=== PATIENT | female | born 1950 | race Caucasian/White ===

== ENCOUNTER → 2016-07-29 | Outpatient (CLI) | payer MEDICARE, OTHER ==
[~2016-07-29] MED LIST: ALBU2.5V4 NEB; AMLO5TAB2 PO; ASPI-999 PO; ATEN100T PO; CLOP75TA28 PO; DULO60CA6 PO; INSN1U SQ; INSU100V31 SC; LOSA100T28 PO; METF500T4 PO; NITR0.4T SL; PRAV40TA2 PO; RT-ALBUINH IH
== END ==
LOC: RAD 11:57
PROVIDERS: ATTEND Internal Medicine Cardiovascular Disease
DX: I25.10 Atherosclerotic heart disease of native coronary artery without angina pectoris (principal); I10 Essential (primary) hypertension; E78.4 Other hyperlipidemia; R26.89 Other abnormalities of gait and mobility; R00.2 Palpitations; R06.02 Shortness of breath; I35.0 Nonrheumatic aortic (valve) stenosis; I65.23 Occlusion and stenosis of bilateral carotid arteries; Z72.0 Tobacco use
CPT/HCPCS: 93923

== ENCOUNTER → 2016-07-31 | Outpatient (CLI) | payer MEDICARE, OTHER ==
--- NOTE | 2016-08-01 06:38 | ECHOCARDIOGRAPHY REPORT ---
DATE OF SERVICE: 07/31/2016 DATE OF SERVICE: 07/31/2016. ORDERING PHYSICIAN: Dr. Naranjo. PRIMARY PHYSICIAN: Dr. Melo. CLINICAL DIAGNOSIS: Shortness of breath, aortic stenosis, coronary artery disease. MEASUREMENTS: Left atrium: 4.4. Aortic root: 2.8. LV diameter diastolic: 4.8 IVS thickness, diastolic: 1.3. LVPW thickness, diastolic: 1.3. DESCRIPTION: Two-dimensional echocardiography shows mild concentric left ventricle hypertrophy. Global left ventricular systolic function is normal. No distinct regional wall motion abnormalities seen. Left ventricular ejection fraction is approximately 60%. There is moderate mitral annular calcification and moderate aortic valve sclerosis. Mitral and tricuspid valve leaflets show good leaflet excursion. Aortic valve leaflets exhibit fair leaflet excursion. Doppler imaging shows mild aortic, mitral and tricuspid regurgitation. Inferior vena cava is mildly dilated. There does not appear to be significant pressure gradient across the aortic valve. Pulmonary artery systolic pressure is estimated to be within normal limits. CONCLUSIONS: 1. Normal global left ventricular systolic function with an ejection fraction of approximately 60%. 2. Mild concentric left ventricular hypertrophy. 3. Aortic valve sclerosis without significant aortic stenosis. 4. Mitral annular calcification without significant mitral stenosis. 5. Mild aortic, mitral and tricuspid valvular regurgitation. 6. Pulmonary artery systolic pressure is estimated to be within normal limits. Job ID: [id number] DocumentID: [id number] Dictated Date: 07/31/2016 11:12:12 Assessment Consultant Date: 07/31/2016 16:00:40 Dictated By: ROMARIO NARANJO MD, MA, FACP, FACC,
== END ==
LOC: CARD 08:43
PROVIDERS: ATTEND Internal Medicine Cardiovascular Disease
DX: I25.10 Atherosclerotic heart disease of native coronary artery without angina pectoris (principal); I10 Essential (primary) hypertension; E78.4 Other hyperlipidemia; R26.89 Other abnormalities of gait and mobility; R00.2 Palpitations; R06.02 Shortness of breath; I35.0 Nonrheumatic aortic (valve) stenosis; I65.23 Occlusion and stenosis of bilateral carotid arteries; Z72.0 Tobacco use
CPT/HCPCS: 93225; 93226; 93306

== ENCOUNTER → 2016-08-05 | Outpatient (CLI) | payer MEDICARE, OTHER ==
[~2016-08-05] MED LIST changes: +CATHETER FLUSH 10 ML SYR IV PRN; +REGADENOSON 0.4 MG/5 ML SYR (LEXISCAN) IV ONE
[2016-08-05 09:04] VITALS: BP 160/79
--- NOTE | 2016-08-06 12:45 | STRESS TEST ---
DATE OF SERVICE: 08/05/2016 RESTING AND POST REGADENOSON TECHNETIUM-99M TETROFOSMIN SPECT CT IMAGING ORDERING PHYSICIAN: Dr. Naranjo. PRIMARY PHYSICIAN: Dr. Melo. CLINICAL DIAGNOSES: Coronary artery disease, hypertension, hyperlipidemia. Baseline images were carried out after injection of 10.56 mCi of technetium-99m tetrofosmin. This was followed by 0.4 mg regadenoson and 28.8 mCi of technetium-99m tetrofosmin. The electrocardiogram showed sinus rhythm with frequent isolated premature ventricular contractions throughout the study. There is nonspecific ST abnormality and involving the inferolateral leads that persisted throughout the study. Review of images at rest and following stress indicates the basal inferior infarction with a small amount of layla-infarct ischemia. Gated images show well-preserved global left ventricular systolic function. There appears to be some degree of basal inferior hypokinesis. Left ventricular ejection fraction is calculated to be 61%. Left ventricular end-diastolic volume is 69 mL. TID is absent (1.08). CONCLUSIONS: 1. The study is indicative of a basal inferior infarction with a small amount of layla-infarct ischemia. 2. Localized basal inferior hypokinesis. 3. Well-preserved global left ventricular systolic function with a calculated ejection fraction of 61%. 4. Frequent isolated premature ventricular contractions throughout the study. Job ID: [id number] DocumentID: [id number] Dictated Date: 08/06/2016 09:13:58 Environmental Engineering Aide Date: 08/06/2016 11:55:20 Dictated By: ROMARIO NARANJO MD, MA, FACP, FACC,
== END ==
LOC: CARD 07:12
PROVIDERS: ATTEND Internal Medicine Cardiovascular Disease
DX: I25.10 Atherosclerotic heart disease of native coronary artery without angina pectoris (principal); I10 Essential (primary) hypertension; E78.4 Other hyperlipidemia; R26.89 Other abnormalities of gait and mobility; R00.2 Palpitations; R06.02 Shortness of breath; I35.0 Nonrheumatic aortic (valve) stenosis; I65.23 Occlusion and stenosis of bilateral carotid arteries; Z72.0 Tobacco use
CPT/HCPCS: 78452; 93017

== ENCOUNTER 2016-08-12 07:09 | Day surgery (SDC) | payer MEDICARE ==
[~2016-08-12] VITALS: Ht 167.6 cm; Wt 94.3 kg
[2016-08-12] VITALS (10 sets, daily range): BP systolic 122–158; BP diastolic 65–104
[2016-08-12] MEDS ORDERED: NS IV 1000 ML 1,000 ML ONE (07:12)
[2016-08-12] MEDS ORDERED: LIDOCAINE 1% INJ 20 ML (XYLOCAINE) VIAL ONE (07:12)
[2016-08-12] MEDS ORDERED: HEParin (CATH LAB) 2,000 ML IV ONE (07:13)
[2016-08-12] MEDS ORDERED: NS IV 1000 ML 1,000 ML IV SCH (07:30)
[2016-08-12 07:52] LABS: MEAN PLATELET VOLUME 9.6 FL (7.4-10.4); RED BLOOD COUNT 4.4 10^6/uL (4.35-5.85); RED CELL DISTRIBUTION WIDTH 15.1 % (10.0-14.5)
[2016-08-12 08:02] LABS: INR 1.1 (0.8-1.4); PROTHROMBIN TIME PATIENT 13.6 SEC (12.2-14.7)
[2016-08-12 08:14] LABS: ALANINE AMINOTRANSFERASE 16 U/L (0-55); ALBUMIN 4.1 G/DL (3.2-4.5); ANION GAP 11 MMOL/L (5-14); ASPARTATE AMINO TRANSFERASE 14 U/L (5-34); BILIRUBIN,TOTAL 0.5 MG/DL (0.1-1.0); BLOOD UREA NITROGEN 10 MG/DL (7-18); BUN/CREATININE RATIO 13; CARBON DIOXIDE 23 MMOL/L (21-32); CHLORIDE 104 MMOL/L (98-107); CHOLESTEROL 142 MG/DL (< 200); CREATININE SERUM 0.78 MG/DL (0.60-1.30); DIRECT LDL 80 MG/DL (1-129); GFR ESTIMATED > 60; GLUCOSE 171 MG/DL (70-105); POTASSIUM 4.1 MMOL/L (3.6-5.0); SODIUM 138 MMOL/L (135-145); TRIGLYCERIDES 191 MG/DL (<150); VLDL CHOLESTEROL 38 MG/DL (5-40)
[2016-08-12] MEDS ORDERED: MIDAZOLAM 5 MG/5 ML (VERSED) VIAL ONE (08:30)
[2016-08-12] MEDS ORDERED: diphenhydrAMINE 50 MG/ML INJ (BENADRYL) ONE (08:31)
[2016-08-12] MEDS ORDERED: fentaNYL INJECTION 100 MCG/2 ML AMP ONE ×2 (08:31→11:18)
[2016-08-12] MEDS ORDERED: LOSA100T28 PO (08:33)
[2016-08-12] MEDS ORDERED: INSU100V31 SC (08:33)
[2016-08-12] MEDS ORDERED: NITR0.4T SL (08:33)
[2016-08-12] MEDS ORDERED: ALBU2.5V4 NEB (08:33)
[2016-08-12] MEDS ORDERED: AMLO5TAB2 PO (08:33)
[2016-08-12] MEDS ORDERED: INSN1U SQ (08:33)
[2016-08-12] MEDS ORDERED: PRAV40TA2 PO (08:33)
[2016-08-12] MEDS ORDERED: RT-ALBUINH IH (08:33)
[2016-08-12] MEDS ORDERED: METF500T4 PO (08:33)
[2016-08-12] MEDS ORDERED: ATEN100T PO (08:33)
[2016-08-12] MEDS ORDERED: DULO60CA6 PO (08:33)
[2016-08-12] MEDS ORDERED: ASPI-999 PO (08:33)
[2016-08-12] MEDS ORDERED: ADENOSINE 3 MG/1 ML (ADENOSCAN) 30ML VIAL IV ONE (09:16)
[2016-08-12] MEDS ORDERED: HEParin 1000 UNIT/ML (10ML VIAL) FOR BOLUS ONE (09:16)
[2016-08-12] MEDS ORDERED: NITROGLYCERIN DRIP 25 MG/D5W 250 ML IV ONE (09:28)
[2016-08-12] MEDS ORDERED: EPTIFIBATIDE BOLUS 20 ML IV ONE (09:29)
[2016-08-12] MEDS ORDERED: ASPIRIN 81 MG CHEW (CHILDREN'S ASA) ONE (10:09)
[2016-08-12] MEDS ORDERED: CLOPIDOGREL 300 MG (PLAVIX) TABLET PO ONE (10:09)
--- NOTE | 2016-08-12 11:02 | Cardiac Procedure Note-CS/ASA ---
Pre-Procedure Note Pre-Op Procedure Note H&P Reviewed The H&P was reviewed, patient examined and no changes noted. Date H&P Reviewed: August 12, 2016 Time H&P Reviewed: 09:00 Conscious Sedation Pre-Proced Time Reviewed: 09:00 Airway Mallampati Classification: ([place] appropriate class) I. II. III, IV Lungs Heart ASA score ASA 1: a normal healthy patient ASA 2: a patient with a mild systemic disease (mid diabetes, controlled hypertension, obesity ASA 3: a patient with a severe systemic disease that limits activity (angina , COPD, prior Myocardial infarction) ASA 4: a patient with an incapacitating disease that is a constant threat to life (CHF, renal failure) ASA 5: a moribund patient not expected to survive 24 hrs. (ruptured aneurysm) ASA 6: a declared brain patient whose organs are being harvested. For emergent operations, add the letter E after the classification Grade 2 Sedation Plan: Analgesia, Amnesia, Plan communicated to team members, Discussed options with patient/fam, Discussed risks with patient/fam Note The patient is an appropriate candidate to undergo the planned procedure, sedation, and anesthesia. The patient immediately re-assessed prior to indication. ROMARIO LINDSEY MD FACP FAC CCDS August 12, 2016 11:02
[2016-08-12] MEDS ORDERED: ACETAMINOPHEN 325 MG TABLET/CAPLET (TYLENOL) PO PRN (11:15)
[2016-08-12] MEDS ORDERED: PATIENT MAY USE OWN MEDS, ALL PO SCH (11:15)
[2016-08-12] MEDS ORDERED: NITROGLYCERIN SUBLINGUAL 0.4 MG TAB (NITROSTAT) SL PRN (11:15)
[2016-08-12] MEDS ORDERED: RT-ALBUTEROL SULF 2.5 MG/3 ML PRE-MIX VIAL IH PRN (11:15)
[2016-08-12] MEDS ORDERED: RT-ALBUTEROL HFA (VENTOLIN) PER PUFF IH PRN (11:15)
[2016-08-12] MEDS ORDERED: ATROPINE INJECTION 1 MG/10 ML SYR (ABBOTT) ONE (11:18)
[2016-08-12] MEDS ORDERED: fentaNYL INJECTION 100 MCG/2 ML AMP IVP ONE (11:30)
[2016-08-12] MEDS: NS IV 1000 ML 1,000 ML IV SCH ×2 (12:40→22:05)
--- NOTE | 2016-08-12 14:37 | CARDIAC CATHETERIZATION ---
DATE OF SERVICE: 08/12/2016 CARDIAC CATHETERIZATION, CORONARY INTERVENTION, AND ABDOMINAL AORTIC AND PERIPHERAL ANGIOGRAPHY HISTORY OF PRESENT ILLNESS: The patient is a 65-year-old lady who is known to have coronary artery disease and who has been exhibiting frequent premature ventricular contractions and a 4-beat run of wide complex tachycardia on a recent Holter study. Myocardial perfusion imaging study has indicated basal inferior infarction with a small amount of periinfarct ischemia. She has bilateral leg discomfort and segmental pressures 07/2016 have indicated moderate peripheral arterial disease. Cardiac catheterization and peripheral angiography was recommended, along with AD HOC intervention, if needed. Informed consent was obtained. DESCRIPTION OF PROCEDURE: She was brought to the cardiac catheterization laboratory in a fasting state. Right groin was prepared and draped in the usual sterile fashion, 1% lidocaine local anesthesia. Modified Seldinger technique was used to advance a 5-Marshallese sheath into the right femoral artery. A 5-Marshallese JL4 catheter was used for left coronary angiography. A 5-Marshallese JR4 catheter was used for right coronary angiography. A 5-Marshallese pigtail catheter was used for left heart catheterization and left ventricular angiography. FRACTIONAL FLOW RESERVE MEASUREMENT IN THE RIGHT CORONARY ARTERY: Following completion of the diagnostic procedure, we carried out fractional flow reserve measurement across multiple lesions in the right coronary artery. The patient had 50% stenosis in a previously stented area of the mid right coronary artery and 50%-60% stenosis in the distal right coronary artery, prior to the origin of the posterior descending branch. We exchanged the sheath over a wire for 6-Marshallese sheath. We gave 5000 units of intravenous heparin. We used the 6-Marshallese JR4 guide catheter. We advanced a pressure wire across the lesions in the right coronary artery and placed the tip in the distal vessel. We gave adenosine 140 mcg per kilogram per minute for 2.5 minutes. Fractional flow reserve (combined across all lesions) was approximately 0.91 indicating hemodynamic insignificance of all of the lesions in the right coronary artery. PERCUTANEOUS INTERVENTION TO THE LEFT CIRCUMFLEX ARTERY: Following completion of the fractional flow reserve measurement in the right coronary artery, we removed the right coronary artery guide catheter and then proceeded with percutaneous intervention to the AV groove L circumflex coronary artery, which was exhibiting 99% stenosis following the origin of the large obtuse marginal branch. The AV groove artery, however, is quite small. We advanced a 6-Marshallese JL4 guide catheter to engage the left coronary artery. We advanced a Choice floppy wire across the lesion in the AV groove, left circumflex artery and the tip was placed in the distal vessel. We carried out multiple balloon inflations with an Emerge 1.5 x 20 mm balloon. The vessel is of too small caliber for stenting. Following balloon angioplasty, the stenosis had been reduced from 90% to approximately 30% and flow throughout the vessel was normal. Angioplasty equipment was removed. We did give an additional 1000 units of intravenous heparin during this procedure. We also gave a double bolus of Integrilin during this procedure. ABDOMINAL AORTIC ANGIOGRAPHY: We then proceeded with abdominal aortic angiography with the pigtail catheter placed at the level of L1 and also at the level of the T12. BILATERAL LEG ARTERY ANGIOGRAPHY: We carried out bilateral leg artery angiography with the catheter placed at the level just cephalic to the aortoiliac bifurcation and a runoff was performed down to the level of the ankles on both sides. The patient tolerated the procedure well. The pigtail catheter was removed and angiography of the right femoral artery was carried out through the sheath, but the site of sheath deployment was not suitable for device closure. The sheath was sutured in place to be removed on the floor at a later time. HEMODYNAMICS: Left ventricular end-diastolic pressure following coronary angiography was 28 mmHg. There was approximately 12 mm pressure gradient on pullback across the aortic valve. Ascending aortic pressure at 155/75 with a mean of 105 mmHg. LEFT VENTRICULAR ANGIOGRAPHY: Left ventricular angiography was carried out in the right anterior oblique projection. Global left ventricular systolic function was normal. No distinctive regional wall motion abnormality was seen. There does not appear to be significant mitral regurgitation. Left ventricular ejection fraction was approximately 55%. CORONARY ANGIOGRAPHY: There is diffuse coronary calcification. Left main coronary artery does not exhibit significant obstructive disease. Left anterior descending artery has approximately 50% stenosis in its proximal to mid portion, where the first diagonal branch comes off the left anterior descending artery. The ostial portion of the left anterior descending artery also has approximately 50% stenosis. The rest of the left anterior descending artery has diffuse moderate disease. The left circumflex artery has diffuse mild to moderate disease. Following the origin of the large obtuse marginal branch, the AV groove left circumflex artery had 99% stenosis, to which a successful balloon angioplasty was carried out with a reduction of stenosis to 30%. This vessel is of a small caliber and not suitable for stenting. The right coronary artery is large and dominant. There is a patent stent in its mid portion, which was exhibiting approximately 50% in-stent restenosis. Just distal to the distal edge of the stent, there was another 50% stenosis. The distal right coronary artery, prior to the origin of the posterior descending branch, had 50%-60% stenosis. Fractional flow reserve plus the combination of all of these lesions is 0.91, indicating hemodynamic not significant. The posterior descending branch of the right coronary artery has 90% stenosis at its very distal portion where the vessels are too small of caliber for intervention. ABDOMINAL AORTIC ANGIOGRAPHY: Abdominal aortic angiography indicates abdominal aortic atherosclerosis and calcification. There is no significant abdominal aortic aneurysm. The mesenteric vessels are identified and do not exhibit significant disease. The celiac artery does not exhibit significant disease. The left renal artery is identified and does not exhibit significant disease. The right renal artery is not visualized. There does appear to be an accessory right renal artery, but the right renal artery itself is not visualized in its usual position. 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 BILATERAL LEG ARTERY ANGIOGRAPHY: Bilateral leg artery angiography indicates approximately 50% stenosis at the right common iliac. Both internal iliacs have severe proximal disease. The external iliacs, the common femoral arteries, the superficial femoral arteries, the deep femoral arteries, and the popliteal arteries on both sides do not exhibit significant disease. On both sides, there is a 3-vessel runoff in the leg. CONCLUSIONS: 1. Coronary artery disease as detailed above. In the right coronary artery, there is a patent stent in the mid portion and there is a diffuse moderate disease involving the mid and distal right coronary artery and fractional flow reserve across the combination of all of those lesions is 0.91, indicating hemodynamic non-significance. The posterior descending branch of the right coronary artery does have 90% stenosis at its very distal portion, where it is of a small caliber and not amenable to intervention. The left anterior descending artery has 50% stenosis at its mid portion, which also involves the first diagonal branch. The left circumflex artery had 99% stenosis in its mid portion following the origin of a large obtuse marginal branch. To this AV groove left circumflex artery, balloon angioplasty was carried out today with reduction of stenosis from 99% to approximately 30%. Here, the vessel is of too small caliber for stenting. 2. Elevated left ventricular end-diastolic pressure. 3. Well-preserved global left ventricular systolic function with ejection fraction of 55%. 4. No significant mitral regurgitation is visualized on the study. 5. Abdominal aortic atherosclerosis without abdominal aortic aneurysm. 6. Intact left renal artery without stenosis. The right renal artery is not visualized in its usual location on this study. 7. 50% stenosis of the right common iliac artery. DISCUSSION AND RECOMMENDATIONS: She is being hospitalized for observation after today's procedure. The risk factor modification has been reviewed. Plavix has been added to the regimen. Further decision will be based on her hospital course. Job ID: [id number] DocumentID: [id number] Dictated Date: 08/12/2016 10:33:39 Rip Machine Operator Date: 08/12/2016 11:33:43 Dictated By: ROMARIO LINDSEY MD, MA, FACP, FACC, MTDD
[2016-08-12] MEDS: inSUlin (REGULAR) HUMAN 1 UNIT/0.01 ML (CHARGE PER UNIT) SC SCH ×2 (16:12→21:04)
[2016-08-12] MEDS ORDERED: Pravastatin Sodium 40 MG PO SCH (21:00)
[2016-08-12] MEDS ORDERED: LOSARTAN 100MG TABLETS PO SCH (21:00)
[2016-08-12] MEDS ORDERED: ATENOLOL 100 MG PO SCH (21:00)
[2016-08-12] MEDS ORDERED: amLODIPine 5 MG (NORVASC) TAB PO SCH (21:00)
[2016-08-12] MEDS: inSUlin NPH (NovoLIN N) 1 UNIT/0.01 ML (CHARGE PER UNIT) SQ SCH (21:05)
[2016-08-13] VITALS: BP 129/59
[2016-08-13 04:00] VITALS: BP 124/95
[2016-08-13 04:22] LABS: MEAN PLATELET VOLUME 9.8 FL (7.4-10.4); RED BLOOD COUNT 3.88 10^6/uL (4.35-5.85); WHITE BLOOD COUNT 9.8 10^3/uL (4.3-11.0)
[2016-08-13 04:41] LABS: ANION GAP 8 MMOL/L (5-14); BLOOD UREA NITROGEN 12 MG/DL (7-18); BUN/CREATININE RATIO 16; CALCIUM 8.5 MG/DL (8.5-10.1); CARBON DIOXIDE 21 MMOL/L (21-32); CHLORIDE 108 MMOL/L (98-107); CREATININE SERUM 0.74 MG/DL (0.60-1.30); GFR ESTIMATED > 60; GLUCOSE 176 MG/DL (70-105); POTASSIUM 4.6 MMOL/L (3.6-5.0); SODIUM 137 MMOL/L (135-145)
[2016-08-13 08:00] VITALS: BP 132/85
--- NOTE | 2016-08-13 08:30 | Progress Note-Cardiology ---
Cardiology SOAP Progress Note Subjective: Sitting up in a recliner this morning. States she felt SOB last night and had to sleep in the recliner d/t not being able to lie flat. She states she felt she was having a lot of PVC's last night. She states she feels better this morning and wants to go home. No c/o CP, palpitations, syncope or near syncope. No c/o right groin pain. Objective: I&O/Vital Signs Vital Sign - Last 12Hours 08/13/16 08/13/16 08/13/16 08/13/16 04:00 07:00 08:00 08:00 Temp 97.2 97.7 Pulse 75 76 79 Resp 16 B/P (MAP) 124/95 132/85 Pulse Ox 95 95 95 O2 Delivery Room Air Intake and Output 08/13/16 00:00 Intake Total 1520 ml Output Total 400 ml Balance 1120 ml Weight (Pounds): 208 Weight (Ounces): 0.0 Weight (Calculated Kilograms): 94.685668 Side: right Groin site without hematoma: Yes Condition: DP/PT pulses palpable, extremity w/d/p Drainage: No Bruising: mild bruising Constitutional: AAO x 3 Respiratory: lungs clear to auscultation (diminished breath sounds with prolonged expiratory phase) Cardiovascular: regular rate-rhythm (Frequent PVC's), No JVD, S1 and S2 Gastrointestional: No tender, soft, round, audible bowel sounds Extremities: No significant edema Neurologic/Psychiatric: grossly intact Results/Procedures: Labs Laboratory Tests 08/12/16 20:47: Glucometer 85 08/12/16 22:56: Glucometer 161H 08/13/16 04:00: White Blood Count 9.8, Red Blood Count 3.88L, Hemoglobin 11.8, Hematocrit 37, Mean Corpuscular Volume 96, Mean Corpuscular Hemoglobin 30, Mean Corpuscular Hemoglobin Concent 32, Red Cell Distribution Width 15.0H, Platelet Count 239, Mean Platelet Volume 9.8, Sodium Level 137, Potassium Level 4.6, Chloride Level 108H, Carbon Dioxide Level 21, Anion Gap 8, Blood Urea Nitrogen 12, Creatinine 0.74, Estimat Glomerular Filtration Rate > 60, BUN/Creatinine Ratio 16, Glucose Level 176H, Calcium Level 8.5 Procedures S/P cardiac cath with successful intervention on 08-12-16. Please refer to Dr. Naranjo's cardiac cath report for details. A/P: Assessment: Coronary artery disease. With a h/o PCI. H/o cor stenting at [facility] in [place], [place] in early 2012: mid-RCA stent (Promus [id number], placed in May 2012 ) Cardiac cath of August 12 showed patent stent in the mid RCA and diffuse moderate disease involving the mid and distal right coronary artery with fractional flow reserve across the combination of all of those lesions of 0.91, indicating hemodynamic non-significance. The posterior descending branch of the right coronary artery does have 90% stenosis at its very distal portion where it is of a small caliber and not amenable to intervention. The left anterior descending artery has 50% stenosis in its mid portion, which also involves the first diagonal branch. The left circumflex artery had 99% stenosis in its mid portion following the origin of a large obtuse marginal branch. To this AV groove left circumflex artery, balloon angioplasty was carried out today with reduction of stenosis from 99% to approximately 30%. Here, the vessel is of too small a caliber for stenting. Elevated left ventricular end-diastolic pressure. Well-preserved global left ventricular systolic function with ejection fraction of 55%. No significant mitral regurgitation is visualized on the study. Abdominal aortic atherosclerosis without abdominal aortic aneurysm. Intact left renal artery without stenosis. The right renal artery is not visualized in its usual location on this study. Per angiogram of 08-12-16 MPI of August 05, 2016 is indicative of a basal inferior infarction with a small amount of layla-infarct ischemia. Localized basal inferior hypokinesis. LVEF 61 %. Frequent isolated PVC's throughout the study 24 hour Holter study of August 2016 showed NSR with average rate of 94 bpm. Frequent PVC's. Up to 4 beat run of WCT at up to [address] abnormality throughout the study H/o carotid arterial disease Echo of July 31, 2016 showed LVEF of 60%. Mild concentric LVH. Aortic valve sclerosis witout significant aortic stenosis. Mitral annular calcification without significnat mitral stenosis. Mild aortic, mitral and tricuspid valvular regurg. PASP WNL H/o R subclavian stenosis by carotid doppler, per records from [facility] ( details unknown) Chronic PAC and PVCs, symptomatic, treated with beta-blockers Hypertension DM II Hyperlipidemia, treated with pravastatin Elevated BMI of approx 33.6 H/o OA and fibromyalgia Abnormal ECG on 07/23/16: Sinus rhythm with vent bigeminy, nonspecific ST abn Chronic bilateral leg discomfort - Segmental pressure of July 2016 is indicative of mild peripheral arterial disease of the left leg and mod PAD of the right leg - 50% stenosis of the right common iliac artery and severe ostial/ prox stenoses of bilat internal iliac arteries per peripheral angiogram at time of cardiac cath on 08-12-16 Physician Assessment Physician Assessment Lungs: good bilat air entry Cor: reg Groin: no hematoma, mod bruising A&R * As documented in our note above, which I updated at the time of this writing * I had a detailed discussion with her and her regarding our cath findings and interventions undertaken. We discussed her CV issues at length. We also discussed the extreme importance of risk factor modification, saad quitting smoking. We have advised close outpatient f/u for now * She understands all of the above and states compliance * For frequent PVCs, we offered EP referral, but she has not agreed PURA JAMESON August 13, 2016 08:30 ROMARIO NARANJO MD FACP FAC CCDS August 13, 2016 13:17
[2016-08-13] MEDS: inSUlin (REGULAR) HUMAN 1 UNIT/0.01 ML (CHARGE PER UNIT) SC SCH (08:34)
[2016-08-13] MEDS ORDERED: CLOP75TA28 PO (08:39)
--- NOTE | 2016-08-13 08:41 | Discharge Inst-Cardiology ---
Discharge Inst-Cardiac Discharge Medications New Medications: Clopidogrel Bisulfate (Clopidogrel) 75 Mg Tablet 75 MG PO DAILY, #90 TAB 3 Refills Continued Medications: Albuterol Sulfate (Ventolin Hfa) 1 Puff Puff 2 PUFF IH Q4H PRN for SHORTNESS OF BREATH, PUFF 1 PUFF = 90 MCG Albuterol Sulfate (Albuterol Sulfate) 2.5 Mg/3 Ml Vial.neb 2.5 MG NEB Q6H PRN for SHORTNESS OF BREATH, EA Amlodipine Besylate (Amlodipine Besylate) 5 Mg Tablet 5 MG PO HS, TAB Aspirin (Aspirin) 81 Mg Tab.chew 81 MG PO HS, TAB Atenolol (Atenolol) 100 Mg Tablet 100 MG PO HS, TAB Duloxetine HCl (Cymbalta) 60 Mg Capsule.dr 60 MG PO Q48H, CAP Insulin NPH Human Isophane (Novolin N) 100 Unit/1 Ml Vial 52 UNIT SQ BID, VIAL Insulin Regular, Human (Novolin R) 100 Unit/1 Ml Vial 52 UNIT SC TID, VIAL Losartan Potassium (Losartan Potassium) 100 Mg Tablet 100 MG PO HS, TAB Metformin HCl (Metformin HCl) 500 Mg Tablet 1000 MG PO BID, TAB TAKES 2 (500MG) TABLETS Nitroglycerin (Nitrostat) 0.4 Mg Tab.subl 0.4 MG SL UD PRN for CHEST PAIN, TAB Pravastatin Sodium (Pravastatin Sodium) 40 Mg Tablet 40 MG PO HS, TAB New, Converted or Re-Newed RX: Transmitted to Pharmacy Patient Instructions Patient Instructions: Hold Metformin today and tomorrow; restart on Monday, August 15, 2016 Follow up appt to see Dr. Naranjo in a week Orders-Post D/C & Referrals Pneu Vac Indicated: Yes PURA JAMESON August 13, 2016 08:41
[2016-08-13] MEDS: inSUlin NPH (NovoLIN N) 1 UNIT/0.01 ML (CHARGE PER UNIT) SQ SCH (09:00)
[2016-08-13] MEDS ORDERED: ASPIRIN E.C. 81 MG (ECOTRIN) TAB PO SCH (09:00)
[2016-08-13] MEDS ORDERED: CLOPIDOGREL 75 MG (PLAVIX) TABLET PO SCH (09:00)
[2016-08-13 12:20] VITALS: BP 132/85
[2016-08-13] MEDS ORDERED: RT-ALBUTEROL HFA (VENTOLIN) PER PUFF IH SCH (12:45)
== END 2016-08-13 12:30 | disposition home or self-care (01) ==
LOC: CATH 07:09 → ICU 10:22 → CATH 08-13 12:30
PROVIDERS: ATTEND Internal Medicine Cardiovascular Disease
DX: R94.39 Abnormal result of other cardiovascular function study (principal); I25.10 Atherosclerotic heart disease of native coronary artery without angina pectoris; R00.0 Tachycardia, unspecified; I25.84 Coronary atherosclerosis due to calcified coronary lesion; I70.0 Atherosclerosis of aorta; I70.203 Unspecified atherosclerosis of native arteries of extremities, bilateral legs; I49.1 Atrial premature depolarization; I49.3 Ventricular premature depolarization; I10 Essential (primary) hypertension; Z79.4 Long term (current) use of insulin; E78.5 Hyperlipidemia, unspecified; Z95.5 Presence of coronary angioplasty implant and graft; Z79.899 Other long term (current) drug therapy; Z72.0 Tobacco use; E11.9 Type 2 diabetes mellitus without complications
CPT/HCPCS: 36415; 75625; 75716; 80048; 80053; 80061; 82962; 85027; 85347; 85610; 85730; 87081; 92920; 93005; 93458; 93571; 94640

== ENCOUNTER → 2017-06-15 | Outpatient (CLI) | payer MEDICARE ==
[~2017-06-15] MED LIST changes: -CATHETER FLUSH 10 ML SYR IV PRN; -REGADENOSON 0.4 MG/5 ML SYR (LEXISCAN) IV ONE
--- NOTE | 2017-06-16 14:20 | Diagnostic Imaging Report ---
EXAMINATION: Digital mammogram bilateral screening with CAD. INDICATION: Screening. COMPARISON: 03/21/2002. PERSONAL HISTORY: At this time, there are no current complaints. FINDINGS: There are scattered fibroglandular densities in both breasts which could obscure a lesion. In the interval since the prior exam, a number of microcalcifications have developed throughout both breasts. These calcifications have a generally benign appearance. There also appear to be several fat necrosis type calcifications in the right breast. These, too, are most likely benign. There is no primary or secondary sign of malignancy noted. IMPRESSION: 1. There is no evidence for malignancy. 2. The patient should have her annual bilateral screening mammogram on schedule in June 2018. ACR BI-RADS Category 1: Negative. Result letter will be mailed to the patient. Note: At least 10% of breast cancer is not imaged by mammography. Dictated by: Dictated on workstation # [id number]
== END ==
LOC: RAD 10:37
PROVIDERS: ATTEND Internal Medicine
DX: Z12.31 Encounter for screening mammogram for malignant neoplasm of breast (principal)
CPT/HCPCS: 77067

== ENCOUNTER → 2017-08-18 | Outpatient (CLI) | payer MEDICARE ==
[~2017-08-18] MED LIST changes: -METF500T4 PO; +METF500T5 PO
--- NOTE | 2017-08-18 15:45 | Diagnostic Imaging Report ---
INDICATION: Fall. Decreased range of motion. COMPARISON: None. FINDINGS: Three views of the right elbow show no fractures, dislocations, or other acute bony abnormalities identified. Joint spaces are well maintained throughout. The soft tissues appear unremarkable. No radiopaque foreign bodies are identified. IMPRESSION: No acute fractures or dislocations of the right elbow. Dictated by: Dictated on workstation # [id number]
--- NOTE | 2017-08-18 15:47 | Diagnostic Imaging Report ---
INDICATION: Fall. Arm pain. Decreased range of motion. COMPARISON: None. FINDINGS: Two views of the right humerus show no fractures, dislocations, or other acute bony abnormalities identified. Joint spaces are well maintained throughout. The soft tissues appear unremarkable. No radiopaque foreign bodies are identified. IMPRESSION: No acute fractures or dislocations of the right humerus. Dictated by: Dictated on workstation # [id number]
== END ==
LOC: RAD 15:00
PROVIDERS: ATTEND Nurse Practitioner
DX: M79.601 Pain in right arm (principal); W19.XXXA Unspecified fall, initial encounter; Y93.9 Activity, unspecified; Y92.009 Unspecified place in unspecified non-institutional (private) residence as the place of occurrence of the external cause
CPT/HCPCS: 73060; 73080

== ENCOUNTER → 2018-06-25 | Outpatient (CLI) | payer MEDICARE ==
[~2018-06-25] MED LIST changes: -AMLO5TAB2 PO; +AMLO5TAB9 PO; -LOSA100T28 PO; +LOSA100T57 PO; +METF-397 PO; -METF500T5 PO
--- NOTE | 2018-06-25 10:56 | Diagnostic Imaging Report ---
INDICATION: Cough and congestion. TIME OF EXAM 10:35 AM COMPARISON: No prior studies available for comparison. FINDINGS: The heart size is normal. The pulmonary vascularity is unremarkable. The lungs are clear. No infiltrate, effusion or pneumothorax is detected. IMPRESSION: No acute cardiopulmonary process is detected. Dictated by: Dictated on workstation # [id number]
--- NOTE | 2018-06-25 19:29 | Diagnostic Imaging Report ---
INDICATION: Routine screening. Comparison is made with prior mammogram from 06/15/2017. 2-D and 3-D bilateral screening mammography was performed with Computer-Aided Detection (CAD) system. FINDINGS: Scattered fibroglandular densities are identified bilaterally. Numerous benign-appearing calcifications are noted throughout both breasts. No dominant mass or malignant-appearing microcalcifications are seen. Axillae are unremarkable. IMPRESSION: No mammographic features suspicious for malignancy are identified. ACR BI-RADS Category 2: Benign findings. Result letter will be mailed to the patient. Note: At least 10% of breast cancer is not imaged by mammography. Dictated by: Dictated on workstation # [id number]
== END ==
LOC: RAD 10:19
PROVIDERS: ATTEND Internal Medicine
DX: Z12.31 Encounter for screening mammogram for malignant neoplasm of breast (principal); R05 Cough; R09.89 Other specified symptoms and signs involving the circulatory and respiratory systems
CPT/HCPCS: 71046; 77067

== ENCOUNTER 2019-03-15 05:35 | Outpatient (CLI) | payer MEDICARE ==
[~2019-03-15] VITALS: Ht 167.7 cm; Wt 78.2 kg
[2019-03-15] MEDS ORDERED: CLOP75TA28 PO (14:32)
[2019-03-15] MEDS ORDERED: SITA100T12 PO (14:35)
[2019-03-15] MEDS ORDERED: EMPA10TA PO (14:35)
== END 2019-03-15 14:37 | disposition home or self-care (01) ==
LOC: PREOP 05:35
PROVIDERS: ATTEND Surgery
DX: Z01.818 Encounter for other preprocedural examination (principal)

== ENCOUNTER → 2019-09-28 | Outpatient (CLI) | payer MEDICARE ==
[~2019-09-28] MED LIST changes: +EMPA10TA PO; +SITA100T12 PO
--- NOTE | 2019-09-28 13:06 | Diagnostic Imaging Report ---
INDICATION: Routine screening. Comparison is made with prior mammogram from 06/25/2018 and 06/15/2017. 2-D and 3-D bilateral screening mammography was performed with CAD. Scattered fibroglandular densities are identified bilaterally. Benign calcifications are scattered throughout both breasts. Benign nodules are stable. No spiculated mass or malignant appearing microcalcifications are seen. Axillae are unremarkable. IMPRESSION: BI-RADS Category 2 No mammographic features suspicious for malignancy are identified. ACR BI-RADS Category 2: Benign findings. Result letter will be mailed to the patient. Note: At least 10% of breast cancer is not imaged by mammography. Dictated by: Dictated on workstation # [id number]
== END ==
LOC: RAD 09:44
PROVIDERS: ATTEND Obstetrics & Gynecology
DX: Z12.31 Encounter for screening mammogram for malignant neoplasm of breast (principal)
CPT/HCPCS: 77063; 77067

== ENCOUNTER → 2019-10-26 | Outpatient (CLI) | payer MEDICARE | LOC: LAB 08:45 | PROVIDERS: ATTEND Physician Assistant | DX: R05 Cough (principal); J34.89 Other specified disorders of nose and nasal sinuses; Z20.828 Contact with and (suspected) exposure to other viral communicable diseases | CPT/HCPCS: 86769; U0002; 36415; 87635 ==

== ENCOUNTER → 2019-12-30 | Outpatient (CLI) | payer MEDICARE ==
[~2019-12-30] MED LIST changes: +OMEG1CAP58 PO
== END ==
LOC: CARD 10:00
PROVIDERS: ATTEND Internal Medicine Cardiovascular Disease
DX: I25.10 Atherosclerotic heart disease of native coronary artery without angina pectoris (principal); E78.5 Hyperlipidemia, unspecified; I77.89 Other specified disorders of arteries and arterioles; I10 Essential (primary) hypertension; Z72.0 Tobacco use; I35.0 Nonrheumatic aortic (valve) stenosis
CPT/HCPCS: 93306

== ENCOUNTER 2020-01-03 08:00 | Observation (INO) | payer MEDICARE ==
[~2020-01-03] VITALS: Ht 167 cm; Wt 80.3 kg
[2020-01-03] VITALS (14 sets, daily range): BP systolic 113–155; BP diastolic 56–76
[2020-01-03] MEDS: NS IV 1000 ML 1,000 ML IV SCH ×4 (07:12→15:58)
[2020-01-03 07:18] LABS: HEMOGLOBIN 15.8 g/dL (11.5-16.0); MEAN PLATELET VOLUME 8.9 fL (9.0-12.2); WHITE BLOOD COUNT 9.6 10^3/uL (4.3-11.0)
[2020-01-03 07:29] LABS: INR 0.9 (0.8-1.4); PROTHROMBIN TIME PATIENT 12.7 SEC (12.2-14.7)
[2020-01-03 07:38] LABS: ALANINE AMINOTRANSFERASE 10 U/L (0-55); ALBUMIN 4.4 GM/DL (3.2-4.5); ALKALINE PHOSPHATASE 67 U/L (40-136); BILIRUBIN,TOTAL 0.2 MG/DL (0.1-1.0); BUN/CREATININE RATIO 17; CALCIUM 10.2 MG/DL (8.5-10.1); CARBON DIOXIDE 20 MMOL/L (21-32); CHLORIDE 101 MMOL/L (98-107); CHOLESTEROL 175 MG/DL (< 200); CREATININE SERUM 0.92 MG/DL (0.60-1.30); GFR ESTIMATED > 60; GLUCOSE 174 MG/DL (70-105); HDL CHOLESTEROL 35 MG/DL (40-60); POTASSIUM 4.2 MMOL/L (3.6-5.0); SODIUM 136 MMOL/L (135-145); TRIGLYCERIDES 378 MG/DL (<150); VLDL CHOLESTEROL 76 MG/DL (5-40)
[~2020-01-03 08:00] MED LIST changes: +HEParin (CATH LAB) 2,000 ML IV ONE; +LIDOCAINE 1% INJ 20 ML 20 ML VIAL ONE; +NS IV 1000 ML 1,000 ML ONE
[2020-01-03] MEDS ORDERED: MIDAZOLAM 5 MG/5 ML (VERSED) VIAL ONE (08:19)
[2020-01-03] MEDS ORDERED: fentaNYL INJECTION 100 MCG/2 ML AMP ONE (08:19)
[2020-01-03] MEDS ORDERED: HEParin 1000 UNIT/ML (10ML VIAL) FOR BOLUS ONE (09:02)
[2020-01-03] MEDS ORDERED: ADENOSINE 3 MG/1 ML (ADENOSCAN) 30ML VIAL IV ONE (09:02)
[2020-01-03] MEDS ORDERED: PATIENT MAY USE OWN MEDS, ALL PO SCH (09:30)
--- NOTE | 2020-01-03 09:30 | Cardiac Procedure Note-CS/ASA ---
Pre-Procedure Note Pre-Op Procedure Note H&P Reviewed The H&P was reviewed, patient examined and no changes noted. Date H&P Reviewed: Jan 03, 2020 Time H&P Reviewed: 08:45 Conscious Sedation Pre-Proced Time 08:45 ASA Score 3 For ASA 3 and 4: Consider anesthesia and medical clearance. Also, for patients with a history of failed moderate sedation consider anesthesia. Airway Lungs Heart ASA score ASA 1: a normal healthy patient ASA 2: a patient with a mild systemic disease (mid diabetes, controlled hypertension, obesity ASA 3: a patient with a severe systemic disease that limits activity (angina, COPD, prior Myocardial infarction) ASA 4: a patient with an incapacitating disease that is a constant threat to life (CHF, renal failure) ASA 5: a moribund patient not expected to survive 24 hrs. (ruptured aneurysm) ASA 6: a declared brain- patient whose organs are being harvested. For emergent operations, add the letter E after the classification Mallampati Classification Grade 2 Sedation Plan Analgesia, Amnesia, Plan communicated to team members, Discussed options with patient/fam, Discussed risks with patient/fam The patient is an appropriate candidate to undergo the planned procedure, sedation, and anesthesia. The patient immediately re-assessed prior to indication. ROMARIO LINDSEY MD FACP FAC CCDS Jan 03, 2020 09:29
--- NOTE | 2020-01-03 09:33 | Discharge Inst-Cardiology ---
Discharge Inst-Cardiac Discharge Medications Continued Medications: Albuterol Sulfate (Ventolin Hfa) 1 Puff Puff 2 PUFF IH Q4H PRN for SHORTNESS OF BREATH, PUFF 1 PUFF = 90 MCG Albuterol Sulfate (Albuterol Sulfate) 2.5 Mg/3 Ml Vial.neb 2.5 MG NEB Q6H PRN for SHORTNESS OF BREATH, EA Amlodipine Besylate (Amlodipine Besylate) 5 Mg Tablet 5 MG PO HS, TAB Aspirin (Aspirin) 81 Mg Tab.chew 81 MG PO HS, TAB Atenolol (Atenolol) 100 Mg Tablet 100 MG PO HS, TAB Clopidogrel Bisulfate (Clopidogrel) 75 Mg Tablet 75 MG PO DAILY, TAB Duloxetine HCl (Cymbalta) 60 Mg Capsule.dr 60 MG PO DAILY, CAP Empagliflozin (Jardiance) 10 Mg Tablet 10 MG PO DAILY, TAB Losartan Potassium (Losartan Potassium) 100 Mg Tablet 100 MG PO HS, TAB Nitroglycerin (Nitrostat) 0.4 Mg Tab.subl 0.4 MG SL UD PRN for CHEST PAIN, TAB [place]-3 Fatty Acids/Fish Oil ([place] 3 1,000 mg Softgel) 1 Each Capsule 1 EACH PO DAILY, CAP Pravastatin Sodium (Pravastatin Sodium) 40 Mg Tablet 40 MG PO HS, TAB Sitagliptin Phosphate (Januvia) 100 Mg Tablet 100 MG PO DAILY, TAB Discontinued Medications: Metformin HCl (Metformin HCl) 500 Mg Tablet 1000 MG PO BID, TAB TAKES 2 (500MG) TABLETS Patient Instructions Patient Instructions: Hold METFORMIN until the morning of 01/06/20, then resume previous home dose ROMARIO LINDSEY MD [facility] CCDS Jan 03, 2020 09:33
--- NOTE | 2020-01-03 09:34 | Discharge Inst-Post CATH ---
Discharge Inst-CATH/EP Post Cardiac Cath/EP D/C Inst Follow Up/Plan F/u with Dr Naranjo in 2 weeks ACTIVITY * Go Home directly and rest. * Limit activity of the leg (or wrist if it was used) for 7 days including aerobics, swimming, jogging, bicycling, etc. * Restrict stair-climbing for 7 days if possible, if not, climb up with your n on-cath leg, then bring together on the same step. * Avoid lifting, pushing, pulling or excessive movement of the affected ex tremity for 7 days. * Customary sexual activity may be resumed after 2 days-use caution not to use a position that strains or causes pain to the affected extremity. * No driving for 24 hours. * NO SMOKING. * Avoid straining for bowel movements for 7 days. * Gentle walking on level ground is allowed. * Returning to work will depend on the type of procedure and the results. Your doctor will discuss this with you. CALL YOUR DOCTOR FOR ANY OF THE FOLLOWING: *If bleeding from the puncture site occurs- Apply gentle pressure to site with clean cloth and call your doctor or EMS. * If a knot or lump forms under the skin, increases in size, or causes pain. * If bruising appears to be worsening or moving further down your leg instead of disappearing. * Temperature above 101 F. CARE OF YOUR GROIN INCISION; * Bruising or purple discoloration of the skin near the puncture site is common. * You may shower only, no bathtub bathing for 5 days. Be careful to avoid slipping as your leg may feel stiff. * If a closure device was used on your femoral artery, please see the attached guide regarding care of the device and your leg. * Leave dressing on FOR 24 hours. CARE OF YOUR WRIST INCISION; * Bruising or purple discoloration of the skin near the puncture site is common. * You may shower. * DO NOT submerge wrist. * Leave dressing on FOR 24 hours. ROMARIO NARANJO MD FACP FAC CCDS Jan 03, 2020 09:34
--- NOTE | 2020-01-03 10:02 | CARDIAC CATHETERIZATION ---
DATE OF SERVICE: 01/03/2020 CARDIAC CATHETERIZATION REPORT The patient is a 69-year-old lady who has known coronary artery disease and who has been experiencing increasing shortness of breath, poor stamina, and generalized malaise. Cardiac catheterization was carried out today after having obtained an informed consent. DESCRIPTION OF PROCEDURE: She was brought to the cardiac catheterization laboratory in a fasting state. Right groin was prepared and draped in the usual sterile fashion. Lidocaine 1% was used for local anesthesia. Modified Seldinger technique was used to advance a 5-Moldovan sheath in right femoral artery, 5-Moldovan JL4 catheter was used for left coronary angiography, 5-Moldovan JR4 catheter for right coronary angiography, 5-Moldovan pigtail catheter was used for left heart catheterization and left ventricular angiography. Subsequently, fractional flow reserve measurement was carried out in the right coronary that is described below. FRACTIONAL FLOW RESERVE MEASUREMENT IN THE RIGHT CORONARY ARTERY: The right coronary artery was exhibiting approximately 50% in-stent restenosis in the proximal portion of mid right coronary artery stent. We carried out fractional flow reserve measurement. We exchanged the sheath over a wire for a 6-Moldovan sheath. We used JR4 guide, 6F. We advanced a pressure wire across the right coronary artery lesion and the tip was placed in the posterior descending branch of the right coronary artery. The pressure wire was cross the mid vessel lesion and a distal 40% lesion prior to the bifurcation of the right coronary artery in the posterolateral and posterior descending branches. We gave adenosine 140 mcg per kilogram per minute for 2-1/2 minutes. Fractional flow reserve was 0.96, indicating that the lesions in the right coronary artery were not hemodynamically significant. HEMODYNAMICS: Left ventricular systolic pressure was 163 and the left ventricular end-diastolic pressure was 19 mmHg. At pullback, left ventricular systolic pressure was 153 and the aortic systolic pressure was 117 indicating a nzod-kk-dirk gradient of 36 mmHg. CORONARY ANGIOGRAPHY: Heavy coronary calcification is present in all coronary vessels. Left main coronary artery does not exhibit significant obstructive disease. Left anterior descending artery has approximately 40% mid vessel stenosis at the origin of the first diagonal branch. The left circumflex artery is severely diseased following the origin of a large obtuse marginal branch. The distal left circumflex artery is of very small caliber and is not amenable to intervention. The right coronary artery is large and dominant. It has a patent stent in its mid portion that is known to be Promus 3.5 x 24 that was placed in 05/2012. This stent is patent. There is approximately 50% in-stent restenosis. There is also 40% distal restenosis. Fractional flow reserve across the combination of these lesions is 0.96, indicating that they are not hemodynamically significant. LEFT VENTRICULAR ANGIOGRAPHY: Left ventricular angiography was carried out in the right anterior oblique projection. Global left ventricular systolic function is normal. Left ventricular ejection fraction is approximately 65%. CONCLUSIONS: 1. Coronary artery disease, moderate, including 40% mid vessel stenosis of the left anterior descending, severe distal disease in the left circumflex where the vessel is not of an adequate caliber for intervention, 50% in-stent restenosis in the right coronary and 40% distal stenosis in the right coronary. A mid right coronary artery stent, known to be Promus 3.5 x 24, placed in 2012, is patent with a 50% in-stent restenosis in its proximal portion in the right coronary. Fractional flow reserve across the lesions in the right coronary is 0.96, indicating hemodynamic insignificance. 2. Moderate aortic stenosis with a zbpb-xf-qksg gradient of 36 mmHg. 3. Normal global left ventricular systolic function with ejection fraction approximately 65%. DISCUSSION AND RECOMMENDATIONS: Based on results of the study, it appears appropriate to continue a conservative approach and close outpatient followup. Risk factor modification has been reviewed. Outpatient followup is advised. Job ID: [id number] DocumentID: [id number] Dictated Date: 01/03/2020 09:42:47 Lead Sustainability Specialist Date: 01/03/2020 10:01:28 Dictated By: ROMARIO LINDSEY MD, MA, FACP, FACC, MTDD
--- NOTE | 2020-01-03 12:43 | NUR ---
PATIENT'S BEDREST IS UP AND MARGIE ERNST GETTING PATIENT UP AND REPORTS THAT PATIENT'S RIGHT LEG IS BUCKLING UNDER HER. THIS RN TO ROOM TO ASSESS VSS, PATIENT'S STATES SHE CAN'T MOVE LEG WITHOUT BUCKLING. THIS RN HAD PATIENT SIT ON EDGE OF BED TO DANGLE LEGS AND AFTER 5 MINUTES THIS RN AND MARGIE ERNST STOOD PATIENT UP AND SHE TRIED TO WALK AND LEG OUT FROM HER AND THIS RN AND MARGIE ERNST CAUGHT PATIENT PRIOR TO FALLING ON FLOOR. THIS RN PAGED DR. LINDSEY AT THIS TIME AND PHONED WELDER/INSTALLER TO INFORM TO PHONE THIS RN. NURIA ANSWERED PHONED AND STATED HE DIDN'T SHE PAGER BUT WOULD INFORM HIM TO PHONE THIS RN FOR FURTHER ORDERS.
--- NOTE | 2020-01-03 12:50 | NUR ---
NICOLE BILLINGS TO FLOOR TO ASSESS PATIENT. THIS RN INFORMED THAT PATIENT'S VSS, RANGE OF MOTION, PROCEDURE SITE AND PULSE ARE ALL WNL. PATIENT HAS WEAKNESS TO RIGHT LEG. PURA ASSESSED PATIENT AND PHONED DR. LINDSEY. NEW ORDERS TO WAIT 45 MINUTES ([id number]) AND THEN IF PATIENT IS STILL HAVING WEAKNESS AND BUCKLING TO PAGE DR. LINDSEY FOR OBSERVATION STAY, IF PATIENT WALKS THEN DISCHARGE AND PHONE OFFICE FOR APPOINTMENT TOMORROW AT OFFICE. THIS RN TO INFORM PATIENT AND MONITOR FOR ANY CHANGES.
--- NOTE | 2020-01-03 14:30 | NUR ---
THIS RN PAGED DR. LINDSEY AT [phone], [phone] AND [phone] AND SEVERAL ATTEMPTS TO OFFICE. THIS RN ASKED FOR NICOLE BILLINGS AND INFORMED OF TRYING TO PAGE AND NICOLE BILLINGS GAVE TELEPHONE ORDERS TO ADMIT PATIENT CSD 508 RIGHT LEG WEAKNESS, POST CATH, 60 CHO ADA DIET, NO ACCUCHECKS AND TO CONTINUE ALL HOME MEDICATIONS AND MAY USE HOME MEDICATIONS AND THAT NICOLE NEVES WOULD PUT IN ANY ADDITIONAL ORDERS.
[2020-01-03] MEDS ORDERED: NITROGLYCERIN 0.4 MG SL TABS BTL 25'S SL PRN (14:45)
[2020-01-03] MEDS ORDERED: RT-ALBUTEROL SULF 2.5 MG/3 ML PRE-MIX VIAL IH PRN (14:45)
[2020-01-03] MEDS ORDERED: ACETAMINOPHEN 500 MG TAB (TYLENOL) PO PRN (14:45)
[2020-01-03] MEDS ORDERED: RT-ALBUTEROL SULF 2.5 MG/3 ML PRE-MIX VIAL INH PRN (14:45)
[2020-01-03] MEDS ORDERED: PATIENT MAY USE OWN MEDS, ALL MC SCH (14:45)
--- NOTE | 2020-01-03 14:58 | Cardiology History & Physical ---
HPI-Cardiology Cardiology H&P Date of Admission 01-03-2020 Primary Care Physician Liang Melo MD Attending Physician Shanon Naranjo MD [facility] Consulting Physician COMFORT Ms. Paniagua is a 69 yr old female who presented today for elective cardiac cath d/t increasing fatigue and SOB. She has undergone cardiac cath procedure. She was assisted up by nursing staff to ambulate after she had completed bedrest and is reporting weakness of her right leg when bearing weight. She is able to move the extremity without any difficultly. No c/o pain. Extremity is warm, dry and pink. She reports when trying to bear weight on the leg she feels as though her knee is going to buckle. She is not reporting any c/o CP. She has chronic mild to mod dyspnea which is unchanged. No c/o n/v/d. No c/o fever or chills. Review of Systems-Cardiology Review of Systems Constitutional: No chills, No fever, No malaise Ears/Nose/Throat: No epistaxis, No recent hearing loss Respiratory: As described under HPI Cardiovascular: As described under HPI Gastrointestinal: No nausea, No vomiting Skin: As described under HPI Psychiatric/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: No seizure, No focal weakness, No syncope TII-Eoozqg-Xewyrh Hx Patient Social History Alcohol Use: Denies Use Recreational Drug Use: No Smoking Status: Current Everyday Smoker Type Used: Cigarettes Recent Foreign Travel: No Immunizations Up To Date Tetanus Booster (TDap): Unknown Date of Pneumonia Vaccine: Jan 03, 2019 Date of Influenza Vaccine: Jan 04, 2019 Past Medical History PMH As described under Assessment. Family Medical History Family Medical History: Mother, father and brother with HTN and CAD. Allergies and Home Medications Allergies Coded Allergies: ciprofloxacin (Verified Allergy, Severe, TENDONITIS, 08/12/16) TENDONITIS morphine (Verified Allergy, Severe, RASH/ BURNING SENSATION, 08/12/16) Home Medications Albuterol Sulfate 1 Puff Puff, 2 PUFF IH Q4H PRN for SHORTNESS OF BREATH, (Reported) 1 PUFF = 90 MCG Albuterol Sulfate 2.5 Mg/3 Ml Vial.neb, 2.5 MG NEB Q6H PRN for SHORTNESS OF BREATH, (Reported) Amlodipine Besylate 5 Mg Tablet, 5 MG PO HS, (Reported) Aspirin 81 Mg Tab.chew, 81 MG PO HS, (Reported) Atenolol 100 Mg Tablet, 100 MG PO HS, (Reported) Clopidogrel Bisulfate 75 Mg Tablet, 75 MG PO DAILY, (Reported) Duloxetine HCl 60 Mg Capsule.dr, 60 MG PO DAILY, (Reported) Empagliflozin 10 Mg Tablet, 10 MG PO DAILY, (Reported) Losartan Potassium 100 Mg Tablet, 100 MG PO HS, (Reported) Nitroglycerin 0.4 Mg Tab.subl, 0.4 MG SL UD PRN for CHEST PAIN, (Reported) [place]-3 Fatty Acids/Fish Oil 1 Each Capsule, 1 EACH PO DAILY, (Reported) Pravastatin Sodium 40 Mg Tablet, 40 MG PO HS, (Reported) Sitagliptin Phosphate 100 Mg Tablet, 100 MG PO DAILY, (Reported) Patient Home Medication List Home Medication List Reviewed: Yes Physical Exam-Cardiology Physical Exam Vital Signs/I&O Capillary Refill : Less Than 3 Seconds Constitutional: AAO x 3, well-developed, well-nourished HEENT: PERRL, oral hygience is good Neck: No carotid bruit; carotid pulses are 2 + bilaterally Respiratory: No accessory muscle use, No respiratory distress; chest expansion is symmetric, chest is bilaterally symmetric, lungs clear to auscultation Cardiovascular: regular rate-rhythm; No JVD; S1 and S2 Gastrointestinal: No tender; soft, round, audible bowel sounds Extremities: other (RLE DP/PT pulses palpable. Extremity w/d/p. R groin site with no brusing, site soft, drsg D/I), no lower extremity edema bilateral Neurologic/Psychiatric: grossly intact (Able to move all extremities) Skin: No rash on exposed areas, No ulcerations on exposed areas Data Review Labs Microbiology 01/03/20 MRSA Screen - Final, Complete MRSA not isolated A/P-Cardiology Assessment/Admission Diagnosis Leg numbness of unclear etiology Coronary artery disease. With a h/o PCI. H/o cor stenting at [facility] in [place], [place] in early 2012: mid-RCA stent (Promus 3.5x24, placed in May 2012) . Most recent cardiac cath of Jan 03, 2020: Coronary artery disease, moderate, including 40% mid vessel stenosis of the left anterior descending, severe distal disease in the left circumflex where the vessel is not of an adequate caliber for intervention, 50% in-stent restenosis in the right coronary and 40% distal stenosis in the right coronary. A mid right coronary artery stent, known to be Promus 3.5 x 24, placed in 2012, is patent with a 50% in- stent restenosis in its proximal portion in the right coronary. Fractional flow reserve across the lesions in the right coronary is 0.96, indicating hemodynamic insignificance. Moderate aortic stenosis with a laks-ui-btbh gradient of 36 mmHg. Normal global left ventricular systolic function with ejection fraction approximately 65%. MPI of August 05, 2016 is indicative of a basal inferior infarction with a small amount of layla-infarct ischemia. Localized basal inferior hypokinesis. LVEF 61%. Frequent isolated PVC's throughout the study 24 hour Holter study of August 2016 showed NSR with average rate of 94 bpm. Frequent PVC's. Up to 4 beat run of WCT at up to [address] abnormality throughout the study Echo of August 2018 showed LVEF of 60-65%. There is concentric hypertrophy. No regional wall motion abnormalities. Mod Ao stenosis with mild to mod regurg. RVSP 25 mmHg H/o R subclavian stenosis by carotid doppler, per records from [facility] (details unknown) Chronic PAC and PVCs, symptomatic, treated with beta-blockers Hypertension DM II Hyperlipidemia, treated with pravastatin and followed by her PCP Elevated BMI of approx 29 H/o OA and fibromyalgia Abnormal ECG on 07/23/16: Sinus rhythm with vent bigeminy, nonspecific ST abn. Abn ECG on 12/26/19: NSR, ST and T abn essentially unchanged PAD - Peripheral angio of 08/12/16: 50% stenosis of the right common iliac artery and severe ostial/prox stenoses of bilat internal iliac arteries, R renal not seen, normal L renal, distal leg circulation without any significant disease Carotid u/s of 08/19/16 showed mild carotid art disease No evidence of AAA on abd ao screening scan of 08/19/16 Admission Status: Observation Discussion and Recomendations Leg numbness of unclear etiology Admit for observation Increase ambulation with assistance Continue home medications Further recs will be based on her hospital course PURA JAMESON Jan 03, 2020 14:58
--- NOTE | 2020-01-03 15:00 | NUR ---
PATIENT ADMITTED TO OBSERVATION AND TAKEN TO [facility] AND BEDSIDE REPORT GIVEN TO ZEUS JONES.
[2020-01-03] MEDS ORDERED: ENOXAPARIN 40 MG/0.4 ML (LOVENOX) SYR SC SCH (16:30)
[2020-01-03] MEDS ORDERED: amLODIPine 5 MG (NORVASC) TAB PO SCH ×2 (21:00)
[2020-01-03] MEDS ORDERED: NON-FORMULARY MEDICATION 1 EA EA (Atenolol 100 MG) PO SCH (21:00)
[2020-01-03] MEDS ORDERED: PRAVASTATIN 40 MG TABLET PO SCH (21:00)
[2020-01-03] MEDS ORDERED: LOSARTAN 100 MG (COZAAR) TABLET PO SCH (21:00)
[2020-01-03] MEDS ORDERED: ATENOLOL 50 MG (TENORMIN) TAB PO SCH (21:00)
[2020-01-03] MEDS ORDERED: ATENOLOL 100 MG TABLET PO SCH (21:00)
[2020-01-03] MEDS ORDERED: ASPIRIN 81 MG CHEW (CHILDREN'S ASA) PO SCH (21:00)
[2020-01-04] VITALS: BP 159/78
[2020-01-04] MEDS: NS IV 1000 ML 1,000 ML IV SCH ×2 (03:24→05:36)
[2020-01-04 04:00] VITALS: BP 143/75
[2020-01-04 04:22] LABS: BASOPHILS # (AUTO) 0.1 10^3/uL (0.0-0.1); BASOPHILS % (AUTO) 1 % (0-10); EOSINOPHILS # (AUTO) 0.7 10^3/uL (0.0-0.3); EOSINOPHILS % (AUTO) 7 % (0-10); HEMATOCRIT 43 % (35-52); HEMOGLOBIN 13.7 g/dL (11.5-16.0); LYMPHOCYTES # (AUTO) 2.9 10^3/uL (1.0-4.0); LYMPHOCYTES % (AUTO) 33 % (12-44); MEAN CORPUSCULAR HEMOGLOBIN 30 pg (25-34); MEAN CORPUSCULAR HGB CONC 32 g/dL (32-36); MEAN CORPUSCULAR VOLUME 92 fL (80-99); MONOCYTES # (AUTO) 0.6 10^3/uL (0.0-1.0); MONOCYTES % (AUTO) 7 % (0-12); NEUTROPHILS # (AUTO) 4.5 10^3/uL (1.8-7.8); NEUTROPHILS % (AUTO) 51 % (42-75); PLATELET COUNT 260 10^3/uL (130-400); WHITE BLOOD COUNT 8.8 10^3/uL (4.3-11.0)
[2020-01-04 04:39] LABS: ALBUMIN 3.5 GM/DL (3.2-4.5); CHLORIDE 104 MMOL/L (98-107); POTASSIUM 4.3 MMOL/L (3.6-5.0); SODIUM 135 MMOL/L (135-145)
[2020-01-04 04:40] LABS: CALCIUM 8.7 MG/DL (8.5-10.1)
[2020-01-04 04:41] LABS: GLUCOSE 187 MG/DL (70-105); TOTAL PROTEIN 6.5 GM/DL (6.4-8.2)
[2020-01-04 04:42] LABS: CARBON DIOXIDE 21 MMOL/L (21-32)
[2020-01-04 04:43] LABS: BILIRUBIN,TOTAL 0.2 MG/DL (0.1-1.0)
[2020-01-04 04:44] LABS: ALKALINE PHOSPHATASE 56 U/L (40-136)
[2020-01-04 04:45] LABS: CREATININE SERUM 0.72 MG/DL (0.60-1.30); GFR ESTIMATED > 60
[2020-01-04 04:46] LABS: BUN/CREATININE RATIO 21
[2020-01-04 04:48] LABS: ALANINE AMINOTRANSFERASE 9 U/L (0-55)
[2020-01-04] MEDS ORDERED: JANUVIA 100 MG TABLET PO SCH (07:00)
[2020-01-04 07:38] VITALS: BP 144/65
--- NOTE | 2020-01-04 08:58 | Progress Note - Cardiology ---
Cardiology SOAP Progress Note Subjective: Has been up ambulating in the halls without difficulty. No further c/o leg numbness or discomfort. No c/o CP or palpitations. Wants to go home. Chronic mild exertional dyspnea which is unchanged. Objective: I&O/Vital Signs Weight (Pounds): 208 Weight (Ounces): 0.0 Weight (Calculated Kilograms): [phone] Side: right Groin site without hematoma: Yes Condition: DP/PT pulses palpable, extremity w/d/p Bruising: mild bruising Constitutional: AAO x 3, well-developed, well-nourished Respiratory: No accessory muscle use, No respiratory distress; chest expansion is symmetric, chest is bilaterally symmetric, lungs clear to auscultation, other (prolonged expiratory phase) Cardiovascular: regular rate-rhythm; No JVD; S1 and S2, systolic murmur Gastrointestional: No tender; soft, round, audible bowel sounds Extremities: other (RLE DP/PT pulses palpable. Extremity w/d/p. R groin site with no brusing, site soft, drsg D/I), no lower extremity edema bilateral Neurologic/Psychiatric: grossly intact (Able to move all extremities; sensation bilat ext equal; proprioception appropriate RLE; moves all muscle groups appropriately) Skin: No rash on exposed areas, No ulcerations on exposed areas Results/Procedures: Labs Microbiology 01/03/20 MRSA Screen - Final, Complete MRSA not isolated A/P: Assessment: Transient leg numbness of unclear etiology post cardiac cath - resolved Coronary artery disease. With a h/o PCI. H/o cor stenting at [facility] in [place], [place] in early 2012: mid-RCA stent (Promus 3.5x24, placed in May 2012) . Most recent cardiac cath of Jan 03, 2020: Coronary artery disease, moderate, including 40% mid vessel stenosis of the left anterior descending, severe distal disease in the left circumflex where the vessel is not of an ad equate caliber for intervention, 50% in-stent restenosis in the right coronary and 40% distal stenosis in the right coronary. A mid right coronary artery stent, known to be Promus 3.5 x 24, placed in 2012, is patent with a 50% in- stent restenosis in its proximal portion in the right coronary. Fractional flow reserve across the lesions in the right coronary is 0.96, indicating hemodynamic insignificance. Moderate aortic stenosis with a bquq-zz-gehf gradient of 36 mmHg. Normal global left ventricular systolic function with ejection fraction approximately 65%. MPI of August 05, 2016 is indicative of a basal inferior infarction with a small amount of layla-infarct ischemia. Localized basal inferior hypokinesis. LVEF 61%. Frequent isolated PVC's throughout the study 24 hour Holter study of August 2016 showed NSR with average rate of 94 bpm. Frequent PVC's. Up to 4 beat run of WCT at up to [address] abnormality throughout the study Echo of August 2018 showed LVEF of 60-65%. There is concentric hypertrophy. No r egional wall motion abnormalities. Mod Ao stenosis with mild to mod regurg. RVSP 25 mmHg H/o R subclavian stenosis by carotid doppler, per records from [facility] (details unknown) Chronic PAC and PVCs, symptomatic, treated with beta-blockers Hypertension DM II Hyperlipidemia, treated with pravastatin and followed by her PCP Elevated BMI of approx 29 H/o OA and fibromyalgia Abnormal ECG on 07/23/16: Sinus rhythm with vent bigeminy, nonspecific ST abn. Abn ECG on 12/26/19: NSR, ST and T abn essentially unchanged PAD - Peripheral angio of 08/12/16: 50% stenosis of the right common iliac artery and severe ostial/prox stenoses of bilat internal iliac arteries, R renal not seen, normal L renal, distal leg circulation without any significant disease Carotid u/s of 08/19/16 showed mild carotid art disease No evidence of AAA on abd ao screening scan of 08/19/16 Plan: Transient right leg numbness of unclear etiology after cardiac cath which has now resolved OK to discharge home today Continue home medications Follow up as out pt in 2 weeks or sooner if needed PURA JAMESON Jan 04, 2020 08:58
[2020-01-04] MEDS ORDERED: JARDIANCE 10 MG PO SCH (09:00)
[2020-01-04] MEDS ORDERED: DULoxetine 30 MG (CYMBALTA) CAP PO SCH (09:00)
[2020-01-04] MEDS ORDERED: DULOXETINE 60 MG CAPSULE PO SCH (09:00)
[2020-01-04] MEDS ORDERED: FISH OIL 500 MG PO SCH (09:00)
[2020-01-04] MEDS ORDERED: NON-FORMULARY MEDICATION 1 EA EA (Duloxetine HCl (Cymbalta) 60 MG) PO SCH (09:00)
[2020-01-04] MEDS ORDERED: CLOPIDOGREL 75 MG (PLAVIX) TABLET PO SCH ×2 (09:00)
== END 2020-01-04 08:52 | disposition home or self-care (01) ==
LOC: CATH 08:00 → SDC 09:51 → CATH 14:39 → CSD 14:39
PROVIDERS: ADMIT Internal Medicine Cardiovascular Disease; ATTEND Internal Medicine Cardiovascular Disease
DX: I25.10 Atherosclerotic heart disease of native coronary artery without angina pectoris (principal); I35.0 Nonrheumatic aortic (valve) stenosis; R53.83 Other fatigue; I10 Essential (primary) hypertension; E78.5 Hyperlipidemia, unspecified; E11.51 Type 2 diabetes mellitus with diabetic peripheral angiopathy without gangrene; I65.29 Occlusion and stenosis of unspecified carotid artery; M19.90 Unspecified osteoarthritis, unspecified site; I49.1 Atrial premature depolarization; F17.210 Nicotine dependence, cigarettes, uncomplicated; Z79.82 Long term (current) use of aspirin; Z79.51 Long term (current) use of inhaled steroids; Z79.899 Other long term (current) drug therapy; Z88.5 Allergy status to narcotic agent; Z88.1 Allergy status to other antibiotic agents; Z90.710 Acquired absence of both cervix and uterus
CPT/HCPCS: 80053 ×2; 80061; 85025; 85027; 85610; 85730; 87081; 93458; 93571; C1760; C1769; C1887; C1894 ×2; 36415

== ENCOUNTER → 2020-04-27 | Outpatient (CLI) | payer MEDICARE ==
[~2020-04-27] MED LIST changes: +ACET-2267 PO; +AMLO-250 PO; -AMLO5TAB9 PO; +CALC10009 PO; +DOXY100T2 PO; -HEParin (CATH LAB) 2,000 ML IV ONE; -LIDOCAINE 1% INJ 20 ML 20 ML VIAL ONE; -NS IV 1000 ML 1,000 ML ONE; +OMG1KC PO; +RT-ALBUINH INH
[2020-04-27 06:51] LABS: BASOPHILS % (AUTO) 0 % (0-10); EOSINOPHILS % (AUTO) 0 % (0-10); HEMATOCRIT 35 % (35-52); HEMOGLOBIN 10.8 g/dL (11.5-16.0); LYMPHOCYTES % (AUTO) 27 % (12-44); MEAN CORPUSCULAR HEMOGLOBIN 26 pg (25-34); MEAN CORPUSCULAR HGB CONC 31 g/dL (32-36); MEAN CORPUSCULAR VOLUME 85 fL (80-99); MEAN PLATELET VOLUME 8.8 fL (9.0-12.2); MONOCYTES # (AUTO) 0.9 10^3/uL (0.0-1.0); MONOCYTES % (AUTO) 6 % (0-12); NEUTROPHILS # (AUTO) 9.9 10^3/uL (1.8-7.8); NEUTROPHILS % (AUTO) 66 % (42-75); PLATELET COUNT 630 10^3/uL (130-400)
[2020-04-27 07:37] LABS: BAND NEUTROPHILS 0 %; BASOPHILS % (MANUAL) 0 %; EOSINOPHILS % (MANUAL) 0 %; LYMPHOCYTES % (MANUAL) 34 %; MONOCYTES % (MANUAL) 5 %; NEUTROPHILS % (MANUAL) 61 %
[2020-04-27 07:38] LABS: ANISOCYTOSIS SLIGHT
== END ==
LOC: LAB 06:35
PROVIDERS: ATTEND Family Medicine
DX: E11.65 Type 2 diabetes mellitus with hyperglycemia (principal); I10 Essential (primary) hypertension
CPT/HCPCS: 36415; 83036; 85007; 85027

== ENCOUNTER 2020-05-07 14:05 | Outpatient (RCR) | payer MEDICARE | END 2020-05-08 11:30 | disposition home or self-care (01) | LOC: PREOP 14:05 | PROVIDERS: ATTEND Internal Medicine Critical Care Medicine | DX: Z01.812 Encounter for preprocedural laboratory examination (principal); Z20.822 Contact with and (suspected) exposure to COVID-19 ==

== ENCOUNTER → 2020-05-07 | Outpatient (CLI) | payer MEDICARE ==
[~2020-05-07] MED LIST changes: +ATEN50TA PO; +FLUC100T6 PO; +INSU100I29 SQ; +Lorazepam PO
== END ==
LOC: LABNPT 09:00
PROVIDERS: ATTEND Internal Medicine Critical Care Medicine
DX: Z20.822 Contact with and (suspected) exposure to COVID-19 (principal)
CPT/HCPCS: 87635

== ENCOUNTER → 2020-05-08 | Outpatient (CLI) | payer MEDICARE ==
[~2020-05-08] MED LIST changes: +CATHETER FLUSH 10 ML SYR IV PRN; +HOLD METFORMIN - RECEIVED CONTRAST 20 ML VIAL IV SCH; +IOHEXOL 350 MG/ML 100 ML (OMNIPAQUE 350) VIAL IV ONE; +NS 100 ML (IVPB) BAG IV ONE
--- NOTE | 2020-05-08 15:33 | Diagnostic Imaging Report ---
PROCEDURE: CT chest with contrast only. TECHNIQUE: Multiple contiguous axial images were obtained through the chest after administration of intravenous contrast. Auto Exposure Controls were utilized during the CT exam to meet ALARA standards for radiation dose reduction. INDICATION: Right upper lobe lung mass COMPARISON: No relevant comparison. Irregular partly spiculated lobulated solid mass in the parenchyma of the right upper lobe measures 4.7 x 4.7 cm and is worrisome for a primary lung cancer. This mass would be amenable to percutaneous CT-guided biopsy. Inferomedial to the primary mass is a 2nd smaller parenchymal nodule likely satellite pulmonary metastasis with a diameter of 11 mm. There is presumptively metastatic right upper and lower paratracheal mediastinal lymphadenopathy, the largest paratracheal node 3.9 x 3.3 cm. Ipsilateral right hilar metastatic ellen mass measures 4.9 x 3.0 cm. Subcarinal mass 3.8 x 3.0 cm. No effusion or pneumothorax. No suspicious chest wall lesion. Upper abdomen shows nodular thickening of the left adrenal gland, indeterminate. IMPRESSION: 1. Findings most suggestive of primary carcinoma right upper lobe lung with adjacent satellite parenchymal metastasis and right hilar and mediastinal ellen metastatic disease. 2. Indeterminate left adrenal nodularity. Dictated by: Dictated on workstation # [id number]
== END ==
LOC: RAD 14:27
PROVIDERS: ATTEND Nurse Practitioner Family
DX: E27.8 Other specified disorders of adrenal gland (principal); R91.8 Other nonspecific abnormal finding of lung field
CPT/HCPCS: 71260

== ENCOUNTER 2020-05-09 07:21 | Day surgery (SDC) | payer MEDICARE ==
[2020-05-09] VITALS (10 sets, daily range): BP systolic 88–127; BP diastolic 50–62
[~2020-05-09] VITALS: Ht 165.1 cm; Wt 75.0 kg
[~2020-05-09 07:21] MED LIST changes: -CATHETER FLUSH 10 ML SYR IV PRN; -HOLD METFORMIN - RECEIVED CONTRAST 20 ML VIAL IV SCH; -IOHEXOL 350 MG/ML 100 ML (OMNIPAQUE 350) VIAL IV ONE; -NS 100 ML (IVPB) BAG IV ONE
[2020-05-09] MEDS ORDERED: LACTATED RINGERS 1,000 ML IV PRN (07:45)
[2020-05-09] MEDS ORDERED: LACTATED RINGERS 1,000 ML IV ONE (07:48)
[2020-05-09] MEDS ORDERED: proPOfol 200 MG/20 ML (DIPRIVAN) VIAL IV ONE (08:28)
[2020-05-09] MEDS ORDERED: fentaNYL INJECTION 100 MCG/2 ML AMP ONE (08:28)
[2020-05-09] MEDS ORDERED: GLYCOPYRROLATE 0.2 MG/ML (ROBINUL) 2 ML VIAL ONE (08:29)
[2020-05-09] MEDS ORDERED: NEOSTIGMINE 3 MG/3 ML VIAL ONE (08:29)
[2020-05-09] MEDS ORDERED: MIDAZOLAM 2 MG/2 ML (VERSED) VIAL ONE (08:29)
[2020-05-09] MEDS ORDERED: ROCURONIUM 10 MG/ML 5 ML SYRINGE IV ONE (08:29)
[2020-05-09] MEDS ORDERED: ONDANSETRON 4 MG/2 ML (SDV) Z0FRAN ONE (08:29)
[2020-05-09] MEDS ORDERED: LIDOCAINE PF 2% 5 ML (XYLOCAINE) VIAL ONE (08:29)
--- NOTE | 2020-05-09 08:30 | Progress Note-Pre Operative ---
Pre-Operative Progress Note H&P Reviewed The H&P was reviewed, patient examined and no changes noted. Time Seen by Provider: 08:29 Date H&P Reviewed: May 09, 2020 Time H&P Reviewed: 08:29 Pre-Operative Diagnosis: lung mass MARLI HACKETT DO May 09, 2020 08:29
[2020-05-09] MEDS ORDERED: PHENYLEPHRINE 100 MCG/ML 10 ML (ANESTHESIA) SYR ONE (09:00)
[2020-05-09] MEDS ORDERED: SEVOFLURANE (ULTANE) 15 ML INHAL SOLN ONE (10:05)
[2020-05-09] MEDS ORDERED: RT-ALBUTEROL SULF 2.5 MG/3 ML PRE-MIX VIAL ONE (10:23)
[2020-05-09] MEDS ORDERED: MEPERIDINE (DEMEROL) INJ 50 MG/ML IVP ONE (10:30)
[2020-05-09] MEDS ORDERED: PROMETHAZINE INJ 25 MG/ML (PHENERGAN) AMP IVP ONE (10:30)
[2020-05-09] MEDS ORDERED: ONDANSETRON 4 MG/2 ML (SDV) Z0FRAN IVP PRN (10:30)
[2020-05-09] MEDS ORDERED: RT-ALBUTEROL SULF 2.5 MG/3 ML PRE-MIX VIAL INH ONE (10:30)
[2020-05-09] MEDS ORDERED: fentaNYL INJECTION 100 MCG/2 ML AMP IVP ONE (10:30)
--- NOTE | 2020-05-09 10:36 | Diagnostic Imaging Report ---
INDICATION: Post bronchoscopy. COMPARISON: 04/30/2020. FINDINGS: The mass lesion in the right upper lung is again noted. Fullness of the right pulmonary hilum is present. There is a small amount of right-sided interfissural pleural fluid as well as some atelectasis or nonspecific infiltrate in the right mid lung laterally. The left lung is clear. IMPRESSION: Right upper lobe mass. Right perihilar fullness. Lateral to the right hilum is some new pleural-parenchymal opacity with no pneumothorax. Dictated by: Dictated on workstation # [id number]
--- NOTE | 2020-05-09 10:37 | Pulmonary Procedures ---
Pulmonary Procedures Date of Procedure Date of Service: May 09, 2020 Bronch Bronchoscopy with brush of galen, bilateral wash, RUL BAL, trasbronchial brushes with fleuroscopy were obtained followed by EBUS with bx of station 7 and 10R lymph nodes under US guidance. Preop DX: RUL lung mass with mediastinal lymphadenopathy PostOP DX: same- No endobronchial mass noted. Complications: None Pt was sedated per anesthesia. Bronchoscopy was advanced through the ED tube and an anatomical undertaken down to the segmental bronchi bilaterally. No endobronchial lesions noted. Bronchoscopy with brush of galen, bilateral wash, RUL BAL, trasbronchial brushes with fleuroscopy were obtained followed by EBUS with bx of station 7 and 10R lymph nodes under US guidance. . Pt tolerated procedure well. No complications noted. MARLI HACKETT DO May 09, 2020 10:37
--- NOTE | 2020-05-09 10:50 | Diagnostic Imaging Report ---
INDICATION: Fluoroscopy during bronchoscopy. Fluoroscopy was provided for Dr. Noriega during bronchoscopy. 27 seconds of fluoroscopic time was utilized. 2 images were obtained. IMPRESSION: Thoracic pain during bronchoscopy. Dictated by: Dictated on workstation # [id number]
--- NOTE | 2020-05-09 11:13 | Anesthesia-General Post-Op ---
General Patient Condition Mental Status/LOC: Same as Preop Cardiovascular: Satisfactory Nausea/Vomiting: Absent Respiratory: Satisfactory Pain: Controlled Complications: Absent Post Op Complications Complications None Follow Up Care/Instructions Patient Instructions None needed. Anesthesia/Patient Condition Patient Condition Patient is doing well, no complaints, stable vital signs, no apparent adverse anesthesia problems. No complications reported per nursing. TITA MARTINEZ CRNA May 09, 2020 11:13
[2020-05-09] MEDS ORDERED: LIDOCAINE JELLY 2% 6 ML SYRINGE MM ONE (14:24)
[2020-05-09] MEDS ORDERED: LIDOCAINE PF 1% 2 ML AMP IJ ONE (14:26)
[2020-05-09] MEDS ORDERED: LIDOCAINE PF 2% 5 ML (XYLOCAINE) VIAL INJ ONE (14:26)
== END 2020-05-09 11:55 | disposition home or self-care (01) ==
LOC: ENDO 07:21
PROVIDERS: ATTEND Internal Medicine Critical Care Medicine
DX: C77.9 Secondary and unspecified malignant neoplasm of lymph node, unspecified (principal); I10 Essential (primary) hypertension; I25.10 Atherosclerotic heart disease of native coronary artery without angina pectoris; J44.9 Chronic obstructive pulmonary disease, unspecified; E78.5 Hyperlipidemia, unspecified; E11.9 Type 2 diabetes mellitus without complications; E66.9 Obesity, unspecified; Z68.27 Body mass index [BMI] 27.0-27.9, adult; Z79.899 Other long term (current) drug therapy; Z79.84 Long term (current) use of oral hypoglycemic drugs; Z79.51 Long term (current) use of inhaled steroids; Z79.82 Long term (current) use of aspirin; Z88.1 Allergy status to other antibiotic agents; Z88.5 Allergy status to narcotic agent; Z87.891 Personal history of nicotine dependence; Z95.5 Presence of coronary angioplasty implant and graft
CPT/HCPCS: 71045; 76000; 82962; 87015; 87070; 87101; 87116; 87205; 87206; 88112; 88173; 88305; 88312; 88344; 94640

== ENCOUNTER → 2020-05-15 | Outpatient (CLI) | payer MEDICARE ==
--- NOTE | 2020-05-17 13:13 | Diagnostic Imaging Report ---
PET/CT 05/15/2020 EXAMINATION: After intravenous administration of 14.84 mCi of F18-FDG into the right antecubital fossa, a series of overlapping emission and transmission PET images was obtained. In the coronal, transaxial and sagittal planes, the area imaged extended from the skull base through the upper thighs. Height: 5' 6" Weight: 168 Blood glucose 198. COMPARISON: There are no prior PET/CT examinations available for comparison. The recent CT chest exam performed on 05/08/2020 suggested a 4.7 x 4.7 cm mass in the right upper lung as well as an 11 mm satellite nodule along the medial aspect of the right upper lobe. There also appear to be mediastinal adenopathy and a right hilar mass measuring 4.9 x 3.0 cm. A 3.8 x 3.0 cm subcarinal mass was also identified. These findings were felt to be most likely due to neoplastic disease. On this exam, the mass in the right upper lobe is hypermetabolic with a maximum SUV of 6.2. The satellite nodule along the medial aspect of the right upper lobe has a maximum SUV of 4.0. The pretracheal node on the right is also hypermetabolic with a maximum SUV of 7.7. The right hilar mass has a maximum SUV of 7.0 while the subcarinal mass max SUV is 6.3. Consequently, all these findings should be considered neoplastic until proven otherwise. The CT exam also noted an indeterminate left adrenal nodule. That nodule is not hypermetabolic. There is no other hypermetabolic activity seen to suggest the presence of malignancy. There is physiologic activity in the brain, the heart, the kidneys, the bowel and the bladder. The CT images failed to show any sign of an acute abnormality. The atelectasis/infiltrate associated with the right upper lobe mass seen previously is again evident and no different. IMPRESSION: 1. The mass in the right upper lobe, the satellite nodule in the right upper lobe and the mediastinal and right hilar adenopathy seen on the recent CT chest exam are hypermetabolic and should be considered neoplastic until proven otherwise. 2. There is no other hypermetabolic activity to suggest malignancy. 3. There is no sign of an acute abnormality. . Dictated on workstation # [id number]
== END ==
LOC: RAD 08:15
PROVIDERS: ATTEND Nurse Practitioner Family
DX: R91.8 Other nonspecific abnormal finding of lung field (principal)
CPT/HCPCS: 78815; A9552

== ENCOUNTER 2020-05-18 05:31 | Outpatient (RCR) | payer MEDICARE ==
[~2020-05-18] VITALS: Ht 167.8 cm; Wt 74.5 kg
[2020-05-21] MEDS ORDERED: ACHD5005 PO (09:02)
== END 2020-05-18 12:33 | disposition home or self-care (01) ==
LOC: PREOP 05:31
PROVIDERS: ATTEND Surgery
DX: Z01.812 Encounter for preprocedural laboratory examination (principal); C34.91 Malignant neoplasm of unspecified part of right bronchus or lung; Z20.822 Contact with and (suspected) exposure to COVID-19
CPT/HCPCS: 87635

== ENCOUNTER 2020-05-21 06:04 | Day surgery (SDC) | payer MEDICARE ==
[~2020-05-21] VITALS: Ht 167 cm; Wt 74.5 kg
[2020-05-21] MEDS ORDERED: LACTATED RINGERS 1,000 ML IV PRN (06:45)
[2020-05-21] MEDS ORDERED: ceFAZolin INJECTION 1,000 MG in WATER (STERILE) FOR INJECTION 10 ML IV ONE (06:45)
[2020-05-21 06:50] VITALS: BP 112/60
[2020-05-21] MEDS ORDERED: LIDOCAINE/EPI 1%-1:100,000 (XYLOCAINE) 50 ML ONE (06:50)
[2020-05-21] MEDS ORDERED: HEParin (CENTRAL IV FLUSH) 500 UNIT/5 ML SYR ONE (06:50)
[2020-05-21] MEDS ORDERED: NS (IVPB) 50 ML ONE (06:50)
[2020-05-21] MEDS ORDERED: ONDANSETRON 4 MG/2 ML (SDV) Z0FRAN ONE (06:53)
[2020-05-21] MEDS ORDERED: proPOfol 200 MG/20 ML (DIPRIVAN) VIAL IV ONE (06:53)
[2020-05-21] MEDS ORDERED: inSUlin ASPART (NovoLOG) 1 UNIT/0.01 ML (CHARGE PER UNIT) ONE (06:53)
[2020-05-21] MEDS ORDERED: MIDAZOLAM 2 MG/2 ML (VERSED) VIAL ONE (06:54)
[2020-05-21] MEDS ORDERED: inSUlin ASPART (NovoLOG) 1 UNIT/0.01 ML (CHARGE PER UNIT) IV ONE (07:00)
--- NOTE | 2020-05-21 07:56 | Progress Note-Pre Operative ---
Pre-Operative Progress Note H&P Reviewed The H&P was reviewed, patient examined and no changes noted. Date Seen by Provider: May 21, 2020 Time Seen by Provider: 07:56 Date H&P Reviewed: May 21, 2020 Time H&P Reviewed: 07:56 Pre-Operative Diagnosis: squamous cell lung ca NEO CENTENO DO May 21, 2020 07:56
[2020-05-21] MEDS ORDERED: 0.9% SODIUM CHLORIDE PF INJ 20 ML VIAL ONE (08:42)
[2020-05-21] MEDS ORDERED: PROPOFOL INJECTION 50 ML IV ONE (08:51)
--- NOTE | 2020-05-21 09:00 | Progress Note-Post Operative ---
Post-Operative Progess Note Surgeon (s)/Cavalry Officer (s) Surgeon NEO CENTENO DO Cavalry Officer: na Pre-Operative Diagnosis squamous cell lung ca Post-Operative Diagnosis same Procedure & Operative Findings Date of Procedure 05/21/20 Procedure Performed/Findings PROCEDURE: Left internal jugular port placement using ultrasound guidance. COMPLICATIONS: None. INDICATIONS: The patient is a 69 year old female with lung cancer. Patient understands the risks and benefits of port placement and wished to proceed with the procedure. Consent was signed on the chart. PROCEDURE: The patient was taken to the operating suite, was prepped and draped in the sterile fashion. A surgical pause was performed. Ultrasound was used to locate the internal jugular vein. Once located anesthetic was infiltrated above it. Using micro-access kit, the right internal vein was accessed. Dark nonpulsatile blood was withdrawn. The wire was inserted. Fluoroscopy assured proper placement. The needle was removed. The micro-access dilator was advanced over the wire and the wire was removed. The regular wire was inserted and fluoroscopy assured proper placement. The wire was then secured. Local anesthetic was used to anesthetize from the neck for tunneling down to the right chest and for pocket creation. A 15 blade scalpel was used to make an incision over the left chest. Cautery was used to dissect down to the pectoral fascia. A pocket was created with blunt dissection. The dilator sheath was then advanced over the wire under fluoroscopy and the dilator and wire were removed. The Groshong catheter was inserted through the sheath and the sheath was then removed. The Groshong wire was removed. The catheter was then tunneled to the right chest pocket. Fluoroscopy was used to cut to length and this was then attached to the port which was then placed within the pocket. The port was then accessed without difficulty. It was then flushed with saline and then heparin. The subcutaneous tissues were then reapproximated using 3-0 Vicryl. The areas were then washed and dried. Skin Affix was placed over incision. The insertion point of the neck Skin Affix was placed over the incision. The patient tolerated the procedure well without complication and was taken to recovery room in stable condition. Chest x-ray is pending. Port was left accessed for treatment later today. Anesthesia Type mac c local Estimated Blood Loss Estimated blood loss (mL): minimal Specimens/Packing Specimens Removed NEO Tanner DO May 21, 2020 09:00
[2020-05-21 09:02] VITALS: BP 97/55
[2020-05-21] MEDS ORDERED: ACHD5005 PO (09:02)
--- NOTE | 2020-05-21 09:03 | Discharge Inst-Simple/Standard ---
Discharge Inst-Standard Discharge Medications New, Converted or Re-Newed RX: RX on Chart Patient Instructions/Follow Up Plan of Care/Instructions/FU: 2 weeks Raquel Activity as Tolerated: No Discharge Diet: Regular Diet Other Inst to Patient Follow up Appt: Make appointment for 2 week. Instructions: No lifting greater than 10 pounds. No strenuous activity. May shower in 24 hours, no tub bath or soaking. Use incentive spirometer at home as directed. No Smoking Skin/Wound Care: You have special glue over your incision that will fall off on it's own. Place ice pack over incision for 15 min and then off 30 min. Repeat for first 48 hours. Symptoms to Report: Appetite Changes, Extremity Discoloration, Numbness/Tingling, Swelling Increased, Bleeding Excessive, Eyesight Changes, Pain Increased, Urine Color Change, Constipation(Persistent), Fever over 101 degree F, Pain/Pressure in chest, Urinating Difficulty, Cough Up/Vomit Blood, Heart Beat Irreg/Pounding, Pain/Pressure in jaw, Vaginal Bleeding Increase, Cramps in feet or legs, Lightheadedness, Pain/Pressure in shoulder, Diarrhea(Persistent), Memory Changes Suddenly, Questions/Concerns, Weight gain consecutive days, Dizziness/Fainting, Nausea/Vomiting, Shortness of Breath, Weight gain over 2 pounds If questions or concerns contact your physician Or seek help at emergency department. NEO CENTENO DO May 21, 2020 09:03
[2020-05-21 09:10] VITALS: BP 103/50
--- NOTE | 2020-05-21 09:10 | Anesthesia-General Post-Op ---
MAC Patient Condition Mental Status/LOC: Same as Preop Cardiovascular: Satisfactory Nausea/Vomiting: Absent Respiratory: Satisfactory Pain: Controlled Complications: Absent Post Op Complications Complications None Follow Up Care/Instructions Patient Instructions None needed. Anesthesiology Discharge Order Discharge Order Patient is doing well, no complaints, stable vital signs, no apparent adverse anesthesia problems. No complications reported per nursing. TITA MARTINEZ CRNA May 21, 2020 09:10
[2020-05-21] MEDS ORDERED: MEPERIDINE (DEMEROL) INJ 50 MG/ML IVP ONE (09:15)
[2020-05-21] MEDS ORDERED: fentaNYL INJECTION 100 MCG/2 ML AMP IVP ONE (09:15)
[2020-05-21] MEDS ORDERED: ONDANSETRON 4 MG/2 ML (SDV) Z0FRAN IVP PRN (09:15)
[2020-05-21 09:20] VITALS: BP_SYST 108; BP_SYST 109; BP_DIAS 56; BP_DIAS 59
--- NOTE | 2020-05-21 09:27 | Diagnostic Imaging Report ---
INDICATION: Port-A-Cath placement. Portable chest obtained 9:18 a.m. and compared to 05/09/2020 There is a new Port-A-Cath in place over the left chest with catheter entering at the left internal jugular vein and catheter tip overlying the upper SVC. Heart is mildly enlarged. Right upper lobe lung mass is unchanged. There is fullness of the right hilum suspicious for adenopathy, with some right perihilar atelectasis partially improved compared to the prior study. There is no significant sized pleural effusion. There is no pneumothorax following device placement IMPRESSION: New Port-A-Cath in place as above. No pneumothorax or pleural fluid following device placement. No change in right upper lobe mass or right hilar adenopathy. There is partial improvement in right perihilar atelectasis compared to the prior study. Dictated by: Dictated on workstation # [id number]
[2020-05-21 09:45] VITALS: BP 123/62
--- NOTE | 2020-05-21 13:21 | Diagnostic Imaging Report ---
INDICATION: Port placement. FINDINGS: 52 seconds of fluoroscopy time were utilized during catheter placement. We note on the images submitted an abnormal density in the patient's right upper lobe corresponding with the mass better seen on earlier performed chest CTs. IMPRESSION: Fluoroscopy during Central line placement. Known right upper lobe mass. Dictated by: Dictated on workstation # [id number]
== END 2020-05-21 09:50 | disposition home or self-care (01) ==
LOC: SDC 06:04
PROVIDERS: ATTEND Surgery
DX: C34.90 Malignant neoplasm of unspecified part of unspecified bronchus or lung (principal); I25.10 Atherosclerotic heart disease of native coronary artery without angina pectoris; J44.9 Chronic obstructive pulmonary disease, unspecified; F32.9 Major depressive disorder, single episode, unspecified; E11.40 Type 2 diabetes mellitus with diabetic neuropathy, unspecified; D47.3 Essential (hemorrhagic) thrombocythemia; I10 Essential (primary) hypertension; I35.0 Nonrheumatic aortic (valve) stenosis; Z79.899 Other long term (current) drug therapy; Z88.1 Allergy status to other antibiotic agents; Z88.5 Allergy status to narcotic agent; Z95.5 Presence of coronary angioplasty implant and graft
CPT/HCPCS: 36561; 71045; 76000; 82962; 87081; C1788

== ENCOUNTER 2020-05-30 08:41 | Emergency (ER) | payer MEDICARE ==
[~2020-05-30] VITALS: Ht 167 cm; Wt 73.9 kg
[~2020-05-30 08:41] MED LIST changes: +ACHD5005 PO
[2020-05-30 09:26] LABS: BASOPHILS % (AUTO) 0 % (0-10); EOSINOPHILS # (AUTO) 0.1 10^3/uL (0.0-0.3); EOSINOPHILS % (AUTO) 1 % (0-10); HEMATOCRIT 28 % (35-52); HEMOGLOBIN 8.6 g/dL (11.5-16.0); LYMPHOCYTES # (AUTO) 0.8 10^3/uL (1.0-4.0); LYMPHOCYTES % (AUTO) 9 % (12-44); MEAN CORPUSCULAR HEMOGLOBIN 26 pg (25-34); MEAN CORPUSCULAR HGB CONC 31 g/dL (32-36); MEAN CORPUSCULAR VOLUME 82 fL (80-99); MEAN PLATELET VOLUME 8.9 fL (9.0-12.2); MONOCYTES # (AUTO) 0.4 10^3/uL (0.0-1.0); MONOCYTES % (AUTO) 4 % (0-12); NEUTROPHILS # (AUTO) 7.4 10^3/uL (1.8-7.8); NEUTROPHILS % (AUTO) 85 % (42-75); PLATELET COUNT 450 10^3/uL (130-400); WHITE BLOOD COUNT 8.8 10^3/uL (4.3-11.0)
[2020-05-30 09:38] LABS: ALBUMIN 3.4 GM/DL (3.2-4.5); CHLORIDE 96 MMOL/L (98-107); POTASSIUM 4.1 MMOL/L (3.6-5.0); SODIUM 130 MMOL/L (135-145)
[2020-05-30 09:39] LABS: CALCIUM 8.9 MG/DL (8.5-10.1)
[2020-05-30 09:40] LABS: GLUCOSE 223 MG/DL (70-105)
[2020-05-30 09:42] LABS: BILIRUBIN,TOTAL 0.4 MG/DL (0.1-1.0); CARBON DIOXIDE 24 MMOL/L (21-32)
[2020-05-30 09:44] LABS: ALKALINE PHOSPHATASE 58 U/L (40-136); CREATININE SERUM 0.65 MG/DL (0.60-1.30); GFR ESTIMATED > 60
[2020-05-30 09:45] LABS: BUN/CREATININE RATIO 17
[2020-05-30 09:47] LABS: BILIRUBIN,URINE NEGATIVE (NEGATIVE); CLARITY,URINE CLEAR; COLOR,URINE YELLOW; GLUCOSE, URINE (UA) NEGATIVE (NEGATIVE); KETONES,URINE NEGATIVE (NEGATIVE); LEUKOCYTE ESTERASE ,URINE NEGATIVE (NEGATIVE); NITRITE,URINE NEGATIVE (NEGATIVE); PROTEIN,URINE TRACE (NEGATIVE)
[2020-05-30 09:47] LABS: ALANINE AMINOTRANSFERASE 10 U/L (0-55)
[2020-05-30 09:53] LABS: BACTERIA,URINE TRACE /HPF; RBC,URINE RARE /HPF; WBC,URINE RARE /HPF
[2020-05-30] MEDS ORDERED: NS IV 1000 ML 1,000 ML IV SCH (10:00)
--- NOTE | 2020-05-30 10:02 | Diagnostic Imaging Report ---
Indication: Cough and fever Portable chest 9:43 AM Left IJ Port-A-Cath tip projects over the SVC. There is a 5.5 cm mass in the right apex. There is an area of consolidation which may be atelectasis along the minor fissure in the right midlung. There is questionable nodular opacity measuring 2 cm in diameter in the right lower lung. IMPRESSION: Right upper lobe mass. Right perihilar atelectasis. Questionable infiltrate right lung base. The right basilar opacity is new since 05/21/2020. Dictated by: Dictated on workstation # [id number]
--- NOTE | 2020-05-30 10:59 | ED General ---
General Chief Complaint: Respiratory Problems Stated Complaint: FEVER, INFECTION Nursing Triage Note: pt presents to ed via wc from cancer center for soa, cough, and fever. Nursing Sepsis Screen: Possible Sepsis Risk Source of Information: Patient, Old Records Exam Limitations: No Limitations History of Present Illness Date Seen by Provider: May 30, 2020 Time Seen by Provider: 09:05 Initial Comments 69-year-old female presents to the emergency department today with a chief complaint of feeling generally weak, a little short of breath, having a productive cough and fever reported by the cancer center. Patient states onset of symptoms gradually over the last several weeks as the patient has been recently diagnosed with lung cancer and started chemotherapy and radiation. Patient states that her cough is productive of clear/white sputum. She denies any chest pain. She states she is mildly short of breath. She denies any abdominal pain, nausea, vomiting, diarrhea. She denies any genitourinary complaints. No diarrhea. No rashes or swelling in her legs. Patient states that she has received her Covid vaccination. No sick contacts at home. She recently underwent left Mqdbjh-z-Kmuw placement by Dr. Centeno. This has been healing nicely. She states it is a little tender. All other review of systems reviewed and negative except as stated above. Timing/Duration: 24 Hours Severity: Mild Associated Systoms: Cough, Shortness of Air Allergies and Home Medications Allergies Coded Allergies: ciprofloxacin (Verified Allergy, Severe, TENDONITIS, 08/12/16) TENDONITIS morphine (Verified Allergy, Severe, RASH/ BURNING SENSATION, 08/12/16) Home Medications Acetaminophen 500 Mg Tablet, 1,000 MG PO Q8H PRN for PAIN-MILD (1-4), (Reported) Albuterol Sulfate 2.5 Mg/3 Ml Vial.neb, 2.5 MG NEB BID PRN for SHORTNESS OF BREATH, (Reported) Albuterol Sulfate 6.7 Gm Hfa.aer.ad, 2 PUFF INH Q4H PRN for SHORTNESS OF BREATH, (Reported) Amlodipine Besylate 5 Mg Tablet, 5 MG PO DAILY TAKE IN THE MORNING Prescribed by: JUNE SHAHID on 05/02/20851 Aspirin 81 Mg Tab.chew, 81 MG PO HS HOLD UNTIL AFTER LUNG BIOPSY, THEN RESTART DAILY Prescribed by: JUNE SHAHID on 05/02/20851 Atenolol 50 Mg Tablet, 50 MG PO HS Prescribed by: JUNE SHAHID on 05/02/20851 Calcium Carbonate 400 Mg Tab.chew, 400-800 MG PO PRN PRN for HEARTBURN, (Rep orted) Clopidogrel Bisulfate 75 Mg Tablet, 75 MG PO DAILY HOLD UNTIL AFTER BIOPSY OF LUNG, THEN RESTART THE NEXT DAY TAKING ONE PILL DAILY Prescribed by: JUNE SHAHID on 05/02/20851 Duloxetine HCl 60 Mg Capsule.dr, 60 MG PO HS, (Reported) Hydrocodone/Acetaminophen 1 Each Tablet, 1 EACH PO Q4H PRN for PAIN-MODERATE (5- 7) Prescribed by: NEO CENTENO on 05/21/20 09 Insulin Detemir 100 Unit/1 Ml Insuln.pen, 10 UNIT SQ HS INCREASE BY 3 UNITS EVERY 3 DAYS UNTIL THE AVERAGE BLOOD GLUCOSE IS 150. Prescribed by: JUNE SHAHID on 05/02/20851 Metformin HCl 500 Mg Tablet, 1,000 MG PO BID, (Reported) Nitroglycerin 0.4 Mg Tab.subl, 0.4 MG SL UD PRN for CHEST PAIN, (Reported) [place] 3 Polyunsat Fatty Acids 1,000 Mg Cap, 2,000 MG PO DAILY, (Reported) Pravastatin Sodium 40 Mg Tablet, 40 MG PO HS, (Reported) [Lorazepam] 0.5 MG TABLET, 0.5 MG PO TID PRN for ANXIETY Prescribed by: JUNE SHAHID on 05/02/20851 Patient Home Medication List Home Medication List Reviewed: Yes Review of Systems Review of Systems Constitutional: see HPI EENTM: no symptoms reported Respiratory: cough, short of breath Cardiovascular: no symptoms reported Gastrointestinal: no symptoms reported Genitourinary: no symptoms reported : No Musculoskeletal: no symptoms reported Skin: no symptoms reported All Other Systems Reviewed Negative Unless Noted: Yes Past Ovjlwsb-Ojixja-Kpkuba Hx Patient Social History Alcohol Use: Denies Use Type Used: Cigarettes 2nd Hand Smoke Exposure: Yes Recent Infectious Disease Expo: No Recent Hopitalizations: Yes (3 WEEKS AGO FOR DIZZINESS - FOUND MASS IN RIGHT LUNG) Immunizations Up To Date Tetanus Booster (TDap): Unknown PED Vaccines UTD: No Date of Pneumonia Vaccine: Jan 03, 2019 Date of Influenza Vaccine: Jan 24, 2020 Seasonal Allergies Seasonal Allergies: No Past Medical History Surgeries: Yes (shoulder, back sx, knee sc, bilat CTR, breast bx, achilles sx, port) Appendectomy, Coronary Stent, Gallbladder, Hysterectomy, Tonsillectomy, Tubal Ligation Respiratory: Yes (lung ca) COPD Currently Using CPAP: No Currently Using BIPAP: No Cardiac: Yes Coronary Artery Disease, Heart Attack, Heart Murmur, Hypotension 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: Yes 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 0.0oz. [id number]; 26.00 BMI Method: General Appearance: No Apparent Distress, WD/WN Eyes: Bilateral Eye Normal Inspection HEENT: Normal ENT Inspection, Pharynx Normal Neck: Full Range of Motion, Non Tender, Supple Respiratory: Lungs Clear, Normal Breath Sounds, No Accessory Muscle Use, No Respiratory Distress Cardiovascular: Regular Rate, Rhythm Gastrointestinal: Non Tender, Soft Extremity: Normal Capillary Refill, Normal Range of Motion, Non Tender, No Calf Tenderness Neurologic/Psychiatric: Alert, Oriented x3, 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 Skin: Normal Color, Warm/Dry Focused Exam Lactate Level 05/30/20 09:16: Lactic Acid Level 2.10*H Lactic Acid Level Laboratory Tests Test 05/30/20 09:16 Lactic Acid Level 2.10 MMOL/L (0.50-2.00) *H Progress/Results/Core Measures Suspected Sepsis Recent Fever Within 48 Hours: Yes Infection Criteria Present: Suspected New Infection New/Unexplained Altered Menta: No Sepsis Screen: Possible Sepsis Risk SIRS Temperature: Pulse: 106 Respiratory Rate: 20 Laboratory Tests 05/30/20 09:16: White Blood Count 8.8 Blood Pressure 124 /70 Mean: 88 05/30/20 09:16: Lactic Acid Level 2.10*H Laboratory Tests 05/30/20 09:16: Creatinine 0.65, Platelet Count 450H, Total Bilirubin 0.4 Results/Orders Lab Results Laboratory Tests Test 05/30/20 09:09 05/30/20 09:16 05/30/20 09:41 Range/Units Coronavirus 2019 (WHIT) Negative Negative White Blood Count 8.8 4.3-11.0 10^3/uL Red Blood Count 3.35 L 3.80-5.11 10^6/uL Hemoglobin 8.6 #L 11.5-16.0 g/dL Hematocrit 28 L 35-52 % Mean Corpuscular Volume 82 80-99 fL Mean Corpuscular Hemoglobin 26 25-34 pg Mean Corpuscular Hemoglobin Concent 31 L 32-36 g/dL Red Cell Distribution Width 16.6 H 10.0-14.5 % Platelet Count 450 H 130-400 10^3/uL Mean Platelet Volume 8.9 L 9.0-12.2 fL Immature Granulocyte % (Auto) 1 % Neutrophils (%) (Auto) 85 H 42-75 % Lymphocytes (%) (Auto) 9 L 12-44 % Monocytes (%) (Auto) 4 0-12 % Eosinophils (%) (Auto) 1 0-10 % Basophils (%) (Auto) 0 0-10 % Neutrophils # (Auto) 7.4 1.8-7.8 10^3/uL Lymphocytes # (Auto) 0.8 L 1.0-4.0 10^3/uL Monocytes # (Auto) 0.4 0.0-1.0 10^3/uL Eosinophils # (Auto) 0.1 0.0-0.3 10^3/uL Basophils # (Auto) 0.0 0.0-0.1 10^3/uL Immature Granulocyte # (Auto) 0.1 0.0-0.1 10^3/uL Sodium Level 130 L 135-145 MMOL/L Potassium Level 4.1 3.6-5.0 MMOL/L Chloride Level 96 L 98-107 MMOL/L Carbon Dioxide Level 24 21-32 MMOL/L Anion Gap 10 5-14 MMOL/L Blood Urea Nitrogen 11 7-18 MG/DL Creatinine 0.65 0.60-1.30 MG/DL Estimat Glomerular Filtration Rate > 60 BUN/Creatinine Ratio 17 Glucose Level 223 H 70-105 MG/DL Lactic Acid Level 2.10 *H 0.50-2.00 MMOL/L Calcium Level 8.9 8.5-10.1 MG/DL Corrected Calcium 9.4 8.5-10.1 MG/DL Total Bilirubin 0.4 0.1-1.0 MG/DL Aspartate Amino Transf (AST/SGOT) 11 5-34 U/L Alanine Aminotransferase (ALT/SGPT) 10 0-55 U/L Alkaline Phosphatase 58 40-136 U/L Total Protein 7.0 6.4-8.2 GM/DL Albumin 3.4 3.2-4.5 GM/DL Urine Color YELLOW Urine Clarity CLEAR Urine pH 7.0 5-9 Urine Specific [place] 1.015 L 1.016-1.022 Urine Protein TRACE H NEGATIVE Urine Glucose (UA) NEGATIVE NEGATIVE Urine Ketones NEGATIVE NEGATIVE Urine Nitrite NEGATIVE NEGATIVE Urine Bilirubin NEGATIVE NEGATIVE Urine Urobilinogen 0.2 < = 1.0 MG/DL Urine Leukocyte Esterase NEGATIVE NEGATIVE Urine RBC (Auto) NEGATIVE NEGATIVE Urine RBC RARE /HPF Urine WBC RARE /HPF Urine Squamous Epithelial Cells 5-10 /HPF Urine Crystals NONE /LPF Urine Bacteria TRACE /HPF Urine Casts NONE /LPF Urine Mucus NEGATIVE /LPF Urine Culture Indicated NO Micro Results Microbiology 05/30/20 Influenza Types A,B Antigen (ALMA) - Final, Complete My Orders Orders - RORY DAVID MD Cbc With Automated Diff (05/30/20 09:08) Comprehensive Metabolic Panel (05/30/20 09:08) Blood Culture (05/30/20 09:08) Urinalysis (05/30/20 09:08) Urine Culture (05/30/20 09:08) Chest 1 View, Ap/Pa Only (05/30/20 09:08) Ed Iv/Invasive Line Start (05/30/20 09:08) Vital Signs Adult Sepsis Patie Q15M (05/30/20 09:08) O2 (05/30/20 09:08) Remove Rings In Anticipation O (05/30/20 09:08) Lactic Acid Analyzer (05/30/20 09:08) Covid 19 Inhouse Test (05/30/20 09:08) Influenza A And B Antigens (05/30/20 09:08) Ns Iv 1000 Ml (Sodium Chloride 0.9%) (05/30/20 10:00) Vital Signs/I&O 05/30/20 08:52 Temp 36.5 Pulse 106 Resp 20 B/P (MAP) 124/70 (88) Pulse Ox 99 Capillary Refill : Less Than 3 Seconds Blood Pressure Mean: 88 Progress Note : Time: 10:59 Progress Note Case discussed with Dr. Sanots at the cancer center. He recommends oral antibiotics with broad-spectrum coverage to cover community-acquired pneumonia. We will treat the patient with cefdinir for 10 days. Patient will follow up at the cancer center as previously scheduled. Her vital signs are normal at this time. She is afebrile. She does not have a white count but does have a mild left shift of neutrophils. She is not hypoxic. There is a questionable new right basilar infiltrate. Patient is comfortable with discharge she desires discharge. All questions are sought and answered. Patient will be sent home on the cefdinir. Rapid Covid and influenza tests are negative. Diagnostic Imaging Diagonstic Imaging: Xray Plain Films/CT/US/NM/MRI: chest Comments [facility], [place] NAME: HEATHER PATHAK Carroll [facility] REC#: [id number] PT STATUS: REG ER : 1950 PHYSICIAN: RORY DAVID MD ADMIT DATE: 05/30/20/ER Draft Date of Exam:05/30/20 CHEST 1 VIEW, AP/PA ONLY Indication: Cough and fever Portable chest 9:43 AM Left IJ Port-A-Cath tip projects over the SVC. There is a 5.5 cm mass in the right apex. There is an area of consolidation which may be atelectasis along the minor fissure in the right midlung. There is questionable nodular opacity measuring 2 cm in diameter in the right lower lung. IMPRESSION: Right upper lobe mass. Right perihilar atelectasis. Questionable infiltrate right lung base. The right basilar opacity is new since 05/21/2020. Dictated on workstation # [id number] Dict: 05/30/20 0959 Trans: 05/30/20 1001 [place]SCAR [id number] Interpreted by: PIOTR BARRIOS MD Electronically signed by: Departure Communication (Admissions) Time/Spoke to Consulting Phy: 10:[address] Santos Impression Primary Impression: Pneumonia Qualified Codes: J18.9 - Pneumonia, unspecified organism Additional Impression: Lung cancer Qualified Codes: C34.11 - Malignant neoplasm of upper lobe, right bronchus or lung Disposition: HOME, SELF-CARE Condition: Stable Departure-Patient Inst. Decision time for Depature: 11:01 Referrals: JUNE SHAHID MD (PCP/Family) Primary Care Physician Patient Instructions: Pneumonia, Adult (DC) Add. Discharge Instructions: Drink plenty of fluids to stay well-hydrated. I have talked to Dr. Go about treatment. We are starting you on an oral antibiotic, cefdinir. Please take this medication until it is finished. Return to the emergency room for any worsening symptoms, high fever, shortness of breath or other emergent concerns. Please follow-up with the cancer center as scheduled. Scripts Cefdinir (Cefdinir) 300 Mg Capsule 300 MG PO BID for 10 Days, #20 CAP Prov: RORY DAVID MD 05/30/20 RORY DAVID MD May 30, 2020 10:59
[2020-05-30] MEDS ORDERED: CEFD300C3 PO (11:02)
[2020-05-30 11:10] VITALS: BP 133/83
== END 2020-05-30 11:10 | disposition home or self-care (01) ==
LOC: EDUNIT# 08:41 → ER 08:43
DX: C34.11 Malignant neoplasm of upper lobe, right bronchus or lung (principal); J18.9 Pneumonia, unspecified organism; I25.10 Atherosclerotic heart disease of native coronary artery without angina pectoris; F32.9 Major depressive disorder, single episode, unspecified; I25.2 Old myocardial infarction; E11.9 Type 2 diabetes mellitus without complications; G89.29 Other chronic pain; M54.9 Dorsalgia, unspecified; J44.9 Chronic obstructive pulmonary disease, unspecified; Z95.5 Presence of coronary angioplasty implant and graft; Z82.49 Family history of ischemic heart disease and other diseases of the circulatory system; Z88.1 Allergy status to other antibiotic agents; Z88.5 Allergy status to narcotic agent; Z20.822 Contact with and (suspected) exposure to COVID-19; Z77.22 Contact with and (suspected) exposure to environmental tobacco smoke (acute) (chronic); Z79.82 Long term (current) use of aspirin; Z79.4 Long term (current) use of insulin; Z79.891 Long term (current) use of opiate analgesic
CPT/HCPCS: 71045; 80053; 81000; 83605; 85025; 87040; 87088; 87804; U0002; 36415; 87635

== ENCOUNTER 2020-06-05 21:24 | Inpatient (IN) | payer MEDICARE ==
[~2020-06-05] VITALS: Ht 167.7 cm; Wt 77.2 kg
[~2020-06-05 21:24] MED LIST changes: +CEFD300C3 PO
[2020-06-05] MEDS ORDERED: RT-ALBUTEROL/IPRATROPIUM 3 ML (DUONEB) VIAL INH ONE (21:45)
--- NOTE | 2020-06-05 21:49 | ED General ---
General Stated Complaint: SOA Source of Information: Patient, EMS Exam Limitations: No Limitations History of Present Illness Date Seen by Provider: Jun 05, 2020 Time Seen by Provider: 21:29 Initial Comments Here with report of shortness of air. Patient does have stage III lung cancer to the right lung and was recently treated for pneumonia. Tonight she noted that she had increasing shortness of air and was hypoxic with any activity. She is not normally on oxygen. Did do her breathing treatment at home which helped only a little bit. Currently is on steroids. She is a weekly chemotherapy treatment and daily radiation therapy currently for the squamous cell carcinoma of the right lung. She follows with Dr. Aleman and Dr. Santos. Denies fever, nausea, vomiting or diarrhea. She has had both Covid vaccines. Timing/Duration: 12-24 Hours, Getting Worse Severity: Moderate Associated Systoms: No Chest Pain; Cough; No Fever/Chills, No Nausea/Vomiting; Shortness of Air, Weakness Allergies and Home Medications Allergies Coded Allergies: ciprofloxacin (Verified Allergy, Severe, TENDONITIS, 08/12/16) TENDONITIS morphine (Verified Allergy, Severe, RASH/ BURNING SENSATION, 08/12/16) Home Medications Acetaminophen 500 Mg Tablet, 1,000 MG PO Q8H PRN for PAIN-MILD (1-4), (Reported) Albuterol Sulfate 2.5 Mg/3 Ml Vial.neb, 2.5 MG NEB BID PRN for SHORTNESS OF BREATH, (Reported) Albuterol Sulfate 6.7 Gm Hfa.aer.ad, 2 PUFF INH Q4H PRN for SHORTNESS OF BREATH, (Reported) Amlodipine Besylate 5 Mg Tablet, 5 MG PO DAILY TAKE IN THE MORNING Prescribed by: JUNE ALEMAN on 05/02/20851 Aspirin 81 Mg Tab.chew, 81 MG PO HS HOLD UNTIL AFTER LUNG BIOPSY, THEN RESTART DAILY Prescribed by: JUNE ALEMAN on 05/02/20851 Atenolol 50 Mg Tablet, 50 MG PO HS Prescribed by: JUNE ALEMAN on 05/02/20851 Calcium Carbonate 400 Mg Tab.chew, 400-800 MG PO PRN PRN for HEARTBURN, (Reported) Cefdinir 300 Mg Capsule, 300 MG PO BID Prescribed by: RORY DAVID on 05/30/20 1102 Clopidogrel Bisulfate 75 Mg Tablet, 75 MG PO DAILY HOLD UNTIL AFTER BIOPSY OF LUNG, THEN RESTART THE NEXT DAY TAKING ONE PILL DAILY Prescribed by: JUNE ALEMAN on 05/02/20851 Duloxetine HCl 60 Mg Capsule.dr, 60 MG PO HS, (Reported) Hydrocodone/Acetaminophen 1 Each Tablet, 1 EACH PO Q4H PRN for PAIN-MODERATE (5- 7) Prescribed by: NEO CENTENO on 05/21/20901 Insulin Detemir 100 Unit/1 Ml Insuln.pen, 10 UNIT SQ HS INCREASE BY 3 UNITS EVERY 3 DAYS UNTIL THE AVERAGE BLOOD GLUCOSE IS 150. Prescribed by: JUNE ALEMAN on 05/02/20851 Metformin HCl 500 Mg Tablet, 1,000 MG PO BID, (Reported) Nitroglycerin 0.4 Mg Tab.subl, 0.4 MG SL UD PRN for CHEST PAIN, (Reported) [place] 3 Polyunsat Fatty Acids 1,000 Mg Cap, 2,000 MG PO DAILY, (Reported) Pravastatin Sodium 40 Mg Tablet, 40 MG PO HS, (Reported) [Lorazepam] 0.5 MG TABLET, 0.5 MG PO TID PRN for ANXIETY Prescribed by: JUNE ALEMAN on 05/02/20851 Patient Home Medication List Home Medication List Reviewed: Yes Review of Systems Review of Systems Constitutional: see HPI; No chills, No fever EENTM: no symptoms reported Respiratory: cough, dyspnea on exertion, short of breath, wheezing Cardiovascular: No chest pain, No edema Gastrointestinal: No abdominal pain, No nausea, No vomiting Genitourinary: no symptoms reported All Other Systems Reviewed Negative Unless Noted: Yes Past Vjcsycf-Opbwkn-Iwiczt Hx Past Med/Social Hx: Reviewed Nursing Past Med/Soc Hx Patient Social History Alcohol Use: Denies Use Smoking Status: Current Everyday Smoker Type Used: Cigarettes 2nd Hand Smoke Exposure: Yes Recent Hopitalizations: Yes (3 WEEKS AGO FOR DIZZINESS - FOUND MASS IN RIGHT LUNG) Immunizations Up To Date Tetanus Booster (TDap): Unknown PED Vaccines UTD: No Date of Pneumonia Vaccine: Jan 03, 2019 Date of Influenza Vaccine: Jan 24, 2020 Seasonal Allergies Seasonal Allergies: No Past Medical History Surgeries: Yes (shoulder, back sx, knee sc, bilat CTR, breast bx, achilles sx, port) Appendectomy, Coronary Stent, Gallbladder, Hysterectomy, Tonsillectomy, Tubal Ligation Respiratory: Yes (lung ca) COPD Currently Using CPAP: No Currently Using BIPAP: No Cardiac: Yes Coronary Artery Disease, Heart Attack, Heart Murmur, Hypotension 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 0.0oz. 94.208905ga; 26.00 BMI Method: General Appearance: No Apparent Distress, WD/WN HEENT: PERRL/EOMI, Pharynx Normal Neck: Non Tender, Supple Respiratory: Crackles (Right upper lobe), Expiration, Inspiration, Wheezing (Few trace scattered throughout) Cardiovascular: No Murmur, Tachycardia Gastrointestinal: Non Tender, Soft Back: Normal Inspection, No CVA Tenderness, No Vertebral Tenderness Extremity: Normal Range of Motion, Non Tender Neurologic/Psychiatric: Alert, Oriented x3 Skin: normal color, warm/dry Focused Exam Lactate Level 06/05/20 21:44: Lactic Acid Level Laboratory Tests Test 06/05/20 21:44 Progress/Results/Core Measures Suspected Sepsis SIRS Temperature: Pulse: Respiratory Rate: Laboratory Tests 06/05/20 21:44: White Blood Count 8.2 Blood Pressure / Mean: 06/05/20 21:44: Laboratory Tests 06/05/20 21:44: INR Comment 1.1, Platelet Count 432H Results/Orders Lab Results Laboratory Tests Test 06/05/20 21:44 Range/Units White Blood Count 8.2 4.3-11.0 10^3/uL Red Blood Count 3.29 L 3.80-5.11 10^6/uL Hemoglobin 8.8 L 11.5-16.0 g/dL Hematocrit 29 L 35-52 % Mean Corpuscular Volume 87 80-99 fL Mean Corpuscular Hemoglobin 27 25-34 pg Mean Corpuscular Hemoglobin Concent 31 L 32-36 g/dL Red Cell Distribution Width 17.7 H 10.0-14.5 % Platelet Count 432 H 130-400 10^3/uL Mean Platelet Volume 10.0 9.0-12.2 fL Immature Granulocyte % (Auto) 1 % Neutrophils (%) (Auto) 85 H 42-75 % Lymphocytes (%) (Auto) 9 L 12-44 % Monocytes (%) (Auto) 5 0-12 % Eosinophils (%) (Auto) 0 0-10 % Basophils (%) (Auto) 0 0-10 % Neutrophils # (Auto) 7.0 1.8-7.8 10^3/uL Lymphocytes # (Auto) 0.7 L 1.0-4.0 10^3/uL Monocytes # (Auto) 0.4 0.0-1.0 10^3/uL Eosinophils # (Auto) 0.0 0.0-0.3 10^3/uL Basophils # (Auto) 0.0 0.0-0.1 10^3/uL Immature Granulocyte # (Auto) 0.0 0.0-0.1 10^3/uL Prothrombin Time 14.4 12.2-14.7 SEC INR Comment 1.1 0.8-1.4 Activated Partial Thromboplast Time 23 L 24-35 SEC My Orders Orders - PIOTR PHILLIPS MD Cbc With Automated Diff (06/05/20 21:37) Comprehensive Metabolic Panel (06/05/20 21:37) Blood Culture (06/05/20 21:37) Sputum Culture (06/05/20 21:37) Urinalysis (06/05/20 21:37) Urine Culture (06/05/20 21:37) Protime With Inr (06/05/20 21:37) Partial Thromboplastin Time (06/05/20 21:37) Chest 1 View, Ap/Pa Only (06/05/20 21:37) Ed Iv/Invasive Line Start (06/05/20 21:37) Vital Signs Adult Sepsis Patie Q15M (06/05/20 21:37) O2 (06/05/20 21:37) Remove Rings In Anticipation O (06/05/20 21:37) Lactic Acid Analyzer (06/05/20 21:37) Albuterol/Ipra Inhalation Soln (Duoneb I (06/05/20 21:45) Svn Small Volume Nebulizer (06/05/20 21:37) Ns Iv 500 Ml (Sodium Chloride 0.9%) (06/05/20 22:00) Piperacillin Sodium/Tazobactam (Zosyn Vi (06/05/20 22:30) Vancomycin Injection (Vancomycin Injecti (06/05/20 22:30) Medications Given in ED Current Medications Medications Dose Ordered Sig/Adele Route Start Time Stop Time Status Last Admin Dose Admin Albuterol/ Ipratropium 3 ml ONCE ONCE INH 06/05/20 21:45 06/05/20 21:46 DC 06/05/20 21:58 3 ML Sodium Chloride 500 ml @ 0 mls/hr Q0M ONCE IV 06/05/20 22:00 06/05/20 22:01 DC 06/05/20 21:59 0 MLS/HR Vital Signs/I&O 06/05/20 06/05/20 21:25 21:25 Temp 36.3 Pulse 105 Resp 26 B/P (MAP) 146/89 (108) Pulse Ox 98 98 O2 Delivery Nasal Cannula Nasal Cannula O2 Flow Rate 2.00 2.00 Capillary Refill : Progress Note : Progress Note Seen and evaluated. IV, labs, chest x-ray, UA, blood cultures and lactic acid for sepsis order set initiated. Port accessed. DuoNeb ordered. Normal saline 500 mL bolus ordered. Monitor patient. 2227: Chest x-ray shows increasing infiltrate of the right lung which is concerning for outpatient failure as she is currently on Omnicef. She is also requiring oxygen which is new and has not had oxygen prescribed at home. She is doing well on 2 L but has desaturations off oxygen to mid 80s. She will require admission. I did discuss the case with Dr. Aleman. She accepts patient for admission, inpatient status. We will initiate Zosyn and vancomycin therapy given her failed outpatient therapy. Patient is due to have radiation oncology tomorrow and we will have nursing notify cancer center in the morning of admission for determination of therapy. Consult Dr. Go in the morning. All findings and concerns discussed with the patient who agrees with plan. Solu-Medrol 125 mg IV ordered now and we will continue 60 mg IV every 6 hours due to concerns of postobstructive pneumonia. 0055: Patient was upgraded to the ICU due to worsening shortness of air. Did have trial on Vapotherm and we have increased her to BiPAP. I have updated [facility] in report and they will continue to follow and manage. Diagnostic Imaging Diagonstic Imaging: Xray Plain Films/CT/US/NM/MRI: chest Comments [facility] [place], [place] NAME: HEATHER PATHAK [facility] REC#: [id number] PT STATUS: REG ER : 1950 PHYSICIAN: PIOTR PHILLIPS MD ADMIT DATE: 06/05/20/ER Draft Date of Exam:06/05/20 CHEST 1 VIEW, AP/PA ONLY HISTORY: Shortness of air, lung cancer, sepsis. COMPARISON: 05/30/2020 TECHNIQUE: Frontal view of the chest. FINDINGS: The right upper lobe mass is unchanged. There are mildly increased right basilar airspace opacities. Interstitial opacities appear mildly increased throughout. The cardiac silhouette is mildly prominent but stable in size. There is aortic atherosclerosis. The left Port-A-Cath tip is unchanged, projecting over the SVC. IMPRESSION: 1. Increased right basilar opacities, may be due to developing infiltrate. 2. Increased interstitial opacities may represent a mild interstitial edema. 3. Unchanged right upper lobe mass. Dictated on workstation # [id number] Dict: 06/05/202200 Trans: 06/05/202204 [facility] [id number] Interpreted by: BRENDA MCKEON MD Electronically signed by: Departure Communication (Admissions) Time/Spoke to Admitting Phy: 22:27 Impression Primary Impression: Pneumonia Qualified Codes: J18.9 - Pneumonia, unspecified organism Additional Impression: Squamous cell carcinoma of right lung Disposition: ADMITTED INPATIENT Condition: Stable Admissions Decision to Admit Reason: Admit from ER (General) Decision to Admit/Date: Jun 05, 2020 Time/Decision to Admit Time: 22:27 Departure-Patient Inst. Referrals: JUNE ALEMAN MD (PCP/Family) Primary Care Physician PIOTR PHILLIPS MD Jun 05, 2020 21:49
[2020-06-05 21:56] LABS: BASOPHILS % (AUTO) 0 % (0-10); HEMOGLOBIN 8.8 g/dL (11.5-16.0)
[2020-06-05 21:58] LABS: EOSINOPHILS % (AUTO) 0 % (0-10); HEMATOCRIT 29 % (35-52); LYMPHOCYTES # (AUTO) 0.7 10^3/uL (1.0-4.0); LYMPHOCYTES % (AUTO) 9 % (12-44); MEAN CORPUSCULAR HEMOGLOBIN 27 pg (25-34); MEAN CORPUSCULAR HGB CONC 31 g/dL (32-36); MEAN CORPUSCULAR VOLUME 87 fL (80-99); MONOCYTES # (AUTO) 0.4 10^3/uL (0.0-1.0); MONOCYTES % (AUTO) 5 % (0-12); NEUTROPHILS % (AUTO) 85 % (42-75); PLATELET COUNT 432 10^3/uL (130-400); WHITE BLOOD COUNT 8.2 10^3/uL (4.3-11.0)
[2020-06-05] MEDS ORDERED: NS IV 500 ML 500 ML IV ONE (22:00)
--- NOTE | 2020-06-05 22:05 | Diagnostic Imaging Report ---
HISTORY: Shortness of air, lung cancer, sepsis. COMPARISON: 05/30/2020 TECHNIQUE: Frontal view of the chest. FINDINGS: The right upper lobe mass is unchanged. There are mildly increased right basilar airspace opacities. Interstitial opacities appear mildly increased throughout. The cardiac silhouette is mildly prominent but stable in size. There is aortic atherosclerosis. The left Port-A-Cath tip is unchanged, projecting over the SVC. IMPRESSION: 1. Increased right basilar opacities, may be due to developing infiltrate. 2. Increased interstitial opacities may represent a mild interstitial edema. 3. Unchanged right upper lobe mass. Dictated by: Dictated on workstation # [id number]
[2020-06-05 22:06] LABS: INR 1.1 (0.8-1.4); PROTHROMBIN TIME PATIENT 14.4 SEC (12.2-14.7)
[2020-06-05] MEDS ORDERED: PIPERACILLIN SODIUM/TAZOBACTAM 4.5 GM in NS (IVPB) 100 ML IV ONE (22:30)
[2020-06-05] MEDS ORDERED: methylPREDNISolone 125 MG (Solu-MEDROL) VIAL IV STA (22:41)
[2020-06-05 22:46] LABS: BILIRUBIN,URINE NEGATIVE (NEGATIVE); CLARITY,URINE CLEAR; COLOR,URINE YELLOW; GLUCOSE, URINE (UA) 1+ (NEGATIVE); KETONES,URINE NEGATIVE (NEGATIVE); LEUKOCYTE ESTERASE ,URINE NEGATIVE (NEGATIVE); NITRITE,URINE NEGATIVE (NEGATIVE); PROTEIN,URINE TRACE (NEGATIVE)
[2020-06-05 22:53] LABS: BACTERIA,URINE NEGATIVE /HPF; WBC,URINE 0-2 /HPF
[2020-06-05] MEDS: VANCOMYCIN INJECTION 750 MG in NS (IVPB) 250 ML IV SCH (23:06)
[2020-06-05] MEDS ORDERED: LORazepam INJ 2 MG/ML (ATIVAN) VIAL IVP ONE (23:30)
[2020-06-05 23:44] LABS: ALANINE AMINOTRANSFERASE 14 U/L (0-55); ALBUMIN 3.4 GM/DL (3.2-4.5); ALKALINE PHOSPHATASE 61 U/L (40-136); BILIRUBIN,TOTAL 0.2 MG/DL (0.1-1.0); BUN/CREATININE RATIO 15; CARBON DIOXIDE 19 MMOL/L (21-32); CHLORIDE 101 MMOL/L (98-107); CREATININE SERUM 0.72 MG/DL (0.60-1.30); GFR ESTIMATED > 60; GLUCOSE 189 MG/DL (70-105); POTASSIUM 4.1 MMOL/L (3.6-5.0); SODIUM 134 MMOL/L (135-145); TOTAL PROTEIN 7.2 GM/DL (6.4-8.2)
[2020-06-05] MEDS ORDERED: RT-ALBUTEROL SULF 2.5 MG/3 ML PRE-MIX VIAL ONE (23:58)
[2020-06-06] VITALS (30 sets, daily range): BP systolic 111–185; BP diastolic 58–123
[2020-06-06] MEDS ORDERED: RT-ALBUTEROL SULF 2.5 MG/3 ML PRE-MIX VIAL INH STA (00:02)
[2020-06-06] MEDS ORDERED: NS (IVPB) 250 ML ONE (01:17)
[2020-06-06] MEDS ORDERED: VANCOMYCIN 750 MG/VIAL IV ONE (01:18)
[2020-06-06] MEDS ORDERED: LORazepam INJ 2 MG/ML (ATIVAN) VIAL IVP PRN (01:30)
[2020-06-06] MEDS: VANCOMYCIN INJECTION 750 MG in NS (IVPB) 250 ML IV SCH (01:32)
[2020-06-06] MEDS ORDERED: RT-ALBUTEROL/IPRATROPIUM 3 ML (DUONEB) VIAL ONE (01:39)
[2020-06-06] MEDS ORDERED: RT-ALBUTEROL/IPRATROPIUM 3 ML (DUONEB) VIAL INH PRN (01:45)
[2020-06-06] MEDS: RT-ALBUTEROL/IPRATROPIUM 3 ML (DUONEB) VIAL INH SCH ×6 (01:47→22:01)
[2020-06-06] MEDS ORDERED: ONDANSETRON 4 MG/2 ML (SDV) Z0FRAN IVP PRN (02:00)
[2020-06-06 03:33] LABS: BASOPHILS % (AUTO) 0 % (0-10); EOSINOPHILS % (AUTO) 0 % (0-10); HEMATOCRIT 27 % (35-52); HEMOGLOBIN 8.5 g/dL (11.5-16.0); LYMPHOCYTES # (AUTO) 0.2 10^3/uL (1.0-4.0); LYMPHOCYTES % (AUTO) 3 % (12-44); MEAN CORPUSCULAR HEMOGLOBIN 27 pg (25-34); MEAN CORPUSCULAR HGB CONC 31 g/dL (32-36); MEAN CORPUSCULAR VOLUME 86 fL (80-99); MEAN PLATELET VOLUME 9.3 fL (9.0-12.2); MONOCYTES # (AUTO) 0.2 10^3/uL (0.0-1.0); MONOCYTES % (AUTO) 3 % (0-12); NEUTROPHILS # (AUTO) 6.6 10^3/uL (1.8-7.8); NEUTROPHILS % (AUTO) 93 % (42-75); PLATELET COUNT 368 10^3/uL (130-400); WHITE BLOOD COUNT 7.1 10^3/uL (4.3-11.0)
[2020-06-06 03:48] LABS: ALBUMIN 3.1 GM/DL (3.2-4.5); CHLORIDE 102 MMOL/L (98-107); POTASSIUM 4.4 MMOL/L (3.6-5.0); SODIUM 132 MMOL/L (135-145)
[2020-06-06 03:49] LABS: CALCIUM 8.2 MG/DL (8.5-10.1)
[2020-06-06 03:50] LABS: GLUCOSE 218 MG/DL (70-105)
[2020-06-06 03:51] LABS: TOTAL PROTEIN 6.2 GM/DL (6.4-8.2)
[2020-06-06 03:52] LABS: BILIRUBIN,TOTAL 0.2 MG/DL (0.1-1.0); CARBON DIOXIDE 20 MMOL/L (21-32)
[2020-06-06 03:54] LABS: ALKALINE PHOSPHATASE 53 U/L (40-136); CREATININE SERUM 0.62 MG/DL (0.60-1.30); GFR ESTIMATED > 60; PHOSPHORUS 3.2 MG/DL (2.3-4.7)
[2020-06-06 03:55] LABS: BUN/CREATININE RATIO 19
[2020-06-06 03:57] LABS: ALANINE AMINOTRANSFERASE 13 U/L (0-55); MAGNESIUM 1.7 MG/DL (1.6-2.4)
[2020-06-06 04:02] LABS: BAND NEUTROPHILS 0 %; LYMPHOCYTES % (MANUAL) 5 %; NEUTROPHILS % (MANUAL) 91 %
[2020-06-06 04:03] LABS: BASOPHILS % (MANUAL) 0 %; EOSINOPHILS % (MANUAL) 0 %; MICROCYTOSIS MODERATE; MONOCYTES % (MANUAL) 4 %
[2020-06-06 04:22] LABS: ABG BASE EXCESS -0.8 MMOL/L (-2.5-2.5); ABG OXYGEN SATURATION 100 % (94-100); ABG PCO2 38 MMHG (35-45); ABG PO2 150 MMHG (79-93)
[2020-06-06 04:25] LABS: ALLENS TEST YES-POS; INSPIRED O2 50%; PATIENT TEMP 35.2; VENTILATOR NO
[2020-06-06] MEDS ORDERED: PIPERACILLIN/TAZO 4.5 GM VIAL (ZOSYN) IV ONE (04:34)
[2020-06-06] MEDS ORDERED: NS (IVPB) 100 ML ONE (04:34)
--- NOTE | 2020-06-06 05:09 | Pulmonary Consultation ---
History of Present Illness History of Present Illness Date Seen by Provider: Jun 06, 2020 Time Seen by Provider: 05:03 Date of Admission Allergies and Home Medications Allergies Coded Allergies: ciprofloxacin (Verified Allergy, Severe, TENDONITIS, 08/12/16) TENDONITIS morphine (Verified Allergy, Severe, RASH/ BURNING SENSATION, 08/12/16) Home Medications Acetaminophen 500 Mg Tablet, 1,000 MG PO Q8H PRN for PAIN-MILD (1-4), (Reported) Albuterol Sulfate 2.5 Mg/3 Ml Vial.neb, 2.5 MG NEB BID PRN for SHORTNESS OF BREATH, (Reported) Albuterol Sulfate 6.7 Gm Hfa.aer.ad, 2 PUFF INH Q4H PRN for SHORTNESS OF BREATH, (Reported) Amlodipine Besylate 5 Mg Tablet, 5 MG PO DAILY TAKE IN THE MORNING Prescribed by: JUNE SHAHID on 05/02/20851 Aspirin 81 Mg Tab.chew, 81 MG PO HS HOLD UNTIL AFTER LUNG BIOPSY, THEN RESTART DAILY Prescribed by: JUNE SHAHID on 05/02/20851 Atenolol 50 Mg Tablet, 50 MG PO HS Prescribed by: JUNE SHAHID on 05/02/20 08 Calcium Carbonate 400 Mg Tab.chew, 400-800 MG PO PRN PRN for HEARTBURN, (Reported) Cefdinir 300 Mg Capsule, 300 MG PO BID Prescribed by: RORY DAVID on 05/30/20 110 Clopidogrel Bisulfate 75 Mg Tablet, 75 MG PO DAILY HOLD UNTIL AFTER BIOPSY OF LUNG, THEN RESTART THE NEXT DAY TAKING ONE PILL DAILY Prescribed by: JUNE SHAHID on 05/02/20 08 Duloxetine HCl 60 Mg Capsule.dr, 60 MG PO HS, (Reported) Hydrocodone/Acetaminophen 1 Each Tablet, 1 EACH PO Q4H PRN for PAIN-MODERATE (5- 7) Prescribed by: NEO CENTENO on 05/21/20 09 Insulin Detemir 100 Unit/1 Ml Insuln.pen, 10 UNIT SQ HS INCREASE BY 3 UNITS EVERY 3 DAYS UNTIL THE AVERAGE BLOOD GLUCOSE IS 150. Prescribed by: JUNE SHAHID on 05/02/20 08 Metformin HCl 500 Mg Tablet, 1,000 MG PO BID, (Reported) Nitroglycerin 0.4 Mg Tab.subl, 0.4 MG SL UD PRN for CHEST PAIN, (Reported) [place] 3 Polyunsat Fatty Acids 1,000 Mg Cap, 2,000 MG PO DAILY, (Reported) Pravastatin Sodium 40 Mg Tablet, 40 MG PO HS, (Reported) [Lorazepam] 0.5 MG TABLET, 0.5 MG PO TID PRN for ANXIETY Prescribed by: JUNE SHAHID on 05/02/20 0852 Past Yicgwmc-Kscwqp-Wdaayh Hx Past Med/Social Hx: Reviewed Nursing Past Med/Soc Hx Patient Social History Alcohol Use: Denies Use Smoking Status: Current Everyday Smoker Type Used: Cigarettes 2nd Hand Smoke Exposure: Yes Recent Infectious Disease Expo: No Recent Hopitalizations: Yes (3 WEEKS AGO FOR DIZZINESS - FOUND MASS IN RIGHT LUNG) Immunizations Up To Date Tetanus Booster (TDap): Unknown PED Vaccines UTD: No Date of Pneumonia Vaccine: Jan 03, 2019 Date of Influenza Vaccine: Jan 24, 2020 Seasonal Allergies Seasonal Allergies: No Past Medical History Surgeries: Yes (shoulder, back sx, knee sc, bilat CTR, breast bx, achilles sx, port) Appendectomy, Coronary Stent, Gallbladder, Hysterectomy, Tonsillectomy, Tubal Ligation Respiratory: Yes (lung ca) COPD Currently Using CPAP: No Currently Using BIPAP: No Cardiac: Yes Coronary Artery Disease, Heart Attack, Heart Murmur, Hypotension 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 0.0oz. [id number]; 27.87 BMI Method: Exam Exam Vital Signs Date Time Temp Pulse Resp B/P (MAP) Pulse Ox O2 Delivery O2 Flow Rate FiO2 06/06/20 04:42 35.2 06/06/20 03:00 94 111/63 (79) 100 NIV Bilevel 50.00 06/06/20 02:00 NIV Bilevel 50.00 06/06/20 02:00 103 135/64 (87) 100 NIV Bilevel 50.00 06/06/20 01:48 104 18 100 50.00 06/06/20 01:45 105 133/76 (95) 100 NIV Bilevel 60.00 06/06/20 01:30 110 149/82 (104) 100 NIV Bilevel 60.00 06/06/20 01:25 36.3 123 100 60 06/06/20 01:15 112 17 152/67 (95) 100 NIV Bilevel 60.00 06/06/20 01:07 123 26 100 60.00 06/06/20 01:05 NIV Bilevel 60.00 06/06/20 01:00 117 21 185/94 (124) 100 NIV Bilevel 100.00 06/06/20 01:00 117 06/06/20 00:55 NIV Bilevel 100.00 06/06/20 00:52 124 35 182/98 (126) 93 Vapotherm 40.00 50.00 06/06/20 00:50 Vapotherm 40.00 50.00 06/06/20 00:50 96 5.00 06/06/20 00:46 96 Simple Mask 5.00 06/06/20 00:40 Vapotherm 30.00 50.00 06/06/20 00:39 121 146/123 (131) 94 Vapotherm 25.00 50.00 06/06/20 00:35 Vapotherm 25.00 50.00 06/06/20 00:30 36.9 115 24 184/93 97 Vapotherm 20.00 06/06/20 00:30 36.8 Vapotherm 20.00 50.00 06/06/20 00:20 94 Vapotherm 20.00 50 06/06/20 00:15 95 Vapotherm 20.00 50 06/05/20 23:45 93 OxyMask 10.00 06/05/20 22:00 94 Nasal Cannula 4.00 06/05/20 21:25 98 Nasal Cannula 2.00 06/05/20 21:25 36.3 105 26 146/89 (108) 98 Nasal Cannula 2.00 I & O 06/06/20 07:00 Intake Total 1150 ml Output Total 375 ml Balance 775 ml Height & Weight Height: 5'6.00" Weight: 208lbs. 0.0oz. [id number]; 27.87 BMI Method: General Appearance: No Apparent Distress, WD/WN HEENT: PERRL/EOMI, Pharynx Normal Neck: Non Tender, Supple Respiratory: Crackles (Right upper lobe), Expiration, Inspiration, Wheezing (Few trace scattered throughout) Cardiovascular: No Murmur, Tachycardia Capillary Refill: Less Than 3 Seconds Extremity: Normal Range of Motion, Non Tender Neurologic/Psychiatric: Alert, Oriented x3 Results Lab Laboratory Tests 06/05/20 21:44 06/06/20 03:20 Assessment/Plan Assessment/Plan Acute respiratory failure r/o PNA -continue abx -Check BNP, PCT, and DDimer -BiPAP currently 50% Squamous cell lung cancer -currently undergoing chemoradiation -Last treatment was 06/05 Hypnonatremia -Monitor DM -Restart Levemir -SSI GI/DVT -Lovenox -Protonix MARLI HACKETT DO Jun 06, 2020 05:09
[2020-06-06] MEDS ORDERED: FUROSEMIDE 40 MG/4 ML INJ (LASIX) IVP ONE (05:15)
[2020-06-06] MEDS ORDERED: ASPIRIN 325 MG (5 GR) TABLET PO SCH (05:15)
[2020-06-06] MEDS ORDERED: ENOXAPARIN 40 MG/0.4 ML (LOVENOX) SYR SC SCH (05:15)
[2020-06-06] MEDS ORDERED: DexMEDEtomidine 250 ML DRIP 250 ML IV SCH (05:30)
[2020-06-06] MEDS: PIPERACILLIN/TAZO 4.5 GM/NS 100 ML IV SCH ×6 (05:37→20:23)
[2020-06-06] MEDS: methylPREDNISolone 125 MG (Solu-MEDROL) VIAL IVP SCH ×4 (05:38→23:47)
[2020-06-06] MEDS: MAGNESIUM 1 GM/100 ML IVPB 100 ML IV SCH ×2 (05:43→06:48)
[2020-06-06] MEDS: inSUlin ASPART (NovoLOG) 1 UNIT/0.01 ML (CHARGE PER UNIT) SC SCH ×4 (05:50→20:23)
--- NOTE | 2020-06-06 07:55 | History & Physical ---
ELENALEROY MED STUDENT 06/06/20 0754: History of Present Illness History of Present Illness Reason for visit/HPI CC: Shortness of breath HPI: Noa is a 69 yo female who presented initially to the ED last night for SOB. She was diagnosed with RUL SCC 3 weeks ago and is receiving daily radiation therapy. Recent episode of pneumonia on 05/30, where she was being treated with Omnicef as outpatient. Last night she had increasing difficulty breathing and th us presented to the ED. She was started on Zosyn, Vancomycin, and Solumedrol. She was initially admitted to step-down but upgraded to ICU due to increasing O2 requirement. She presents with no complaints of pain, continues to have SOB, denies N/V. Date of Admission Jun 05, 2020 at 22:33 Date Seen by a Provider: Jun 06, 2020 Time Seen by a Provider: 07:30 I consulted on this patient on 06/06/20 07:49 Attending Physician June Aleman MD Admitting Physician June Aleman MD Consult Allergies and Home Medications Allergies Coded Allergies: ciprofloxacin (Verified Allergy, Severe, TENDONITIS, 08/12/16) TENDONITIS morphine (Verified Allergy, Severe, RASH/ BURNING SENSATION, 08/12/16) Home Medications Acetaminophen 500 Mg Tablet, 1,000 MG PO Q8H PRN for PAIN-MILD (1-4), (Reported) Albuterol Sulfate 2.5 Mg/3 Ml Vial.neb, 2.5 MG NEB BID PRN for SHORTNESS OF BREATH, (Reported) Albuterol Sulfate 6.7 Gm Hfa.aer.ad, 2 PUFF INH Q4H PRN for SHORTNESS OF BREATH, (Reported) Amlodipine Besylate 5 Mg Tablet, 5 MG PO DAILY, (Reported) Aspirin 81 Mg Tab.chew, 81 MG PO HS, (Reported) Atenolol 50 Mg Tablet, 50 MG PO HS, (Reported) Cefdinir 300 Mg Capsule, 300 MG PO BID, (Reported) FILLED 05-30-2020 #20/10 DAY SUPPLY Clopidogrel Bisulfate 75 Mg Tablet, 75 MG PO DAILY, (Reported) Duloxetine HCl 60 Mg Capsule.dr, 60 MG PO HS, (Reported) LAST FILLED 02-03-2020 #90 Hydrocodone/Acetaminophen 1 Each Tablet, 1 TAB PO Q4H PRN for PAIN-MODERATE (5- 7), (Reported) Insulin Detemir 100 Unit/1 Ml Insuln.pen, UNIT SQ HS, (Reported) USES PER SLIDING SCALE Insulin Regular, Human 100 Unit/1 Ml Insuln.pen, 5-7 UNITS SC AC, (Reported) Lorazepam 0.5 Mg Tablet, 0.5 MG PO TID PRN for ANXIETY, (Reported) Metformin HCl 500 Mg Tablet, 1,000 MG PO BID, (Reported) TAKES 2 (500MG) TABS Montelukast Sodium 10 Mg Tablet, 10 MG PO DAILY, (Reported) Nitroglycerin 0.4 Mg Tab.subl, 0.4 MG SL UD PRN for CHEST PAIN, (Reported) [place]-3 Fatty Acids/Fish Oil 1 Each Capsule, 2 EACH PO DAILY, (Reported) Ondansetron HCl 8 Mg Tablet, 8 MG PO Q8H PRN for NAUSEA/VOMITING-1ST LINE, (Reported) Pantoprazole Sodium 40 Mg Tablet.dr, 40 MG PO DAILY, (Reported) Pravastatin Sodium 40 Mg Tablet, 40 MG PO HS, (Reported) Patient Home Medication List Home Medication List Reviewed: Yes Past Slrvwdv-Nbmovz-Ejbots Hx Patient Social History Smoking Status: Current Everyday Smoker 2nd Hand Smoke Exposure: Yes Recent Hopitalizations: Yes (3 WEEKS AGO FOR DIZZINESS - FOUND MASS IN RIGHT LUNG) Immunizations Up To Date Tetanus Booster (TDap): Unknown Pediatric: No Date of Pneumonia Vaccine: Jan 03, 2019 Date of Influenza Vaccine: Jan 24, 2020 Seasonal Allergies Seasonal Allergies: No Surgeries Yes (shoulder, back sx, knee sc, bilat CTR, breast bx, achilles sx, port) Appendectomy, Coronary Stent, Gallbladder, Hysterectomy, Tonsillectomy, Tubal Ligation Respiratory Yes (lung ca) Currently Using CPAP: No Currently Using BIPAP: No Cardiovascular Yes Coronary Artery Disease, Heart Attack, Heart Murmur, Hypotension 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 Yes Neuropathy 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 Genitourinary No Gastrointestinal No Gastroesophageal Reflux Musculoskeletal Yes Chronic Back Pain Endocrine History of Endocrine Disorders: Yes Endocrine Disorders: Diabetes, Insulin dep HEENT History of HEENT Disorders: Yes (partial denture) Cancer No Lung Type of Treatment: Chemotherapy, Radiation Psychosocial History of Psychiatric Problem: No Behavioral Health Disorders: Depression Integumentary History of Skin or Integumenta: No Blood Transfusions History of Blood Disorders: No Family Medical History Significant Family History: Heart Disease, Hypertension Review of Systems Constitutional: No chills, No fever; malaise, weakness EENTM: No hearing loss, No ear pain, No vision loss Respiratory: short of breath, wheezing Cardiovascular: No chest pain, No edema Gastrointestinal: No abdominal pain, No constipation, No diarrhea, No nausea, No vomiting Genitourinary: No dysuria, No frequency, No hematuria Musculoskeletal: No back pain, No joint pain, No muscle pain Skin: No change in color, No lesions, No rash Psychiatric/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: Denies Headache, Denies Numbness, Denies Tingling Physical Exam Vital Signs Vital Signs - First Documented 06/06/20 00:15 FiO2 50 Capillary Refill : Less Than 3 Seconds Height, Weight, BMI Height: 5'6.00" Weight: 208lbs. 0.0oz. 94.144145nf; 27.87 BMI Method: General Appearance: No Apparent Distress, Chronically ill HEENT: PERRL/EOMI Neck: Full Range of Motion, Normal Inspection, Non Tender, Supple Respiratory: Chest Non Tender, No Accessory Muscle Use, Crackles (RUL), Wheezing (inspiratory and expiratory wheezing scattered bilaterally) Cardiovascular: Regular Rate, Rhythm, No Edema, Normal Peripheral Pulses, Diastolic Murmur Gastrointestinal: Normal Bowel Sounds, Non Tender, Soft Rectal: Deferred Back: Normal Inspection, No CVA Tenderness, No Vertebral Tenderness Extremity: Normal Capillary Refill, Normal Inspection, Normal Range of Motion, Non Tender, No Calf Tenderness, No Pedal Edema Neurologic/Psychiatric: Alert, Oriented x3, No Motor/Sensory Deficits Skin: Normal Color, Warm/Dry Assessment/Plan Assessment and Plan Post-obstructive pneumonia Anemia - Hgb 8.5 Hyponatremia - Na 132 RUL SCC CAD COPD T1DM Pt is doing well on 40% BiPAP, wean to Vapotherm as tolerated Zosyn/Vancomycin, Solumedrol for pneumonia CXR shows bilateral pulmonary infiltrates Consult Cardiology CT Angio - D-dimer 0.93 DVT prophylaxis with Lovenox Contact Cancer center for radiation therapy Monitor VS, labs Admission Diagnosis Admission Status: Inpatient Order (span 2 midnights) JUNE ALEMAN MD 06/07/20 7647: History of Present Illness History of Present Illness Reason for visit/HPI PT IS A 69 Y/O FEMALE WHO IS KNOWN TO ME FROM CLINIC A NEW PT IN 04/2020 WITH HOSPITALIZATION IN 04/2020 AND SUBSEQUENT DX OF LUNG CANCER. SHE HAS BEEN RECEIVING CHEMOTHERAPY AND RADIATION THERAPY FOR SMALL CELL LUNG CANCER. SHE WAS SEEN AND TREATED ON 05/30 FOR PNEUMONIA - PT WAS ON OMNICEF, BUT DID NOT REALLY SHOW IMPROVEMENT ON THE TREATMENT. SHE CALLED A FRIEND ON THE NIGHT OF ADMISSION DUE TO FEELING VERY SHORT OF BREATH. NOA WAS FOUND TO HAVE AN OXYGEN SATURATION IN THE 80'S AND SHE WAS TRANSPORTED TO THE ER WHERE SHE WAS FOUND TO HAVE PNEUMONIA - POST-OBSTRUCTIVE. SHE WAS INITIATED ON ZOSYN, ,VANC AND SOLUMEDROL. NOA DECOMPENSATED IN THE ER AND WAS CHANGED FROM VAPOTHERM TO BIPAP. THIS MORNING NOA REPORTS THAT SHE IS FEELING A LITTLE BIT BETTER, AND IS BREATHING BETTER WITH HOPE TO CHANGE BACK FROM BIPAP TO VAPOTHERM. Date of Admission 06/05/2020 Time Seen by a Provider: 08:30 Attending Physician JUNE ALEMAN MD Admitting Physician JUNE ALEMAN MD Consult DR. RXOANN LINDSEY ([employer] CLINICAL ANALYST) Allergies and Home Medications Allergies Coded Allergies: ciprofloxacin (Verified Allergy, Severe, TENDONITIS, 08/12/16) TENDONITIS morphine (Verified Allergy, Severe, RASH/ BURNING SENSATION, 08/12/16) Home Medications Acetaminophen 500 Mg Tablet, 1,000 MG PO Q8H PRN for PAIN-MILD (1-4), (Reported) Albuterol Sulfate 2.5 Mg/3 Ml Vial.neb, 2.5 MG NEB BID PRN for SHORTNESS OF BREATH, (Reported) Albuterol Sulfate 6.7 Gm Hfa.aer.ad, 2 PUFF INH Q4H PRN for SHORTNESS OF BREATH, (Reported) Amlodipine Besylate 5 Mg Tablet, 5 MG PO DAILY, (Reported) Aspirin 81 Mg Tab.chew, 81 MG PO HS, (Reported) Atenolol 50 Mg Tablet, 50 MG PO HS, (Reported) Cefdinir 300 Mg Capsule, 300 MG PO BID, (Reported) FILLED 05-30-2020 #20/10 DAY SUPPLY Clopidogrel Bisulfate 75 Mg Tablet, 75 MG PO DAILY, (Reported) Duloxetine HCl 60 Mg Capsule.dr, 60 MG PO HS, (Reported) LAST FILLED 02-03-2020 #90 Hydrocodone/Acetaminophen 1 Each Tablet, 1 TAB PO Q4H PRN for PAIN-MODERATE (5- 7), (Reported) Insulin Detemir 100 Unit/1 Ml Insuln.pen, UNIT SQ HS, (Reported) USES PER SLIDING SCALE Insulin Regular, Human 100 Unit/1 Ml Insuln.pen, 5-7 UNITS SC AC, (Reported) Lorazepam 0.5 Mg Tablet, 0.5 MG PO TID PRN for ANXIETY, (Reported) Metformin HCl 500 Mg Tablet, 1,000 MG PO BID, (Reported) TAKES 2 (500MG) TABS Montelukast Sodium 10 Mg Tablet, 10 MG PO DAILY, (Reported) Nitroglycerin 0.4 Mg Tab.subl, 0.4 MG SL UD PRN for CHEST PAIN, (Reported) [place]-3 Fatty Acids/Fish Oil 1 Each Capsule, 2 EACH PO DAILY, (Reported) Ondansetron HCl 8 Mg Tablet, 8 MG PO Q8H PRN for NAUSEA/VOMITING-1ST LINE, (Reported) Pantoprazole Sodium 40 Mg Tablet.dr, 40 MG PO DAILY, (Reported) Pravastatin Sodium 40 Mg Tablet, 40 MG PO HS, (Reported) Patient Home Medication List Home Medication List Reviewed: Yes Past Fjuqyke-Gyixpd-Dyokps Hx Patient Social History Marrital Status: Living Status: LIVES ALONE IN [place] WITH ANIMALS IN THE HOME Employed/Student: retired Smoking Status: Current Someday Smoker (PT STATES THAT SHE STOPPED SMOKING ON 06/04/2020) 2nd Hand Smoke Exposure: No Recent Hopitalizations: No Have you traveled recently?: No Alcohol Use?: No Pt feels they are or have been: No Tobacco type used: Cigarettes Surgeries Yes ((shoulder, back sx, knee sc, bilat CTR, breast bx, achilles sx, port)) Orthopedic Respiratory Yes COPD Currently Using CPAP: No Currently Using BIPAP: No Cardiovascular Yes Coronary Artery Disease, High Cholesterol, Hypertension 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 No Genitourinary No Gastrointestinal No Musculoskeletal Yes Arthritis Endocrine History of Endocrine Disorders: Yes Endocrine Disorders: Diabetes, Insulin dep HEENT History of HEENT Disorders: No Loss of Vision: Denies Hearing Impairment: Denies Cancer Lung (CURRENTLY UNDER THERAPY FOR LUNG CANCER - SMALL CELL) Did You Recieve Any Treatments: Yes Type of Treatment: Chemotherapy, Radiation Psychosocial History of Psychiatric Problem: Yes Behavioral Health Disorders: Anxiety, Depression Integumentary History of Skin or Integumenta: No Blood Transfusions History of Blood Disorders: No Reviewed Nursing Assessment Reviewed/Agree w Nursing PMH: Yes Family Medical History Significant Family History: Heart Disease, Hypertension Review of Systems Constitutional: No chills, No fever; malaise, weakness EENTM: No hoarseness, No throat pain Respiratory: cough, dyspnea on exertion, short of breath, wheezing Cardiovascular: No chest pain, No edema, No palpitations Gastrointestinal: No abdominal pain, No constipation, No diarrhea, No nausea, No vomiting Genitourinary: No dysuria, No frequency, No hematuria Musculoskeletal: No back pain, No joint pain, No muscle pain; muscle weakness Skin: No change in color, No lesions, No rash Psychiatric/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: Anxiety, Depressed; Denies Headache, Denies Numbness All Other Systems Reviewed Negative Unless Noted: Yes Physical Exam General Appearance: No Apparent Distress, WD/WN, Chronically ill Eyes: Bilateral Eye Normal Inspection, Bilateral Eye PERRL, Bilateral Eye EOMI HEENT: PERRL/EOMI, TMs Normal, Normal ENT Inspection, Pharynx Normal Neck: Full Range of Motion, Normal Inspection, Non Tender, Supple Respiratory: Chest Non Tender, Accessory Muscle Use, Crackles (RUL, ), Decreased Breath Sounds (RUL), Wheezing (inspiratory and expiratory wheezing scattered bilaterally) Cardiovascular: Regular Rate, Rhythm, No Edema, Normal Peripheral Pulses, Diast olic Murmur Gastrointestinal: Normal Bowel Sounds, No Organomegaly, No Pulsatile Mass, Non Tender, Soft Rectal: Deferred Back: Normal Inspection, No CVA Tenderness, No Vertebral Tenderness Extremity: Normal Capillary Refill, Normal Inspection, Normal Range of Motion, Non Tender, No Calf Tenderness, No Pedal Edema Neurologic/Psychiatric: Alert, Oriented x3, No Motor/Sensory Deficits, 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 Skin: Normal Color, Warm/Dry Lymphatic: No Adenopathy Assessment/Plan Assessment and Plan RESPIRATORY FAILURE POST-OBSTRUCTIVE PNEUMONIA SMALL CELL LUNG CANCER RIGHT UPPER LOBE COPD DIABETES MELLITUS HYPERTENSION CORONARY ARTERY DISEASE SUSPECT PULMONARY EMBOLUS ANEMIA HYPONATREMIA RESPIRATORY FAILURE DUE TO POST-OBSTRUCTIVE PNEUMONIA DUE TO SMALL CELL LUNG CANCER RIGHT UPPER LOBE AND COPD EXACERBATION - IV ZOSYN, IV VANCOMYCIN, IV SOLUMEDROL, MONITOR SERIAL CXR'S - CALL PLACED [facility] TO ALERT THEM OF PATIENT BEING IN HOSPITAL SO THEY CAN RESUME HER TREATMENTS WHILE HOSPITALIZED. - BREATHING TREATMENTS PRN - CONSULT TO DR. HACKETT - CRITICAL CARE DIRECTOR LOAN DIABETES MELLITUS - RESUME HOME REGIMEN WITH ICU INSULIN PROTOCOL, WILL ANTICIPATE DISRUPTION OF NORMAL CONTROL DUE TO HER IV STEROIDS. HYPERTENSION - RESUME HOME REGIMEN CORONARY ARTERY DISEASE - CALL PLACED TO DR. LINDSEY - DR. ULLOA TO SEE PT IN HOSPITAL, SHE HAS HX OF CAD WITH STENTS - ELEVATED TROPONIN - LIKELY DUE TO HER SEVERE HYPOXIC EPISODE PRIOR TO ADM ISSION SUSPECT PULMONARY EMBOLUS - CT ANGIO TODAY, IF POSITIVE WILL START LOVENOX - DDIMER WAS ELEVATED ANEMIA - PLAVIX WAS ON HOLD, WILL NEED TO CONSIDER RESUMPTION IF THE OCCULT STOOL IS NEGATIVE - MONITOR H AND H HYPONATREMIA - SHOULD IMPROVE WITH HYDRATION - MONITOR LABS DVT PROPHYLAXIS WITH SCD'S AND LOVENOX GI PROPHYLAXIS WITH PPI Admission Diagnosis RESPIRATORY FAILURE POST-OBSTRUCTIVE PNEUMONIA SMALL CELL LUNG CANCER RIGHT UPPER LOBE COPD DIABETES MELLITUS HYPERTENSION CORONARY ARTERY DISEASE SUSPECT PULMONARY EMBOLUS ANEMIA HYPONATREMIA Admission Status: Inpatient Order (span 2 midnights) Reason for Inpatient Admission: INPT ADMISSION FOR POST OBSTRUCTIVE PNEUMONIA AND SCC, ANTICIPATE AT LEAST 72 HOURS IN HOSPITAL Supervisory-Addendum Brief Verification & Attestation Participated in pt care: history, MDM, physical Personally performed: exam, history, MDM, supervision of care Care discussed with: Medical Student Procedures: n/a Results interpretation: Verified all documentation SEE MY DOCUMENTATION - AGREE WITH MEDICAL STUDENT H AND P DOCUMENTED. I HAVE PERSONALLY EVALUATED, INTERVIEWED AND EXAMINED PATIENT. LEROY PARKER MED STUDENT Jun 06, 2020 07:54 JUNE ALEMAN MD Jun 07, 2020 08:42
[2020-06-06] MEDS: ASPIRIN 81 MG CHEW (CHILDREN'S ASA) PO SCH (08:47)
[2020-06-06] MEDS: CLOPIDOGREL 75 MG (PLAVIX) TABLET PO SCH ×2 (08:47→09:15)
[2020-06-06] MEDS ORDERED: PANTOPRAZOLE 40 MG (PROTONIX) VIAL IV SCH (09:00)
[2020-06-06] MEDS ORDERED: HOLD METFORMIN - RECEIVED CONTRAST 20 ML VIAL IV SCH (09:30)
[2020-06-06] MEDS ORDERED: IOHEXOL 350 MG/ML 100 ML (OMNIPAQUE 350) VIAL IV ONE (09:30)
[2020-06-06] MEDS ORDERED: NS 100 ML (IVPB) BAG IV ONE (09:30)
--- NOTE | 2020-06-06 10:52 | Diagnostic Imaging Report ---
PROCEDURE: CT angiography Chest TECHNIQUE: After intravenous administration of contrast, thin section axial CT angiography of the chest was performed. 3D MIP reconstructions were made. All CT scans use one or more of the following dose optimizing techniques: automated exposure control, MA and/or KvP adjustment based on a patient size and exam type, or iterative reconstruction. INDICATION: Acute hypoxia. Lung cancer. COMPARISON: CT chest of 05/08/2020 FINDINGS: Vasculature: There is a filling defect within the right lower lobe segmental pulmonary artery.. Thoracic aorta is normal in caliber. No aortic dissection or pseudoaneurysm. Heart and mediastinum: Visualized thyroid is normal. No supraclavicular or axillary lymphadenopathy has developed. Left IJ Port-A-Cath has tip terminating in the lower SVC. Confluent conglomeration of right lower paratracheal lymphadenopathy measuring 3.6 x 2.5 cm. Right hilar metastatic lymphadenopathy measures 4.9 x 3.2 cm. Pleura: Moderate right and small left pleural effusions. No pneumothorax. Lungs and airway: The right upper lobe spiculated mass has not substantially changed measuring 4.5 x 4.7 cm. Satellite nodule more inferior and medial is stable at 1.3 cm. Relaxation atelectasis in the bilateral lower lobes is present due to the pleural effusions. The right middle lobe has near completely collapsed with complete obstruction of the middle and lateral bronchi. Upper abdomen: Stable left adrenal nodule. Musculoskeletal: No lytic or blastic skeletal lesions have developed. IMPRESSION: 1. Filling defect within the right lower lobe segmental pulmonary artery is likely due to a pulmonary embolus. No additional pulmonary emboli are appreciated. 2. There is now near total atelectasis of the right middle lobe as the bronchi are near completely obstructed centrally by the hilar lymphadenopathy 3. No change in the large right upper lobe primary lung cancer with satellite metastasis in the right upper lobe as well as metastasis to the right hilum and mediastinum. 4. New moderate right and small left pleural effusions. Dictated by: Dictated on workstation # [id number]
[2020-06-06] MEDS ORDERED: ACETAMINOPHEN 325 MG TABLET PO PRN (11:00)
[2020-06-06] MEDS ORDERED: ACETAMINOPHEN 325 MG TABLET ONE (11:05)
[2020-06-06] MEDS: VANCOMYCIN 1250 MG/NS 250 ML IVPB IV SCH ×4 (11:13→23:47)
--- NOTE | 2020-06-06 12:41 | Consultation-Cardiology ---
HPI-Cardiology Cardiology Consultation Date of Consultation 06/06/20 Date of Admission Time Seen by Provider: 07:30 Indication: Dyspnea, elevated BNP, elevated troponin HPI Patient is a 69 y/o female with hx of CAD, HTN, HLP. Recently dx with RUL SCC. Started on chemo and radiation 3 weeks ago. Presented to the ER with complaints of increased dyspnea for the past 1-2 weeks. Denies any chest pain, dizziness or lightheadedness. 69-year-old lady with history of coronary artery disease, hypertension hyperlipidemia, diagnosed with right upper lobe small cell lung cancer, received chemoradiation therapy, admitted with increasing shortness of breath for the past one to 2 weeks, she denied any chest pain, noted to have elevation troponin level. On my evaluation she was laying down comfortably, reporting some improvement in her dyspnea. Home Medications & Allergies Allergies: Coded Allergies: ciprofloxacin (Verified Allergy, Severe, TENDONITIS, 08/12/16) TENDONITIS morphine (Verified Allergy, Severe, RASH/ BURNING SENSATION, 08/12/16) Home Medication List Reviewed: Yes [id number] Hx Patient Social History Marital Status: Recreational Drug Use: No Smoking Status: Current Everyday Smoker Type Used: Cigarettes 2nd Hand Smoke Exposure: Yes Recent Hopitalizations: Yes (3 WEEKS AGO FOR DIZZINESS - FOUND MASS IN RIGHT LUNG) Immunizations Up To Date Tetanus Booster (TDap): Unknown Date of Pneumonia Vaccine: Jan 03, 2019 Date of Influenza Vaccine: Jan 24, 2020 Past Medical History CAD, HTN, HLP, Lung CA Family Medical History Significant Family History: Heart Disease, Hypertension Family Medical Hx Noncontributory Review of Systems-General Review of Systems Constitutional: see HPI; No chills, No fever; malaise, weakness EENTM: see HPI; No hearing loss, No ear pain, No vision loss Respiratory: see HPI; No cough; dyspnea on exertion, short of breath, wheezing Cardiovascular: see HPI; No chest pain, No edema; Hx of Intervention; No syncope; vascular heart diseas Gastrointestinal: No abdominal pain, No constipation, No diarrhea, No nausea, No vomiting Genitourinary: No dysuria, No frequency, No hematuria Musculoskeletal: No back pain, No joint pain, No muscle pain Skin: No change in color, No lesions, No rash Psychiatric/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: Denies Headache, Denies Numbness, Denies Tingling All Other Systems Reviewed Negative Unless Noted: Yes Reviewed Test Results Reviewed Test Results Lab Laboratory Tests 06/05/20 21:44: White Blood Count 8.2, Red Blood Count 3.29L, Hemoglobin 8.8L, Hematocrit 29L, Mean Corpuscular Volume 87, Mean Corpuscular Hemoglobin 27, Mean Corpuscular Hemoglobin Concent 31L, Red Cell Distribution Width 17.7H, Platelet Count 432H, Mean Platelet Volume 10.0, Immature Granulocyte % (Auto) 1, Neutrophils (%) (Auto) 85H, Lymphocytes (%) (Auto) 9L, Monocytes (%) (Auto) 5, Eosinophils (%) (Auto) 0, Basophils (%) (Auto) 0, Neutrophils # (Auto) 7.0, Lymphocytes # (Auto) 0.7L, Monocytes # (Auto) 0.4, Eosinophils # (Auto) 0.0, Basophils # (Auto) 0.0, Immature Granulocyte # (Auto) 0.0, Prothrombin Time 14.4, INR Comment 1.1, Activated Partial Thromboplast Time 23L, Sodium Level 134L, Potassium Level 4.1, Chloride Level 101, Carbon Dioxide Level 19L, Anion Gap 14, Blood Urea Nitrogen 11, Creatinine 0.72, Estimat Glomerular Filtration Rate > 60, BUN/Creatinine Ratio 15, Glucose Level 189H, Lactic Acid Level 1.94, Calcium Level 9.0, Corrected Calcium 9.5, Total Bilirubin 0.2, Aspartate Amino Transf (AST/SGOT) 18, Alanine Aminotransferase (ALT/SGPT) 14, Alkaline Phosphatase 61, Total Protein 7.2, Albumin 3.4 06/05/20 22:40: Urine Color YELLOW, Urine Clarity CLEAR, Urine pH 6.0, Urine Specific [place] 1.015L, Urine Protein TRACEH, Urine Glucose (UA) 1+H, Urine Ketones NEGATIVE, Urine Nitrite NEGATIVE, Urine Bilirubin NEGATIVE, Urine Urobilinogen 0.2, Urine Leukocyte Esterase NEGATIVE, Urine RBC (Auto) NEGATIVE, Urine RBC NONE, Urine WBC 0-2, Urine Squamous Epithelial Cells 10-25H, Urine Crystals NONE, Urine Bacteria NEGATIVE, Urine Casts NONE, Urine Mucus SMALLH, Urine Culture Indicated NO 06/06/20 03:20: White Blood Count 7.1, Red Blood Count 3.17L, Hemoglobin 8.5L, Hematocrit 27L, Mean Corpuscular Volume 86, Mean Corpuscular Hemoglobin 27, Mean Corpuscular Hemoglobin Concent 31L, Red Cell Distribution Width 17.6H, Platelet Count 368, Mean Platelet Volume 9.3, Immature Granulocyte % (Auto) 0, Neutrophils (%) (Auto) 93H, Lymphocytes (%) (Auto) 3L, Monocytes (%) (Auto) 3, Eosinophils (%) (Auto) 0, Basophils (%) (Auto) 0, Neutrophils # (Auto) 6.6, Lymphocytes # (Auto) 0.2L, Monocytes # (Auto) 0.2, Eosinophils # (Auto) 0.0, Basophils # (Auto) 0.0, Immature Granulocyte # (Auto) 0.0, Sodium Level 132L, Potassium Level 4.4, Chloride Level 102, Carbon Dioxide Level 20L, Anion Gap 10, Blood Urea Nitrogen 12, Creatinine 0.62, Estimat Glomerular Filtration Rate > 60, BUN/Creatinine Ratio 19, Glucose Level 218H, Calcium Level 8.2L, Corrected Calcium 8.9, Total Bilirubin 0.2, Aspartate Amino Transf (AST/SGOT) 13, Alanine Aminotransferase (ALT/SGPT) 13, Alkaline Phosphatase 53, Total Protein 6.2L, Albumin 3.1L, Neutrophils % (Manual) 91, Lymphocytes % (Manual) 5, Monocytes % (Manual) 4, Eosinophils % (Manual) 0, Basophils % (Manual) 0, Band Neutrophils 0, Microcytosis MODERATE, Blood Morphology Comment , Phosphorus Level 3.2, Magnesium Level 1.7, Troponin I 0.162H, B-Type Natriuretic Peptide 1636.7H, Procalcitonin 0.06 06/06/20 04:10: Blood Gas Puncture Site RR, Blood Gas Patient Temperature 35.2, Arterial Blood pH 7.40, Arterial Blood Partial Pressure CO2 38, Arterial Blood Partial Pressure O2 150H, Arterial Blood HCO3 24, Arterial Blood Total CO2 25.0, Arterial Blood Oxygen Saturation 100, Arterial Blood Base Excess -0.8, Khang Test YES-POS, Blood Gas Ventilator Setting NO, Blood Gas Inspired Oxygen 50% 06/06/20 05:35: D-Dimer 0.93H 06/06/20 11:38: Glucometer 331H ECG Impression ECG Initial ECG Rhythm: Normal Sinus Comment ST depression V4-6 Physical Exam Physical Exam Vital Signs Vital Signs - First Documented 06/06/20 00:15 FiO2 50 Capillary Refill : Less Than 3 Seconds Height, Weight, BMI Height: 5'6.00" Weight: 208lbs. 0.0oz. [id number]; 27.87 BMI Method: General Appearance: No Apparent Distress, Chronically ill HEENT: PERRL/EOMI Neck: Full Range of Motion, Normal Inspection, Non Tender, Supple Respiratory: Chest Non Tender, No Accessory Muscle Use, Crackles (RUL), Wheezing (inspiratory and expiratory wheezing scattered bilaterally) Cardiovascular: Regular Rate, Rhythm, No Edema, Normal Peripheral Pulses, Diastolic Murmur Gastrointestinal: Normal Bowel Sounds, Non Tender, Soft Rectal: Deferred Back: Normal Inspection, No CVA Tenderness, No Vertebral Tenderness Extremity: Normal Capillary Refill, Normal Inspection, Normal Range of Motion, Non Tender, No Calf Tenderness, No Pedal Edema Neurologic/Psychiatric: Alert, Oriented x3, No Motor/Sensory Deficits Skin: Normal Color, Warm/Dry A/P-Cardiology Admission Diagnosis Acute respiratory failure CAD Lung CA HTN Assessment/Plan Acute respiratory failure with hypoxemia, questionable pneumonia, BNP elevated. 2D Echo done Apr 2020 showing EF 65-70%, grade 1 diastolic dysfunction, moderate , PA 40-45mmHg. Continue on IV antibiotic and steroids Mildly elevated troponin, EKG showing ST depression in V4-6. Patient has known severe disease in distal circumflex artery, artery too small for intervention. Will continue with medical management. Coronary artery disease, history of coronary stent done in 2012 in [place] using Promus 3.5 x 24 mm to the midright coronary artery, most recent cardiac catheterization was done by Dr. Naranjo Dec 2019 showing multiple moderate lesions in the mid LAD, distal circumflex artery has severe disease but the artery is small for intervention. 50 percent in-stent restenosis in the midright coronary artery, FFR 0.96. Continue to monitor Lung CA, recently diagnoses RUL SCC, receiving chemo and radiation, follows with Dr. Santos. Hypertension, restart home blood pressure medications and continue to monitor. Moderate carotid stenosis is noted by carotid ultrasound, there is history of right subclavian stenosis, CT scan did not reveal it Moderate aortic valve stenosis, echo done in December 2019 reported to have moderate aortic valve stenosis with peak gradient across the aortic valve of 60 mmHg mean gradient 35 mmHg normal left ventricular size and function. +occult blood as outpatient, reports Plavix was held. History of frequent PVCs, 4 beats of wide complex tachycardia seen on a Holter monitor in 2017, followed by Dr. Naranjo Hyperlipidemia, followed and managed by primary care physician. Continue to monitor Diabetes mellitus, followed and managed by primary care physician History of peripheral arterial disease, 50 percent stenosis in the right common iliac artery, severe ostial/proximal stent within the iliac arteries, followed and managed by Dr. Naranjo No evidence of AAA on abd ao screening scan of 08/19/16 Thank you for allowing us to participate in the management of Tova P[place]. This is Aleida Montero PA-C, as a scribe for Dr. Cabrera. Patient was seen and evaluated with Aleida, examination performed, management plan was discussed, agree with the current scribed note, I made few changes to the note using Italic font Patient was seen at bedside, feeling slightly better, still having some shortness of breath, echocardiogram from April 2020 showing normal LV systolic function, grade 1 diastolic dysfunction, moderate aortic stenosis. Patient has extensive coronary artery disease, had ST depression in V4 through V6 and known to have severe distal circumflex artery that was not amendable to intervention, moderate disease otherwise, last cardiac catheterization was done in December 2019, conservative management was recommended. Blood pressure is elevated, home medication were restarted. Monitor blood pressure and lipids, Adding isosorbide and monitor blood pressure ALEIDA BULL Jun 06, 2020 12:41 CHRYSTAL CABRERA MD Jun 06, 2020 13:24
[2020-06-06] MEDS ORDERED: PANT40TA52 PO (14:36)
[2020-06-06] MEDS ORDERED: LORA-404 PO (14:36)
[2020-06-06] MEDS ORDERED: ASPI-999 PO (14:36)
[2020-06-06] MEDS ORDERED: ONDA8TAB15 PO (14:36)
[2020-06-06] MEDS ORDERED: INSU100I29 SQ (14:36)
[2020-06-06] MEDS ORDERED: ACHD5005 PO (14:36)
[2020-06-06] MEDS ORDERED: CLOP75TA69 PO (14:36)
[2020-06-06] MEDS ORDERED: ATEN50TA PO (14:36)
[2020-06-06] MEDS ORDERED: INSU100I51 SC (14:36)
[2020-06-06] MEDS ORDERED: MONT10TA32 PO (14:36)
[2020-06-06] MEDS ORDERED: CEFD300C3 PO (14:36)
[2020-06-06] MEDS ORDERED: OMEG1CAP13 PO (14:39)
[2020-06-06] MEDS ORDERED: AMLO-250 PO (14:44)
[2020-06-06] MEDS ORDERED: ENOXAPARIN 100 MG/1 ML (LOVENOX) SYR SC SCH (16:15)
--- NOTE | 2020-06-06 16:37 | CONSULTATION REPORT ---
DATE OF SERVICE: 06/06/2020 REFERRING PHYSICIAN: Jennifer Aleman MD The patient is admitted to ICU bed 7. IMPRESSION: 1. 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 2. The patient admitted to the hospital with increasing shortness of breath of one week duration and hypoxia. 3. Admission labs showing slightly elevated troponin with slight depression of ST segments indicating probable myocardial infraction versus ischemia. 4. CT angiogram of the chest showing a right lower lobe pulmonary embolus and collapse of right middle lobe due to hilar lymphadenopathy. 5. Worsening anemia due to GI bleed from unknown source, but with positive occult blood, status post 1 unit of packed red blood cell transfusion on 06/04/2020. The patient was instructed to hold Plavix on the same day. RECOMMENDATIONS: 1. Start the patient on anticoagulation because of PE cautiously. Monitor for worsening GI bleeding and may consider surgical consult for EGD/colonoscopy. 2. Because of her history of coronary artery disease and abnormal troponin, continue cardiac evaluation and management. 3. Continue daily radiation therapy if the patient is stable. She is due for her fourth week of chemotherapy next Thursday and will decide about this later. If she continues to have multiple medical issues, we may withhold chemotherapy and continue with radiation alone. 4. We will follow the patient with you. BRIEF HISTORY: The patient is a 69-year-old female with recent diagnosis of stage IIIA squamous cell carcinoma of the right upper lobe with right hilar and mediastinal lymphadenopathy. She was started on definitive chemoradiation 3 weeks ago with weekly carboplatin and paclitaxel regimen along with daily radiation therapy. She had worsening anemia over the last month with a positive occult blood and required one unit of packed red blood cell transfusion earlier this week. She presented to the emergency room yesterday with increasing shortness of breath and was found to be hypoxic. She was admitted to the hospital for further evaluation and management. Oncology consultation was requested for concurrent care. PAST MEDICAL HISTORY: Significant for stage IIIA squamous cell carcinoma of the right upper lobe with a right hilar and mediastinal lymphadenopathy as mentioned in the history of present illness. She has a history of diabetes mellitus diagnosed more than 25 years ago, initially on oral agents, but more recently was on Levemir. Blood sugars have not been under good control because of the chemotherapy and steroid use intermittently. Hypertension diagnosed more than 20 years ago and under good control. Coronary artery disease with NM in 2004 and 2012, requiring stent placements. Hypercholesterolemia, diagnosed in 2004 and on treatment. Peripheral arterial disease with carotid artery disease. PAST SURGICAL HISTORY: Other surgeries include appendectomy in 1968, cholecystectomy 1976, tubal ligation in 1977, hysterectomy in 1986, acromioclavicular separation in 1987 requiring surgical correction with screws, low back surgery in 1989 because of osteoarthritis, Achilles tendon tear requiring surgical correction in 1991, arthroscopic knee surgery in 1995, breast biopsy in 1995, which was benign, cardiac catheterization with stent placements in 2004 and 2012. Bilateral carpal tunnel release in 2014. Cardiac catheterization in 2016 and 2019 with a small vessel disease and on medical management. SOCIAL HISTORY: The patient is and lives in [place], [place]. She has three children, two sons and a daughter. One son lives in [place], [place]. The other son and daughter lives in [place], [place]. 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 Prior to that, she worked at [employer] for 15 years and at [employer] in [place] for 15 years. [id number] history of tobacco use and has been cutting down since the last month. No alcohol or recreational drug use. FAMILY HISTORY: Significant for her father who was diagnosed with non-Hodgkin's lymphoma in his late 60s. He also had hypertension and coronary artery disease. Paternal grandfather had lung cancer at an elderly age. Maternal grandfather had kidney cancer at an elderly age. Paternal grandmother had hypertension, coronary artery disease and diabetes mellitus. Rest of the family history is unremarkable. PHYSICAL EXAMINATION: GENERAL: Showed an elderly female, weak appearing, awake and oriented, in no acute distress. VITAL SIGNS: Afebrile, pulse rate of 102, respirations 12, blood pressure 147/73 with oxygen saturation of 99% on 2 liters of oxygen by nasal cannula. HEENT: Normocephalic, extraocular muscles intact, conjunctivae slightly pale, oral mucosa moist. NECK: Supple, with no JVD. No cervical, supraclavicular or axillary lymphadenopathy palpable. CHEST: With radiation markings. LUNGS: With slightly diminished breath sounds bilaterally without wheezes or rales. CARDIOVASCULAR: Borderline tachycardic, regular with no murmurs or gallops heard. ABDOMEN: Soft, nontender with no hepatosplenomegaly or other masses palpable. EXTREMITIES: Showed no edema. NEUROLOGIC: Grossly intact without focal motor deficits. LABORATORY DATA: CBC done today showed WBC 7.1, hemoglobin 8.5, MCV 86, platelet count 368,000 with neutrophil count 6.6 and lymphocyte count 0.2, peripheral smear review showed a moderate microcytosis. Chemistry panel today showed sodium level of 132. Rest of the electrolytes within normal limits. BUN was 12 and creatinine 0.62 with GFR more than 60 mL per minute. Blood glucose was elevated at 218. Liver function studies were normal except albumin level of 3.1. Troponin was elevated at 0.162. BNP was elevated at 1636.7. D-dimer was mildly elevated at 0.93. CT angiogram of the chest showed filling defect within the right lower lobe segmental pulmonary artery, likely due to pulmonary embolus. No additional pulmonary emboli are appreciated. Near total atelectasis of the right middle lobe due to right hilar lymphadenopathy and extrinsic compression. Large right upper lobe pulmonary nodule measuring 4.5 x 4.7 cm, which is stable. Moderate right and small left pleural effusion. Thank you for allowing me to participate in this patient's care. I will follow the patient with you and make appropriate recommendations. Job ID: [id number] DocumentID: [id number] Dictated Date: 06/06/2020 15:55:31 [employer] Direction Specialist Date: 06/06/2020 16:37:18 Dictated By: ELIJAH SCHROEDER MD
[2020-06-06] MEDS: ENOXAPARIN 80 MG/0.8 ML (LOVENOX) SYR SC SCH (18:43)
[2020-06-06] MEDS: LORazepam 0.5 MG (ATIVAN) TABLET PO PRN (20:23)
[2020-06-07] VITALS (15 sets, daily range): BP systolic 123–160; BP diastolic 60–86
[2020-06-07] MEDS: RT-ALBUTEROL/IPRATROPIUM 3 ML (DUONEB) VIAL INH SCH ×6 (02:08→21:53)
[2020-06-07] MEDS: PIPERACILLIN/TAZO 4.5 GM/NS 100 ML IV SCH ×6 (04:10→20:50)
[2020-06-07 04:18] LABS: BASOPHILS % (AUTO) 0 % (0-10); EOSINOPHILS % (AUTO) 0 % (0-10); HEMATOCRIT 26 % (35-52); HEMOGLOBIN 7.9 g/dL (11.5-16.0); LYMPHOCYTES # (AUTO) 0.1 10^3/uL (1.0-4.0); LYMPHOCYTES % (AUTO) 3 % (12-44); MEAN CORPUSCULAR HEMOGLOBIN 27 pg (25-34); MEAN CORPUSCULAR HGB CONC 31 g/dL (32-36); MEAN CORPUSCULAR VOLUME 87 fL (80-99); MEAN PLATELET VOLUME 9.4 fL (9.0-12.2); MONOCYTES # (AUTO) 0.1 10^3/uL (0.0-1.0); MONOCYTES % (AUTO) 2 % (0-12); NEUTROPHILS # (AUTO) 3.5 10^3/uL (1.8-7.8); NEUTROPHILS % (AUTO) 94 % (42-75); PLATELET COUNT 339 10^3/uL (130-400); WHITE BLOOD COUNT 3.8 10^3/uL (4.3-11.0)
[2020-06-07 04:26] LABS: CHLORIDE 102 MMOL/L (98-107); POTASSIUM 3.7 MMOL/L (3.6-5.0); SODIUM 137 MMOL/L (135-145)
[2020-06-07 04:27] LABS: CALCIUM 8.5 MG/DL (8.5-10.1)
[2020-06-07 04:28] LABS: GLUCOSE 354 MG/DL (70-105)
[2020-06-07 04:29] LABS: CARBON DIOXIDE 26 MMOL/L (21-32)
[2020-06-07 04:32] LABS: CREATININE SERUM 0.66 MG/DL (0.60-1.30); GFR ESTIMATED > 60; PHOSPHORUS 3.3 MG/DL (2.3-4.7)
[2020-06-07 04:33] LABS: BUN/CREATININE RATIO 18
[2020-06-07 04:34] LABS: MAGNESIUM 2.1 MG/DL (1.6-2.4)
--- NOTE | 2020-06-07 04:38 | Pulmonary Progress Note ---
Subjective Time Seen by a Provider: 04:32 Subjective/Events-last exam Pt is doing better today and requiring less oxygen. Sepsis Event Evaluation Height, Weight, BMI Height: 5'6.00" Weight: 208lbs. 0.0oz. [id number]; 27.87 BMI Method: Focused Exam Lactate Level 06/05/20 21:44: Lactic Acid Level 1.94 Exam Exam Vital Signs Date Time Temp Pulse Resp B/P (MAP) Pulse Ox O2 Delivery O2 Flow Rate FiO2 06/07/20 04:08 36.4 Nasal Cannula 1.00 06/07/20 03:00 114 16 153/79 (103) 99 Nasal Cannula 1.00 06/07/20 02:08 97 High Flow N/C 2.00 06/07/20 02:00 110 12 147/78 (101) 98 Nasal Cannula 1.00 06/07/20 01:00 107 06/07/20 01:00 107 10 123/63 (83) 97 Nasal Cannula 1.00 06/07/20 00:00 110 12 142/72 (95) 98 Nasal Cannula 1.00 06/07/20 00:00 Nasal Cannula 1.00 06/06/20 23:49 36.7 Nasal Cannula 1.00 06/06/20 23:00 107 12 120/61 (80) 99 Nasal Cannula 2.00 06/06/20 22:02 99 High Flow N/C 2.00 06/06/20 22:00 116 18 139/67 (91) 98 Nasal Cannula 2.00 06/06/20 21:00 118 15 132/73 (92) 98 Nasal Cannula 2.00 06/06/20 20:22 36.7 Nasal Cannula 2.00 06/06/20 20:00 116 14 114/58 (76) 96 Nasal Cannula 2.00 06/06/20 20:00 Nasal Cannula 2.00 06/06/20 19:00 117 24 142/64 (90) 98 Nasal Cannula 2.00 06/06/20 19:00 120 06/06/20 18:16 98 High Flow N/C 2.00 06/06/20 18:00 103 24 159/81 (107) 100 Nasal Cannula 2.00 06/06/20 17:00 101 12 132/65 (87) 98 Nasal Cannula 2.00 06/06/20 16:05 97 Nasal Cannula 2.00 06/06/20 16:00 104 11 141/74 (96) 99 Nasal Cannula 2.00 06/06/20 15:00 102 12 147/73 (97) 99 Nasal Cannula 2.00 06/06/20 14:53 98 High Flow N/C 2.00 06/06/20 14:45 36.8 06/06/20 14:00 101 12 137/68 (91) 98 Nasal Cannula 2.00 06/06/20 13:00 104 12 148/73 (98) 98 Nasal Cannula 2.00 06/06/20 12:39 109 06/06/20 12:36 Nasal Cannula 2.00 06/06/20 12:00 101 13 134/64 (87) 90 Room Air 06/06/20 12:00 94 Room Air 06/06/20 11:44 36.5 Room Air 06/06/20 11:32 Room Air 06/06/20 11:00 101 13 123/94 (104) 100 High Flow N/C 5.00 06/06/20 10:43 High Flow N/C 5.00 06/06/20 10:35 100 High Flow N/C 7.00 06/06/20 09:00 97 135/72 (93) 100 High Flow N/C 10.00 06/06/20 08:50 High Flow N/C 10.00 06/06/20 08:48 Vapotherm 30.00 50.00 06/06/20 08:00 91 117/62 (80) 99 NIV Bilevel 40.00 06/06/20 08:00 Vapotherm 30.00 50 06/06/20 07:00 95 132/72 (92) 99 NIV Bilevel 40.00 06/06/20 06:39 101 06/06/20 06:00 94 127/71 (89) 96 NIV Bilevel 40.00 06/06/20 05:44 NIV Bilevel 40.00 06/06/20 05:00 90 124/66 (85) 100 NIV Bilevel 50.00 06/06/20 04:42 35.2 I & O 06/07/20 07:00 Intake Total 1495.0 ml Output Total 3400 ml Balance -1905.0 ml Height & Weight Height: 5'6.00" Weight: 208lbs. 0.0oz. [id number]; 27.87 BMI Method: General Appearance: No Apparent Distress, Chronically ill HEENT: PERRL/EOMI Neck: Full Range of Motion, Normal Inspection, Non Tender, Supple Respiratory: Chest Non Tender, No Accessory Muscle Use, Crackles (RUL), Wheezing (inspiratory and expiratory wheezing scattered bilaterally) Cardiovascular: Regular Rate, Rhythm, No Edema, Normal Peripheral Pulses, Diastolic Murmur Capillary Refill: Less Than 3 Seconds Extremity: Normal Capillary Refill, Normal Inspection, Normal Range of Motion, Non Tender, No Calf Tenderness, No Pedal Edema Neurologic/Psychiatric: Alert, Oriented x3, No Motor/Sensory Deficits Skin: Normal Color, Warm/Dry Results Lab Laboratory Tests 06/05/20 21:44 06/06/20 03:20 06/07/20 04:00 Assessment/Plan Assessment/Plan Acute respiratory failure r/o PNA -Zosyn and Vanco -NC 1 liters/min Pulmonary edema -Echo pending -Start Lasix 40mg daily RLL PE -Lovenox theraputic dosing Anemia r/o GIB -Pt had recent positive occult stool -increase Protonix to BID -Occult stool pending Squamous cell lung cancer -currently undergoing chemoradiation -scheduled for radiation today and chemo on Thursday Hypnonatremia -Monitor DM -Levemir -SSI GI/DVT -Lovenox theraputic dosing -Protonix MARLI HACKETT DO Jun 07, 2020 04:38
[2020-06-07] MEDS ORDERED: KCL 20 MEQ TAB (K-DUR) PO SCH (06:00)
[2020-06-07] MEDS ORDERED: MAGNESIUM 1 GM/100 ML IVPB 100 ML IV SCH (06:00)
[2020-06-07] MEDS ORDERED: POTASSIUM CL 10MEQ/50ML IVPB 50 ML IV SCH (06:00)
[2020-06-07] MEDS: ENOXAPARIN 80 MG/0.8 ML (LOVENOX) SYR SC SCH (06:00)
[2020-06-07] MEDS: inSUlin ASPART (NovoLOG) 1 UNIT/0.01 ML (CHARGE PER UNIT) SC SCH ×4 (06:01→20:50)
--- NOTE | 2020-06-07 07:10 | Diagnostic Imaging Report ---
INDICATION: Pneumonia and lung cancer. Comparison made with prior examination 06/05/2020 FINDINGS: There is cardiomegaly. There is some venous congestion. There is right base infiltrate and right pleural fusion. There is an unchanged mass in the right lung apex measuring approximately 4.5 cm. Mediastinum is unremarkable. Port-A-Cath overlies left hemithorax. IMPRESSION: Persistent right apical lung mass. Right base infiltrate and right pleural effusion. Cardiomegaly and mild central pulmonary venous congestion. Dictated by: Dictated on workstation # [id number]
[2020-06-07] MEDS: ASPIRIN 81 MG CHEW (CHILDREN'S ASA) PO SCH (08:14)
[2020-06-07] MEDS: ATENOLOL 50 MG (TENORMIN) TAB PO SCH (08:14)
[2020-06-07] MEDS: ISOSORBIDE MONONITRATE 30 MG (IMDUR) TAB PO SCH (08:14)
[2020-06-07] MEDS: FUROSEMIDE 40 MG/4 ML INJ (LASIX) IVP SCH (08:16)
[2020-06-07] MEDS: methylPREDNISolone 125 MG (Solu-MEDROL) VIAL IVP SCH ×2 (08:17→20:49)
[2020-06-07] MEDS: CLOPIDOGREL 75 MG (PLAVIX) TABLET PO SCH (08:28)
--- NOTE | 2020-06-07 08:49 | Cardiology Progress Note ---
Subjective Date Seen by Provider: Jun 07, 2020 Time Seen by Provider: 08:48 Subjective/Events-last exam patient is laying down in bed, feeling better, still having some shortness of breath. Review of Systems General: No Chills, No Night Sweats; Fatigue, Malaise; No Appetite, No Other HEENT: No Head Aches, No Visual Changes, No Eye Pain, No Ear Pain, No Dysphasia, No Sinus Congestion, No Post Nasal Drip, No Sore Throat, No Other Pulmonary: Dyspnea; No Cough, No Pleuritic Chest Pain, No Other Cardiovascular: No: Chest Pain, Palpitations, Orthopnea, Paroxysmal Noc. Dyspnea, Edema, Lt Headedness, Other Focused Exam Lactate Level 06/05/20 21:44: Lactic Acid Level 1.94 Objective-Cardiology Exam Last Set of Vital Signs Vital Signs 06/06/20 06/07/20 06/07/20 06/07/20 08:00 07:00 08:00 08:10 Temp 36.6 Pulse 128 Resp 18 B/P (MAP) 143/79 (100) Pulse Ox 95 O2 Delivery Room Air O2 Flow Rate 0.00 FiO2 50 Capillary Refill : Less Than 3 Seconds I&O Intake and Output 06/07/20 00:00 Intake Total 1862.5 ml Output Total 4100 ml Balance -2237.5 ml Intake Oral 680 ml IV Total 1182.5 ml Output Urine Total 4100 ml General: Alert, Oriented X3, Cooperative HEENT: Atraumatic, PERRLA Neck: Supple, No JVD, No Thyromegaly Lungs: Normal Air Movement, Other (bilateral rhonchi) Heart: Normal S1, Normal S2, No Murmurs, Other (sinus tachycardia) Abdomen: Normal Bowel Sounds, Soft, No Tenderness, No Hepatosplenomegaly, No Masses Extremities: No Clubbing, No Cyanosis, No Edema, Normal Pulses, No Tenderness/Swelling Skin: No Rashes, No Breakdown, No Significant Lesion Neuro: Normal Gait, Normal Speech, Strength at 5/5 X4 Ext, Normal Tone, Sensation Intact Psych/Mental Status: Mental Status NL, Mood NL Results Lab Laboratory Tests 06/07/20 04:00 A/P-Cardiology Admission Diagnosis Acute respiratory failure CAD Lung CA HTN Assessment/Plan Acute respiratory failure with hypoxemia, pulmonary embolism, managed by primary care team Questionable pneumonia, receiving antibiotic and managed by primary care team. BNP elevated. 2D Echo done Apr 2020 showing EF 65-70%, grade 1 diastolic dysfunction, moderate , PA 40-45mmHg. Continue on IV antibiotic and steroids Mildly elevated troponin, EKG showing ST depression in V4-6. Patient has known severe disease in distal circumflex artery, artery too small for intervention. probably type II myocardial infarction due to hypoxemia, tachycardia and pulmonary embolism Coronary artery disease, history of coronary stent done in 2012 in [place] using Promus 3.5 x 24 mm to the midright coronary artery, most recent cardiac catheterization was done by Dr. Naranjo Dec 2019 showing multiple moderate lesions in the mid LAD, distal circumflex artery has severe disease but the artery is small for intervention. 50 percent in-stent restenosis in the midrigh t coronary artery, FFR 0.96. Continue to monitor Lung CA, recently diagnoses RUL SCC, receiving chemo and radiation, follows with Dr. Santos. Hypertension, restart home blood pressure medications and continue to monitor. Moderate carotid stenosis is noted by carotid ultrasound, there is history of right subclavian stenosis, CT scan did not reveal it Moderate aortic valve stenosis, echo done in December 2019 reported to have moderate aortic valve stenosis with peak gradient across the aortic valve of 60 mmHg mean gradient 35 mmHg normal left ventricular size and function. +occult blood as outpatient, reports Plavix was held. History of frequent PVCs, 4 beats of wide complex tachycardia seen on a Holter monitor in 2016, followed by Dr. Naranjo Hyperlipidemia, followed and managed by primary care physician. Continue to monitor Diabetes mellitus, followed and managed by primary care physician History of peripheral arterial disease, 50 percent stenosis in the right common iliac artery, severe ostial/proximal stent within the iliac arteries, followed and managed by Dr. Naranjo No evidence of AAA on abd ao screening scan of 08/19/16 CHRYSTAL ULLOA MD Jun 07, 2020 08:49
[2020-06-07] MEDS ORDERED: PANTOPRAZOLE 40 MG (PROTONIX) VIAL IV SCH (09:00)
[2020-06-07] MEDS ORDERED: KCL 20 MEQ TAB (K-DUR) PO ONE ×3 (09:00→11:00)
[2020-06-07] MEDS ORDERED: amLODIPine 5 MG (NORVASC) TAB PO SCH (09:00)
[2020-06-07] MEDS: MONTELUKAST 10 MG (SINGULAIR) TAB PO SCH (09:05)
--- NOTE | 2020-06-07 09:21 | Progress Note ---
Subjective Subjective Date Seen by Provider: Jun 07, 2020 Time Seen by Provider: 08:40 PT REPORTS THAT SHE IS FEELING MUCH BETTER TODAY - STILL SHORT OF BREATH, BUT SIGNIFICANTLY BETTER THAN ON ADMISSION. SHE IS WORRIED ABOUT WHEN SHE WILL BE DISCHARGED. SHE REPORTS THAT SHE DOES NOT REMEMBER MUCH ABOUT HER ADMISSION OR FROM THE MORNING YESTERDAY. SHE DENIES CHEST PAIN, ABDOMINAL PAIN, NAUSEA, CONSTIPATION, Review of Systems General: No Chills, No Night Sweats; Fatigue, Malaise; No Appetite, No Other HEENT: No Head Aches, No Visual Changes, No Eye Pain, No Ear Pain, No Dysphasia, No Sinus Congestion, No Post Nasal Drip, No Sore Throat; Other Pulmonary: Dyspnea, Cough; No Pleuritic Chest Pain Cardiovascular: No: Chest Pain, Palpitations, Orthopnea, Paroxysmal Noc. Dyspnea, Edema Gastrointestinal: No: Nausea, Vomiting Genitourinary: No Dysuria Musculoskeletal: No: back pain 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: Weakness, Confusion All Other Systems Reviewed All Other Systems Reviewed: Yes Objective Exam Vital Signs Vital Signs - First Documented 06/06/20 00:15 FiO2 50 Capillary Refill : Less Than 3 Seconds General Appearance: No Apparent Distress, WD/WN, Chronically ill Eyes: Bilateral Eye Normal Inspection, Bilateral Eye PERRL, Bilateral Eye EOMI HEENT: PERRL/EOMI, TMs Normal, Normal ENT Inspection, Pharynx Normal Neck: Full Range of Motion, Normal Inspection, Non Tender, Supple Respiratory: Chest Non Tender, Accessory Muscle Use, Crackles (RUL, ), Decreased Breath Sounds (RUL), Wheezing (inspiratory and expiratory wheezing scattered bilaterally) Cardiovascular: Regular Rate, Rhythm, No Edema, Normal Peripheral Pulses, Diastolic Murmur Gastrointestinal: Normal Bowel Sounds, No Organomegaly, No Pulsatile Mass, Non Tender, Soft Rectal: Deferred Extremity: Normal Capillary Refill, Non Tender, No Calf Tenderness, No Pedal Edema Neurologic/Psychiatric: Alert, Oriented x3, No Motor/Sensory Deficits, 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 Skin: Normal Color, Warm/Dry Lymphatic: No Adenopathy Results Lab Laboratory Tests 06/06/20 11:38: Glucometer 331H 06/06/20 17:22: Glucometer 172H 06/06/20 20:15: Glucometer 350H 06/07/20 04:00: White Blood Count 3.8L, Red Blood Count 2.96L, Hemoglobin 7.9L, Hematocrit 26L, Mean Corpuscular Volume 87, Mean Corpuscular Hemoglobin 27, Mean Corpuscular Hemoglobin Concent 31L, Red Cell Distribution Width 17.8H, Platelet Count 339, Mean Platelet Volume 9.4, Immature Granulocyte % (Auto) 1, Neutrophils (%) (Auto) 94H, Lymphocytes (%) (Auto) 3L, Monocytes (%) (Auto) 2, Eosinophils (%) (Auto) 0, Basophils (%) (Auto) 0, Neutrophils # (Auto) 3.5, Lymphocytes # (Auto) 0.1L, Monocytes # (Auto) 0.1, Eosinophils # (Auto) 0.0, Basophils # (Auto) 0.0, Immature Granulocyte # (Auto) 0.0, Sodium Level 137, Potassium Level 3.7, Chloride Level 102, Carbon Dioxide Level 26, Anion Gap 9, Blood Urea Nitrogen 12, Creatinine 0.66, Estimat Glomerular Filtration Rate > 60, BUN/Creatinine Ratio 18, Glucose Level 354H, Calcium Level 8.5, Phosphorus Level 3.3, Magnesium Level 2.1 Microbiology 06/06/20 MRSA Screen - Final, Complete MRSA not isolated 06/05/20 Blood Culture - Preliminary, Resulted No growth Assessment/Plan Assessment/Plan Admission Dx RESPIRATORY FAILURE POST-OBSTRUCTIVE PNEUMONIA SMALL CELL LUNG CANCER RIGHT UPPER LOBE COPD DIABETES MELLITUS HYPERTENSION CORONARY ARTERY DISEASE SUSPECT PULMONARY EMBOLUS ANEMIA HYPONATREMIA Assessment and Plan RESPIRATORY FAILURE POST-OBSTRUCTIVE PNEUMONIA SMALL CELL LUNG CANCER RIGHT UPPER LOBE COPD DIABETES MELLITUS HYPERTENSION CORONARY ARTERY DISEASE SUSPECT PULMONARY EMBOLUS ANEMIA HYPONATREMIA RESPIRATORY FAILURE DUE TO POST-OBSTRUCTIVE PNEUMONIA DUE TO SMALL CELL LUNG CANCER RIGHT UPPER LOBE AND COPD EXACERBATION - IV ZOSYN, IV VANCOMYCIN, IV SOLUMEDROL, MONITOR SERIAL CXR'S - DR. SCHROEDER AND RADIATION THERAPY TEAM AWARE OF PATIENT'S ADMISSION AND THEY HAVE RESUMED TREATMENTS FOR PATIENT. - BREATHING TREATMENTS PRN - CONSULT TO DR. 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 HYPERTENSION - RESUMED HOME REGIMEN CORONARY ARTERY DISEASE - CALL PLACED TO DR. LINDSEY - DR. ULLOA TO SEE PT IN HOSPITAL, SHE HAS HX OF CAD WITH STENTS - ELEVATED TROPONIN - LIKELY DUE TO HER SEVERE HYPOXIC EPISODE PRIOR TO ADMISSION - NO TREATMENT TO BE RENDERED AT THIS TIME UNLESS ACUTE CHANGES OCCUR DURING HOSPITALIZATION. ACUTE PULMONARY EMBOLUS IN RIGHT LOWER LOBE - LOVENOX AT TREATMENT DOSES INITIATED, WILL NEED TO BE TRANSITIONED TO [facility] PRIOR TO DISCHARGE. - CT ANGIO REPORT FOLLOWS: IMPRESSION: 1. Filling defect within the right lower lobe segmental pulmonary artery is likely due to a pulmonary embolus. No additional pulmonary emboli are appreciated. 2. There is now near total atelectasis of the right middle lobe as the bronchi are near completely obstructed centrally by the hilar lymphadenopathy 3. No change in the large right upper lobe primary lung cancer with satellite metastasis in the right upper lobe as well as metastasis to the right hilum and mediastinum. 4. New moderate right and small left pleural effusions. ANEMIA - PLAVIX WAS ON HOLD, WILL NEED TO CONSIDER RESUMPTION IF THE OCCULT STOOL IS NEGATIVE (STILL WAITING ON STOOL) - MONITOR H AND H - SLIGHTLY LOWER - WILL CHECK IRON PANEL HYPONATREMIA - RESOLVED WITH HYDRATION DVT PROPHYLAXIS WITH SCD'S AND LOVENOX GI PROPHYLAXIS WITH PPI Admission Dx RESPIRATORY FAILURE POST-OBSTRUCTIVE PNEUMONIA SMALL CELL LUNG CANCER RIGHT UPPER LOBE COPD DIABETES MELLITUS HYPERTENSION CORONARY ARTERY DISEASE SUSPECT PULMONARY EMBOLUS ANEMIA HYPONATREMIA Clinical Quality Measures Admission Status Admission Dx RESPIRATORY FAILURE POST-OBSTRUCTIVE PNEUMONIA SMALL CELL LUNG CANCER RIGHT UPPER LOBE COPD DIABETES MELLITUS HYPERTENSION CORONARY ARTERY DISEASE SUSPECT PULMONARY EMBOLUS ANEMIA HYPONATREMIA JUNE SHAHID MD Jun 07, 2020 09:21
[2020-06-07] MEDS ORDERED: TROUGH ORDER-PHARMACY XX NR (10:00)
--- NOTE | 2020-06-07 11:18 | Physical Therapy Evaluation ---
PT Evaluation-General Medical Diagnosis Admission Date Jun 05, 2020 at 22:33 Medical Diagnosis: lung cancer/pneumonia Onset Date: Jun 05, 2020 Therapy Diagnosis Therapy Diagnosis: debility/weakness Height/Weight Height (Feet): 5 Height (Inches): 6.00 Weight (Pounds): 208 Weight (Ounces): 0.0 Precautions Precautions/Isolations: Chemo Precautions, Standard Precautions Referral Physician: Love Reason for Referral: Evaluation/Treatment Medical History Pertinent Medical History: CAD, COPD, DM, [place], Neuropathy, Smoking Additional Medical History lung cancer Current History ER secondary to SOA Reviewed History: Yes Social History Home: Single Level Current Living Status: Alone Prior Prior Level of Function SCALE: Activities may be completed with or without assistive devices. 6-Hzgifzphfp-nqokbva completes the activity by him/herself with no assistance from a helper. 5-Set-up or Clean-up Assistance-helper sets up or cleans up; patient completes activity. [place] assists only prior to or following the activity. 4-Supervision or Touching Assistance-helper provides verbal cues and/or touching/steadying and/or contact guard assistance as patient completes activity. Assistance may be provided throughout the activity or intermittently. 3-Partial/Moderate Assistance-helper does LESS THAN HALF the effort. [place] lifts, holds or supports trunk or limbs, but provides less than half the effort. 2-Substantial/Maximal Assistance-helper does MORE THAN HALF the effort. [place] lifts or holds trunk or limbs and provides more than half the effort. 2-Zekfypfrz-gbzebr does ALL the effort. Patient does none of the effort to complete the activity. Or, the assistance of 2 or more helpers is required for the patient to complete the activity. If activity was not attempted, code reason: 7-Patient Refused. 9-Not Applicable-not attempted and the patient did not perform the activity before the current illness, exacerbation or injury. 10-Not Attempted due to Environmental Limitations-(lack of equipment, weather restraints, etc.). 88-Not Attempted due to Medical Conditions or Safety Concerns. Bed Mobility: 6 Transfers (B,C,W/C): 6 Gait: 6 Stairs: 6 Indoor Mobility (Ambulation): Independent Stairs: Independent Prior Devices Use: Walker (PRN) PT Evaluation-Current Subjective Patient agrees to PT. She reports fatigue and decreased endurance. Objective Patient Orientation: Normal For Age Attachments: Marroquin Catheter ROM/Strength ROM Lower Extremities bilateral LE WFL Strength Lower Extremities 4/5 grossly bilateral LE all planes Integumentary/Posture Integumentary refer to nursing notes Bowel Incontinence: No Bladder Incontinence: Marroquin Cath Posture WFL Neuromuscular (Tone, Coordination, Reflexes) grossly intact Sensory Vision: Wears Glasses Hearing: Functional Transfers Roll Left to Right (QC): 6 Sit to Lying (QC): 6 Lying to Sitting/Side of Bed(Q: 6 Sit to Stand (QC): 4 SBA for safety Gait Does the Patient Walk?: Yes Mode of Locomotion: Walk Anticipated Mode of Locomotion: Walk Walk 10 feet (QC): 4 (SBA) Walk 50 ft with 2 Turns(QC): 4 (SBA) Walk 150 ft (QC): 4 (SBA) Distance: 275' Gait Assistive Device: FWW Comments/Gait Description slow, steady, functional gait sequence with FWW. Balance Sitting Static: Normal Sitting Dynamic: Normal Standing Static: Normal Standing Dynamic: Normal Picking up an Object (QC): 6 Assessment/Needs 69 y.o. female, will be seen short term by skilled PT to address functional strength and mobility to ensure safe return to home at maximum LOF. Rehab Potential: Fair PT Usp Goals Usp Goals PT Counter Intelligence Goals Time Frame: Jun 16, 2020 Roll Left & Right (QC): 6 Sit to Lying (QC): 6 Lying-Sitting on Side/Bed(QC): 6 Sit to Stand (QC): 6 Chair/Qno-jl-Opzwo Xfer(QC): 6 Toilet Transfer (QC): 6 Does the Patient Walk: Yes Walk 10 feet (QC): 6 Walk 50ft with 2 Turns (QC): 6 Walk 150 ft (QC): 6 PT Plan Problem List Problem List: Activity Tolerance Treatment/Plan Treatment Plan: Continue Plan of Care Treatment Plan: Education, Functional Activity [place], Functional Strength, Gait, Safety, Therapeutic Exercise, Transfers Treatment Duration: Jun 16, 2020 Frequency: 6 times per week Estimated Hrs Per Day: .25 hour per day Patient and/or Family Agrees t: Yes Time/GCodes Time In: 1030 Time Out: 1042 Total Billed Treatment Time: 12 [facility] Jun 07, 2020 11:18
[2020-06-07] MEDS: RIVAROXABAN 15 MG TABLET (XARELTO) PO SCH (18:31)
[2020-06-07] MEDS: PANTOPRAZOLE 40 MG (PROTONIX) TAB PO SCH (20:49)
[2020-06-07] MEDS: LORazepam 0.5 MG (ATIVAN) TABLET PO PRN (20:49)
[2020-06-07] MEDS ORDERED: DULoxetine 30 MG (CYMBALTA) CAP PO SCH (21:00)
[2020-06-08 00:04] VITALS: BP 162/75
[2020-06-08] MEDS: RT-ALBUTEROL/IPRATROPIUM 3 ML (DUONEB) VIAL INH SCH ×3 (02:34→10:19)
[2020-06-08 04:00] VITALS: BP 156/77
[2020-06-08] MEDS: PIPERACILLIN/TAZO 4.5 GM/NS 100 ML IV SCH ×2 (05:39)
[2020-06-08 05:56] LABS: BASOPHILS % (AUTO) 0 % (0-10); EOSINOPHILS % (AUTO) 0 % (0-10); HEMATOCRIT 27 % (35-52); HEMOGLOBIN 8.2 g/dL (11.5-16.0); LYMPHOCYTES # (AUTO) 0.4 10^3/uL (1.0-4.0); LYMPHOCYTES % (AUTO) 6 % (12-44); MEAN CORPUSCULAR HEMOGLOBIN 27 pg (25-34); MEAN CORPUSCULAR HGB CONC 31 g/dL (32-36); MEAN CORPUSCULAR VOLUME 87 fL (80-99); MEAN PLATELET VOLUME 9.2 fL (9.0-12.2); MONOCYTES # (AUTO) 0.2 10^3/uL (0.0-1.0); MONOCYTES % (AUTO) 3 % (0-12); NEUTROPHILS # (AUTO) 5.8 10^3/uL (1.8-7.8); NEUTROPHILS % (AUTO) 90 % (42-75); PLATELET COUNT 365 10^3/uL (130-400); WHITE BLOOD COUNT 6.5 10^3/uL (4.3-11.0)
[2020-06-08 06:01] LABS: CHLORIDE 99 MMOL/L (98-107); POTASSIUM 4.5 MMOL/L (3.6-5.0); SODIUM 136 MMOL/L (135-145)
[2020-06-08 06:02] LABS: CALCIUM 8.7 MG/DL (8.5-10.1); GLUCOSE 263 MG/DL (70-105)
[2020-06-08 06:04] LABS: CARBON DIOXIDE 29 MMOL/L (21-32)
[2020-06-08 06:06] LABS: CREATININE SERUM 0.59 MG/DL (0.60-1.30); GFR ESTIMATED > 60; PHOSPHORUS 3.3 MG/DL (2.3-4.7)
[2020-06-08 06:07] LABS: BUN/CREATININE RATIO 20
[2020-06-08 06:09] LABS: MAGNESIUM 1.9 MG/DL (1.6-2.4)
[2020-06-08] MEDS: RIVAROXABAN 15 MG TABLET (XARELTO) PO SCH (06:28)
[2020-06-08] MEDS: inSUlin ASPART (NovoLOG) 1 UNIT/0.01 ML (CHARGE PER UNIT) SC SCH ×2 (06:28→11:34)
--- NOTE | 2020-06-08 07:16 | Diagnostic Imaging Report ---
INDICATION: Pneumonia COMPARISON: 06/07/2020 FINDINGS: Frontal and lateral views of the chest demonstrate stable bilateral pulmonary infiltrates and effusions. Heart remains enlarged. There is dependent atelectasis. There is a known mass in the right upper lobe. Port-A-Cath is in good position. There is no pneumothorax. IMPRESSION: 1. Unchanged bilateral pulmonary infiltrates and effusions which may represent a component of pneumonia or CHF. 2. Stable mass right upper lobe 3. No pneumothorax Dictated by: Dictated on workstation # [id number]
[2020-06-08 08:00] VITALS: BP 170/77
[2020-06-08] MEDS ORDERED: amLODIPine 10 MG (NORVASC) TAB PO SCH (09:00)
[2020-06-08] MEDS ORDERED: methylPREDNISolone 40 MG/ML (Solu-MEDROL) VIAL IVP SCH (09:00)
[2020-06-08] MEDS ORDERED: RIVA20TA PO (09:02)
[2020-06-08] MEDS ORDERED: [UNRECOGNIZED DRUG - CODE] PO (09:02)
[2020-06-08] MEDS ORDERED: ISOS30TA82 PO (09:02)
[2020-06-08] MEDS ORDERED: AMOX-358 PO (09:02)
[2020-06-08] MEDS ORDERED: RIVA15TA2 PO (09:02)
[2020-06-08] MEDS ORDERED: AMLO-251 PO (09:02)
--- NOTE | 2020-06-08 09:04 | Discharge Inst-Simple/Standard ---
Discharge Inst-Standard Patient Instructions/Follow Up Plan of Care/Instructions/FU: stop smoking completely keep appts with oncology appt [facility] next week Activity as Tolerated: Yes Discharge Diet: ADA Diet Return to The Hospital For: any concern for worsening shortness of breath, weakness, cough that is uncontrolled, or other lifethreatening illness or injury Medication List: Active Scripts Active Xarelto (Rivaroxaban) 20 Mg Tablet 20 Mg PO DAILY rx to start after the xarelto 15mg bid is completed Augmentin 875-125 Tablet (Amoxicillin/Potassium Clav) 1 Each Tablet 1 Each PO BID Dexamethasone 1.5 Mg Tab.ds.pk 1.5 Mg PO UD Amlodipine Besylate 10 Mg Tablet 10 Mg PO DAILY Isosorbide Mononitrate ER (Isosorbide Mononitrate) 30 Mg Tab.er.24h 30 Mg PO DAILY Xarelto Tablet (Rivaroxaban) 15 Mg Tablet 15 Mg PO BID@0700,1900 Reported Amlodipine Besylate 5 Mg Tablet 5 Mg PO DAILY Fish Oil 1,000 mg Softgel ([place]-3 Fatty Acids/Fish Oil) 1 Each Capsule 2 Each PO DAILY Plavix (Clopidogrel Bisulfate) 75 Mg Tablet 75 Mg PO DAILY Ativan (Lorazepam) 0.5 Mg Tablet 0.5 Mg PO TID PRN Levemir Flextouch (Insulin Detemir) 100 Unit/1 Ml Insuln.pen Unit SQ HS USES PER SLIDING SCALE Aspirin 81 Mg Tab.chew 81 Mg PO HS Atenolol 50 Mg Tablet 50 Mg PO HS Montelukast Sodium 10 Mg Tablet 10 Mg PO DAILY NovoLIN R Flexpen (Insulin Regular, Human) 100 Unit/1 Ml Insuln.pen 5-7 Units SC AC Pantoprazole Sodium 40 Mg Tablet.dr 40 Mg PO DAILY Ondansetron HCl 8 Mg Tablet 8 Mg PO Q8H PRN Hydrocodone-Acetamin 5-325 mg (Hydrocodone/Acetaminophen) 1 Each Tablet 1 Tab PO Q4H PRN Cefdinir 300 Mg Capsule 300 Mg PO BID FILLED 05-30-2020 #20/10 DAY SUPPLY Tylenol Extra Strength (Acetaminophen) 500 Mg Tablet 1,000 Mg PO Q8H PRN Metformin HCl 500 Mg Tablet 1,000 Mg PO BID TAKES 2 (500MG) TABS Proventil Hfa (Albuterol Sulfate) 6.7 Gm Hfa.aer.ad 2 Puff INH Q4H PRN Albuterol Sulfate 2.5 Mg/3 Ml Vial.neb 2.5 Mg NEB BID PRN Nitrostat (Nitroglycerin) 0.4 Mg Tab.subl 0.4 Mg SL UD PRN Pravastatin Sodium 40 Mg Tablet 40 Mg PO HS Cymbalta (Duloxetine HCl) 60 Mg Capsule.dr 60 Mg PO HS LAST FILLED 02-03-2020 #90 Lab results: Laboratory Tests Test 06/07/20 09:35 06/07/20 11:23 06/07/20 15:57 06/07/20 15:59 Range/Units Vancomycin Level Trough 13.9 10.0-20.0 UG/ML Glucometer 190 H 474 *H 467 *H 70-110 MG/DL Test 06/07/20 19:36 06/08/20 05:35 Range/Units Glucometer 213 H 70-110 MG/DL White Blood Count 6.5 4.3-11.0 10^3/uL Red Blood Count 3.08 L 3.80-5.11 10^6/uL Hemoglobin 8.2 L 11.5-16.0 g/dL Hematocrit 27 L 35-52 % Mean Corpuscular Volume 87 80-99 fL Mean Corpuscular Hemoglobin 27 25-34 pg Mean Corpuscular Hemoglobin Concent 31 L 32-36 g/dL Red Cell Distribution Width 18.0 H 10.0-14.5 % Platelet Count 365 130-400 10^3/uL Mean Platelet Volume 9.2 9.0-12.2 fL Immature Granulocyte % (Auto) 1 % Neutrophils (%) (Auto) 90 H 42-75 % Lymphocytes (%) (Auto) 6 L 12-44 % Monocytes (%) (Auto) 3 0-12 % Eosinophils (%) (Auto) 0 0-10 % Basophils (%) (Auto) 0 0-10 % Neutrophils # (Auto) 5.8 1.8-7.8 10^3/uL Lymphocytes # (Auto) 0.4 L 1.0-4.0 10^3/uL Monocytes # (Auto) 0.2 0.0-1.0 10^3/uL Eosinophils # (Auto) 0.0 0.0-0.3 10^3/uL Basophils # (Auto) 0.0 0.0-0.1 10^3/uL Immature Granulocyte # (Auto) 0.1 0.0-0.1 10^3/uL Sodium Level 136 135-145 MMOL/L Potassium Level 4.5 3.6-5.0 MMOL/L Chloride Level 99 98-107 MMOL/L Carbon Dioxide Level 29 21-32 MMOL/L Anion Gap 8 5-14 MMOL/L Blood Urea Nitrogen 12 7-18 MG/DL Creatinine 0.59 L 0.60-1.30 MG/DL Estimat Glomerular Filtration Rate > 60 BUN/Creatinine Ratio 20 Glucose Level 263 H 70-105 MG/DL Calcium Level 8.7 8.5-10.1 MG/DL Phosphorus Level 3.3 2.3-4.7 MG/DL Magnesium Level 1.9 1.6-2.4 MG/DL My orders: Orders - JUNE SHAHID MD Chest Pa/Lat (2 View) (06/08/20 06:00) Catheter(Urinary) Discontinue (06/07/20 09:23) Iron Tibc %Sat & Ferritin (06/07/20 09:23) Physical Therapy Order (06/07/20 09:23) Cpoe Transfer Order Process (06/07/20 09:23) Transfer - Bed/Room/Location (06/07/20 10:37) Transfer - Bed/Room/Location (06/07/20 10:41) Rivaroxaban Tablet (Xarelto Tablet) (06/07/20 19:00) Patient Visit (06/07/20 ) Pt Eval Moderate Complexity (06/07/20 ) Telemetry (06/07/20 12:50) Telemetry Nursing Assessment ( (06/07/20 12:50) Mat Initiate Protocol (06/07/20 16:06) Cbc With Automated Diff (06/08/20 03:00) Basic Metabolic Panel (06/08/20 03:00) Magnesium (06/08/20 03:00) Phosphorus (06/08/20 03:00) Ambulate W/O 02-Home O2 Qual (06/08/20 08:49) Attending Discharge Inpt/Inobs (06/08/20 08:50) JUNE SHAHID MD Jun 08, 2020 09:04
--- NOTE | 2020-06-08 09:05 | Discharge Summary ---
Diagnosis/Chief Complaint Date of Admission Jun 05, 2020 at 22:33 Date of Discharge Discharge Date: Jun 08, 2020 Discharge Time: 1000 Reason Hospital Visit PT IS A 69 Y/O FEMALE WHO IS KNOWN TO ME FROM CLINIC A NEW PT IN 04/2020 WITH HOSPITALIZATION IN 04/2020 AND SUBSEQUENT DX OF LUNG CANCER. SHE HAS BEEN RECEIVING CHEMOTHERAPY AND RADIATION THERAPY FOR SMALL CELL LUNG CANCER. SHE WAS SEEN AND TREATED ON 05/30 FOR PNEUMONIA - PT WAS ON OMNICEF, BUT DID NOT REALLY SHOW IMPROVEMENT ON THE TREATMENT. SHE CALLED A FRIEND ON THE NIGHT OF ADMISSION DUE TO FEELING VERY SHORT OF BREATH. HEATHER WAS FOUND TO HAVE AN OXYGEN SATURATION IN THE 80'S AND SHE WAS TRANSPORTED TO THE ER WHERE SHE WAS FOUND TO HAVE PNEUMONIA - POST-OBSTRUCTIVE. SHE WAS INITIATED ON ZOSYN, ,VANC AND SOLUMEDROL. HEATHER DECOMPENSATED IN THE ER AND WAS CHANGED FROM VAPOTHERM TO BIPAP. THIS MORNING HEATHER REPORTS THAT SHE IS FEELING A LITTLE BIT BETTER, AND IS BREATHING BETTER WITH HOPE TO CHANGE BACK FROM BIPAP TO VAPOTHERM. Discharge Summary Discharge Physical Examination Allergies: Coded Allergies: ciprofloxacin (Verified Allergy, Severe, TENDONITIS, 08/12/16) TENDONITIS morphine (Verified Allergy, Severe, RASH/ BURNING SENSATION, 08/12/16) Vitals & I&Os Vital Signs Date Time Temp Pulse Resp B/P (MAP) Pulse Ox O2 Delivery O2 Flow Rate FiO2 06/08/20 09:00 81 95 06/08/20 08:00 36.0 20 170/77 (108) Room Air 06/07/20 20:00 1.00 06/07/20 16:06 21 Hospital Course Pending Labs Laboratory Tests 06/08/20 05:35: White Blood Count 6.5, Red Blood Count 3.08, Hemoglobin 8.2, Hematocrit 27, Mean Corpuscular Volume 87, Mean Corpuscular Hemoglobin 27, Mean Corpuscular Hemoglobin Concent 31, Red Cell Distribution Width 18.0, Platelet Count 365, Mean Platelet Volume 9.2, Immature Granulocyte % (Auto) 1, Neutrophils (%) (Auto) 90, Lymphocytes (%) (Auto) 6, Monocytes (%) (Auto) 3, Eosinophils (%) (Auto) 0, Basophils (%) (Auto) 0, Neutrophils # (Auto) 5.8, Lymphocytes # (Auto) 0.4, Monocytes # (Auto) 0.2, Eosinophils # (Auto) 0.0, Basophils # (Auto) 0.0, Immature Granulocyte # (Auto) 0.1, Sodium Level 136, Potassium Level 4.5, Chloride Level 99, Carbon Dioxide Level 29, Anion Gap 8, Blood Urea Nitrogen 12, Creatinine 0.59, Estimat Glomerular Filtration Rate > 60, BUN/Creatinine Ratio 20, Glucose Level 263, Calcium Level 8.7, Phosphorus Level 3.3, Magnesium Level 1.9, Iron Level [Pending], Total Iron Binding Capacity [Pending], Unsaturated Iron Binding Capacity [Pending], Transferrin % Saturation [Pending], Ferritin [Pending] Discharge Instructions to patient/family Please see electronic discharge instructions given to patient. Discharge Medications Reviewed and agree with Discharge Medication list on patient's Discharge Instruction sheet JUNE SHAHID MD Jun 08, 2020 09:05
[2020-06-08] MEDS: FUROSEMIDE 40 MG/4 ML INJ (LASIX) IVP SCH (09:17)
[2020-06-08] MEDS: MONTELUKAST 10 MG (SINGULAIR) TAB PO SCH (09:17)
[2020-06-08] MEDS: ISOSORBIDE MONONITRATE 30 MG (IMDUR) TAB PO SCH (09:17)
[2020-06-08] MEDS: PANTOPRAZOLE 40 MG (PROTONIX) TAB PO SCH (09:17)
[2020-06-08] MEDS: ASPIRIN 81 MG CHEW (CHILDREN'S ASA) PO SCH (09:17)
[2020-06-08] MEDS: ATENOLOL 50 MG (TENORMIN) TAB PO SCH (09:17)
[2020-06-08] MEDS: CLOPIDOGREL 75 MG (PLAVIX) TABLET PO SCH (09:18)
--- NOTE | 2020-06-08 10:23 | Physical Therapy Daily Note ---
PT Daily Note-Current Subjective Patient reports she is going home today. Agrees to PT. Mental Status Patient Orientation: Normal For Age Transfers SCALE: Activities may be completed with or without assistive devices. 3-Vvnhpxazed-qphvahm completes the activity by him/herself with no assistance from a helper. 5-Set-up or Clean-up Assistance-helper sets up or cleans up; patient completes activity. Olema assists only prior to or following the activity. 4-Supervision or Touching Assistance-helper provides verbal cues and/or touc stu/steadying and/or contact guard assistance as patient completes activity. Assistance may be provided throughout the activity or intermittently. 3-Partial/Moderate Assistance-helper does LESS THAN HALF the effort. Olema lifts, holds or supports trunk or limbs, but provides less than half the effort. 2-Substantial/Maximal Assistance-helper does MORE THAN HALF the effort. Olema lifts or holds trunk or limbs and provides more than half the effort. 1-Xwsqecvca-bgegzq does ALL the effort. Patient does none of the effort to complete the activity. Or, the assistance of 2 or more helpers is required for the patient to complete the activity. If activity was not attempted, code reason: 7-Patient Refused. 9-Not Applicable-not attempted and the patient did not perform the activity before the current illness, exacerbation or injury. 10-Not Attempted due to Environmental Limitations-(lack of equipment, weather restraints, etc.). 88-Not Attempted due to Medical Conditions or Safety Concerns. Sit to Lying (QC): 6 Lying to Sitting/Side of Bed(Q: 6 Sit to Stand (QC): 6 Gait Training Does the Patient Walk?: Yes Distance: 500' Walk 10 feet (QC): 6 Walk 50 ft with 2 Turns(QC): 6 Walk 150 ft (QC): 6 Gait Assistive Device: FWW safe and functional with SAO2 remaining 97% RA Assessment Current Status: Excellent Progress Issues written HEP with education. patient demonstrates well. PT Rail Washer Goals Rail Washer Goals PT Skilled Nursing Goals Time Frame: Jun 16, 2020 Roll Left & Right (QC): 6 Sit to Lying (QC): 6 Lying-Sitting on Side/Bed(QC): 6 Sit to Stand (QC): 6 Chair/Udh-si-Xlrbv Xfer(QC): 6 Toilet Transfer (QC): 6 Does the Patient Walk: Yes Walk 10 feet (QC): 6 Walk 50ft with 2 Turns (QC): 6 Walk 150 ft (QC): 6 PT Plan Treatment/Plan Treatment Plan: Discontinue PT, goals met Treatment Plan: Education, Functional Activity Xiomara, Functional Strength, Gait, Safety, Therapeutic Exercise, Transfers Treatment Duration: Jun 16, 2020 Frequency: 6 times per week Estimated Hrs Per Day: .25 hour per day Patient and/or Family Agrees t: Yes Time/GCodes Time In: 845 Time Out: 858 Total Billed Treatment Time: 13 Total Billed Treatment 1 visit FA 13 min DESIRE MALCOLM PT Jun 08, 2020 10:23
== END 2020-06-08 12:10 | disposition home or self-care (01) | DRG 193 ==
LOC: EDUNIT# 21:24 → ER 21:25 → ICU 22:33 → ER 06-06 00:30 → 4TH 06-07 10:41
PROVIDERS: ADMIT Family Medicine; ATTEND Family Medicine
PROC: 5A09357 Assistance with Respiratory Ventilation, Less than 24 Consecutive Hours, Continuous Positive Airway Pressure (ICD-10-PCS; principal; 2020-06-06)
DX: J18.9 Pneumonia, unspecified organism (principal); I26.99 Other pulmonary embolism without acute cor pulmonale; J96.01 Acute respiratory failure with hypoxia; I21.A1 Myocardial infarction type 2; C34.91 Malignant neoplasm of unspecified part of right bronchus or lung; J44.0 Chronic obstructive pulmonary disease with (acute) lower respiratory infection; E87.1 Hypo-osmolality and hyponatremia; J44.1 Chronic obstructive pulmonary disease with (acute) exacerbation; J81.1 Chronic pulmonary edema; I25.10 Atherosclerotic heart disease of native coronary artery without angina pectoris; E11.40 Type 2 diabetes mellitus with diabetic neuropathy, unspecified; K21.9 Gastro-esophageal reflux disease without esophagitis; G89.29 Other chronic pain; D64.9 Anemia, unspecified; E78.00 Pure hypercholesterolemia, unspecified; M54.9 Dorsalgia, unspecified; F32.9 Major depressive disorder, single episode, unspecified; F17.210 Nicotine dependence, cigarettes, uncomplicated; R59.1 Generalized enlarged lymph nodes; I10 Essential (primary) hypertension; R77.8 Other specified abnormalities of plasma proteins; E78.5 Hyperlipidemia, unspecified; Z79.82 Long term (current) use of aspirin; Z88.1 Allergy status to other antibiotic agents; Z90.49 Acquired absence of other specified parts of digestive tract; Z95.5 Presence of coronary angioplasty implant and graft; I25.2 Old myocardial infarction; Z79.4 Long term (current) use of insulin; Z92.21 Personal history of antineoplastic chemotherapy; Z92.3 Personal history of irradiation
CPT/HCPCS: 36415; 71045; 71046; 71275; 77417; 80048; 80053; 80202; 81000; 82728; 82805; 82962; 83540; 83605; 83735; 83880; 84100; 84145; 84484; 85007; 85025; 85027; 85379; 85610; 85730; 87040; 87081; 87088; 93005; 93306; 94640; 94660; 94760; 94761

== ENCOUNTER 2020-07-17 14:31 | Outpatient (RCR) | payer MEDICARE ==
[2020-05-21 13:23] LABS: BASOPHILS % (AUTO) 0 % (0-10); EOSINOPHILS % (AUTO) 0 % (0-10); HEMATOCRIT 29 % (35-52); HEMOGLOBIN 8.6 g/dL (11.5-16.0); LYMPHOCYTES # (AUTO) 1.4 10^3/uL (1.0-4.0); LYMPHOCYTES % (AUTO) 11 % (12-44); MEAN CORPUSCULAR HEMOGLOBIN 25 pg (25-34); MEAN CORPUSCULAR HGB CONC 30 g/dL (32-36); MEAN CORPUSCULAR VOLUME 83 fL (80-99); MEAN PLATELET VOLUME 8.6 fL (9.0-12.2); MONOCYTES # (AUTO) 0.2 10^3/uL (0.0-1.0); MONOCYTES % (AUTO) 2 % (0-12); NEUTROPHILS # (AUTO) 10.5 10^3/uL (1.8-7.8); NEUTROPHILS % (AUTO) 86 % (42-75); PLATELET COUNT 532 10^3/uL (130-400); WHITE BLOOD COUNT 12.2 10^3/uL (4.3-11.0)
[2020-05-21 13:49] LABS: ALANINE AMINOTRANSFERASE 7 U/L (0-55); ALBUMIN 3.3 GM/DL (3.2-4.5); ALKALINE PHOSPHATASE 67 U/L (40-136); BILIRUBIN,TOTAL 0.1 MG/DL (0.1-1.0); BUN/CREATININE RATIO 16; CALCIUM 9.7 MG/DL (8.5-10.1); CARBON DIOXIDE 18 MMOL/L (21-32); CHLORIDE 98 MMOL/L (98-107); CREATININE SERUM 0.86 MG/DL (0.60-1.30); GFR ESTIMATED > 60; MAGNESIUM 1.7 MG/DL (1.6-2.4); POTASSIUM 4.9 MMOL/L (3.6-5.0); SODIUM 131 MMOL/L (135-145); TOTAL PROTEIN 7.3 GM/DL (6.4-8.2)
[2020-05-21 13:56] LABS: GLUCOSE 426 MG/DL (70-105)
[2020-05-28 09:22] LABS: BASOPHILS % (AUTO) 0 % (0-10); EOSINOPHILS % (AUTO) 0 % (0-10); HEMATOCRIT 24 % (35-52); HEMOGLOBIN 7.1 g/dL (11.5-16.0); LYMPHOCYTES # (AUTO) 0.7 10^3/uL (1.0-4.0); LYMPHOCYTES % (AUTO) 9 % (12-44); MEAN CORPUSCULAR HEMOGLOBIN 25 pg (25-34); MEAN CORPUSCULAR HGB CONC 30 g/dL (32-36); MEAN CORPUSCULAR VOLUME 84 fL (80-99); MEAN PLATELET VOLUME 9.1 fL (9.0-12.2); MONOCYTES # (AUTO) 0.2 10^3/uL (0.0-1.0); MONOCYTES % (AUTO) 2 % (0-12); NEUTROPHILS # (AUTO) 6.2 10^3/uL (1.8-7.8); NEUTROPHILS % (AUTO) 87 % (42-75); PLATELET COUNT 526 10^3/uL (130-400); WHITE BLOOD COUNT 7.2 10^3/uL (4.3-11.0)
[2020-05-28 09:39] LABS: BUN/CREATININE RATIO 19; CALCIUM 9.3 MG/DL (8.5-10.1); CARBON DIOXIDE 16 MMOL/L (21-32); CHLORIDE 99 MMOL/L (98-107); CREATININE SERUM 0.85 MG/DL (0.60-1.30); GFR ESTIMATED > 60; POTASSIUM 5.1 MMOL/L (3.6-5.0); SODIUM 132 MMOL/L (135-145)
[2020-05-28 09:41] LABS: GLUCOSE 469 MG/DL (70-105)
[2020-05-31 08:49] LABS: BASOPHILS % (AUTO) 0 % (0-10); EOSINOPHILS # (AUTO) 0.3 10^3/uL (0.0-0.3); EOSINOPHILS % (AUTO) 3 % (0-10); HEMATOCRIT 26 % (35-52); HEMOGLOBIN 7.8 g/dL (11.5-16.0); LYMPHOCYTES # (AUTO) 1.3 10^3/uL (1.0-4.0); LYMPHOCYTES % (AUTO) 13 % (12-44); MEAN CORPUSCULAR HEMOGLOBIN 26 pg (25-34); MEAN CORPUSCULAR HGB CONC 31 g/dL (32-36); MEAN CORPUSCULAR VOLUME 84 fL (80-99); MONOCYTES # (AUTO) 0.4 10^3/uL (0.0-1.0); MONOCYTES % (AUTO) 4 % (0-12); NEUTROPHILS # (AUTO) 7.7 10^3/uL (1.8-7.8); NEUTROPHILS % (AUTO) 79 % (42-75); PLATELET COUNT 381 10^3/uL (130-400); WHITE BLOOD COUNT 9.8 10^3/uL (4.3-11.0)
[2020-06-04 09:04] LABS: BASOPHILS % (AUTO) 0 % (0-10); EOSINOPHILS % (AUTO) 0 % (0-10); HEMATOCRIT 26 % (35-52); HEMOGLOBIN 7.8 g/dL (11.5-16.0); LYMPHOCYTES # (AUTO) 0.4 10^3/uL (1.0-4.0); LYMPHOCYTES % (AUTO) 13 % (12-44); MEAN CORPUSCULAR HEMOGLOBIN 25 pg (25-34); MEAN CORPUSCULAR HGB CONC 30 g/dL (32-36); MEAN CORPUSCULAR VOLUME 84 fL (80-99); MEAN PLATELET VOLUME 9.3 fL (9.0-12.2); MONOCYTES # (AUTO) 0.1 10^3/uL (0.0-1.0); MONOCYTES % (AUTO) 3 % (0-12); NEUTROPHILS # (AUTO) 2.8 10^3/uL (1.8-7.8); NEUTROPHILS % (AUTO) 82 % (42-75); PLATELET COUNT 430 10^3/uL (130-400); WHITE BLOOD COUNT 3.4 10^3/uL (4.3-11.0)
[2020-06-04 09:23] LABS: ALANINE AMINOTRANSFERASE 10 U/L (0-55); ALBUMIN 3.2 GM/DL (3.2-4.5); ALKALINE PHOSPHATASE 65 U/L (40-136); BILIRUBIN,TOTAL 0.2 MG/DL (0.1-1.0); BUN/CREATININE RATIO 14; CALCIUM 9.1 MG/DL (8.5-10.1); CARBON DIOXIDE 17 MMOL/L (21-32); CHLORIDE 100 MMOL/L (98-107); CREATININE SERUM 0.84 MG/DL (0.60-1.30); GFR ESTIMATED > 60; MAGNESIUM 1.8 MG/DL (1.6-2.4); POTASSIUM 4.3 MMOL/L (3.6-5.0); SODIUM 132 MMOL/L (135-145); TOTAL PROTEIN 6.7 GM/DL (6.4-8.2)
[2020-06-04 09:31] LABS: GLUCOSE 413 MG/DL (70-105)
[2020-06-11 08:53] LABS: BASOPHILS % (AUTO) 0 % (0-10); EOSINOPHILS # (AUTO) 0.1 10^3/uL (0.0-0.3); EOSINOPHILS % (AUTO) 1 % (0-10); HEMATOCRIT 27 % (35-52); HEMOGLOBIN 8.2 g/dL (11.5-16.0); LYMPHOCYTES # (AUTO) 0.8 10^3/uL (1.0-4.0); LYMPHOCYTES % (AUTO) 9 % (12-44); MEAN CORPUSCULAR HEMOGLOBIN 27 pg (25-34); MEAN CORPUSCULAR HGB CONC 31 g/dL (32-36); MEAN CORPUSCULAR VOLUME 88 fL (80-99); MEAN PLATELET VOLUME 9.1 fL (9.0-12.2); MONOCYTES # (AUTO) 0.8 10^3/uL (0.0-1.0); MONOCYTES % (AUTO) 10 % (0-12); NEUTROPHILS % (AUTO) 80 % (42-75); PLATELET COUNT 350 10^3/uL (130-400); WHITE BLOOD COUNT 8.8 10^3/uL (4.3-11.0)
[2020-06-11 09:09] LABS: BUN/CREATININE RATIO 17; CALCIUM 8.5 MG/DL (8.5-10.1); CARBON DIOXIDE 21 MMOL/L (21-32); CHLORIDE 99 MMOL/L (98-107); CREATININE SERUM 0.69 MG/DL (0.60-1.30); GFR ESTIMATED > 60; GLUCOSE 246 MG/DL (70-105); POTASSIUM 3.6 MMOL/L (3.6-5.0); SODIUM 133 MMOL/L (135-145)
[2020-06-18 09:04] LABS: BASOPHILS % (AUTO) 0 % (0-10); EOSINOPHILS % (AUTO) 1 % (0-10); HEMATOCRIT 24 % (35-52); HEMOGLOBIN 7.5 g/dL (11.5-16.0); LYMPHOCYTES # (AUTO) 0.5 10^3/uL (1.0-4.0); LYMPHOCYTES % (AUTO) 9 % (12-44); MEAN CORPUSCULAR HEMOGLOBIN 28 pg (25-34); MEAN CORPUSCULAR HGB CONC 31 g/dL (32-36); MEAN CORPUSCULAR VOLUME 88 fL (80-99); MEAN PLATELET VOLUME 9.3 fL (9.0-12.2); MONOCYTES # (AUTO) 0.4 10^3/uL (0.0-1.0); MONOCYTES % (AUTO) 7 % (0-12); NEUTROPHILS # (AUTO) 4.8 10^3/uL (1.8-7.8); NEUTROPHILS % (AUTO) 83 % (42-75); PLATELET COUNT 259 10^3/uL (130-400); WHITE BLOOD COUNT 5.8 10^3/uL (4.3-11.0)
[2020-06-18 09:23] LABS: ALANINE AMINOTRANSFERASE 14 U/L (0-55); ALBUMIN 2.9 GM/DL (3.2-4.5); ALKALINE PHOSPHATASE 54 U/L (40-136); BILIRUBIN,TOTAL 0.2 MG/DL (0.1-1.0); BUN/CREATININE RATIO 16; CALCIUM 8.5 MG/DL (8.5-10.1); CARBON DIOXIDE 22 MMOL/L (21-32); CHLORIDE 100 MMOL/L (98-107); CREATININE SERUM 0.61 MG/DL (0.60-1.30); GFR ESTIMATED > 60; GLUCOSE 99 MG/DL (70-105); POTASSIUM 4.4 MMOL/L (3.6-5.0); SODIUM 132 MMOL/L (135-145); TOTAL PROTEIN 5.8 GM/DL (6.4-8.2)
[2020-06-21 08:36] LABS: BASOPHILS % (AUTO) 0 % (0-10); EOSINOPHILS % (AUTO) 1 % (0-10); HEMATOCRIT 23 % (35-52); HEMOGLOBIN 7.2 g/dL (11.5-16.0); LYMPHOCYTES # (AUTO) 0.6 10^3/uL (1.0-4.0); LYMPHOCYTES % (AUTO) 11 % (12-44); MEAN CORPUSCULAR HEMOGLOBIN 27 pg (25-34); MEAN CORPUSCULAR HGB CONC 31 g/dL (32-36); MEAN CORPUSCULAR VOLUME 88 fL (80-99); MEAN PLATELET VOLUME 8.9 fL (9.0-12.2); MONOCYTES # (AUTO) 0.2 10^3/uL (0.0-1.0); MONOCYTES % (AUTO) 3 % (0-12); NEUTROPHILS # (AUTO) 4.2 10^3/uL (1.8-7.8); NEUTROPHILS % (AUTO) 84 % (42-75); PLATELET COUNT 262 10^3/uL (130-400)
[2020-06-25 09:05] LABS: BASOPHILS % (AUTO) 0 % (0-10); EOSINOPHILS # (AUTO) 0.1 10^3/uL (0.0-0.3); EOSINOPHILS % (AUTO) 2 % (0-10); HEMATOCRIT 28 % (35-52); HEMOGLOBIN 8.8 g/dL (11.5-16.0); LYMPHOCYTES # (AUTO) 0.7 10^3/uL (1.0-4.0); LYMPHOCYTES % (AUTO) 17 % (12-44); MEAN CORPUSCULAR HEMOGLOBIN 28 pg (25-34); MEAN CORPUSCULAR HGB CONC 31 g/dL (32-36); MEAN CORPUSCULAR VOLUME 88 fL (80-99); MEAN PLATELET VOLUME 8.9 fL (9.0-12.2); MONOCYTES # (AUTO) 0.3 10^3/uL (0.0-1.0); MONOCYTES % (AUTO) 8 % (0-12); NEUTROPHILS % (AUTO) 72 % (42-75); PLATELET COUNT 315 10^3/uL (130-400); WHITE BLOOD COUNT 4.1 10^3/uL (4.3-11.0)
[2020-06-25 09:23] LABS: BUN/CREATININE RATIO 9; CALCIUM 8.5 MG/DL (8.5-10.1); CARBON DIOXIDE 20 MMOL/L (21-32); CHLORIDE 99 MMOL/L (98-107); CREATININE SERUM 0.65 MG/DL (0.60-1.30); GFR ESTIMATED > 60; GLUCOSE 209 MG/DL (70-105); POTASSIUM 4.2 MMOL/L (3.6-5.0); SODIUM 132 MMOL/L (135-145)
[2020-06-28 08:48] LABS: BASOPHILS % (AUTO) 0 % (0-10); EOSINOPHILS # (AUTO) 0.1 10^3/uL (0.0-0.3); EOSINOPHILS % (AUTO) 1 % (0-10); HEMATOCRIT 32 % (35-52); HEMOGLOBIN 10.2 g/dL (11.5-16.0); LYMPHOCYTES # (AUTO) 0.5 10^3/uL (1.0-4.0); LYMPHOCYTES % (AUTO) 12 % (12-44); MEAN CORPUSCULAR HEMOGLOBIN 28 pg (25-34); MEAN CORPUSCULAR HGB CONC 32 g/dL (32-36); MEAN CORPUSCULAR VOLUME 88 fL (80-99); MEAN PLATELET VOLUME 8.9 fL (9.0-12.2); MONOCYTES # (AUTO) 0.2 10^3/uL (0.0-1.0); MONOCYTES % (AUTO) 4 % (0-12); NEUTROPHILS # (AUTO) 3.5 10^3/uL (1.8-7.8); NEUTROPHILS % (AUTO) 82 % (42-75); PLATELET COUNT 302 10^3/uL (130-400); WHITE BLOOD COUNT 4.2 10^3/uL (4.3-11.0)
[2020-07-02 08:40] LABS: BASOPHILS % (AUTO) 1 % (0-10); EOSINOPHILS # (AUTO) 0.1 10^3/uL (0.0-0.3); EOSINOPHILS % (AUTO) 2 % (0-10); HEMATOCRIT 34 % (35-52); HEMOGLOBIN 10.5 g/dL (11.5-16.0); LYMPHOCYTES # (AUTO) 0.9 10^3/uL (1.0-4.0); LYMPHOCYTES % (AUTO) 18 % (12-44); MEAN CORPUSCULAR HEMOGLOBIN 28 pg (25-34); MEAN CORPUSCULAR HGB CONC 31 g/dL (32-36); MEAN CORPUSCULAR VOLUME 90 fL (80-99); MEAN PLATELET VOLUME 8.6 fL (9.0-12.2); MONOCYTES # (AUTO) 0.4 10^3/uL (0.0-1.0); MONOCYTES % (AUTO) 8 % (0-12); NEUTROPHILS # (AUTO) 3.2 10^3/uL (1.8-7.8); NEUTROPHILS % (AUTO) 69 % (42-75); PLATELET COUNT 329 10^3/uL (130-400); WHITE BLOOD COUNT 4.6 10^3/uL (4.3-11.0)
[2020-07-02 08:59] LABS: ALANINE AMINOTRANSFERASE 11 U/L (0-55); ALBUMIN 3.2 GM/DL (3.2-4.5); ALKALINE PHOSPHATASE 66 U/L (40-136); BILIRUBIN,TOTAL 0.2 MG/DL (0.1-1.0); BUN/CREATININE RATIO 10; CALCIUM 8.6 MG/DL (8.5-10.1); CARBON DIOXIDE 22 MMOL/L (21-32); CHLORIDE 99 MMOL/L (98-107); CREATININE SERUM 0.73 MG/DL (0.60-1.30); GFR ESTIMATED > 60; GLUCOSE 365 MG/DL (70-105); MAGNESIUM 1.4 MG/DL (1.6-2.4); POTASSIUM 3.9 MMOL/L (3.6-5.0); SODIUM 133 MMOL/L (135-145); TOTAL PROTEIN 6.3 GM/DL (6.4-8.2)
[2020-07-10 13:20] LABS: BASOPHILS % (AUTO) 1 % (0-10); EOSINOPHILS # (AUTO) 0.1 10^3/uL (0.0-0.3); EOSINOPHILS % (AUTO) 2 % (0-10); HEMATOCRIT 34 % (35-52); HEMOGLOBIN 10.5 g/dL (11.5-16.0); LYMPHOCYTES # (AUTO) 1.6 10^3/uL (1.0-4.0); LYMPHOCYTES % (AUTO) 30 % (12-44); MEAN CORPUSCULAR HEMOGLOBIN 28 pg (25-34); MEAN CORPUSCULAR HGB CONC 31 g/dL (32-36); MEAN CORPUSCULAR VOLUME 90 fL (80-99); MEAN PLATELET VOLUME 8.6 fL (9.0-12.2); MONOCYTES # (AUTO) 0.6 10^3/uL (0.0-1.0); MONOCYTES % (AUTO) 12 % (0-12); NEUTROPHILS # (AUTO) 2.8 10^3/uL (1.8-7.8); NEUTROPHILS % (AUTO) 53 % (42-75); PLATELET COUNT 384 10^3/uL (130-400); WHITE BLOOD COUNT 5.3 10^3/uL (4.3-11.0)
[2020-07-10 13:35] LABS: BUN/CREATININE RATIO 8; CALCIUM 9.4 MG/DL (8.5-10.1); CARBON DIOXIDE 25 MMOL/L (21-32); CHLORIDE 100 MMOL/L (98-107); CREATININE SERUM 0.65 MG/DL (0.60-1.30); GFR ESTIMATED > 60; GLUCOSE 192 MG/DL (70-105); POTASSIUM 4.3 MMOL/L (3.6-5.0); SODIUM 136 MMOL/L (135-145)
[~2020-07-17] VITALS: Ht 167.6 cm; Wt 74.4 kg
[~2020-07-17 14:31] MED LIST changes: +AMLO-251 PO; +AMOX-358 PO; +CLOP75TA69 PO; +FAMOTIDINE 20MG/2ML IV (CANCER CTR) IV SCH; +INSU100I51 SC; +ISOS30TA82 PO; +LORA-404 PO; +MAGNESIUM SULFATE (CANCER CTR) 2 GM in NS (IVPB) CANCER CENTER 50 ML IV ONE; +MONT10TA32 PO; +NS IV 1000 ML (CANCER CTR) IV SCH; +NS IV 500 ML (CANCER CENTER) 500 ML ONE; +OMEG1CAP13 PO; +ONDA8TAB15 PO; +PANT40TA52 PO; +RIVA15TA2 PO; +RIVA20TA PO; +[UNRECOGNIZED DRUG - CODE] PO; +diphenhydrAMINE 25 MG TAB (BENADRYL) CANCER CENTER PO SCH; +diphenhydrAMINE 50 MG/ML INJ (CANCER CENTER) IV PRN; +inSUlin (REGULAR) HUMAN 1 UNIT/0.01 ML DOSE CANCER CTR SC ONE
[2020-07-17 14:54] LABS: BASOPHILS % (AUTO) 1 % (0-10); EOSINOPHILS # (AUTO) 0.2 10^3/uL (0.0-0.3); EOSINOPHILS % (AUTO) 2 % (0-10); HEMATOCRIT 35 % (35-52); HEMOGLOBIN 10.9 g/dL (11.5-16.0); LYMPHOCYTES # (AUTO) 1.8 10^3/uL (1.0-4.0); LYMPHOCYTES % (AUTO) 30 % (12-44); MEAN CORPUSCULAR HEMOGLOBIN 29 pg (25-34); MEAN CORPUSCULAR HGB CONC 31 g/dL (32-36); MEAN CORPUSCULAR VOLUME 93 fL (80-99); MEAN PLATELET VOLUME 8.4 fL (9.0-12.2); MONOCYTES # (AUTO) 0.6 10^3/uL (0.0-1.0); MONOCYTES % (AUTO) 10 % (0-12); NEUTROPHILS # (AUTO) 3.4 10^3/uL (1.8-7.8); NEUTROPHILS % (AUTO) 56 % (42-75); PLATELET COUNT 332 10^3/uL (130-400); WHITE BLOOD COUNT 6.1 10^3/uL (4.3-11.0)
[2020-07-17 15:10] LABS: BUN/CREATININE RATIO 10; CALCIUM 8.8 MG/DL (8.5-10.1); CARBON DIOXIDE 21 MMOL/L (21-32); CHLORIDE 101 MMOL/L (98-107); CREATININE SERUM 0.72 MG/DL (0.60-1.30); GFR ESTIMATED > 60; GLUCOSE 273 MG/DL (70-105); POTASSIUM 4.5 MMOL/L (3.6-5.0); SODIUM 132 MMOL/L (135-145)
== END 2020-08-09 15:06 | disposition home or self-care (01) ==
LOC: ONC 14:31
PROVIDERS: ATTEND Internal Medicine Hematology & Oncology
DX: C34.11 Malignant neoplasm of upper lobe, right bronchus or lung (principal); I87.2 Venous insufficiency (chronic) (peripheral); Z79.02 Long term (current) use of antithrombotics/antiplatelets
CPT/HCPCS: 36430; 36591; 77290; 77295; 77300; 77307; 77334; 77336; 77417; 77470; 80048; 80053; 82274; 82306; 82728; 83540; 83735; 85025; 86850; 86900; 86901; 86920; 96360; 96361; 96367; 96368; 96375; 96413; 96417; 99204; 99213; 99214

== ENCOUNTER → 2020-08-10 | Outpatient (CLI) | payer MEDICARE, MEDICAID ==
[~2020-08-10] MED LIST changes: +CATHETER FLUSH 10 ML SYR IV PRN; -FAMOTIDINE 20MG/2ML IV (CANCER CTR) IV SCH; +HOLD METFORMIN - RECEIVED CONTRAST 20 ML VIAL IV SCH; +IOHEXOL 350 MG/ML 100 ML (OMNIPAQUE 350) VIAL IV ONE; -MAGNESIUM SULFATE (CANCER CTR) 2 GM in NS (IVPB) CANCER CENTER 50 ML IV ONE; +NS 100 ML (IVPB) BAG IV ONE; -NS IV 1000 ML (CANCER CTR) IV SCH; -NS IV 500 ML (CANCER CENTER) 500 ML ONE; -diphenhydrAMINE 25 MG TAB (BENADRYL) CANCER CENTER PO SCH; -diphenhydrAMINE 50 MG/ML INJ (CANCER CENTER) IV PRN; -inSUlin (REGULAR) HUMAN 1 UNIT/0.01 ML DOSE CANCER CTR SC ONE
--- NOTE | 2020-08-10 12:21 | Diagnostic Imaging Report ---
PROCEDURE: CT chest and abdomen with contrast. TECHNIQUE: Multiple contiguous axial images were obtained through the chest and abdomen after the administration of intravenous contrast. Auto Exposure Controls were utilized during the CT exam to meet ALARA standards for radiation dose reduction. INDICATION: Squamous cell carcinoma of the lung. Comparison is made with prior CT chest from 06/06/2020. CT CHEST: A left chest wall port has tip within SVC. No axillary lymphadenopathy is identified. There has been significant improved appearance to the chest since prior CT. A large right hilar mass has significantly reduced in size measuring approximately 3.3 x 1.9 cm compared with 5.0 x 3.3 cm. Large right paratracheal mass measures 2.8 x 2.4 cm compared with 3.7 x 2.5 cm. A prevascular space lymph node does appear to be increased in size since prior exam however now measuring subcarinal 2.7 x 1.5 cm. Only small subcentimeter nodes were identified at this location on prior exam. Lymphadenopathy has significantly reduced in size. There is no pericardial fluid. Previously noted bilateral pleural effusions have resolved. A large primary malignancy in the right apex has significantly reduced in size measuring 3.0 x 2.8 cm compared with 4.8 x 4.4 cm on prior. The small satellite lesion inferior to this has significantly reduced in size now measuring 0.6 compared with 1.5 cm. No new pulmonary mass is identified. Bony structures are unremarkable. IMPRESSION: Significant response to therapy and improved appearance of the chest since prior CT from 06/06/2020 with the exception of increase in size of the prevascular space lymph node. No new abnormality is seen. CT ABDOMEN: No liver mass is identified. Gallbladder surgically absent. There is no biliary duct dilatation. Pancreas and spleen are unremarkable. There is some left adrenal enlargement, similar to prior exam. Right adrenal gland is unremarkable. Kidneys are without hydronephrosis. Aorta is heavily calcified but nonaneurysmal. No central retroperitoneal or mesenteric lymphadenopathy is seen. Visualized bowel loops are normal caliber. There is no ascites. Bony structures are nonacute. IMPRESSION: Stable left adrenal mass since the prior CT from 06/06/2020. No new mass or evidence of abdominal lymphadenopathy is detected. Dictated by: Dictated on workstation # [id number]
== END ==
LOC: RAD 10:27
PROVIDERS: ATTEND Internal Medicine Hematology & Oncology
DX: C34.11 Malignant neoplasm of upper lobe, right bronchus or lung (principal); E27.8 Other specified disorders of adrenal gland; Z90.49 Acquired absence of other specified parts of digestive tract
CPT/HCPCS: 71260; 74160

== ENCOUNTER → 2020-08-22 | Outpatient (CLI) | payer MEDICARE, MEDICAID ==
[~2020-08-22] MED LIST changes: -CATHETER FLUSH 10 ML SYR IV PRN; -HOLD METFORMIN - RECEIVED CONTRAST 20 ML VIAL IV SCH; -IOHEXOL 350 MG/ML 100 ML (OMNIPAQUE 350) VIAL IV ONE; -NS 100 ML (IVPB) BAG IV ONE
--- NOTE | 2020-08-22 12:38 | Diagnostic Imaging Report ---
INDICATION: PNEUMONIA. TECHNIQUE: Two view chest 12:12 PM CORRELATION STUDY: 06/08/2020 FINDINGS: Left IJ infusion port catheter tip over the SVC unchanged. Heart size and mediastinum are stable. Vasculature is improved at follow-up. Improved aeration through lung reina. Previously noted right hilar and fullness and upper lobe mass have significantly improved. Nodularity at the right lung apex does remain superimposed anterior 1st rib. No new areas of consolidation. IMPRESSION: 1. Overall improved appearance about the chest. Previously noted right hilar fullness and right upper lobe pulmonary mass are significantly reduced. No acute infiltrate. Dictated by: Dictated on workstation # [id number]
== END ==
LOC: RAD 11:56
PROVIDERS: ATTEND Nurse Practitioner Family
DX: J18.9 Pneumonia, unspecified organism (principal); R91.8 Other nonspecific abnormal finding of lung field
CPT/HCPCS: 71046

== ENCOUNTER → 2020-08-22 | Outpatient (CLI) | payer MEDICARE, MEDICAID ==
[~2020-08-22] MED LIST changes: +CATHETER FLUSH 10 ML SYR IV PRN; +HOLD METFORMIN - RECEIVED CONTRAST 20 ML VIAL IV SCH; +IOHEXOL 350 MG/ML 100 ML (OMNIPAQUE 350) VIAL IV ONE; +NS 100 ML (IVPB) BAG IV ONE
--- NOTE | 2020-08-22 12:10 | Diagnostic Imaging Report ---
PROCEDURE: CT head with and without contrast. TECHNIQUE: Multiple contiguous axial images were obtained through the brain before and after the administration of intravenous contrast. Auto Exposure Controls were utilized during the CT exam to meet ALARA standards for radiation dose reduction. INDICATION: Syncope The ventricles are normal in size, shape and position. There are some decreased density in the periventricular white matter both hemispheres. There are no hemorrhages. There are no discrete masses seen. Postcontrast images do not show any abnormal areas of enhancement. IMPRESSION: Chronic ischemic leukoencephalopathy. No acute abnormality seen in the head. No evidence for metastatic disease. Dictated by: Dictated on workstation # [id number]
== END ==
LOC: RAD 10:48
PROVIDERS: ATTEND Nurse Practitioner Adult Health
DX: G93.49 Other encephalopathy (principal); R55 Syncope and collapse; R42 Dizziness and giddiness
CPT/HCPCS: 70470

== ENCOUNTER → 2020-09-12 | Outpatient (CLI) | payer MEDICARE, MEDICAID ==
[~2020-09-12] MED LIST changes: -CATHETER FLUSH 10 ML SYR IV PRN; -HOLD METFORMIN - RECEIVED CONTRAST 20 ML VIAL IV SCH; -IOHEXOL 350 MG/ML 100 ML (OMNIPAQUE 350) VIAL IV ONE; -NS 100 ML (IVPB) BAG IV ONE
== END ==
LOC: LABNPT 11:50
PROVIDERS: ATTEND Family Medicine
DX: E11.9 Type 2 diabetes mellitus without complications (principal)
CPT/HCPCS: 83036; 84443

== ENCOUNTER 2020-09-19 14:32 | Outpatient (CLI) | payer MEDICARE, MEDICAID ==
[~2020-09-19] VITALS: Ht 167.7 cm; Wt 70.5 kg
[2020-09-19] MEDS ORDERED: LACTATED RINGERS 1,000 ML IV ONE ×2 (14:45→14:50)
[2020-09-19] MEDS: MAGNESIUM 1 GM/100 ML IVPB 100 ML IV SCH ×2 (14:55→15:55)
[2020-09-19 14:58] VITALS: BP 100/60
== END 2020-09-19 16:55 ==
LOC: SDC 14:32
PROVIDERS: ATTEND Family Medicine
DX: E86.0 Dehydration (principal)
CPT/HCPCS: 96360; 96365; 96366

== ENCOUNTER 2020-10-07 16:54 | Inpatient (IN) | payer MEDICARE, MEDICAID ==
[~2020-10-07] VITALS: Ht 167 cm; Wt 73.0 kg
[2020-10-07 17:43] LABS: BASOPHILS # (AUTO) 0.1 10^3/uL (0.0-0.1); BASOPHILS % (AUTO) 1 % (0-10); EOSINOPHILS # (AUTO) 0.6 10^3/uL (0.0-0.3); EOSINOPHILS % (AUTO) 6 % (0-10); HEMATOCRIT 24 % (35-52); HEMOGLOBIN 7.3 g/dL (11.5-16.0); LYMPHOCYTES # (AUTO) 1.5 10^3/uL (1.0-4.0); LYMPHOCYTES % (AUTO) 14 % (12-44); MEAN CORPUSCULAR HEMOGLOBIN 26 pg (25-34); MEAN CORPUSCULAR HGB CONC 30 g/dL (32-36); MEAN CORPUSCULAR VOLUME 88 fL (80-99); MEAN PLATELET VOLUME 8.8 fL (9.0-12.2); MONOCYTES # (AUTO) 0.9 10^3/uL (0.0-1.0); MONOCYTES % (AUTO) 9 % (0-12); NEUTROPHILS # (AUTO) 7.6 10^3/uL (1.8-7.8); NEUTROPHILS % (AUTO) 71 % (42-75); PLATELET COUNT 544 10^3/uL (130-400); WHITE BLOOD COUNT 10.7 10^3/uL (4.3-11.0)
[2020-10-07] MEDS ORDERED: LACTATED RINGERS 1,000 ML IV ONE (17:45)
[2020-10-07 17:47] LABS: ALBUMIN 2.9 GM/DL (3.2-4.5)
--- NOTE | 2020-10-07 17:47 | ED General ---
General Chief Complaint: 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 Problems Stated Complaint: WEAKNESS/LOW BP/ELEV HR Nursing Triage Note: PT REPORTS TO ED FOR WEAKNESS X'S 3 WEEKS. PT STATES SHE HAS LUNG CANCER, PTS CHEMO IS CURRENTLY ON HOLD. PT IS RECEIVING IMMUNOTHERAPY. SHE IS NOT SURE WHY IS SHE SO WEAK SHE CAN HARDLY DO ANYTING. PT BROUGHT TO ROOM 04 KATHERINE . Source of Information: Patient Exam Limitations: No Limitations History of Present Illness Date Seen by Provider: Oct 07, 2020 Time Seen by Provider: 17:44 Initial Comments To ER with general weakness for about 1 month. She had a right-sided headache for 3 weeks. No weakness that is specific to one arm or leg. She finished chemotherapy for squamous cell carcinoma of the right lung about a month ago. She is scheduled to start immunotherapy whenever she begins feeling better she states. Poor food intake secondary to no appetite but she is drinking enough fluids. No pain in the abdomen. She does have chronic unchanged shortness of breath. She is on Xarelto for pulmonary embolism. She has had tachycardia for about a month. She follows with Dr. Amaya and he is aware. Timing/Duration: Getting Worse Severity: Moderate Associated Systoms: No Cough; Headaches, Shortness of Air, Weakness Allergies and Home Medications Allergies Coded Allergies: ciprofloxacin (Verified Allergy, Severe, TENDONITIS, 09/19/20) TENDONITIS morphine (Verified Allergy, Severe, RASH/ BURNING SENSATION, 09/19/20) Home Medications Acetaminophen 500 Mg Tablet, 1,000 MG PO Q8H PRN for PAIN-MILD (1-4), (Reported) Albuterol Sulfate 2.5 Mg/3 Ml Vial.neb, 2.5 MG NEB BID PRN for SHORTNESS OF BREATH, (Reported) Albuterol Sulfate 6.7 Gm Hfa.aer.ad, 2 PUFF INH Q4H PRN for SHORTNESS OF BREATH, (Reported) Amlodipine Besylate 10 Mg Tablet, 10 MG PO DAILY Prescribed by: JUNE SHAHID on 06/08/20901 Amoxicillin/Potassium Clav 1 Each Tablet, 1 EACH PO BID Prescribed by: JUNE SHAHID on 06/08/20901 Aspirin 81 Mg Tab.chew, 81 MG PO HS, (Reported) Atenolol 50 Mg Tablet, 50 MG PO HS, (Reported) Clopidogrel Bisulfate 75 Mg Tablet, 75 MG PO DAILY, (Reported) Dexamethasone 1.5 Mg Tab.ds.pk, 1.5 MG PO UD Prescribed by: JUNE SHAHID on 06/08/20901 Duloxetine HCl 60 Mg Capsule.dr, 60 MG PO HS, (Reported) LAST FILLED 02-03-2020 #90 Hydrocodone/Acetaminophen 1 Each Tablet, 1 TAB PO Q4H PRN for PAIN-MODERATE (5- 7), (Reported) Insulin Detemir 100 Unit/1 Ml Insuln.pen, UNIT SQ HS, (Reported) USES PER SLIDING SCALE Insulin Regular, Human 100 Unit/1 Ml Insuln.pen, 5-7 UNITS SC AC, (Reported) Isosorbide Mononitrate 30 Mg Tab.er.24h, 30 MG PO DAILY Prescribed by: JUNE SHAHID on 06/08/20901 Lorazepam 0.5 Mg Tablet, 0.5 MG PO TID PRN for ANXIETY, (Reported) Metformin HCl 500 Mg Tablet, 1,000 MG PO BID, (Reported) TAKES 2 (500MG) TABS Montelukast Sodium 10 Mg Tablet, 10 MG PO DAILY, (Reported) Nitroglycerin 0.4 Mg Tab.subl, 0.4 MG SL UD PRN for CHEST PAIN, (Reported) [place]-3 Fatty Acids/Fish Oil 1 Each Capsule, 2 EACH PO DAILY, (Reported) Ondansetron HCl 8 Mg Tablet, 8 MG PO Q8H PRN for NAUSEA/VOMITING-1ST LINE, (Reported) Pantoprazole Sodium 40 Mg Tablet.dr, 40 MG PO DAILY, (Reported) Pravastatin Sodium 40 Mg Tablet, 40 MG PO HS, (Reported) Rivaroxaban 15 Mg Tablet, 15 MG PO BID@0700,1900 Prescribed by: JUNE SHAHID on 06/08/20901 Rivaroxaban 20 Mg Tablet, 20 MG PO DAILY rx to start after the xarelto 15mg bid is completed Prescribed by: JUNE SHAHID on 06/08/20901 Patient Home Medication List Home Medication List Reviewed: Yes Review of Systems Review of Systems Constitutional: see HPI EENTM: see HPI Respiratory: see HPI, dyspnea on exertion Genitourinary: no symptoms reported Musculoskeletal: no symptoms reported Skin: no symptoms reported Psychiatric/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: No Symptoms Reported Hematologic/Lymphatic: No Symptoms Reported Immunological/Allergic: no symptoms reported Past Rhagouy-Zuuegb-Kpyrrf Hx Patient Social History Tobacco Use?: Yes Tobacco type used: Cigarettes Smoking Status: Current Someday Smoker Substance use?: No Alcohol Use?: No Pt feels they are or have been: No Immunizations Up To Date Tetanus Booster (TDap): Unknown PED Vaccines UTD: No First/Initial COVID19 Vaccinat: 03/23/2020 Second COVID19 Vaccination Ibrahima: 04/11/2020 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: [employer] Seasonal Allergies Seasonal Allergies: No Past Medical History Surgeries: Yes ((shoulder, back sx, knee sc, bilat CTR, breast bx, achilles sx, port)) Orthopedic Respiratory: Yes COPD Currently Using CPAP: No Currently Using BIPAP: No Cardiac: Yes Coronary Artery Disease, High Cholesterol, Hypertension 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: No Neuropathy 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 0.0oz. [id number]; 24.00 BMI Method: General Appearance: No Apparent Distress, WD/WN Eyes: Bilateral Eye Normal Inspection, Bilateral Eye PERRL, Bilateral Eye EOMI Neck: Full Range of Motion, Normal Inspection Respiratory: No Accessory Muscle Use, No Respiratory Distress, Decreased Breath Sounds (On the right) Cardiovascular: Normal Peripheral Pulses, Tachycardia (130s) Gastrointestinal: Normal Bowel Sounds, Non Tender, Soft Extremity: Normal Capillary Refill, Normal Inspection Neurologic/Psychiatric: Alert, Oriented x3 Skin: Normal Color, Warm/Dry Progress/Results/Core Measures Suspected Sepsis SIRS Temperature: Pulse: 136 Respiratory Rate: 20 Laboratory Tests 10/07/20 17:20: White Blood Count 10.7 Blood Pressure 99 /62 Mean: 74 Laboratory Tests 10/07/20 17:20: Creatinine 0.61, INR Comment 1.3, Platelet Count 544H, Total Bilirubin 0.3 Results/Orders Lab Results Laboratory Tests Test 10/07/20 17:20 10/07/20 18:48 Range/Units White Blood Count 10.7 4.3-11.0 10^3/uL Red Blood Count 2.76 L 3.80-5.11 10^6/uL Hemoglobin 7.3 L 11.5-16.0 g/dL Hematocrit 24 L 35-52 % Mean Corpuscular Volume 88 80-99 fL Mean Corpuscular Hemoglobin 26 25-34 pg Mean Corpuscular Hemoglobin Concent 30 L 32-36 g/dL Red Cell Distribution Width 17.2 H 10.0-14.5 % Platelet Count 544 H 130-400 10^3/uL Mean Platelet Volume 8.8 L 9.0-12.2 fL Immature Granulocyte % (Auto) 1 % Neutrophils (%) (Auto) 71 42-75 % Lymphocytes (%) (Auto) 14 12-44 % Monocytes (%) (Auto) 9 0-12 % Eosinophils (%) (Auto) 6 0-10 % Basophils (%) (Auto) 1 0-10 % Neutrophils # (Auto) 7.6 1.8-7.8 10^3/uL Lymphocytes # (Auto) 1.5 1.0-4.0 10^3/uL Monocytes # (Auto) 0.9 0.0-1.0 10^3/uL Eosinophils # (Auto) 0.6 H 0.0-0.3 10^3/uL Basophils # (Auto) 0.1 0.0-0.1 10^3/uL Immature Granulocyte # (Auto) 0.1 0.0-0.1 10^3/uL Prothrombin Time 16.5 H 12.2-14.7 SEC INR Comment 1.3 0.8-1.4 Activated Partial Thromboplast Time 45 H 24-35 SEC Sodium Level 133 L 135-145 MMOL/L Potassium Level 3.9 3.6-5.0 MMOL/L Chloride Level 99 98-107 MMOL/L Carbon Dioxide Level 21 21-32 MMOL/L Anion Gap 13 5-14 MMOL/L Blood Urea Nitrogen 6 L 7-18 MG/DL Creatinine 0.61 0.60-1.30 MG/DL Estimat Glomerular Filtration Rate > 60 BUN/Creatinine Ratio 10 Glucose Level 222 H 70-105 MG/DL Calcium Level 11.8 H 8.5-10.1 MG/DL Corrected Calcium 12.7 H 8.5-10.1 MG/DL Total Bilirubin 0.3 0.1-1.0 MG/DL Aspartate Amino Transf (AST/SGOT) 18 5-34 U/L Alanine Aminotransferase (ALT/SGPT) 11 0-55 U/L Alkaline Phosphatase 86 40-136 U/L Troponin I 0.057 H <0.028 NG/ML B-Type Natriuretic Peptide 1999.7 H <100.0 PG/ML Total Protein 6.6 6.4-8.2 GM/DL Albumin 2.9 L 3.2-4.5 GM/DL Thyroid Stimulating Hormone (TSH) 0.49 0.35-4.94 UIU/ML Free Thyroxine 0.96 0.70-1.48 NG/DL Urine Color YELLOW Urine Clarity CLOUDY Urine pH 7.0 5-9 Urine Specific [place] <=1.005 1.016-1.022 Urine Protein NEGATIVE NEGATIVE Urine Glucose (UA) NEGATIVE NEGATIVE Urine Ketones NEGATIVE NEGATIVE Urine Nitrite NEGATIVE NEGATIVE Urine Bilirubin NEGATIVE NEGATIVE Urine Urobilinogen 0.2 < = 1.0 MG/DL Urine Leukocyte Esterase 1+ H NEGATIVE Urine RBC (Auto) NEGATIVE NEGATIVE Urine RBC NONE /HPF Urine WBC 2-5 /HPF Urine Squamous Epithelial Cells 25-50 H /HPF Urine Crystals NONE /LPF Urine Bacteria MODERATE H /HPF Urine Casts NONE /LPF Urine Mucus NEGATIVE /LPF Urine Culture Indicated CULTURE PENDING My Orders Orders - FAWN KLEIN APRN Cbc With Automated Diff (10/07/20 17:37) Comprehensive Metabolic Panel (10/07/20 17:37) Blood Culture (10/07/20 17:37) Sputum Culture (10/07/20 17:37) Urinalysis (10/07/20 17:37) Urine Culture (10/07/20 17:37) Protime With Inr (10/07/20 17:37) Partial Thromboplastin Time (10/07/20 17:37) Chest 1 View, Ap/Pa Only (10/07/20 17:37) Ed Iv/Invasive Line Start (10/07/20 17:37) Ed Iv/Invasive Line Start (10/07/20 17:37) Vital Signs Adult Sepsis Patie Q15M (10/07/20 17:37) O2 (10/07/20 17:37) Remove Rings In Anticipation O (10/07/20 17:37) Lactic Acid Analyzer (10/07/20 17:37) Lactated Ringers (Lr 1000 Ml Iv Solution (10/07/20 17:45) Ct Head Wo (10/07/20 17:42) Thyroid Stimulating Hormone (10/07/20 17:47) Free T4 (Free Thyroxine) (10/07/20 17:47) Ekg Tracing (10/07/20 17:47) Troponin I (10/07/20 17:47) BNP (10/07/20 17:47) Red Cells Leukocytes Reduced (10/07/20 18:01) Type And Screen (10/07/20 18:01) Red Cells Leukocytes Reduced (10/07/20 17:20) Furosemide Injection (Lasix Injection) (10/07/20 18:45) Medications Given in ED Current Medications Medications Dose Ordered Sig/Adele Route Start Time Stop Time Status Last Admin Dose Admin Furosemide 40 mg ONCE ONCE IVP 10/07/20 18:45 10/07/20 18:46 DC 10/07/20 18:55 40 MG Lactated Ringer's 1,000 ml @ 0 mls/hr Q0M ONCE IV 10/07/20 17:45 10/07/20 17:46 DC 10/07/20 17:49 1,000 MLS/HR Vital Signs/I&O 10/07/20 10/07/20 17:10 17:10 Temp 36.6 36.6 Pulse 136 134 Resp 20 20 B/P (MAP) 99/62 (74) 99/62 (74) Pulse Ox 97 96 O2 Delivery Room Air Room Air Capillary Refill : Less Than 3 Seconds Blood Pressure Mean: 74 Departure Communication (Admissions) 1856-EKG at 1851 shows sinus tachycardia, QT interval [address] segment depression in V5 and V6. 1854-Discussed with Dr. Kinney and Dr. Cabrera. I will admit, will give 40 mg of Lasix IV now, 1 unit of blood then another 40 mg of IV Lasix. Then will do Lasix 40 mg IV twice daily supplement potassium. She is already on Eliquis for a right lower lobe subsegmental pulmonary embolus. She is tachycardic but not hypotensive. 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 And mild aortic regurgitation. Last cardiac cath in December 2019 : CONCLUSIONS: 1. Coronary artery disease, moderate, including 40% mid vessel stenosis of the left anterior descending, severe distal disease in the left circumflex where the vessel is not of an adequate caliber for intervention, 50% in-stent restenosis in the right coronary and 40% distal stenosis in the right coronary. A mid right coronary artery stent, known to be Promus 3.5 x 24, placed in 2012, is patent with a 50% in-stent restenosis in its proximal portion in the right coronary. Fractional flow reserve across the lesions in the right coronary is 0.96, indicating hemodynamic insignificance. 2. Moderate aortic stenosis with a behs-kh-rbtr gradient of 36 mmHg. 3. Normal global left ventricular systolic function with ejection fraction approximately 65%. Impression Primary Impression: CHF exacerbation Additional Impressions: Squamous cell carcinoma of right lung Bony metastasis Coronary artery disease Disposition: ADMITTED INPATIENT Condition: Stable Admissions Decision to Admit Reason: Admit from ER (General) Decision to Admit/Date: Oct 07, 2020 Time/Decision to Admit Time: 18:55 Departure-Patient Inst. Referrals: JUNE SHAHID MD (PCP/Family) Primary Care Physician FAWN KLEIN APRN Oct 07, 2020 17:47
[2020-10-07 17:48] LABS: CHLORIDE 99 MMOL/L (98-107); POTASSIUM 3.9 MMOL/L (3.6-5.0); SODIUM 133 MMOL/L (135-145)
[2020-10-07 17:49] LABS: CALCIUM 11.8 MG/DL (8.5-10.1); INR 1.3 (0.8-1.4); PROTHROMBIN TIME PATIENT 16.5 SEC (12.2-14.7)
[2020-10-07 17:50] LABS: GLUCOSE 222 MG/DL (70-105); TOTAL PROTEIN 6.6 GM/DL (6.4-8.2)
[2020-10-07 17:51] LABS: CARBON DIOXIDE 21 MMOL/L (21-32)
[2020-10-07 17:52] LABS: BILIRUBIN,TOTAL 0.3 MG/DL (0.1-1.0)
[2020-10-07 17:53] LABS: ALKALINE PHOSPHATASE 86 U/L (40-136)
[2020-10-07 17:54] LABS: CREATININE SERUM 0.61 MG/DL (0.60-1.30); GFR ESTIMATED > 60
[2020-10-07 17:55] LABS: BUN/CREATININE RATIO 10
[2020-10-07 17:56] LABS: ALANINE AMINOTRANSFERASE 11 U/L (0-55)
--- NOTE | 2020-10-07 18:19 | Diagnostic Imaging Report ---
EXAMINATION: CT head without contrast. TECHNIQUE: Multiple contiguous axial images were obtained through the brain without the use of intravenous contrast. All CT scans use one or more of the following dose optimizing techniques: automated exposure control, MA and/or KvP adjustment based on patient size and exam type or iterative reconstruction. HISTORY: Headache. History of lung cancer. Generalized weakness. COMPARISON: 08/22/2020. FINDINGS: No large acute territorial ischemia, mass or hemorrhage. No midline shift or mass effect. Scattered chronic microvascular disease is seen in the periventricular and subcortical white matter. The ventricles, cortical sulci and basilar cisterns are patent and unremarkable. The orbits are normal. Paranasal sinuses are normal. Mastoid air cells are clear. No soft tissue abnormality is seen. There has been development of a heterogeneous and destructive lesion in the right parietal bone measuring 3.4 x 0.9 cm. IMPRESSION: 1. Interval development of a destructive lesion in the right parietal bone, highly concerning for osseous metastatic disease given the history of lung cancer. 2. No large acute territorial ischemia. No evidence of hemorrhage or intraparenchymal mass. 3. Chronic microvascular disease in the periventricular and subcortical white matter. Dictated by: Dictated on workstation # [id number]
--- NOTE | 2020-10-07 18:21 | Diagnostic Imaging Report ---
EXAMINATION: Chest 1 view. HISTORY: Weakness. History of lung cancer. COMPARISON: 08/22/2020. FINDINGS: Stable left port. The lung volumes are normal. Nodular opacity seen in the right upper lobe. No large pleural effusion or pneumothorax is seen. The cardiomediastinal silhouette is normal in size and contour. There is calcified aortic atherosclerotic plaque. No acute osseous abnormality is seen. IMPRESSION: 1. Nodular opacity in the right upper lobe. This is similar to the prior exam. No new focal consolidation. No pleural effusion. 2. Stable left port. Dictated by: Dictated on workstation # [id number]
[2020-10-07 18:29] LABS: FREE T4 (FREE THYROXINE) 0.96 NG/DL (0.70-1.48)
[2020-10-07] MEDS ORDERED: FUROSEMIDE 40 MG/4 ML INJ (LASIX) IVP ONE ×2 (18:45→23:45)
[2020-10-07 18:58] LABS: BILIRUBIN,URINE NEGATIVE (NEGATIVE); CLARITY,URINE CLOUDY; COLOR,URINE YELLOW; GLUCOSE, URINE (UA) NEGATIVE (NEGATIVE); KETONES,URINE NEGATIVE (NEGATIVE); LEUKOCYTE ESTERASE ,URINE 1+ (NEGATIVE); NITRITE,URINE NEGATIVE (NEGATIVE); PROTEIN,URINE NEGATIVE (NEGATIVE)
[2020-10-07 19:03] LABS: BACTERIA,URINE MODERATE /HPF
[2020-10-07 19:04] LABS: SQUAMOUS EPITHELIAL CELL,UR 25-50 /HPF
[2020-10-07] MEDS ORDERED: fentaNYL INJ 100 MCG/2 ML AMP IVP ONE (20:00)
[2020-10-07] MEDS ORDERED: NS (IVPB) 250 ML IV ONE (20:00)
--- NOTE | 2020-10-07 20:16 | Tele-ICU Progress Note ---
Progress Note 69 y/o c/o gen weakness x 1 month. NEWBERRY for 3 wks. s/p chemo for Sq cwll Ca of lung 1 month ago. Bone mets, Hx of CAD, EF 65% Hx of PE on Xarelto Labs Hgb 7.3, Na 133. 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 U/A LE 1+ IVF 1 L given and 40 mg Lasix ECHO pending 1. Lung Ca with bone mets 2. Hypercalcemia 3. Gen weakness post chemo 1 month ago. Focused Exam Height, Weight, BMI Height: 5'6.00" Weight: 208lbs. 0.0oz. 94.928517qx; 24.00 BMI Method: SOURAV WETZEL MD Oct 07, 2020 20:16
[2020-10-07 20:24] VITALS: BP 113/70
[2020-10-07 20:39] VITALS: BP 111/63
[2020-10-07 21:25] VITALS: BP 99/62
[2020-10-07] MEDS: HYDROcodone/APAP 5 MG/325 MG (LORTAB) TAB PO PRN (21:32)
[2020-10-07 23:00] VITALS: BP 120/73
[2020-10-08] MEDS: HYDROcodone/APAP 5 MG/325 MG (LORTAB) TAB PO PRN ×3 (00:52→14:28)
[2020-10-08 04:34] LABS: BASOPHILS # (AUTO) 0.1 10^3/uL (0.0-0.1); BASOPHILS % (AUTO) 1 % (0-10); EOSINOPHILS % (AUTO) 10 % (0-10); HEMATOCRIT 29 % (35-52); HEMOGLOBIN 9.1 g/dL (11.5-16.0); LYMPHOCYTES % (AUTO) 9 % (12-44); MEAN CORPUSCULAR HEMOGLOBIN 27 pg (25-34); MEAN CORPUSCULAR HGB CONC 31 g/dL (32-36); MEAN CORPUSCULAR VOLUME 88 fL (80-99); MEAN PLATELET VOLUME 8.7 fL (9.0-12.2); MONOCYTES # (AUTO) 1.1 10^3/uL (0.0-1.0); MONOCYTES % (AUTO) 11 % (0-12); NEUTROPHILS # (AUTO) 7.1 10^3/uL (1.8-7.8); NEUTROPHILS % (AUTO) 69 % (42-75); PLATELET COUNT 508 10^3/uL (130-400); WHITE BLOOD COUNT 10.3 10^3/uL (4.3-11.0)
[2020-10-08 05:06] LABS: ALBUMIN 2.9 GM/DL (3.2-4.5); CHLORIDE 97 MMOL/L (98-107); POTASSIUM 3.5 MMOL/L (3.6-5.0); SODIUM 135 MMOL/L (135-145)
[2020-10-08 05:07] LABS: CALCIUM 12.3 MG/DL (8.5-10.1)
[2020-10-08 05:09] LABS: GLUCOSE 186 MG/DL (70-105); TOTAL PROTEIN 6.7 GM/DL (6.4-8.2)
[2020-10-08 05:10] LABS: CARBON DIOXIDE 27 MMOL/L (21-32)
[2020-10-08 05:11] LABS: BILIRUBIN,TOTAL 0.3 MG/DL (0.1-1.0)
[2020-10-08 05:12] LABS: ALKALINE PHOSPHATASE 88 U/L (40-136); CREATININE SERUM 0.66 MG/DL (0.60-1.30); GFR ESTIMATED > 60
[2020-10-08 05:13] LABS: BUN/CREATININE RATIO 9
[2020-10-08 05:15] LABS: ALANINE AMINOTRANSFERASE 12 U/L (0-55)
[2020-10-08] MEDS: KCL 20 MEQ TAB (K-DUR) PO SCH (06:41)
[2020-10-08] MEDS: FUROSEMIDE 40 MG/4 ML INJ (LASIX) IVP SCH ×2 (06:41→16:50)
[2020-10-08] MEDS ORDERED: inSUlin ASPART (NovoLOG) 1 UNIT/0.01 ML (CHARGE PER UNIT) SC SCH (07:00)
[2020-10-08] MEDS: RT-ALBUTEROL SULF 2.5 MG/3 ML PRE-MIX VIAL INH SCH ×2 (08:11→19:34)
--- NOTE | 2020-10-08 08:29 | History & Physical ---
History of Present Illness History of Present Illness Reason for visit/HPI PT IS A 69 Y/O FEMALE WHO IS WELL KNOWN TO ME FROM CLINIC. SHE PRESENTED TO THE ER WITH WEAKNESS, FALLING EPISODES AT HOME DUE TO WEAKNESS AND TACHYCARDIA. SHE HAS HX OF SMALL CELL LUNG CANCER AND IS STATUS POST CHEMOTHERAPY. PT HAS NOT BEEN EATING OR DRINKING WELL AT HOME DUE TO HER FATIGUE/WEAKNESS. PT ADMITTED FOR CHF AND HYPOXIA AND WEAKNESS CT HEAD SHOWED BONE METS TO SKULL Date of Admission Oct 07, 2020 at 18:46 Date Seen by a Provider: Oct 08, 2020 Time Seen by a Provider: 08:20 I consulted on this patient on 10/08/20 08:29 Attending Physician June Aleman MD Admitting Physician June Aleman MD Consult Allergies and Home Medications Allergies Coded Allergies: ciprofloxacin (Verified Allergy, Severe, TENDONITIS, 09/19/20) TENDONITIS morphine (Verified Allergy, Severe, RASH/ BURNING SENSATION, 09/19/20) Home Medications Acetaminophen 500 Mg Tablet, 1,000 MG PO Q8H PRN for PAIN-MILD (1-4), (Reported) Last Action: Reviewed Albuterol Sulfate 2.5 Mg/3 Ml Vial.neb, 2.5 MG NEB BID PRN for SHORTNESS OF BREATH, (Reported) Last Action: Reviewed Albuterol Sulfate 6.7 Gm Hfa.aer.ad, 2 PUFF INH Q4H PRN for SHORTNESS OF BREATH, (Reported) Last Action: Reviewed Amlodipine Besylate 10 Mg Tablet, 10 MG PO DAILY Prescribed by: JUNE ALEMAN on 06/08/20901 Last Action: Reviewed Amoxicillin/Potassium Clav 1 Each Tablet, 1 EACH PO BID Prescribed by: JUNE ALEMAN on 06/08/20901 Last Action: Reviewed Aspirin 81 Mg Tab.chew, 81 MG PO HS, (Reported) Last Action: Reviewed Atenolol 50 Mg Tablet, 50 MG PO HS, (Reported) Last Action: Reviewed Clopidogrel Bisulfate 75 Mg Tablet, 75 MG PO DAILY, (Reported) Last Action: Reviewed Dexamethasone 1.5 Mg Tab.ds.pk, 1.5 MG PO UD Prescribed by: JUNE ALEMAN on 06/08/20901 Last Action: Reviewed Duloxetine HCl 60 Mg Capsule.dr, 60 MG PO HS, (Reported) LAST FILLED 02-03-2020 #90 Last Action: Reviewed Hydrocodone/Acetaminophen 1 Each Tablet, 1 TAB PO Q4H PRN for PAIN-MODERATE (5- 7), (Reported) Last Action: Reviewed Insulin Detemir 100 Unit/1 Ml Insuln.pen, UNIT SQ HS, (Reported) USES PER SLIDING SCALE Last Action: Reviewed Insulin Regular, Human 100 Unit/1 Ml Insuln.pen, 5-7 UNITS SC AC, (Reported) Last Action: Reviewed Isosorbide Mononitrate 30 Mg Tab.er.24h, 30 MG PO DAILY Prescribed by: JUNE ALEMAN on 06/08/20901 Last Action: Reviewed Lorazepam 0.5 Mg Tablet, 0.5 MG PO TID PRN for ANXIETY, (Reported) Last Action: Reviewed Metformin HCl 500 Mg Tablet, 1,000 MG PO BID, (Reported) TAKES 2 (500MG) TABS Last Action: Reviewed Montelukast Sodium 10 Mg Tablet, 10 MG PO DAILY, (Reported) Last Action: Reviewed Nitroglycerin 0.4 Mg Tab.subl, 0.4 MG SL UD PRN for CHEST PAIN, (Reported) Last Action: Reviewed [place]-3 Fatty Acids/Fish Oil 1 Each Capsule, 2 EACH PO DAILY, (Reported) Last Action: Reviewed Ondansetron HCl 8 Mg Tablet, 8 MG PO Q8H PRN for NAUSEA/VOMITING-1ST LINE, (Reported) Last Action: Reviewed Pantoprazole Sodium 40 Mg Tablet.dr, 40 MG PO DAILY, (Reported) Last Action: Reviewed Pravastatin Sodium 40 Mg Tablet, 40 MG PO HS, (Reported) Last Action: Reviewed Rivaroxaban 15 Mg Tablet, 15 MG PO BID@0700,1900 Prescribed by: JUNE ALEMAN on 06/08/20901 Last Action: Reviewed Rivaroxaban 20 Mg Tablet, 20 MG PO DAILY rx to start after the xarelto 15mg bid is completed Prescribed by: JUNE ALEMAN on 06/08/20901 Last Action: Reviewed Patient Home Medication List Home Medication List Reviewed: Yes Past Uoiflbt-Bkkcga-Dlqfoj Hx Past Med/Social Hx: Reviewed Nursing Past Med/Soc Hx, Reviewed and Corrections made Patient Social History Marrital Status: Living Status: LIVES AT HOME ALONE HAS KIDS WHO LIVE OUT OF AREA Employed/Student: retired Alcohol Use: Denies Use Smoking Status: Current Someday Smoker Type Used: Cigarettes 2nd Hand Smoke Exposure: No Physical Abuse Screen: No Sexual Abuse: No Recent Foreign Travel: No Contact w/other who traveled: No Recent Hopitalizations: No Recent Infectious Disease Expo: No Immunizations Up To Date Tetanus Booster (TDap): Unknown Pediatric: No Date of Pneumonia Vaccine: Jan 03, 2019 Date of Influenza Vaccine: Jan 24, 2020 Seasonal Allergies Seasonal Allergies: No Past Medical History Surgeries: Orthopedic Respiratory: COPD Currently Using CPAP: No Currently Using BIPAP: No Cardiac: Coronary Artery Disease, High Cholesterol, Hypertension 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: Neuropathy Hysterectomy Gastrointestinal: Gastroesophageal Reflux Musculoskeletal: Arthritis Endocrine: Diabetes, Insulin dep Loss of Vision: Denies Hearing Impairment: Denies Cancer: Lung Did You Recieve Any Treatments: Yes What Type of Treatment Did You: Chemotherapy, Radiation Psychosocial: Anxiety, Depression History of Blood Disorders: No Family History Reviewed Nursing Family Hx Heart Disease, Hypertension Review of Systems Constitutional: No chills, No diaphoresis; dizziness (INTERMITTENT); No fever; malaise, weakness EENTM: No hoarseness, No throat pain, No throat swelling Respiratory: cough, dyspnea on exertion, short of breath Cardiovascular: Hx of Intervention, palpitations Gastrointestinal: No abdominal pain; loss of appetite; No nausea, No vomiting Genitourinary: no symptoms reported Musculoskeletal: No back pain; muscle weakness Skin: no symptoms reported Psychiatric/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: Anxiety, Depressed, Headache (INTERMITTENT); Denies Numbness; Weakness All Other Systems Reviewed Negative Unless Noted: Yes Physical Exam Vital Signs Vital Signs - First Documented 10/07/20 10/07/20 20:24 21:25 O2 Flow Rate 2.00 FiO2 21 Capillary Refill : Less Than 3 Seconds Height, Weight, BMI Height: 5'6.00" Weight: 208lbs. 0.0oz. [id number]; 25.38 BMI Method: General Appearance: Mild Distress (TEARFUL), Thin Eyes: Bilateral Eye Normal Inspection, Bilateral Eye PERRL, Bilateral Eye EOMI HEENT: PERRL/EOMI, Pharynx Normal Neck: Full Range of Motion, Normal Inspection, Non Tender, Supple Respiratory: Crackles (BASES), Decreased Breath Sounds Cardiovascular: Tachycardia Gastrointestinal: Normal Bowel Sounds, No Organomegaly, No Pulsatile Mass, Non Tender, Soft Rectal: Deferred Back: Normal Inspection, No CVA Tenderness, No Vertebral Tenderness Extremity: Normal Capillary Refill, Normal Inspection, Normal Range of Motion, Non Tender, No Calf Tenderness, No Pedal Edema Neurologic/Psychiatric: Alert, Oriented x3, No Motor/Sensory Deficits, Normal M ood/Affect, 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 Norm as Tested Skin: Normal Color, Warm/Dry Lymphatic: No Adenopathy Assessment/Plan Assessment and Plan CHF ACUTE SYSTOLIC METASTATIC LESION OF SKULL FALLING EPISODES SMALL CELL LUNG CANCER HYPERCALCEMIA ANEMIA HYPONATREMIA DIABETES MELLITUS CORONARY ARTERY DISEASE CHF ACUTE SYSTOLIC - IV LASIX, MONITOR SYMPTOMS METASTATIC LESION OF SKULL WITH FALLING EPISODES AND HX OF RECENT DX OF SMALL CELL LUNG CANCER - WILL CHECK MRI OF BRAIN TOMORROW HYPERCALCEMIA - SUPPORTIVE CARE ANEMIA - TRANSFUSION TODAY HYPONATREMIA - IV FLUIDS, MONITOR LABS ' DIABETES MELLITUS - MONITOR FSBS ACHS CORONARY ARTERY DISEASE Admission Diagnosis CHF ACUTE SYSTOLIC METASTATIC LESION OF SKULL FALLING EPISODES SMALL CELL LUNG CANCER HYPERCALCEMIA ANEMIA HYPONATREMIA DIABETES MELLITUS CORONARY ARTERY DISEASE Admission Status: Inpatient Order (span 2 midnights) Reason for Inpatient Admission: INPT ADMISSION FOR CHF, NEWLY DX SKULL METASTASIS JUNE ALEMAN MD Oct 08, 2020 08:29
[2020-10-08] MEDS ORDERED: fentaNYL INJ 100 MCG/2 ML AMP IVP PRN (11:30)
[2020-10-08] MEDS: inSUlin ASPART (NovoLOG) 1 UNIT/0.01 ML (CHARGE PER UNIT) SC SCH ×3 (11:43→20:45)
[2020-10-08] MEDS: LACTATED RINGERS 1,000 ML IV SCH (11:44)
--- NOTE | 2020-10-08 13:04 | Consultation-Cardiology ---
HPI-Cardiology Cardiology Consultation Date of Consultation 10/08/20 Date of Admission Time Seen by Provider: 13:00 Indication: Shortness of breath HPI 69-year-old lady with a history of moderate severe aortic valve stenosis, has metastatic lung cancer, has been feeling weak and tired and having increasing shortness of breath, having headache. Came into the emergency room, noted to have elevation in BNP level. She has been having increasing heart rate with tachycardia, mainly sinus tachycardia for the past month or so. Has been following with Dr. Naranjo Home Medications & Allergies Allergies: Coded Allergies: ciprofloxacin (Verified Allergy, Severe, TENDONITIS, 09/19/20) TENDONITIS morphine (Verified Allergy, Severe, RASH/ BURNING SENSATION, 09/19/20) Home Medication List Reviewed: Yes AFL-Cjbmff-Kkgjvn Hx Patient Social History Marital Status: Employed/Student: retired Smoking Status: Current Someday Smoker Type Used: Cigarettes 2nd Hand Smoke Exposure: No Recent Hopitalizations: No Have you traveled recently?: No Alcohol Use?: No Immunizations Up To Date Tetanus Booster (TDap): Unknown Date of Pneumonia Vaccine: Jan 03, 2019 Date of Influenza Vaccine: Jan 24, 2020 Past Medical History Discussed below Family Medical History Significant Family History: Heart Disease, Hypertension Family Medical Hx Noncontributory Review of Systems-General Review of Systems Constitutional: see HPI, malaise EENTM: see HPI Respiratory: see HPI; No cough; dyspnea on exertion; No hemoptysis, No orthopnea, No phlegm, No short of breath, No stridor, No wheezing, No other Cardiovascular: see HPI; No chest pain, No edema, No Hx of Intervention; palpitations; No syncope, No vascular heart diseas, No other Gastrointestinal: no symptoms reported, see HPI Genitourinary: no symptoms reported Musculoskeletal: no symptoms reported, see HPI Skin: no symptoms reported, see HPI Psychiatric/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: No Symptoms Reported, See HPI Reviewed Test Results Reviewed Test Results Lab Laboratory Tests Test 10/07/20 17:20 10/07/20 18:48 10/07/20 21:13 10/08/20 04:20 Range/Units White Blood Count 10.7 10.3 4.3-11.0 10^3/uL Red Blood Count 2.76 L 3.33 L 3.80-5.11 10^6/uL Hemoglobin 7.3 L 9.1 #L 11.5-16.0 g/dL Hematocrit 24 L 29 L 35-52 % Mean Corpuscular Volume 88 88 80-99 fL Mean Corpuscular Hemoglobin 26 27 25-34 pg Mean Corpuscular Hemoglobin Concent 30 L 31 L 32-36 g/dL Red Cell Distribution Width 17.2 H 16.2 H 10.0-14.5 % Platelet Count 544 H 508 H 130-400 10^3/uL Mean Platelet Volume 8.8 L 8.7 L 9.0-12.2 fL Immature Granulocyte % (Auto) 1 1 % Neutrophils (%) (Auto) 71 69 42-75 % Lymphocytes (%) (Auto) 14 9 L 12-44 % Monocytes (%) (Auto) 9 11 0-12 % Eosinophils (%) (Auto) 6 10 0-10 % Basophils (%) (Auto) 1 1 0-10 % Neutrophils # (Auto) 7.6 7.1 1.8-7.8 10^3/uL Lymphocytes # (Auto) 1.5 1.0 1.0-4.0 10^3/uL Monocytes # (Auto) 0.9 1.1 H 0.0-1.0 10^3/uL Eosinophils # (Auto) 0.6 H 1.0 H 0.0-0.3 10^3/uL Basophils # (Auto) 0.1 0.1 0.0-0.1 10^3/uL Immature Granulocyte # (Auto) 0.1 0.1 0.0-0.1 10^3/uL Prothrombin Time 16.5 H 12.2-14.7 SEC INR Comment 1.3 0.8-1.4 Activated Partial Thromboplast Time 45 H 24-35 SEC Sodium Level 133 L 135 135-145 MMOL/L Potassium Level 3.9 3.5 L 3.6-5.0 MMOL/L Chloride Level 99 97 L 98-107 MMOL/L Carbon Dioxide Level 21 27 21-32 MMOL/L Anion Gap 13 11 5-14 MMOL/L Blood Urea Nitrogen 6 L 6 L 7-18 MG/DL Creatinine 0.61 0.66 0.60-1.30 MG/DL Estimat Glomerular Filtration Rate > 60 > 60 BUN/Creatinine Ratio 10 9 Glucose Level 222 H 186 H 70-105 MG/DL Calcium Level 11.8 H 12.3 H 8.5-10.1 MG/DL Corrected Calcium 12.7 H 13.2 H 8.5-10.1 MG/DL Total Bilirubin 0.3 0.3 0.1-1.0 MG/DL Aspartate Amino Transf (AST/SGOT) 18 17 5-34 U/L Alanine Aminotransferase (ALT/SGPT) 11 12 0-55 U/L Alkaline Phosphatase 86 88 40-136 U/L Troponin I 0.057 H 0.050 H <0.028 NG/ML B-Type Natriuretic Peptide 1999.7 H 2413.8 H <100.0 PG/ML Total Protein 6.6 6.7 6.4-8.2 GM/DL Albumin 2.9 L 2.9 L 3.2-4.5 GM/DL Thyroid Stimulating Hormone (TSH) 0.49 0.35-4.94 UIU/ML Free Thyroxine 0.96 0.70-1.48 NG/DL Urine Color YELLOW Urine Clarity CLOUDY Urine pH 7.0 5-9 Urine Specific [place] <=1.005 1.016-1.022 Urine Protein NEGATIVE NEGATIVE Urine Glucose (UA) NEGATIVE NEGATIVE Urine Ketones NEGATIVE NEGATIVE Urine Nitrite NEGATIVE NEGATIVE Urine Bilirubin NEGATIVE NEGATIVE Urine Urobilinogen 0.2 < = 1.0 MG/DL Urine Leukocyte Esterase 1+ H NEGATIVE Urine RBC (Auto) NEGATIVE NEGATIVE Urine RBC NONE /HPF Urine WBC 2-5 /HPF Urine Squamous Epithelial Cells 25-50 H /HPF Urine Crystals NONE /LPF Urine Bacteria MODERATE H /HPF Urine Casts NONE /LPF Urine Mucus NEGATIVE /LPF Urine Culture Indicated CULTURE PENDING Test 10/08/20 10:51 Range/Units Glucometer 297 H 70-110 MG/DL Physical Exam Physical Exam Vital Signs Vital Signs - First Documented 10/07/20 10/07/20 20:24 21:25 O2 Flow Rate 2.00 FiO2 21 Capillary Refill : Less Than 3 Seconds Height, Weight, BMI Height: 5'6.00" Weight: 208lbs. 0.0oz. [id number]; 25.38 BMI Method: General Appearance: No Apparent Distress, WD/WN Eyes: Bilateral Eye Normal Inspection, Bilateral Eye PERRL, Bilateral Eye EOMI HEENT: PERRL/EOMI, TMs Normal, Normal ENT Inspection, Pharynx Normal, Moist Mucous Membranes Neck: Full Range of Motion, Normal Inspection Respiratory: No Accessory Muscle Use, No Respiratory Distress, Decreased Breath Sounds (On the right) Cardiovascular: Normal Peripheral Pulses, Systolic Murmur, Tachycardia (130s) Gastrointestinal: Normal Bowel Sounds, Non Tender, Soft Back: Normal Inspection, No CVA Tenderness, No Vertebral Tenderness Extremity: Normal Capillary Refill, Normal Inspection Neurologic/Psychiatric: Alert, Oriented x3 Skin: Normal Color, Warm/Dry Lymphatic: No Adenopathy A/P-Cardiology Admission Diagnosis Generalized weakness Shortness of breath Sinus tachycardia Aortic valve stenosis Assessment/Plan Generalized fatigue and loss of energy, shortness of breath and a headache, 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 Managed by primary care team Congestive heart failure, acute left ventricular systolic dysfunction, secondary to valvular heart disease, patient has aortic valve stenosis that has progressed to severe, ejection fraction 45 to 50%. Starting on diuretic, monitor closely Coronary artery disease, history of coronary stent done in 2012 in [place] using Promus 3.5 x 24 mm to the midright coronary artery, most recent cardiac catheterization was done by Dr. Naranjo Sept 2019 showing multiple moderate lesions in the mid LAD, distal circumflex artery has severe disease but the artery is small for intervention. 50 percent in-stent restenosis in the midright coronary artery, FFR 0.96. Continue to monitor Hypertension, starting beta-blockers and evaluate tolerance and response Moderate carotid stenosis is noted by carotid ultrasound, there is history of right subclavian stenosis, CT scan did not reveal it History of frequent PVCs, 4 beats of wide complex tachycardia seen on a Holter monitor in 2016, followed by Dr. Naranjo Hyperlipidemia, followed and managed by primary care physician. Continue to monitor Diabetes mellitus, followed and managed by primary care physician History of peripheral arterial disease, 50 percent stenosis in the right common iliac artery, severe ostial/proximal stent within the iliac arteries, followed and managed by Dr. Naranjo No evidence of AAA on abd ao screening scan of 08/19/16 CHRYSTAL ULLOA MD Oct 08, 2020 13:04
[2020-10-08] MEDS: meTOprolol TARTRATE 25 MG (LOPRESSOR) TABLET PO SCH ×2 (14:27→20:26)
[2020-10-08] MEDS: RT-ALBUTEROL SULF 2.5 MG/3 ML PRE-MIX VIAL INH PRN (21:54)
[2020-10-08] MEDS ORDERED: methylPREDNISolone 125 MG (Solu-MEDROL) VIAL IVP ONE (22:15)
[2020-10-08] MEDS ORDERED: LORazepam INJ 2 MG/ML (ATIVAN) VIAL IVP ONE (22:15)
[2020-10-08] MEDS ORDERED: FUROSEMIDE 40 MG/4 ML INJ (LASIX) IVP ONE (22:15)
[2020-10-08] MEDS ORDERED: RT-ALBUTEROL SULF 2.5 MG/3 ML PRE-MIX VIAL INH ONE (22:30)
[2020-10-09] MEDS: LACTATED RINGERS 1,000 ML IV SCH ×2 (00:29→15:32)
[2020-10-09] MEDS: RT-ALBUTEROL SULF 2.5 MG/3 ML PRE-MIX VIAL INH PRN (01:56)
[2020-10-09] MEDS: FUROSEMIDE 40 MG/4 ML INJ (LASIX) IVP SCH ×2 (06:16→16:59)
[2020-10-09] MEDS: inSUlin ASPART (NovoLOG) 1 UNIT/0.01 ML (CHARGE PER UNIT) SC SCH ×4 (06:16→20:45)
[2020-10-09] MEDS: KCL 20 MEQ TAB (K-DUR) PO SCH (06:16)
[2020-10-09 06:25] LABS: HEMATOCRIT 30 % (35-52); HEMOGLOBIN 9.3 g/dL (11.5-16.0); MEAN CORPUSCULAR HEMOGLOBIN 27 pg (25-34); MEAN CORPUSCULAR HGB CONC 31 g/dL (32-36); MEAN CORPUSCULAR VOLUME 88 fL (80-99); MEAN PLATELET VOLUME 8.7 fL (9.0-12.2); PLATELET COUNT 510 10^3/uL (130-400)
[2020-10-09 06:39] LABS: ALBUMIN 2.9 GM/DL (3.2-4.5); CHLORIDE 96 MMOL/L (98-107); SODIUM 134 MMOL/L (135-145)
[2020-10-09 06:40] LABS: CALCIUM 12.5 MG/DL (8.5-10.1)
[2020-10-09 06:41] LABS: GLUCOSE 303 MG/DL (70-105); TOTAL PROTEIN 6.9 GM/DL (6.4-8.2)
[2020-10-09 06:42] LABS: CARBON DIOXIDE 27 MMOL/L (21-32)
[2020-10-09 06:43] LABS: BILIRUBIN,TOTAL 0.2 MG/DL (0.1-1.0)
[2020-10-09 06:45] LABS: ALKALINE PHOSPHATASE 93 U/L (40-136); CREATININE SERUM 0.67 MG/DL (0.60-1.30); GFR ESTIMATED > 60
[2020-10-09 06:46] LABS: BUN/CREATININE RATIO 12
[2020-10-09 06:48] LABS: ALANINE AMINOTRANSFERASE 14 U/L (0-55)
[2020-10-09] MEDS: RT-ALBUTEROL SULF 2.5 MG/3 ML PRE-MIX VIAL INH SCH (08:15)
--- NOTE | 2020-10-09 08:17 | Cardiology Progress Note ---
Subjective Date Seen by Provider: Oct 09, 2020 Time Seen by Provider: 08:15 Subjective/Events-last exam Sitting up in bed. Complaining of fatigue, denies any chest pain or increased dyspnea. Objective-Cardiology Exam Last Set of Vital Signs Vital Signs 10/07/20 10/09/20 21:25 15:27 Temp 36.1 Pulse 97 Resp 16 B/P (MAP) 132/66 (88) Pulse Ox 94 O2 Delivery Nasal Cannula O2 Flow Rate 1.00 FiO2 21 I&O Intake and Output 10/09/20 00:00 Intake Total 2165 ml Output Total 4050 ml Balance -1885 ml Intake Oral 2165 ml Output Urine Total 4050 ml # Voids 2 General: Alert, Oriented X3, Cooperative HEENT: Atraumatic, PERRLA Neck: Supple, No JVD, No Thyromegaly Lungs: Other (decreased breath sounds bibasilarly) Heart: Other (Grade IV/ systolic murmur at LSB) Abdomen: Normal Bowel Sounds, Soft Extremities: No Clubbing, No Edema, Normal Pulses Skin: No Rashes, No Significant Lesion Neuro: Normal Speech, Cranial Nerves 3-12 NL Psych/Mental Status: Mental Status NL, Mood NL Results Lab Laboratory Tests 10/09/20 05:55 A/P-Cardiology Admission Diagnosis Generalized weakness Shortness of breath Sinus tachycardia Aortic valve stenosis Assessment/Plan Generalized fatigue and loss of energy, shortness of breath and a headache, 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 Managed by primary care team Congestive heart failure, acute left ventricular systolic dysfunction, secondary to valvular heart disease, patient has aortic valve stenosis that has progressed to severe, ejection fraction 45 to 50%. Continue to diurese. Coronary artery disease, history of coronary stent done in 2012 in [place] using Promus 3.5 x 24 mm to the midright coronary artery, most recent cardiac catheterization was done by Dr. Naranjo Dec 2019 showing multiple moderate lesions in the mid LAD, distal circumflex artery has severe disease but the artery is small for intervention. 50 percent in-stent restenosis in the [facility] coronary artery, FFR 0.96. Continue to monitor Hypertension, starting on beta-blockers and evaluate tolerance and response Moderate carotid stenosis is noted by carotid ultrasound, there is history of right subclavian stenosis, CT scan did not reveal it History of frequent PVCs, 4 beats of wide complex tachycardia seen on a Holter monitor in 2017, followed by Dr. Naranjo, starting on low dose beta jorge luis Hyperlipidemia, followed and managed by primary care physician. Continue to mon itor Diabetes mellitus, followed and managed by primary care physician History of peripheral arterial disease, 50 percent stenosis in the right common iliac artery, severe ostial/proximal stent within the iliac arteries, followed and managed by Dr. Naranjo No evidence of AAA on abd ao screening scan of 08/19/16 Patient was seen and evaluated, received Ativan earlier, sleeping Has been having generalized fatigue, heart rate is better controlled Continue to monitor blood pressure and lipids, evaluate MRI report Supervisory-Addendum Brief Supervisory Addendum Participated in pt care: history, MDM, physical Personally performed: exam, history, MDM Care discussed with: JACKELIN LEDBETTER Oct 09, 2020 8:17 am CHRYSTAL ULLOA MD Oct 09, 2020 4:28 pm
[2020-10-09] MEDS: meTOprolol TARTRATE 50 MG (LOPRESSOR) TAB PO SCH ×2 (08:26→20:45)
--- NOTE | 2020-10-09 08:27 | Progress Note ---
Subjective Subjective Date Seen by Provider: Oct 09, 2020 Time Seen by Provider: 08:20 PT REPORTS SHE IS UNABLE TO HAVE MRI DUE TO CLAUSTROPHOBIA, WILL DOSE WITH [facility] TODAY PRIOR TO MRI PT C/O FEELING WEAK, NO DIZZINESS AT THIS TIME Review of Systems General: Fatigue HEENT: Head Aches (INTERMITTENT) Pulmonary: Dyspnea; No Cough Cardiovascular: No: Chest Pain, Palpitations Gastrointestinal: No: Nausea, Abdominal Pain Genitourinary: No Dysuria 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: Weakness, Confusion Objective Exam Vital Signs Vital Signs - First Documented 10/07/20 10/07/20 20:24 21:25 O2 Flow Rate 2.00 FiO2 21 Capillary Refill : Less Than 3 Seconds General Appearance: No Apparent Distress, WD/WN Eyes: Bilateral Eye Normal Inspection, Bilateral Eye PERRL, Bilateral Eye EOMI HEENT: PERRL/EOMI, TMs Normal, Normal ENT Inspection, Pharynx Normal, Moist Mucous Membranes Neck: Full Range of Motion, Normal Inspection Respiratory: No Accessory Muscle Use, No Respiratory Distress, Decreased Breath Sounds (On the right) Cardiovascular: Normal Peripheral Pulses, Systolic Murmur, Tachycardia (130s) Gastrointestinal: Normal Bowel Sounds, Non Tender, Soft Back: Normal Inspection, No CVA Tenderness, No Vertebral Tenderness Extremity: Normal Capillary Refill, Normal Inspection Neurologic/Psychiatric: Alert, Oriented x3 Skin: Normal Color, Warm/Dry Lymphatic: No Adenopathy Results Lab Laboratory Tests 10/08/20 10:51: Glucometer 297H 10/08/20 15:18: Glucometer 207H 10/08/20 20:33: Glucometer 276H 10/09/20 05:40: Glucometer 326H 10/09/20 05:55: White Blood Count 9.0, Red Blood Count 3.43L, Hemoglobin 9.3L, Hematocrit 30L, Mean Corpuscular Volume 88, Mean Corpuscular Hemoglobin 27, Mean Corpuscular Hemoglobin Concent 31L, Red Cell Distribution Width 16.4H, Platelet Count 510H, Mean Platelet Volume 8.7L, Sodium Level 134L, Potassium Level 4.0, Chloride Level 96L, Carbon Dioxide Level 27, Anion Gap 11, Blood Urea Nitrogen 8, Creatinine 0.67, Estimat Glomerular Filtration Rate > 60, BUN/Creatinine Ratio 12, Glucose Level 303H, Calcium Level 12.5H, Corrected Calcium 13.4H, Total Bilirubin 0.2, Aspartate Amino Transf (AST/SGOT) 16, Alanine Aminotransferase (ALT/SGPT) 14, Alkaline Phosphatase 93, Total Protein 6.9, Albumin 2.9L Assessment/Plan Assessment/Plan Assessment and Plan CHF ACUTE SYSTOLIC METASTATIC LESION OF SKULL FALLING EPISODES SMALL CELL LUNG CANCER HYPERCALCEMIA ANEMIA HYPONATREMIA DIABETES MELLITUS CORONARY ARTERY DISEASE CHF ACUTE SYSTOLIC - IV LASIX, MONITOR SYMPTOMS METASTATIC LESION OF SKULL WITH FALLING EPISODES AND HX OF RECENT DX OF SMALL CELL LUNG CANCER - WILL CHECK MRI OF BRAIN TODAY - UNABLE TO DO THIS MORNING DUE TO HER CLAUSTROPHOBIA HYPERCALCEMIA - SUPPORTIVE CARE ANEMIA - TRANSFUSION TODAY HYPONATREMIA - IV FLUIDS, MONITOR LABS ' DIABETES MELLITUS - MONITOR FSBS ACHS CORONARY ARTERY DISEASE JUNE SHAHID MD Oct 09, 2020 08:27
[2020-10-09] MEDS: RT--FLUTICASONE/SALMETEROL 113-14 (AIRDUO RespiCLICK) IH SCH ×2 (09:52→21:37)
[2020-10-09] MEDS ORDERED: LORazepam INJ 2 MG/ML (ATIVAN) VIAL IVP PRN (10:45)
[2020-10-09] MEDS ORDERED: GADOBUTROL 7.5 MMOL/7.5 ML (GADAVIST) VIAL IV ONE (12:00)
--- NOTE | 2020-10-09 13:31 | Diagnostic Imaging Report ---
CLINICAL INDICATION: Patient has a history of lung cancer. Recent CT head showed possible abnormal area. EXAM: MRI of the brain performed without and with 7 cc of Gadavist IV contrast. Sequences include axial DWI, ADC map, coronal gradient echo, axial T2, axial FLAIR, axial T1, axial T1 post IV contrast, coronal T1 fat-sat post IV contrast, and sagittal T1 post IV contrast. COMPARISON: Head CT without contrast dated 10/07/2020. FINDINGS: There are numerous intracranial nodular and ring-enhancing masses seen throughout both cerebral hemispheres and two areas involving the right and left posterior fossa regions, possibly representing metastatic lesions as well which are only seen on the axial sequence. There is significant pulsation artifact of posterior fossa, limiting evaluation. The largest lesion measures 7 mm x 9 mm in the left posterior temporal/occipital region. There are associated patchy areas of high T2 signal involving both cerebral hemispheres in the areas of the larger areas of enhancement. There are also superimposed patchy and confluent high T2 signal white matter changes throughout both cerebral hemispheres, zayra, and periventricular regions. There is no hydrocephalus, brain herniation, and midline shift. There is no intra-cranial hemorrhage. The [place] vascular structures show no gross abnormality as visualized. The pituitary gland, sella, and suprasellar regions are unremarkable as visualized. The lytic area involving the right of midline occipito-parietal region demonstrates enhancement and irregular appearance, concerning for metastatic disease. There is dural enhancement seen adjacent to the region as well. This area measured 1.1 cm x 4.1 cm x 3.3 cm (AP x Trans x CC). There is no other skull abnormality seen. The paranasal sinuses are clear. There is minimal fluid in the left mastoid air cell region. IMPRESSION: 1: There is interval development of numerous nodular and ring-enhancing masses seen throughout both cerebral hemispheres and two areas possibly involving the right and left posterior fossa regions, concerning for metastatic disease. There is no brain herniation or intracranial hemorrhage. 2: There is enhancement and irregular appearance of the lytic lesion involving the posterior right parieto-occipital region, consistent with osseous metastasis. This lesion was seen on the prior CT scan. Dictated by: Dictated on workstation # [id number]
[2020-10-10] MEDS: RT-ALBUTEROL SULF 2.5 MG/3 ML PRE-MIX VIAL INH SCH ×2 (00:30→21:59)
[2020-10-10] MEDS ORDERED: ONDANSETRON 4 MG/2 ML (SDV) Z0FRAN IVP PRN (01:45)
[2020-10-10] MEDS: HYDROcodone/APAP 5 MG/325 MG (LORTAB) TAB PO PRN ×2 (02:41→12:13)
[2020-10-10] MEDS: LACTATED RINGERS 1,000 ML IV SCH (04:17)
[2020-10-10] MEDS: inSUlin ASPART (NovoLOG) 1 UNIT/0.01 ML (CHARGE PER UNIT) SC SCH ×4 (05:24→21:07)
[2020-10-10] MEDS: KCL 20 MEQ TAB (K-DUR) PO SCH (07:04)
[2020-10-10] MEDS: FUROSEMIDE 40 MG/4 ML INJ (LASIX) IVP SCH ×2 (07:04→17:16)
[2020-10-10] MEDS: RT--FLUTICASONE/SALMETEROL 113-14 (AIRDUO RespiCLICK) IH SCH ×2 (07:51→21:53)
[2020-10-10] MEDS: meTOprolol TARTRATE 50 MG (LOPRESSOR) TAB PO SCH ×2 (08:32→21:07)
--- NOTE | 2020-10-10 08:46 | Progress Note ---
Subjective Subjective Date Seen by Provider: Oct 10, 2020 Time Seen by Provider: 08:40 PT REPORTS THAT SHE IS FEELING BETTER, WANTS TO GO HOME JULIO CESAR. SHE REPORTS THAT SHE IS AT HER BASELINE SHORTNESS OF BREATH. SHE IS TEARFUL ABOUT THE DIAGNOSIS OF METASTATIC DISEASE TO HER BRAIN. SHE HAS INTERMITTENT HEADACHES AND IS UNSTEADY ON HER FEET WITH AMBULATION Review of Systems General: No Chills; Fatigue HEENT: No Head Aches Pulmonary: Dyspnea, Cough Cardiovascular: No: Chest Pain, Palpitations Gastrointestinal: No: Nausea, Abdominal Pain Genitourinary: No Dysuria 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: Weakness; No: Confusion, Seizures All Other Systems Reviewed All Other Systems Reviewed: Yes Objective Exam Vital Signs Vital Signs - First Documented 10/07/20 10/07/20 20:24 21:25 O2 Flow Rate 2.00 FiO2 21 Capillary Refill : Less Than 3 Seconds General Appearance: No Apparent Distress, WD/WN Eyes: Bilateral Eye Normal Inspection, Bilateral Eye PERRL, Bilateral Eye EOMI HEENT: PERRL/EOMI Neck: Full Range of Motion, Normal Inspection Respiratory: No Accessory Muscle Use, No Respiratory Distress, Decreased Breath Sounds (DECREASED THROUGHOUT) Cardiovascular: Normal Peripheral Pulses, Systolic Murmur, Tachycardia Gastrointestinal: Normal Bowel Sounds, Non Tender, Soft Rectal: Deferred Extremity: Normal Capillary Refill, Normal Inspection Neurologic/Psychiatric: Alert, Oriented x3, No Motor/Sensory Deficits, 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, atm technician II-XII Norm as Tested Skin: Normal Color, Warm/Dry Lymphatic: No Adenopathy Results Lab Laboratory Tests 10/09/20 09:50: Influenza Type A (RT-PCR) Not Detected, Influenza Type B (RT-PCR) Not Detected, SARS-CoV-2 RNA (RT-PCR) Not Detected 10/09/20 11:30: Glucometer 393H 10/09/20 15:27: Glucometer 389H 10/09/20 20:17: Glucometer 275H 10/10/20 05:15: Glucometer 177H Microbiology 10/07/20 Urine Culture - Final, Complete 3 or more isolates Assessment/Plan Assessment/Plan Admission Dx CHF ACUTE SYSTOLIC METASTATIC LESION OF SKULL AND BRAIN - SMALL CELL FALLING EPISODES SMALL CELL LUNG CANCER HYPERCALCEMIA ANEMIA HYPONATREMIA DIABETES MELLITUS CORONARY ARTERY DISEASE Assessment and Plan CHF ACUTE SYSTOLIC METASTATIC LESION OF SKULL AND BRAIN - SMALL CELL FALLING EPISODES SMALL CELL LUNG CANCER HYPERCALCEMIA ANEMIA HYPONATREMIA DIABETES MELLITUS CORONARY ARTERY DISEASE CHF ACUTE SYSTOLIC - IV LASIX, MONITOR SYMPTOMS METASTATIC LESION OF SKULL WITH FALLING EPISODES AND HX OF RECENT DX OF SMALL CELL LUNG CANCER - MRI OF BRAIN IMPRESSION: 1: There is interval development of numerous nodular and ring-enhancing masses seen throughout both cerebral hemispheres and two areas possibly involving the right and left posterior fossa regions, concerning for metastatic disease. There is no brain herniation or intracranial hemorrhage. 2: There is enhancement and irregular appearance of the lytic lesion involving the posterior right parieto-occipital region, consistent with osseous metastasis. This lesion was seen on the prior CT scan. - CONSULT PLACED TO DR. SCHROEDER - DISCUSSED WITH HIM ON THE PHONE - RX FOR DECADRON IV AND TAPER DOSE FROM 10MG TO 4MG Q 6 HOURS AND WILL CONSULT DR. LOPEZ WELL FOR RADIATION OF BRAIN DUE TO METASTATIC SMALL CELL CA. HYPERCALCEMIA - SUPPORTIVE CARE ANEMIA - TRANSFUSION TODAY HYPONATREMIA - IV FLUIDS, MONITOR LABS ' DIABETES MELLITUS - MONITOR FSBS ACHS CORONARY ARTERY DISEASE JUNE SHAHID MD Oct 10, 2020 08:46
[2020-10-10] MEDS ORDERED: FLUT1BLS3 INH (09:09)
[2020-10-10] MEDS ORDERED: RIVA20TA PO (09:09)
[2020-10-10] MEDS ORDERED: FLUT16SP22 NSEACH (09:09)
[2020-10-10] MEDS ORDERED: UBID100C17 PO (09:09)
[2020-10-10] MEDS ORDERED: DULO30CA49 PO (09:09)
[2020-10-10] MEDS ORDERED: MTP25TSR PO (09:09)
--- NOTE | 2020-10-10 12:59 | Consultation ---
History of Present Illness History of Present Illness Patient Consulted On(ibrahima/time) 10/10/20 10:00 a.m. Date Seen by Provider: Oct 10, 2020 Time Seen by Provider: 10:00 Reason for Visit: Brain metastases History of Present Illness * Mrs. Paniagua is a 69 y/o white female well known to me from recent definitive chemo/xrt treatment for her IIIA NSC (squamous sub-type) lung cancer, RUL. * She completed 70 Gy / 35 fxs of RUL lung xrt on 07/11/20. Dr. Go delivered conccurent chemotherapy. * 08/22/20 CT head for evaluation of syncope and collapse was negative for metastatic disease. Chest xray noted good radiographic lung response to c hemo/xrt. * Had further chemo. Was to begin immunotherapy but has been on hold till she feels better. * 10/07/20 She presented to [facility] ED with generalized weakness, right-sided headache x 3 weeks, and shortness of breath. 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 (2) No large acute territorial ischemia. No evidence of hemorrhage or intraparenchymal mass. (3) Chronic microvascular disease in the periventricular and subcortical white matter. - She was admitted for treatment and further evaluation of CHF exaberation along with new found cranial bone met from NSC lung cancer. - 10/09/20 MRI brain w/wo: compared to CT 08/22/20 (1) There is interval development of numerous nodular and ring-enhancing masses seen throughout both cerebral hemispheres and two areas possibly involving the right and left posterior fossa regions, concerning for metastatic disease. There is no brain herniation or intracranial hemorrhage. (2) There is enhancement and irregular appearance of the lytic lesion involving the posterior right parieto-occipital region, consistent with osseous metastasis. This lesion was seen on the prior CT scan 10/07/20. - 10/10/20 A radiation oncology consult was made for evaluation and consideration of palliative brain xrt; thus, my visit with the patient today. Allergies and Home Medications Allergies Coded Allergies: ciprofloxacin (Verified Allergy, Severe, TENDONITIS, 09/19/20) TENDONITIS morphine (Verified Allergy, Severe, RASH/ BURNING SENSATION, 09/19/20) Home Medications Acetaminophen 500 Mg Tablet, 1,000 MG PO Q8H PRN for PAIN-MILD (1-4), (Reported) Last Action: Reviewed Albuterol Sulfate 2.5 Mg/3 Ml Vial.neb, 2.5 MG NEB BID PRN for SHORTNESS OF BREATH, (Reported) Last Action: Reviewed Albuterol Sulfate 6.7 Gm Hfa.aer.ad, 2 PUFF INH Q4H PRN for SHORTNESS OF BREATH, (Reported) Last Action: Reviewed Aspirin 81 Mg Tab.chew, 81 MG PO HS, (Reported) Last Action: Reviewed Duloxetine HCl 30 Mg Capsule.dr, 30 MG PO DAILY, (Reported) Last Action: Reviewed Fluticasone Propionate 16 Gm [place].susp, 1 SPRAY NSEACH DAILY, (Reported) Last Action: Reviewed Fluticasone/Umeclidin/Vilanter 1 Each Blst.w.dev, 1 PUFF INH DAILY, (Reported) Last Action: Reviewed Hydrocodone/Acetaminophen 1 Each Tablet, 1 TAB PO Q4H PRN for PAIN-MODERATE (5- 7), (Reported) Last Action: Reviewed Insulin Detemir 100 Unit/1 Ml Insuln.pen, 15 UNIT SQ BID, (Reported) Last Action: Reviewed Insulin Regular, Human 100 Unit/1 Ml Insuln.pen, 5-7 UNITS SC AC, (Reported) Last Action: Reviewed Lorazepam 0.5 Mg Tablet, 0.5 MG PO TID PRN for ANXIETY, (Reported) Last Action: Reviewed Metformin HCl 500 Mg Tablet, 1,000 MG PO BID, (Reported) TAKES 2 (500MG) TABS LAST FILLED 08-22-2020 #120/30 DAY SUPPLY Last Action: Reviewed Metoprolol Succinate 25 Mg Tab.er.24h, 25 MG PO DAILY, (Reported) Last Action: Reviewed Montelukast Sodium 10 Mg Tablet, 10 MG PO DAILY, (Reported) Last Action: Reviewed Nitroglycerin 0.4 Mg Tab.subl, 0.4 MG SL UD PRN for CHEST PAIN, (Reported) Last Action: Reviewed [place]-3 Fatty Acids/Fish Oil 1 Each Capsule, 2 EACH PO DAILY, (Reported) Last Action: Reviewed Ondansetron HCl 8 Mg Tablet, 8 MG PO Q8H PRN for NAUSEA/VOMITING-1ST LINE, (Repo rted) Last Action: Reviewed Pantoprazole Sodium 40 Mg Tablet.dr, 40 MG PO DAILY, (Reported) Last Action: Reviewed Rivaroxaban 20 Mg Tablet, 20 MG PO DAILY, (Reported) Last Action: Reviewed Ubidecarenone 100 Mg Capsule, 100 MG PO DAILY, (Reported) Last Action: Reviewed Patient Home Medication List Home Medication List Reviewed: Yes Past Okwlgcq-Hcehrk-Tivhxz Hx Patient Social History Tobacco Use?: Yes Tobacco type used: Cigarettes Smoking Status: Current Someday Smoker Use of E-Cig and/or Vaping dev: No Substance use?: No Alcohol Use?: No Pt feels they are or have been: No Immunizations Up To Date Tetanus Booster (TDap): Unknown PED Vaccines UTD: No Influenza Vaccine Up-to-Date: Yes; Up-to-Date First/Initial COVID19 Vaccinat: 03/23/2020 Second COVID19 Vaccination Ibrahima: 04/11/2020 COVID19 Vaccine Telecom Assistant: Cool de Sac Seasonal Allergies Seasonal Allergies: No Past Medical History Surgeries: Yes ((shoulder, back sx, knee sc, bilat CTR, breast bx, achilles sx, port)) Angioplasty (2004/ with stent placement), Appendectomy (1968), Bowel Surgery (Colonoscopy 03/22/19), Cardiac, Gallbladder (1976), Hysterectomy (1986), Joint Replacement (Back surgery L4-5, S1 1989 / Achilles tendon repair 1991 / AC separation 3rd degree 1987), Lobectomy (Bronchoscopy w/ EBUS and biopsy 05/09/20), Orthopedic, Tubal Ligation (1977) Respiratory: Yes COPD Currently Using CPAP: No Currently Using BIPAP: No Cardiac: Yes Coronary Artery Disease, High Cholesterol, Hypertension 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: No Neuropathy : No 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: Hysterectomy Genitourinary: No Gastrointestinal: No Gastroesophageal Reflux Musculoskeletal: Yes Arthritis Endocrine: Yes Diabetes, Insulin dep HEENT: No Loss of Vision: Denies Hearing Impairment: Denies Cancer: No Lung (now with brain mets) Did You Recieve Any Treatments: Yes What Type of Treatment Did You: Chemotherapy, Radiation Psychosocial: Yes Anxiety, Depression Integumentary: No Blood Disorders: No Family Medical History Reviewed Nursing Family Hx Heart Disease, Hypertension Father - NHL diagnosed in his late 60's [facility] renal cancer PGF - lung cancer Review of Systems-General Constitutional: weakness EENTM: other (wears glasses) Respiratory: cough, short of breath Cardiovascular: no symptoms reported Gastrointestinal: no symptoms reported Genitourinary: incontinence (stress) Musculoskeletal: no symptoms reported Skin: no symptoms reported Psychiatric/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: Headache Physical Exam-General Problems Physical Exam Vital Signs Vital Signs - First Documented 10/07/20 10/07/20 20:24 21:25 O2 Flow Rate 2.00 FiO2 21 Capillary Refill : Less Than 3 Seconds General Appearance: WD/WN, no apparent distress Eyes: Bilateral Eye Normal Inspection Neck: full range of motion Respiratory: no respiratory distress (at rest) Extremities: normal range of motion Neurologic/Psychiatric: visual journalist II-XII nml as tested, no motor/sensory deficits, alert, normal mood/affect, oriented x 3 Skin: normal color, warm/dry Assessment/Plan Assessment/Plan Admission Diagnosis/Plan Assessment: -Brain metastases from NSC lung cancer primary -neurologically intact; symptomatic with right sided headache -to start decadron today Plan: -The patient was offered a two week course of whole brain xrt to stop tumor grow th and maintain good neurological function. -We would attempt to deliver 30 Gy / 10 fxs utilizing 3D conformal planning. -The potential acute toxicities, terminal manager complications, expected benefits and logistics were discussed with the patient. These include, but are not limited to: Acute side effects of palliative whole brain radiotherapy may include but are not limited to: alopecia (hair loss), radiation dermatitis, fatigue, transient worsening of symptoms due to edema, nausea, and vomiting (particularly with brainstem and posterior fossa radiation), and otitis externa. Subacute side effects may include but are not limited to: somnolence, fatigue, neurologic deterioration, perhaps caused by changes in capillary permeability and transient demyelination. Late side effects may include but are not limited to: radiation necrosis, leukoencephalopathy (especially with chemo) hearing loss, and short term memory loss. -The patient stated understanding of the information presented to her today. -All questions were answered to her satisfaction. -She agreed to proceed with this plan. -A treatment planning ct simulation to be performed today. -We will initiate her course of palliative WBI tomorrow - once she has been on decadron from approx 24 hours. Reason for Inpatient Admission: CHF exacerbation Bone mets - cranial RADHA LOPEZ MD Oct 10, 2020 12:59
[2020-10-10] MEDS ORDERED: NS IV 1000 ML 1,000 ML IV SCH (15:15)
[2020-10-10] MEDS ORDERED: PAMIDRONATE 90 MG/10 ML (AREDIA) IV ONE (15:15)
[2020-10-10] MEDS ORDERED: PAMIDRONATE INJECTION 60 MG in NS (IVPB) 250 ML IV NR (16:00)
--- NOTE | 2020-10-10 19:43 | CONSULTATION REPORT ---
DATE OF SERVICE: 10/10/2020 The patient is admitted to room 427. REQUESTING PHYSICIAN: Jennifer Aleman MD IMPRESSION: 1. 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 2. The patient admitted to the hospital a few days ago with history of weakness and an episode of fall at home. 3. CT scan of the head with a bone lesion of the cranium and MRI of the brain consistent with bilateral multiple metastatic lesions. 4. Hypercalcemia with dehydration. RECOMMENDATIONS: 1. Start the patient on dexamethasone 10 mg IV followed by 4 mg IV every 6 hours. 2. Obtain radiation oncology consultation with Dr. Nicholson for whole brain radiation therapy. 3. Hydrate the patient with normal saline because of the hypercalcemia and dehydration. 4. Administer one dose of pamidronate 60 mg for the hypercalcemia. 5. Once the patient completes whole brain radiation therapy, we will obtain a complete restaging scans and discuss about palliative systemic therapy options. 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 She just completed combined chemoradiation followed by 2 cycles of adjuvant chemotherapy recently. She has been having increasing symptoms of weakness, loss of balance and one episode of fall at home recently prior to coming to the emergency room and being admitted over the weekend. CT scan and MRI of the head with evidence of multiple brain metastases as well as focus of bone metastasis. Medical oncology consultation was requested for further recommendations. PAST MEDICAL HISTORY: Significant for stage IIIA non-small cell lung cancer diagnosed in 05/2020 as mentioned above. She has history of diabetes mellitus diagnosed more than 25 years ago with suboptimal control. Hypertension diagnosed more than 20 years ago. Coronary artery disease with FL in 2004 and 2012, requiring stent placements. Hypercholesterolemia diagnosed in 2004 and on treatment. Peripheral arterial disease with carotid artery disease. PAST SURGICAL HISTORY: Other surgeries include appendectomy in 1968, cholecystectomy in 1976, tubal ligation in 1977, hysterectomy in 1986, acromioclavicular separation in 1987 requiring surgical correction, osteoarthritis and low back surgery in 1989, Achilles tendon tear requiring surgical repair in 1991, arthroscopic knee surgery in 1995, breast biopsy in 1995, which was benign, cardiac catheterization and stent placements in 2004 and 2012, bilateral carpal tunnel release in 2014, cardiac catheterization in 2016 and 2019. SOCIAL HISTORY: The patient is and lives alone in [place], [place]. She has three children, two sons and a daughter. One son lives in [place], [place] and the other two children live in [place], [place]. 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 She has 06-hijy-prra history of tobacco use and is still smoking a few cigarettes daily. No alcohol or recreational drug use. FAMILY HISTORY: Significant for father who was diagnosed with non-Hodgkin's lymphoma in his late 60s. He also had coronary artery disease and hypertension. Paternal grandfather had lung cancer at an elderly age. Maternal grandfather had kidney cancer at a late age. Paternal grandmother had hypertension, coronary artery disease and diabetes mellitus. Rest of the family history is unremarkable. PHYSICAL EXAMINATION: GENERAL: Today showed an elderly female, weak appearing, awake and answering questions appropriately, in mild discomfort. VITAL SIGNS: She was afebrile, pulse rate of 100, respirations 16, blood pressure 145/75 with oxygen saturation of 95% on 1 liter of oxygen by nasal cannula. HEENT: Normocephalic with thinning of hair, extraocular muscles intact, conjunctivae slightly pale. Oral mucosa dry. NECK: Supple, with no JVD. No cervical, supraclavicular or axillary lymphadenopathy palpable. CHEST: Symmetrical. Breath sounds were diminished bilaterally without wheezes or rales. CARDIOVASCULAR: Borderline tachycardic, regular with no murmurs or gallops. ABDOMEN: Soft, nontender with no hepatosplenomegaly or other masses palpable. EXTREMITIES: Showed no edema. NEUROLOGIC: Showed no focal motor deficits. LABORATORY DATA: CBC done yesterday showed WBC 9.0, hemoglobin 9.3, platelet count 510,000. Chemistry panel done yesterday showed sodium level of 134. BUN was 8 and creatinine 0.67 with GFR more than 60 mL per minute. Glucose was 303. Measured calcium was 12.5 with albumin level of 2.9 and corrected calcium level of 13.4. Liver function studies were within normal limits. MRI of the brain done on 10/09/2020 showed interval development of numerous nodular and ring enhancing masses seen throughout both cerebral hemispheres in two areas, possibly involving the right and left posterior fossa regions concerning for metastatic disease. There is no brain herniation or intracranial hemorrhage. Enhancement and irregular appearance of lytic lesion involving posterior right parietal occipital region consistent with osseous metastasis. Thank you for allowing me to participate in this patient's care. I will follow the patient with you and make appropriate recommendations. Job ID: [id number] DocumentID: [id number] Dictated Date: 10/10/2020 17:22:41 Lunchroom Supervisor Date: 10/10/2020 19:43:12 Dictated By: ELIJAH SCHROEDER MD
[2020-10-10] MEDS ORDERED: LORazepam 0.5 MG (ATIVAN) TABLET PO PRN (20:45)
[2020-10-10] MEDS: NS IV 1000 ML 1,000 ML IV SCH ×2 (21:08→21:59)
[2020-10-11] MEDS: RT-ALBUTEROL SULF 2.5 MG/3 ML PRE-MIX VIAL INH PRN (01:00)
[2020-10-11] MEDS: inSUlin ASPART (NovoLOG) 1 UNIT/0.01 ML (CHARGE PER UNIT) SC SCH (05:51)
[2020-10-11] MEDS: NS IV 1000 ML 1,000 ML IV SCH (05:51)
[2020-10-11] MEDS: KCL 20 MEQ TAB (K-DUR) PO SCH (05:51)
[2020-10-11] MEDS: FUROSEMIDE 40 MG/4 ML INJ (LASIX) IVP SCH (05:51)
[2020-10-11 05:57] LABS: HEMATOCRIT 29 % (35-52); HEMOGLOBIN 8.8 g/dL (11.5-16.0); MEAN CORPUSCULAR HEMOGLOBIN 27 pg (25-34); MEAN CORPUSCULAR HGB CONC 30 g/dL (32-36); MEAN CORPUSCULAR VOLUME 88 fL (80-99); MEAN PLATELET VOLUME 8.7 fL (9.0-12.2); PLATELET COUNT 497 10^3/uL (130-400); WHITE BLOOD COUNT 9.1 10^3/uL (4.3-11.0)
[2020-10-11 06:04] LABS: ALBUMIN 2.9 GM/DL (3.2-4.5); CHLORIDE 99 MMOL/L (98-107); POTASSIUM 3.9 MMOL/L (3.6-5.0); SODIUM 137 MMOL/L (135-145)
[2020-10-11 06:05] LABS: CALCIUM 10.8 MG/DL (8.5-10.1)
[2020-10-11 06:07] LABS: GLUCOSE 308 MG/DL (70-105); TOTAL PROTEIN 6.5 GM/DL (6.4-8.2)
[2020-10-11 06:08] LABS: BILIRUBIN,TOTAL 0.2 MG/DL (0.1-1.0); CARBON DIOXIDE 27 MMOL/L (21-32)
[2020-10-11 06:10] LABS: ALKALINE PHOSPHATASE 92 U/L (40-136); CREATININE SERUM 0.64 MG/DL (0.60-1.30); GFR ESTIMATED > 60
[2020-10-11 06:11] LABS: BUN/CREATININE RATIO 16
[2020-10-11 06:13] LABS: ALANINE AMINOTRANSFERASE 25 U/L (0-55)
[2020-10-11] MEDS: RT-ALBUTEROL SULF 2.5 MG/3 ML PRE-MIX VIAL INH SCH (08:28)
[2020-10-11] MEDS: RT--FLUTICASONE/SALMETEROL 113-14 (AIRDUO RespiCLICK) IH SCH (08:29)
[2020-10-11] MEDS: meTOprolol TARTRATE 50 MG (LOPRESSOR) TAB PO SCH (08:35)
--- NOTE | 2020-10-11 08:38 | Cardiology Progress Note ---
Subjective Date Seen by Provider: Oct 11, 2020 Time Seen by Provider: 08:37 Subjective/Events-last exam Patient was seen at bedside laying down comfortably, feeling better today. No new complaint Review of Systems General: No Chills, No Night Sweats, No Fatigue, No Malaise, No Appetite, No Other HEENT: No Head Aches, No Visual Changes, No Eye Pain, No Ear Pain, No D ysphasia, No Sinus Congestion, No Post Nasal Drip, No Sore Throat, No Other Pulmonary: Dyspnea; No Cough, No Pleuritic Chest Pain, No Other Cardiovascular: No: Chest Pain, Palpitations, Orthopnea, Paroxysmal Noc. Dyspnea, Edema, Lt Headedness, Other Objective-Cardiology Exam Last Set of Vital Signs Vital Signs 10/10/20 10/11/20 10/11/20 21:53 04:07 08:32 Temp 36.0 Pulse 100 Resp 20 B/P (MAP) 128/71 (90) Pulse Ox 94 O2 Delivery Nasal Cannula O2 Flow Rate 2.00 FiO2 94 I&O Intake and Output 10/11/20 00:00 Intake Total 3280 ml Output Total 800 ml Balance 2480 ml Intake Oral 2280 ml IV Total 1000 ml Output Urine Total 800 ml # Voids 7 General: Alert, Oriented X3, Cooperative HEENT: Atraumatic, PERRLA Neck: Supple, No JVD, No Thyromegaly Lungs: Other (decreased breath sounds bibasilarly) Heart: Normal S1, Normal S2, Other (Grade IV/ systolic murmur at LSB) Abdomen: Normal Bowel Sounds, Soft Extremities: No Clubbing, No Edema, Normal Pulses Skin: No Rashes, No Significant Lesion Neuro: Normal Speech, Cranial Nerves 3-12 NL Psych/Mental Status: Mental Status NL, Mood NL Results Lab Laboratory Tests 10/11/20 05:30 A/P-Cardiology Admission Diagnosis Generalized weakness Shortness of breath Sinus tachycardia Aortic valve stenosis Assessment/Plan Generalized fatigue and loss of energy, shortness of breath and a headache, 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 Managed by primary care team Congestive heart failure, acute left ventricular systolic dysfunction, secondary to valvular heart disease, patient has aortic valve stenosis that has progressed to severe, ejection fraction 45 to 50%. Continue to diurese. Coronary artery disease, history of coronary stent done in 2012 in [place] using Promus 3.5 x 24 mm to the midright coronary artery, most recent cardiac catheterization was done by Dr. Naranjo Sept 2019 showing multiple moderate lesions in the mid LAD, distal circumflex artery has severe disease but the artery is small for intervention. 50 percent in-stent restenosis in the midright coronary artery, FFR 0.96. Continue to monitor Hypertension, tolerating beta-jorge luis well Moderate carotid stenosis is noted by carotid ultrasound, there is history of right subclavian stenosis, CT scan did not reveal it History of frequent PVCs, 4 beats of wide complex tachycardia seen on a Holter monitor in 2016, followed by Dr. Naranjo, starting on low dose beta jorge luis Hyperlipidemia, followed and managed by primary care physician. Continue to monitor Diabetes mellitus, followed and managed by primary care physician History of peripheral arterial disease, 50 percent stenosis in the right common iliac artery, severe ostial/proximal stent within the iliac arteries, followed and managed by Dr. Naranjo No evidence of AAA on abd ao screening scan of 08/19/16 CHRYSTAL ULLOA MD Oct 11, 2020 8:38 am
--- NOTE | 2020-10-11 08:55 | Progress Note ---
Subjective Subjective Date Seen by Provider: Oct 11, 2020 Time Seen by Provider: 08:50 SEE DC SUMMARY Review of Systems General: No Chills, No Night Sweats, No Fatigue, No Malaise, No Appetite, No Other HEENT: No Head Aches, No Visual Changes, No Eye Pain, No Ear Pain, No Dysphasia, No Sinus Congestion, No Post Nasal Drip, No Sore Throat, No Other Pulmonary: Dyspnea; No Cough, No Pleuritic Chest Pain, No Other Cardiovascular: No: Chest Pain, Palpitations, Orthopnea, Paroxysmal Noc. Dyspnea, Edema, Lt Headedness, Other Gastrointestinal: No: Nausea, Abdominal Pain Genitourinary: No Dysuria 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: Weakness; No: Confusion, Seizures All Other Systems Reviewed All Other Systems Reviewed: Yes Objective Exam Vital Signs Vital Signs - First Documented 10/07/20 10/07/20 20:24 21:25 O2 Flow Rate 2.00 FiO2 21 Capillary Refill : Less Than 3 Seconds General Appearance: No Apparent Distress, WD/WN Eyes: Bilateral Eye Normal Inspection, Bilateral Eye PERRL, Bilateral Eye EOMI HEENT: PERRL/EOMI Neck: Full Range of Motion, Normal Inspection Respiratory: No Accessory Muscle Use, No Respiratory Distress, Decreased Breath Sounds (DECREASED THROUGHOUT) Cardiovascular: Normal Peripheral Pulses, Systolic Murmur, Tachycardia Gastrointestinal: Normal Bowel Sounds, Non Tender, Soft Rectal: Deferred Extremity: Normal Capillary Refill, Normal Inspection Neurologic/Psychiatric: Alert, Oriented x3, No Motor/Sensory Deficits, 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, 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 Skin: Normal Color, Warm/Dry Lymphatic: No Adenopathy Results Lab Laboratory Tests 10/10/20 10:57: Lab Scanned Report Transfusion Reaction Form 10/10/20 11:06: Glucometer 366H 10/10/20 15:29: Glucometer 262H 10/10/20 20:32: Glucometer 408*H 10/11/20 00:57: Glucometer 262H 10/11/20 05:11: Glucometer 281H 10/11/20 05:30: White Blood Count 9.1, Red Blood Count 3.30L, Hemoglobin 8.8L, Hematocrit 29L, Mean Corpuscular Volume 88, Mean Corpuscular Hemoglobin 27, Mean Corpuscular Hemoglobin Concent 30L, Red Cell Distribution Width 16.0H, Platelet Count 497H, Mean Platelet Volume 8.7L, Sodium Level 137, Potassium Level 3.9, Chloride Level 99, Carbon Dioxide Level 27, Anion Gap 11, Blood Urea Nitrogen 10, Creatinine 0.64, Estimat Glomerular Filtration Rate > 60, BUN/Creatinine Ratio 16, Glucose Level 308H, Calcium Level 10.8H, Corrected Calcium 11.7H, Total Bilirubin 0.2, Aspartate Amino Transf (AST/SGOT) 20, Alanine Aminotransferase (ALT/SGPT) 25, Alkaline Phosphatase 92, Total Protein 6.5, Albumin 2.9L Microbiology 10/07/20 Urine Culture - Final, Complete 3 or more isolates Assessment/Plan Assessment/Plan Admission Dx CHF ACUTE SYSTOLIC METASTATIC LESION OF SKULL AND BRAIN - SMALL CELL FALLING EPISODES SMALL CELL LUNG CANCER HYPERCALCEMIA ANEMIA HYPONATREMIA DIABETES MELLITUS CORONARY ARTERY DISEASE Assessment and Plan CHF ACUTE SYSTOLIC METASTATIC LESION OF SKULL AND BRAIN - SMALL CELL FALLING EPISODES SMALL CELL LUNG CANCER HYPERCALCEMIA ANEMIA HYPONATREMIA DIABETES MELLITUS CORONARY ARTERY DISEASE CHF ACUTE SYSTOLIC - IV LASIX, MONITOR SYMPTOMS METASTATIC LESION OF SKULL WITH FALLING EPISODES AND HX OF RECENT DX OF SMALL CELL LUNG CANCER - MRI OF BRAIN IMPRESSION: 1: There is interval development of numerous nodular and ring-enhancing masses seen throughout both cerebral hemispheres and two areas possibly involving the right and left posterior fossa regions, concerning for metastatic disease. There is no brain herniation or intracranial hemorrhage. 2: There is enhancement and irregular appearance of the lytic lesion involving the posterior right parieto-occipital region, consistent with osseous metastasis. This lesion was seen on the prior CT scan. - CONSULT PLACED TO DR. SCHROEDER - DISCUSSED WITH HIM ON THE PHONE - RX FOR DECADRON IV AND TAPER DOSE FROM 10MG TO 4MG Q 6 HOURS AND WILL CONSULT DR. LOPEZ WELL FOR RADIATION OF BRAIN DUE TO METASTATIC SMALL CELL CA. HYPERCALCEMIA - SUPPORTIVE CARE ANEMIA - TRANSFUSION TODAY HYPONATREMIA - IV FLUIDS, MONITOR LABS ' DIABETES MELLITUS - MONITOR FSBS ACHS CORONARY ARTERY DISEASE Admission Dx CHF ACUTE SYSTOLIC METASTATIC LESION OF SKULL AND BRAIN - SMALL CELL FALLING EPISODES SMALL CELL LUNG CANCER HYPERCALCEMIA ANEMIA HYPONATREMIA DIABETES MELLITUS CORONARY ARTERY DISEASE Clinical Quality Measures Admission Status Admission Dx CHF ACUTE SYSTOLIC METASTATIC LESION OF SKULL AND BRAIN - SMALL CELL FALLING EPISODES SMALL CELL LUNG CANCER HYPERCALCEMIA ANEMIA HYPONATREMIA DIABETES MELLITUS CORONARY ARTERY DISEASE JUNE SHAHID MD Oct 11, 2020 08:55
--- NOTE | 2020-10-11 09:03 | Discharge Summary ---
Diagnosis/Chief Complaint Date of Admission Oct 07, 2020 at 18:46 Date of Discharge Discharge Date: Oct 11, 2020 Discharge Time: 09:00 Reason Hospital Visit PT IS A 69 Y/O FEMALE WHO IS WELL KNOWN TO ME FROM CLINIC. SHE PRESENTED TO THE ER WITH WEAKNESS, FALLING EPISODES AT HOME DUE TO WEAKNESS AND TACHYCARDIA. SHE HAS HX OF SMALL CELL LUNG CANCER AND IS STATUS POST CHEMOTHERAPY. PT HAS NOT BEEN EATING OR DRINKING WELL AT HOME DUE TO HER FATIGUE/WEAKNESS. PT ADMITTED FOR CHF AND HYPOXIA AND WEAKNESS CT HEAD SHOWED BONE METS TO SKULL Discharge Summary Discharge Physical Examination Allergies: Coded Allergies: ciprofloxacin (Verified Allergy, Severe, TENDONITIS, 09/19/20) TENDONITIS morphine (Verified Allergy, Severe, RASH/ BURNING SENSATION, 09/19/20) Vitals & I&Os Vital Signs Date Time Temp Pulse Resp B/P (MAP) Pulse Ox O2 Delivery O2 Flow Rate FiO2 10/11/20 08:32 94 Nasal Cannula 2.00 10/11/20 04:07 36.0 100 20 128/71 (90) 10/10/20 21:53 94 Hospital Course Pending Labs Laboratory Tests 10/11/20 05:11: Glucometer 281 10/11/20 05:30: White Blood Count 9.1, Red Blood Count 3.30, Hemoglobin 8.8, Hematocrit 29, Mean Corpuscular Volume 88, Mean Corpuscular Hemoglobin 27, Mean Corpuscular Hemoglobin Concent 30, Red Cell Distribution Width 16.0, Platelet Count 497, Mean Platelet Volume 8.7, Sodium Level 137, Potassium Level 3.9, Chloride Level 99, Carbon Dioxide Level 27, Anion Gap 11, Blood Urea Nitrogen 10, Creatinine 0.64, Estimat Glomerular Filtration Rate > 60, BUN/Creatinine Ratio 16, Glucose Level 308, Calcium Level 10.8, Corrected Calcium 11.7, Total Bilirubin 0.2, Aspartate Amino Transf (AST/SGOT) 20, Alanine Aminotransferase (ALT/SGPT) 25, Alkaline Phosphatase 92, Total Protein 6.5, Albumin 2.9 Discharge Instructions to patient/family Please see electronic discharge instructions given to patient. Discharge Medications Reviewed and agree with Discharge Medication list on patient's Discharge Instruction sheet JUNE SHAHID MD Oct 11, 2020 09:03
== END 2020-10-11 08:57 | disposition swing bed (61) | DRG 54 ==
LOC: EDUNIT# 16:54 → ER 16:56 → ICU 18:46 → 4TH 10-08 14:07
PROVIDERS: ADMIT Family Medicine; ATTEND Family Medicine
DX: C79.31 Secondary malignant neoplasm of brain (principal); I50.21 Acute systolic (congestive) heart failure; C79.51 Secondary malignant neoplasm of bone; C34.91 Malignant neoplasm of unspecified part of right bronchus or lung; E87.1 Hypo-osmolality and hyponatremia; I11.0 Hypertensive heart disease with heart failure; F17.210 Nicotine dependence, cigarettes, uncomplicated; J44.9 Chronic obstructive pulmonary disease, unspecified; Z20.822 Contact with and (suspected) exposure to COVID-19; I25.10 Atherosclerotic heart disease of native coronary artery without angina pectoris; E78.00 Pure hypercholesterolemia, unspecified; K21.9 Gastro-esophageal reflux disease without esophagitis; M19.90 Unspecified osteoarthritis, unspecified site; F41.9 Anxiety disorder, unspecified; F32.9 Major depressive disorder, single episode, unspecified; E83.52 Hypercalcemia; D64.9 Anemia, unspecified; E86.0 Dehydration; E11.51 Type 2 diabetes mellitus with diabetic peripheral angiopathy without gangrene; R00.0 Tachycardia, unspecified; Z92.21 Personal history of antineoplastic chemotherapy; Z79.01 Long term (current) use of anticoagulants; Z86.711 Personal history of pulmonary embolism; Z79.82 Long term (current) use of aspirin; Z79.899 Other long term (current) drug therapy; Z92.3 Personal history of irradiation; Z82.49 Family history of ischemic heart disease and other diseases of the circulatory system
CPT/HCPCS: 36415; 36430; 36591; 70450; 70553; 71045; 77290; 77334; 80053; 81000; 82947; 83880; 84439; 84443; 84484; 85025; 85027; 85610; 85730; 86850; 86900; 86901; 86920; 87088; 87636; 93005; 93306; 94640; 94760; 99214; 99291

== ENCOUNTER 2020-10-11 08:10 | Inpatient (IN) | payer MEDICARE, MEDICAID ==
[~2020-10-11] VITALS: Ht 167 cm; Wt 73.0 kg
[2020-10-11 08:00] VITALS: BP 138/80
[~2020-10-11 08:10] MED LIST changes: +DULO30CA49 PO; +FLUT16SP22 NSEACH; +FLUT1BLS3 INH; +MTP25TSR PO; +UBID100C17 PO
[2020-10-11] MEDS ORDERED: LORazepam INJ 2 MG/ML (ATIVAN) VIAL IVP PRN (09:30)
[2020-10-11] MEDS ORDERED: fentaNYL INJ 100 MCG/2 ML AMP IVP PRN (09:30)
--- NOTE | 2020-10-11 09:31 | History & Physical ---
History of Present Illness History of Present Illness Reason for visit/HPI PT IS A 69 Y/O FEMALE WHO IS KNOWN TO ME FROM CLINIC. SHE PRESENTED TO THE HOSPITAL WITH WEAKNESS AND FALLING EPISODES. SHE WAS ADMITTED TO THE ICU, HAD IMAGING WHICH REVEALED METASTATIC SMALL CELL TO THE BRAIN. PT WAS ADMITTED TO SWING BED STATUS FOR WHOLE BRAIN RADIATION, IV STEROIDS, AND FURTHER MONITORING OF HER LABS/SYMPTOMS AND STRENGTHENING. Date of Admission 10/11/2020 Date Seen by a Provider: Oct 11, 2020 Time Seen by a Provider: 09:20 Attending Physician June Aleman MD Admitting Physician June Aleman MD Consult Allergies and Home Medications Allergies Coded Allergies: ciprofloxacin (Verified Allergy, Severe, TENDONITIS, 09/19/20) TENDONITIS morphine (Verified Allergy, Severe, RASH/ BURNING SENSATION, 09/19/20) Home Medications Acetaminophen 500 Mg Tablet, 1,000 MG PO Q8H PRN for PAIN-MILD (1-4), (Reported) Last Action: Reviewed Albuterol Sulfate 2.5 Mg/3 Ml Vial.neb, 2.5 MG NEB BID PRN for SHORTNESS OF BREATH, (Reported) Last Action: Reviewed Albuterol Sulfate 6.7 Gm Hfa.aer.ad, 2 PUFF INH Q4H PRN for SHORTNESS OF BREATH, (Reported) Last Action: Reviewed Aspirin 81 Mg Tab.chew, 81 MG PO HS, (Reported) Last Action: Reviewed Duloxetine HCl 30 Mg Capsule.dr, 30 MG PO DAILY, (Reported) Last Action: Reviewed Fluticasone Propionate 16 Gm [place].susp, 1 SPRAY NSEACH DAILY, (Reported) Last Action: Reviewed Fluticasone/Umeclidin/Vilanter 1 Each Blst.w.dev, 1 PUFF INH DAILY, (Reported) Last Action: Reviewed Hydrocodone/Acetaminophen 1 Each Tablet, 1 TAB PO Q4H PRN for PAIN-MODERATE (5- 7), (Reported) Last Action: Reviewed Insulin Detemir 100 Unit/1 Ml Insuln.pen, 15 UNIT SQ BID, (Reported) Last Action: Reviewed Insulin Regular, Human 100 Unit/1 Ml Insuln.pen, 5-7 UNITS SC AC, (Reported) Last Action: Reviewed Lorazepam 0.5 Mg Tablet, 0.5 MG PO TID PRN for ANXIETY, (Reported) Last Action: Reviewed Metformin HCl 500 Mg Tablet, 1,000 MG PO BID, (Reported) TAKES 2 (500MG) TABS LAST FILLED 08-22-2020 #120/30 DAY SUPPLY Last Action: Reviewed Metoprolol Succinate 25 Mg Tab.er.24h, 25 MG PO DAILY, (Reported) Last Action: Reviewed Montelukast Sodium 10 Mg Tablet, 10 MG PO DAILY, (Reported) Last Action: Reviewed Nitroglycerin 0.4 Mg Tab.subl, 0.4 MG SL UD PRN for CHEST PAIN, (Reported) Last Action: Reviewed [place]-3 Fatty Acids/Fish Oil 1 Each Capsule, 2 EACH PO DAILY, (Reported) Last Action: Reviewed Ondansetron HCl 8 Mg Tablet, 8 MG PO Q8H PRN for NAUSEA/VOMITING-1ST LINE, (Reported) Last Action: Reviewed Pantoprazole Sodium 40 Mg Tablet.dr, 40 MG PO DAILY, (Reported) Last Action: Reviewed Rivaroxaban 20 Mg Tablet, 20 MG PO DAILY, (Reported) Last Action: Reviewed Ubidecarenone 100 Mg Capsule, 100 MG PO DAILY, (Reported) Last Action: Reviewed Patient Home Medication List Home Medication List Reviewed: Yes Past Mdcydqo-Gduuev-Caexss Hx Past Med/Social Hx: Reviewed Nursing Past Med/Soc Hx, Reviewed and Corrections made Patient Social History Marrital Status: Living Status: LIVES IN HOME BY HERSELF Employed/Student: retired Alcohol Use: Denies Use Smoking Status: Current Everyday Smoker Type Used: Cigarettes 2nd Hand Smoke Exposure: No Physical Abuse Screen: No Sexual Abuse: No Recent Foreign Travel: No Contact w/other who traveled: No Recent Hopitalizations: No Recent Infectious Disease Expo: No Immunizations Up To Date Tetanus Booster (TDap): Unknown Pediatric: No Date of Pneumonia Vaccine: Jan 03, 2019 Date of Influenza Vaccine: Jan 24, 2020 Seasonal Allergies Seasonal Allergies: No Past Medical History Surgeries: Angioplasty, Appendectomy, Bowel Surgery, Cardiac, Gallbladder, Hysterectomy, Joint Replacement, Lobectomy, Orthopedic, Tubal Ligation Respiratory: COPD Currently Using CPAP: No Currently Using BIPAP: No Cardiac: Coronary Artery Disease, High Cholesterol, Hypertension 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: Neuropathy Hysterectomy Gastrointestinal: Gastroesophageal Reflux Musculoskeletal: Arthritis Endocrine: Diabetes, Insulin dep Loss of Vision: Denies Hearing Impairment: Denies Cancer: Lung Did You Recieve Any Treatments: Yes What Type of Treatment Did You: Chemotherapy, Radiation Psychosocial: Anxiety, Depression History of Blood Disorders: No Family History Reviewed and Corrections made Heart Disease, Hypertension Father - NHL diagnosed in his late 60's MGM - renal cancer PGF - lung cancer Review of Systems Constitutional: No chills, No dizziness, No fever; malaise, weakness EENTM: No hoarseness, No throat pain Respiratory: cough, dyspnea on exertion, short of breath Cardiovascular: No chest pain, No edema, No palpitations Gastrointestinal: No nausea, No vomiting Genitourinary: see HPI Musculoskeletal: muscle weakness, other (GAIT INSTABILITY) Skin: no symptoms reported Psychiatric/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: Anxiety, Depressed, Weakness Physical Exam Vital Signs Vital Signs - First Documented 10/11/20 10/11/20 10/11/20 06:57 08:00 18:00 Temp 36.4 Pulse 108 Resp 20 B/P (MAP) 138/80 (99) Pulse Ox 97 O2 Delivery Room Air O2 Flow Rate 2.00 Capillary Refill : Height, Weight, BMI Height: 5'6.00" Weight: 208lbs. 0.0oz. [id number]; 25.38 BMI Method: General Appearance: No Apparent Distress, WD/WN Eyes: Bilateral Eye Normal Inspection, Bilateral Eye PERRL, Bilateral Eye EOMI HEENT: PERRL/EOMI, Pharynx Normal Neck: Full Range of Motion, Normal Inspection, Non Tender, Supple Respiratory: Chest Non Tender, Lungs Clear, Normal Breath Sounds, No Accessory Muscle Use, No Respiratory Distress Cardiovascular: Regular Rate, Rhythm, Normal Peripheral Pulses, Systolic Murmur (III/) Gastrointestinal: Normal Bowel Sounds, No Organomegaly, No Pulsatile Mass, Non Tender, Soft Rectal: Deferred Back: Normal Inspection, No Vertebral Tenderness Extremity: Normal Capillary Refill, Normal Inspection, Normal Range of Motion, Non Tender, No Calf Tenderness, No Pedal Edema Neurologic/Psychiatric: Alert, Oriented x3, No Motor/Sensory Deficits, 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, 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 Skin: Normal Color, Warm/Dry Lymphatic: No Adenopathy Assessment/Plan Assessment and Plan CHF ACUTE SYSTOLIC METASTATIC LESION OF SKULL AND BRAIN - SMALL CELL FALLING EPISODES SMALL CELL LUNG CANCER HYPERCALCEMIA ANEMIA HYPONATREMIA DIABETES MELLITUS CORONARY ARTERY DISEASE CHF ACUTE SYSTOLIC - IV LASIX, MONITOR SYMPTOMS METASTATIC LESION OF SKULL WITH FALLING EPISODES AND HX OF RECENT DX OF SMALL CELL LUNG CANCER - MRI OF BRAIN IMPRESSION: 1: There is interval development of numerous nodular and ring-enhancing masses seen throughout both cerebral hemispheres and two areas possibly involving the right and left posterior fossa regions, concerning for metastatic disease. There is no brain herniation or intracranial hemorrhage. 2: There is enhancement and irregular appearance of the lytic lesion involving the posterior right parieto-occipital region, consistent with osseous metastasis. This lesion was seen on the prior CT scan. - CONSULT PLACED TO DR. SCHROEDER - DISCUSSED WITH HIM ON THE PHONE - RX FOR DECADRON IV AND TAPER DOSE FROM 10MG TO 4MG Q 6 HOURS AND WILL CONSULT DR. LOPEZ WELL FOR RADIATION OF BRAIN DUE TO METASTATIC SMALL CELL CA. HYPERCALCEMIA - SUPPORTIVE CARE ANEMIA - STATUS POST TRANSFUSION HYPONATREMIA - IV FLUIDS, MONITOR LABS ' DIABETES MELLITUS - MONITOR FSBS ACHS CORONARY ARTERY DISEASE Admission Diagnosis CHF ACUTE SYSTOLIC METASTATIC LESION OF SKULL AND BRAIN - SMALL CELL FALLING EPISODES SMALL CELL LUNG CANCER HYPERCALCEMIA ANEMIA HYPONATREMIA DIABETES MELLITUS CORONARY ARTERY DISEASE Admission Status: Other (Swing Bed) JUNE ALEMAN MD Oct 11, 2020 09:31
[2020-10-11] MEDS ORDERED: RT-ALBUTEROL SULF 2.5 MG/3 ML PRE-MIX VIAL INH PRN (10:00)
[2020-10-11] MEDS: NS IV 1000 ML 1,000 ML IV SCH ×3 (10:30→23:53)
--- NOTE | 2020-10-11 11:36 | Physical Therapy Evaluation ---
PT Evaluation-General Medical Diagnosis Admission Date Oct 11, 2020 at 10:01 Medical Diagnosis: lung cancer with mets to brain Onset Date: Oct 07, 2020 Therapy Diagnosis Therapy Diagnosis: debility/weakness Height/Weight Height (Feet): 5 Height (Inches): 6.00 Weight (Pounds): 208 Weight (Ounces): 0.0 Referral Physician: Love Reason for Referral: Evaluation/Treatment Medical History Pertinent Medical History: CAD, COPD, DM, NC, Neuropathy, Smoking Current History Admit secondary to weakness from lung cancer with [place]Y for several days with result in brain mets. (SWB status) Reviewed History: Yes Social History Home: Single Level Current Living Status: Alone Prior Prior Level of Function SCALE: Activities may be completed with or without assistive devices. 9-Yyxbgmvarn-bjzwswh completes the activity by him/herself with no assistance from a helper. 5-Set-up or Clean-up Assistance-helper sets up or cleans up; patient completes activity. Wallace assists only prior to or following the activity. 4-Supervision or Touching Assistance-helper provides verbal cues and/or touching/steadying and/or contact guard assistance as patient completes activity. Assistance may be provided throughout the activity or intermittently. 3-Partial/Moderate Assistance-helper does LESS THAN HALF the effort. Wallace lifts, holds or supports trunk or limbs, but provides less than half the effort. 2-Substantial/Maximal Assistance-helper does MORE THAN HALF the effort. Wallace lifts or holds trunk or limbs and provides more than half the effort. 7-Dsslwptjb-qmfflp does ALL the effort. Patient does none of the effort to complete the activity. Or, the assistance of 2 or more helpers is required for the patient to complete the activity. If activity was not attempted, code reason: 7-Patient Refused. 9-Not Applicable-not attempted and the patient did not perform the activity before the current illness, exacerbation or injury. 10-Not Attempted due to Environmental Limitations-(lack of equipment, weather restraints, etc.). 88-Not Attempted due to Medical Conditions or Safety Concerns. Bed Mobility: 6 Transfers (B,C,W/C): 6 Gait: 6 Stairs: 6 Prior Devices Use: Other-see list below cane PT Evaluation-Current Subjective Patient agrees to PT. Objective Patient Orientation: Normal For Age Attachments: Oxygen, IV ROM/Strength ROM Lower Extremities bilateral LE WFL Strength Lower Extremities 4-/5 grossly bilateral LE Integumentary/Posture Bowel Incontinence: No Bladder Incontinence: No Posture WFL Neuromuscular (Tone, Coordination, Reflexes) grossly intact Sensory Vision: Wears Glasses Hearing: Functional Sensation Right Lower Extremit: Impaired Sensation Left Lower Extremity: Impaired Transfers Roll Left & Right (QC): 6 Sit to Lying (QC): 6 Lying to Sitting/Side of Bed(Q: 6 Sit to Stand (QC): 6 Chair/Bhh-ry-Ldjek Xfer(QC): 4 Toilet Transfer (QC): 4 Car Transfer (QC): 4 Gait Does the Patient Walk?: Yes Mode of Locomotion: Walk Anticipated Mode of Locomotion: Walk Walk 10 feet (QC): 4 Walk 50 ft with 2 Turns(QC): 4 Walk 150 ft (QC): 4 Walking 10ft/uneven surface-QC: 4 Distance: 250' Gait Assistive Device: FWW Comments/Gait Description slow and steady with no deviation Wheelchair Training Does the Pt Use a Wheelchair?: No Wheel 50 ft with 2 turns (QC): 9 Wheel 150 ft (QC): 9 Type of Wheelchair: N/A Stairs #of Steps: 1 1 Step (curb) (QC): 4 4 Steps (QC): 88 12 Steps (QC): 9 Walking Assistive Device: Walker Balance Sitting Static: Normal Sitting Dynamic: Normal Standing Static: Good Standing Dynamic: Good Picking up an Object (QC): 4 (seated position) Treatment Patient performed bilateral seated exercises 15 reps AP and LAQ/ambulated to restroom for toilet use/ambulated in hallway 250' SBA Assessment/Needs 69 y.o. female, will benefit from skilled PT to address functional strength and mobility to improve current LOF to safely return to home at maximum LOF. 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 Goals Time Frame: Oct 27, 2020 Roll Left & Right (QC): 6 Sit to Lying (QC): 6 Lying-Sitting on Side/Bed(QC): 6 Sit to Stand (QC): 6 Chair/Wio-go-Jwhqu Xfer(QC): 6 Toilet Transfer (QC): 6 Car Transfer (QC): 6 Does the Patient Walk: Yes Walk 10 feet (QC): 6 Walk 50ft with 2 Turns (QC): 6 Walk 150 ft (QC): 6 Walking 10ft on Uneven Surface: 6 1 Step (curb) (QC): 6 4 Steps (QC): 6 12 Steps (QC): 9 Picking up an Object (QC): 6 Wheel 50 feet with 2 turns (QC: 9 Type: N/A Wheel 150 feet: 9 Type: N/A PT Plan Problem List Problem List: Activity Tolerance Treatment/Plan Treatment Plan: Continue Plan of Care Treatment Plan: Education, Functional Activity [place], Functional Strength, Gait, Safety, Therapeutic Exercise, Transfers Treatment Duration: Oct 27, 2020 Frequency: 6 times per week Estimated Hrs Per Day: .25 hour per day Patient and/or Family Agrees t: Yes Time/GCodes Time In: 1035 Time Out: 1058 Total Billed Treatment Time: 23 Total Billed Treatment 1 visit EVModC 8 min FA 15 min DESIRE MALCOLM PT Oct 11, 2020 11:36
[2020-10-11] MEDS ORDERED: SALIVA STIMULANT MOUTH SPRAY (BIOTENE) 1.5 OZ MM PRN (11:45)
[2020-10-11] MEDS: inSUlin ASPART (NovoLOG) 1 UNIT/0.01 ML (CHARGE PER UNIT) SC SCH ×3 (12:19→21:27)
--- NOTE | 2020-10-11 14:39 | Occupational Therapy Eval ---
OT Evaluation-General/PLF Medical Diagnosis Admission Date Oct 11, 2020 at 10:01 Medical Diagnosis: lung cancer with mets to brain Onset Date: Oct 07, 2020 Therapy Diagnosis Therapy Diagnosis: Decreased ADL status Height/Weight Height (Feet): 5 Height (Inches): 6.00 Weight (Pounds): 208 Weight (Ounces): 0.0 Precautions Precautions/Isolations: Fall Prevention, Standard Precautions Referral Physician: Love Referral Reason: Activity Tolerance, Self Care, Evaluation/Treatment, Strengthening/ROM Medical History Pertinent Medical History: CAD, COPD, DM, [place], Neuropathy, Smoking Additional Medical History COPD, bowel sx, CAD, HTN, neuropathy, GERD, arthritis, DM, lung ca. Current History Pt admits with weakness and falling episodes after 3 weeks of weakness. 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 Admits SWB for whole brain radiation, IV steroids and further monitoring of labs/ sx and strengthening. Reviewed History: Yes Social History Home: Single Level Current Living Status: Alone ADL-Prior Level of Function SCALE: Activities may be completed with or without assistive devices. 7-Biiaohugzy-evmhygq completes the activity by him/herself with no assistance from a helper. 5-Set-up or Clean-up Assistance-helper sets up or cleans up; patient completes activity. [place] assists only prior to or following the activity. 4-Supervision or Touching Assistance-helper provides verbal cues and/or touching/steadying and/or contact guard assistance as patient completes activity. Assistance may be provided throughout the activity or intermittently. 3-Partial/Moderate Assistance-helper does LESS THAN HALF the effort. [place] lifts, holds or supports trunk or limbs, but provides less than half the effort. 2-Substantial/Maximal Assistance-helper does MORE THAN HALF the effort. [place] lifts or holds trunk or limbs and provides more than half the effort. 4-Ntshxsjgw-oprptv does ALL the effort. Patient does none of the effort to complete the activity. Or, the assistance of 2 or more helpers is required for the patient to complete the activity. If activity was not attempted, code reason: 7-Patient Refused. 9-Not Applicable-not attempted and the patient did not perform the activity before the current illness, exacerbation or injury. 10-Not Attempted due to Environmental Limitations-(lack of equipment, weather restraints, etc.). 88-Not Attempted due to Medical Conditions or Safety Concerns. ADL PLOF Comments Lived alone, use of SPC, owns walker, IND with ADLs. Self Care: Independent Functional Cognition: Independent DME/Equipment: Bath Chair, Shower, Tub/Shower OT Current Status Subjective Pt AxO, upright in bed. Pt agrees to tx, pleasant. Pt does not rate pain or c/o pain. Main complaint is SOB and decreased strength. Mental Status/Objective Patient Orientation: Person, Place, Situation, Normal For Age Attachments: Oxygen (2L) Current Glasses/Contacts: Yes Hearing Aids: No Dentures/Partials: No Hand Dominance: Right Upper Extremity ROM WFL BUE Upper Extremity Coordination WFL BUE Upper Extremity Sensation Decreased (neuropathy) Upper Extremity Strength WFL, though decreased per pt's PLOF (4-/5 bilaterally) ADL-Treatment Eating (QC): 6 (IND, ) Oral Hygiene (QC): 6 (IND in stance at sink) Shower/Bathe Self (QC): 4 (SBA all tasks in stance in front of sink.) Upper Body Dressing (QC): 5 (s/u) Lower Body Dressing (QC): 4 (SBA : dons over BLE and pulls over hips) On/Off Footwear (QC): 6 (IND on toilet.) Toileting Hygiene (QC): 6 (IND) Other Treatments Pt completes supine to sit CGA (MMT/ ROM EOB with good ability), ambulates to toilet with SBA, use of walker. Stands at sink to complete oral care/ sponge bath and hair care. Pt requires SBA during these tasks, no SOB noted and pt doffs 02 throughout tx. Pt ambulates back to room with use of walker, sits in chair, all needs met, call light in reach. Education OT Patient Education: Correct positioning, Purpose of tx/functional activities, Safety issues Teaching Recipient: Patient Teaching Methods: Demonstration, Discussion Response to Teaching: Verbalize Understanding, Return Demonstration OT Payroll Administrator Goals Pen[facility] Goals Time Frame: Oct 25, 2020 Eating (QC): 6 Oral Hygiene (QC): 6 Toileting Hygiene (QC): 6 Shower/Bathe Self (QC): 6 Upper Body Dressing (QC): 6 Lower Body Dressing (QC): 6 On/Off Footwear (QC): 6 Additional Goals: 1-Demonstrate ADL Tasks, 2-Verbalize Understanding, 3- ImproveStrength/[place]om[place] 1=Demonstrate adherence to instructed precautions during ADL tasks. 2=Patient will verbalize/demonstrate understanding of assistive devices/modifications for ADL. 3=Patient will improve strength/tolerance for activity to enable patient to perform ADL's. OT Education/Plan Problem List/Assessment Assessment: Decreased Activ Tolerance, Decreased UE Strength, Impaired I ADL's, Impaired Self-Care Skills Discharge Recommendations Plan/Recommendations: Continue POC Therapy Discharge Recommendati: Home & Family Treatment Plan/Plan of Care Treatment,Training & Education: Yes Patient would benefit from OT for education, treatment and training to promote independence in ADL's, mobility, safety and/or upper extremity function for ADL's. Plan of Care: ADL Retraining, Functional Mobility, UE Funct Exercise/Act Treatment Duration: Oct 25, 2020 Frequency: 5 times per week Estimated Hrs Per Day: .25 hour per day Agreement: Yes Rehab Potential: Guarded Time/GCodes Start Time: 14:03 Stop Time: 14:29 Total Time Billed (hr/min): 26 Billed Treatment Time 1, EVM (10), ADL (16)= 26 VIVIANA RYAN OTR Oct 11, 2020 14:39
[2020-10-11] MEDS: FUROSEMIDE 40 MG/4 ML INJ (LASIX) IVP SCH (16:51)
[2020-10-11 18:00] VITALS: BP 148/79
[2020-10-11] MEDS: RT-ALBUTEROL SULF 2.5 MG/3 ML PRE-MIX VIAL INH SCH (18:35)
[2020-10-11] MEDS: RT--FLUTICASONE/SALMETEROL 113-14 (AIRDUO RespiCLICK) IH SCH (18:36)
[2020-10-11] MEDS ORDERED: BISACODYL 10 MG SUPP (DULCOLAX) PR PRN (20:45)
[2020-10-11] MEDS: SENNA W/DOCUSATE (SENOKOT S) TABLET PO SCH (21:27)
[2020-10-11] MEDS: meTOprolol TARTRATE 50 MG (LOPRESSOR) TAB PO SCH (21:27)
[2020-10-11] MEDS: MELATONIN 3 MG TABLET PO SCH (21:27)
[2020-10-11] MEDS: LORazepam 0.5 MG (ATIVAN) TABLET PO PRN (21:28)
[2020-10-12] MEDS ORDERED: FUROSEMIDE 40 MG/4 ML INJ (LASIX) IVP ONE
[2020-10-12] MEDS: ONDANSETRON 4 MG/2 ML (SDV) Z0FRAN IVP PRN (00:02)
[2020-10-12 05:33] LABS: HEMATOCRIT 31 % (35-52); HEMOGLOBIN 9.5 g/dL (11.5-16.0); MEAN CORPUSCULAR HEMOGLOBIN 27 pg (25-34); MEAN CORPUSCULAR HGB CONC 31 g/dL (32-36); MEAN CORPUSCULAR VOLUME 88 fL (80-99); MEAN PLATELET VOLUME 8.7 fL (9.0-12.2); PLATELET COUNT 525 10^3/uL (130-400); WHITE BLOOD COUNT 10.3 10^3/uL (4.3-11.0)
[2020-10-12] MEDS: NS IV 1000 ML 1,000 ML IV SCH ×3 (05:40→17:52)
[2020-10-12 05:43] LABS: CHLORIDE 98 MMOL/L (98-107); POTASSIUM 3.7 MMOL/L (3.6-5.0); SODIUM 138 MMOL/L (135-145)
[2020-10-12 05:44] LABS: CALCIUM 10.5 MG/DL (8.5-10.1)
[2020-10-12 05:45] LABS: GLUCOSE 268 MG/DL (70-105); TOTAL PROTEIN 6.7 GM/DL (6.4-8.2)
[2020-10-12 05:46] LABS: CARBON DIOXIDE 29 MMOL/L (21-32)
[2020-10-12 05:47] LABS: BILIRUBIN,TOTAL 0.2 MG/DL (0.1-1.0)
[2020-10-12 05:48] LABS: ALKALINE PHOSPHATASE 86 U/L (40-136)
[2020-10-12 05:49] LABS: CREATININE SERUM 0.63 MG/DL (0.60-1.30); GFR ESTIMATED > 60
[2020-10-12 05:50] LABS: BUN/CREATININE RATIO 21
[2020-10-12 05:51] LABS: MAGNESIUM 1.7 MG/DL (1.6-2.4)
[2020-10-12 05:52] LABS: ALANINE AMINOTRANSFERASE 33 U/L (0-55)
[2020-10-12] MEDS: inSUlin ASPART (NovoLOG) 1 UNIT/0.01 ML (CHARGE PER UNIT) SC SCH ×4 (06:03→20:48)
[2020-10-12] MEDS: KCL 20 MEQ TAB (K-DUR) PO SCH (06:03)
[2020-10-12 06:08] VITALS: BP 150/76
[2020-10-12] MEDS: RT--FLUTICASONE/SALMETEROL 113-14 (AIRDUO RespiCLICK) IH SCH ×2 (07:23→20:31)
[2020-10-12] MEDS: RT-ALBUTEROL SULF 2.5 MG/3 ML PRE-MIX VIAL INH SCH ×2 (07:23→20:31)
--- NOTE | 2020-10-12 08:54 | Diagnostic Imaging Report ---
Indication: Shortness of breath, lung cancer Comparison: 08/22/2020 Findings: Frontal and lateral views of the chest demonstrate persistent but decreased nodule in the right upper lobe. There is subsegmental atelectasis in the right base. Left lung is clear. The heart is normal. There is no pneumothorax or large effusion. Port-A-Cath is stable. Impression: 1. Persistent but decreased nodule right upper lobe. 2. New subsegmental atelectasis right base. Dictated by: Dictated on workstation # [id number]
[2020-10-12] MEDS: meTOprolol TARTRATE 50 MG (LOPRESSOR) TAB PO SCH ×2 (09:11→20:40)
[2020-10-12] MEDS: SENNA W/DOCUSATE (SENOKOT S) TABLET PO SCH ×2 (09:11→20:40)
--- NOTE | 2020-10-12 09:32 | Progress Note ---
Subjective Subjective Date Seen by Provider: Oct 12, 2020 Time Seen by Provider: 09:30 CHF ACUTE SYSTOLIC METASTATIC LESION OF SKULL AND BRAIN - SMALL CELL FALLING EPISODES SMALL CELL LUNG CANCER HYPERCALCEMIA ANEMIA HYPONATREMIA DIABETES MELLITUS CORONARY ARTERY DISEASE CHF ACUTE SYSTOLIC - IV LASIX, MONITOR SYMPTOMS METASTATIC LESION OF SKULL WITH FALLING EPISODES AND HX OF RECENT DX OF SMALL CELL LUNG CANCER - MRI OF BRAIN IMPRESSION: 1: There is interval development of numerous nodular and ring-enhancing masses seen throughout both cerebral hemispheres and two areas possibly involving the right and left posterior fossa regions, concerning for metastatic disease. There is no brain herniation or intracranial hemorrhage. 2: There is enhancement and irregular appearance of the lytic lesion involving the posterior right parieto-occipital region, consistent with osseous metastasis. This lesion was seen on the prior CT scan. - CONSULT PLACED TO DR. SCHROEDER - - CONSULT PLACED TO RADIATION ONCOLOGY HYPERCALCEMIA - SUPPORTIVE CARE, CONTINUE WITH IV FLUIDS ANEMIA - STATUS POST TRANSFUSION HYPONATREMIA - IMPROVED - CONTINUE WITH IV FLUIDS, MONITOR LABS ' DIABETES MELLITUS - MONITOR FSBS ACHS, ANTICIPATE PT'S FSBS TO INCREASE DUE TO IV STEROIDS. CORONARY ARTERY DISEASE Review of Systems General: No Chills; Fatigue, Malaise Pulmonary: Dyspnea, Cough Cardiovascular: No: Chest Pain, Palpitations Gastrointestinal: No: Nausea, Abdominal Pain Genitourinary: No Dysuria 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: Weakness, Confusion Objective Exam Vital Signs Vital Signs - First Documented 10/11/20 10/11/20 10/11/20 06:57 08:00 18:00 Temp 36.4 Pulse 108 Resp 20 B/P (MAP) 138/80 (99) Pulse Ox 97 O2 Delivery Room Air O2 Flow Rate 2.00 Capillary Refill : General Appearance: No Apparent Distress, WD/WN HEENT: PERRL/EOMI, Pharynx Normal Neck: Full Range of Motion, Supple Respiratory: Chest Non Tender, Crackles, Decreased Breath Sounds Cardiovascular: Regular Rate, Rhythm, Systolic Murmur (II/ DOROTHY) Gastrointestinal: Normal Bowel Sounds, Non Tender, Soft Rectal: Deferred Neurologic/Psychiatric: Alert, Oriented x3, portrait painter II-XII Norm as Tested, Other (ANXIETY/DEPRESSION) Skin: Warm/Dry Results Lab Laboratory Tests 10/11/20 12:00: Glucometer 373H 10/11/20 15:31: Glucometer 268H 10/11/20 20:36: Glucometer 242H 10/12/20 05:15: White Blood Count 10.3, Red Blood Count 3.51L, Hemoglobin 9.5L, Hematocrit 31L, Mean Corpuscular Volume 88, Mean Corpuscular Hemoglobin 27, Mean Corpuscular Hemoglobin Concent 31L, Red Cell Distribution Width 16.3H, Platelet Count 525H, Mean Platelet Volume 8.7L, Sodium Level 138, Potassium Level 3.7, Chloride Level 98, Carbon Dioxide Level 29, Anion Gap 11, Blood Urea Nitrogen 13, Creatinine 0.63, Estimat Glomerular Filtration Rate > 60, BUN/Creatinine Ratio 21, Glucose Level 268H, Calcium Level 10.5H, Corrected Calcium 11.3H, Magnesium Level 1.7, Total Bilirubin 0.2, Aspartate Amino Transf (AST/SGOT) 21, Alanine Aminotrans ferase (ALT/SGPT) 33, Alkaline Phosphatase 86, Total Protein 6.7, Albumin 3.0L 10/12/20 05:24: Glucometer 278H Assessment/Plan Assessment/Plan Admission Dx CHF ACUTE SYSTOLIC METASTATIC LESION OF SKULL AND BRAIN - SMALL CELL FALLING EPISODES SMALL CELL LUNG CANCER HYPERCALCEMIA ANEMIA HYPONATREMIA DIABETES MELLITUS CORONARY ARTERY DISEASE Admission Status: Other (Swing Bed) Assessment and Plan CHF ACUTE SYSTOLIC METASTATIC LESION OF SKULL AND BRAIN - SMALL CELL FALLING EPISODES SMALL CELL LUNG CANCER HYPERCALCEMIA ANEMIA HYPONATREMIA DIABETES MELLITUS CORONARY ARTERY DISEASE CHF ACUTE SYSTOLIC - IV LASIX, MONITOR SYMPTOMS METASTATIC LESION OF SKULL WITH FALLING EPISODES AND HX OF RECENT DX OF SMALL CELL LUNG CANCER - MRI OF BRAIN IMPRESSION: 1: There is interval development of numerous nodular and ring-enhancing masses seen throughout both cerebral hemispheres and two areas possibly involving the right and left posterior fossa regions, concerning for metastatic disease. There is no brain herniation or intracranial hemorrhage. 2: There is enhancement and irregular appearance of the lytic lesion involving the posterior right parieto-occipital region, consistent with osseous metastasis. This lesion was seen on the prior CT scan. - CONSULT PLACED TO DR. SCHROEDER - - CONSULT PLACED TO RADIATION ONCOLOGY HYPERCALCEMIA - SUPPORTIVE CARE ANEMIA - STATUS POST TRANSFUSION HYPONATREMIA - IV FLUIDS, MONITOR LABS ' DIABETES MELLITUS - MONITOR FSBS ACHS CORONARY ARTERY DISEASE JUNE SHAHID MD Oct 12, 2020 09:32
--- NOTE | 2020-10-12 09:57 | Physical Therapy Daily Note ---
PT Daily Note-Current Subjective Patient returned from radiation and agrees to PT. Mental Status Patient Orientation: Normal For Age Attachments: Oxygen Transfers SCALE: Activities may be completed with or without assistive devices. 7-Mamnegilsh-fsilxan completes the activity by him/herself with no assistance from a helper. 5-Set-up or Clean-up Assistance-helper sets up or cleans up; patient completes activity. [place] assists only prior to or following the activity. 4-Supervision or Touching Assistance-helper provides verbal cues and/or touching/steadying and/or contact guard assistance as patient completes activity. Assistance may be provided throughout the activity or intermittently. 3-Partial/Moderate Assistance-helper does LESS THAN HALF the effort. [place] lifts, holds or supports trunk or limbs, but provides less than half the effort. 2-Substantial/Maximal Assistance-helper does MORE THAN HALF the effort. [place] lifts or holds trunk or limbs and provides more than half the effort. 8-Xszmusfij-ccuejv does ALL the effort. Patient does none of the effort to complete the activity. Or, the assistance of 2 or more helpers is required for the patient to complete the activity. If activity was not attempted, code reason: 7-Patient Refused. 9-Not Applicable-not attempted and the patient did not perform the activity before the current illness, exacerbation or injury. 10-Not Attempted due to Environmental Limitations-(lack of equipment, weather restraints, etc.). 88-Not Attempted due to Medical Conditions or Safety Concerns. Sit to Stand (QC): 4 (SBA) Gait Training Does the Patient Walk?: Yes Distance: 600' Walk 10 feet (QC): 4 Walk 50 ft with 2 Turns(QC): 4 Walk 150 ft (QC): 4 Gait Assistive Device: FWW initially unsteady with self recovery/functional gait sequence with SBA Exercises Seated Therapy Exercises: Ankle pumps, Long arc quads, Hip flexion Seated Reps: 15 (2 sets) Assessment Patient improved on this date. PT to increase activity as tolerated by patient. PT Cra Officer Goals Cra Officer Goals PT Half-Way Goals Time Frame: Oct 27, 2020 Roll Left & Right (QC): 6 Sit to Lying (QC): 6 Lying-Sitting on Side/Bed(QC): 6 Sit to Stand (QC): 6 Chair/Btb-yq-Sjtkm Xfer(QC): 6 Toilet Transfer (QC): 6 Car Transfer (QC): 6 Does the Patient Walk: Yes Walk 10 feet (QC): 6 Walk 50ft with 2 Turns (QC): 6 Walk 150 ft (QC): 6 Walking 10ft on Uneven Surface: 6 1 Step (curb) (QC): 6 4 Steps (QC): 6 12 Steps (QC): 9 Picking up an Object (QC): 6 Wheel 50 feet with 2 turns (QC: 9 Type: N/A Wheel 150 feet: 9 Type: N/A PT Plan Treatment/Plan Treatment Plan: Continue Plan of Care Treatment Plan: Education, Functional Activity [place]om[place], Functional Strength, Gait, Safety, Therapeutic Exercise, Transfers Treatment Duration: Oct 27, 2020 Frequency: 6 times per week Estimated Hrs Per Day: .25 hour per day Patient and/or Family Agrees t: Yes Time/GCodes Time In: 919 Time Out: 942 Total Billed Treatment Time: 23 Total Billed Treatment 1 visit EX 8 min FA 15 min DESIRE MALCOLM PT Oct 12, 2020 09:57
--- NOTE | 2020-10-12 10:04 | Occupational Ther Daily Note ---
OT Current Status-Daily Note Subjective Pt alert, sitting in recliner. Pt agrees to therapy. No c/o pain at this time. Mental Status/Objective Patient Orientation: Person, Place, Time, Situation Attachments: IV, Oxygen ADL-Treatment Pt declines shower. Pt agrees to donning fresh gown and clothing, toileting and oral care. After gathering clothing for pt, pt transports clothing to bathroom using FWW. Pt able to don/doff hospital gown, socks and underwear by self. Pt then stood at sink to complete oral care and minimal sponge bath. Pt then transferred to toilet and completed hygiene independently. Pt ambulated out of bathroom and required assist to manipulate tubing and FWW though no LOB. After session, pt sitting in recliner with call light/phone in reach. Dr. Aleman present in room. All needs met in room. Therapy Code Descriptions/Definitions Functional [place] Measure: 0=Not Assessed/NA 4=Minimal Assistance 1=Total Assistance 5=Supervision or Setup 2=Maximal Assistance 6=Modified [place] 3=Moderate Assistance 7=Complete IndependenceSCALE: Activities may be completed with or without assistive devices. 5-Idkhvljqse-wvidwwd completes the activity by him/herself with no assistance from a helper. 5-Set-up or Clean-up Assistance-helper sets up or cleans up; patient completes activity. [place] assists only prior to or following the activity. 4-Supervision or Touching Assistance-helper provides verbal cues and/or touching/steadying and/or contact guard assistance as patient completes activity. Assistance may be provided throughout the activity or intermittently. 3-Partial/Moderate Assistance-helper does LESS THAN HALF the effort. [place] lifts, holds or supports trunk or limbs, but provides less than half the effort. 2-Substantial/Maximal Assistance-helper does MORE THAN HALF the effort. [place] lifts or holds trunk or limbs and provides more than half the effort. 0-Scgrmsrqt-dzavxi does ALL the effort. Patient does none of the effort to complete the activity. Or, the assistance of 2 or more helpers is required for the patient to complete the activity. If activity was not attempted, code reason: 7-Patient Refused. 9-Not Applicable-not attempted and the patient did not perform the activity before the current illness, exacerbation or injury. 10-Not Attempted due to Environmental Limitations-(lack of equipment, weather restraints, etc.). 88-Not Attempted due to Medical Conditions or Safety Concerns. OT Frame Table Operator Helper Goals Frame Table Operator Helper Goals Time Frame: Oct 25, 2020 Eating (QC): 6 Oral Hygiene (QC): 6 Toileting Hygiene (QC): 6 Shower/Bathe Self (QC): 6 Upper Body Dressing (QC): 6 Lower Body Dressing (QC): 6 On/Off Footwear (QC): 6 Additional Goals: 1-Demonstrate ADL Tasks, 2-Verbalize Understanding, 3- ImproveStrength/[place] 1=Demonstrate adherence to instructed precautions during ADL tasks. 2=Patient will verbalize/demonstrate understanding of assistive devices/modifications for ADL. 3=Patient will improve strength/tolerance for activity to enable patient to perform ADL's. OT Education/Plan Problem List/Assessment Assessment: Decreased Activ Tolerance, Decreased UE Strength Discharge Recommendations Plan/Recommendations: Continue POC Treatment Plan/Plan of Care Patient would benefit from OT for education, treatment and training to promote independence in ADL's, mobility, safety and/or upper extremity function for ADL's. Plan of Care: ADL Retraining, Functional Mobility, UE Funct Exercise/Act Treatment Duration: Oct 25, 2020 Frequency: 5 times per week Estimated Hrs Per Day: .25 hour per day Agreement: Yes Rehab Potential: Guarded Time/GCodes Start Time: 09:40 Stop Time: 10:00 Total Time Billed (hr/min): 20 Billed Treatment Time 1 visit-ADL 1 (20 min) MARYCARMEN STEWART Oct 12, 2020 10:04
[2020-10-12] MEDS: FUROSEMIDE 40 MG/4 ML INJ (LASIX) IVP SCH ×2 (13:04→17:51)
--- NOTE | 2020-10-12 16:57 | Progress Note ---
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 Patient has started palliative whole brain radiation therapy and has completed 2 fractions. She is on dexamethasone 4 mg IV every 6 hours. I will change this to 4 mg p.o. every 8 hours with food starting this evening. Patient has received pamidronate 60 mg IV for the hypercalcemia along with IV fluids. Calcium level is improving but still elevated. Blood sugars are elevated because of dexamethasone and she is on sl iding scale insulin. Continue PT/OT and ambulation as tolerated. Will ask social media intern to see patient regarding help at home when discharged. Will follow patient with you. ELIJAH SCHROEDER Oct 12, 2020 16:57
[2020-10-12 18:02] VITALS: BP 140/64
[2020-10-12] MEDS: MELATONIN 3 MG TABLET PO SCH (20:40)
[2020-10-12 23:24] VITALS: BP 119/61
[2020-10-13] MEDS: HYDROcodone/APAP 5 MG/325 MG (LORTAB) TAB PO PRN (00:32)
[2020-10-13] MEDS: NS IV 1000 ML 1,000 ML IV SCH ×4 (03:43→21:31)
[2020-10-13 06:05] LABS: HEMATOCRIT 30 % (35-52); HEMOGLOBIN 9.1 g/dL (11.5-16.0); MEAN CORPUSCULAR HEMOGLOBIN 27 pg (25-34); MEAN CORPUSCULAR HGB CONC 31 g/dL (32-36); MEAN CORPUSCULAR VOLUME 88 fL (80-99); MEAN PLATELET VOLUME 8.8 fL (9.0-12.2); PLATELET COUNT 503 10^3/uL (130-400)
[2020-10-13 06:14] VITALS: BP 144/70
[2020-10-13] MEDS: RT--FLUTICASONE/SALMETEROL 113-14 (AIRDUO RespiCLICK) IH SCH ×2 (06:25→21:55)
[2020-10-13] MEDS: RT-ALBUTEROL SULF 2.5 MG/3 ML PRE-MIX VIAL INH SCH (06:25)
[2020-10-13 06:30] LABS: CHLORIDE 98 MMOL/L (98-107); POTASSIUM 4.2 MMOL/L (3.6-5.0); SODIUM 136 MMOL/L (135-145)
[2020-10-13 06:31] LABS: CALCIUM 9.7 MG/DL (8.5-10.1)
[2020-10-13 06:32] LABS: GLUCOSE 376 MG/DL (70-105)
[2020-10-13 06:33] LABS: CARBON DIOXIDE 28 MMOL/L (21-32)
[2020-10-13 06:36] LABS: GFR ESTIMATED > 60
[2020-10-13 06:37] LABS: BUN/CREATININE RATIO 23
[2020-10-13] MEDS: inSUlin ASPART (NovoLOG) 1 UNIT/0.01 ML (CHARGE PER UNIT) SC SCH ×4 (06:38→21:31)
[2020-10-13] MEDS: KCL 20 MEQ TAB (K-DUR) PO SCH (09:36)
--- NOTE | 2020-10-13 09:37 | Progress Note ---
Subjective Subjective Date Seen by Provider: Oct 13, 2020 Time Seen by Provider: 11:00 PT IS A 69 Y/O FEMALE WHO IS KNOWN TO ME FROM CLINIC. 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 SHE REPORTS THAT SHE FEELS LESS ANXIOUS SINCE SHE WAS ABLE TO SEE HER DOG YESTERDAY. SHE DENIES CHEST PAIN, OR WORSENING OF HER SHORTNESS OF BREATH. Review of Systems General: No Chills; Fatigue, Malaise Pulmonary: Dyspnea, Cough Cardiovascular: No: Chest Pain, Palpitations Gastrointestinal: No: Nausea, Abdominal Pain Genitourinary: No Dysuria 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: Weakness, Confusion Objective Exam Vital Signs Vital Signs - First Documented 10/11/20 10/11/20 10/11/20 06:57 08:00 18:00 Temp 36.4 Pulse 108 Resp 20 B/P (MAP) 138/80 (99) Pulse Ox 97 O2 Delivery Room Air O2 Flow Rate 2.00 Capillary Refill : General Appearance: No Apparent Distress, WD/WN Eyes: Bilateral Eye Normal Inspection, Bilateral Eye PERRL, Bilateral Eye EOMI HEENT: PERRL/EOMI, Pharynx Normal Neck: Full Range of Motion, Supple Respiratory: Chest Non Tender, Crackles, Decreased Breath Sounds Cardiovascular: Regular Rate, Rhythm, Systolic Murmur (II/ DOROTHY) Gastrointestinal: Normal Bowel Sounds, Non Tender, Soft Rectal: Deferred Back: Normal Inspection, No Vertebral Tenderness Extremity: Normal Capillary Refill, Normal Inspection, Normal Range of Motion, Non Tender, No Calf Tenderness, No Pedal Edema Neurologic/Psychiatric: Alert, Oriented x3, snake charmer II-XII Norm as Tested, Other (ANXIETY/DEPRESSION) Skin: Warm/Dry Lymphatic: No Adenopathy Results Lab Laboratory Tests 10/12/20 11:20: Glucometer 358H 10/12/20 15:30: Glucometer 264H 10/12/20 20:25: Glucometer 415*H 10/13/20 06:00: White Blood Count 10.0, Red Blood Count 3.39L, Hemoglobin 9.1L, Hematocrit 30L, Mean Corpuscular Volume 88, Mean Corpuscular Hemoglobin 27, Mean Corpuscular Hemoglobin Concent 31L, Red Cell Distribution Width 16.5H, Platelet Count 503H, Mean Platelet Volume 8.8L, Sodium Level 136, Potassium Level 4.2, Chloride Level 98, Carbon Dioxide Level 28, Anion Gap 10, Blood Urea Nitrogen 16, Creatinine 0.70, Estimat Glomerular Filtration Rate > 60, BUN/Creatinine Ratio 23, Glucose Level 376H, Calcium Level 9.7 Assessment/Plan Assessment/Plan Admission Dx CHF ACUTE SYSTOLIC METASTATIC LESION OF SKULL AND BRAIN - SMALL CELL FALLING EPISODES SMALL CELL LUNG CANCER HYPERCALCEMIA ANEMIA HYPONATREMIA DIABETES MELLITUS CORONARY ARTERY DISEASE Assessment and Plan CHF ACUTE SYSTOLIC METASTATIC LESION OF SKULL AND BRAIN - SMALL CELL FALLING EPISODES SMALL CELL LUNG CANCER HYPERCALCEMIA ANEMIA HYPONATREMIA DIABETES MELLITUS CORONARY ARTERY DISEASE CHF ACUTE SYSTOLIC - IV LASIX, MONITOR SYMPTOMS METASTATIC LESION OF SKULL WITH FALLING EPISODES AND HX OF RECENT DX OF SMALL CELL LUNG CANCER - MRI OF BRAIN IMPRESSION: 1: There is interval development of numerous nodular and ring-enhancing masses seen throughout both cerebral hemispheres and two areas possibly involving the right and left posterior fossa regions, concerning for metastatic disease. There is no brain herniation or intracranial hemorrhage. 2: There is enhancement and irregular appearance of the lytic lesion involving the posterior right parieto-occipital region, consistent with osseous metastasis. This lesion was seen on the prior CT scan. - CONSULT PLACED TO DR. SCHROEDER - - CONSULT PLACED TO RADIATION ONCOLOGY PT WAS TRANSITIONED FROM IV STEROID TO ORAL STEROID ON 10/12/[address] SCHROEDER - PT HAS RECEIVED 2 FRACTIONS OF RADIATION, DEFER TO RAD-ONC HYPERCALCEMIA - SUPPORTIVE CARE - HAS RECEIVED IV PAMIDRONATE ANEMIA - STATUS POST TRANSFUSION - HGB 9.1 TODAY HYPONATREMIA - IV FLUIDS, MONITOR LABS ' DIABETES MELLITUS - MONITOR FSBS ACHS CORONARY ARTERY DISEASE Admission Dx CHF ACUTE SYSTOLIC METASTATIC LESION OF SKULL AND BRAIN - SMALL CELL FALLING EPISODES SMALL CELL LUNG CANCER HYPERCALCEMIA ANEMIA HYPONATREMIA DIABETES MELLITUS CORONARY ARTERY DISEASE Clinical Quality Measures Admission Status Admission Dx CHF ACUTE SYSTOLIC METASTATIC LESION OF SKULL AND BRAIN - SMALL CELL FALLING EPISODES SMALL CELL LUNG CANCER HYPERCALCEMIA ANEMIA HYPONATREMIA DIABETES MELLITUS CORONARY ARTERY DISEASE JUNE SHAHID MD Oct 13, 2020 09:37
[2020-10-13] MEDS: meTOprolol TARTRATE 50 MG (LOPRESSOR) TAB PO SCH ×2 (09:44→20:19)
[2020-10-13] MEDS: FUROSEMIDE 40 MG/4 ML INJ (LASIX) IVP SCH ×2 (09:44→17:42)
[2020-10-13] MEDS: SENNA W/DOCUSATE (SENOKOT S) TABLET PO SCH ×2 (09:44→20:19)
[2020-10-13 13:31] VITALS: BP 144/70
--- NOTE | 2020-10-13 13:31 | Physical Therapy Daily Note ---
PT Daily Note-Current Subjective Pt only noted difficulty breathing at the end of treatment. She noted feeling better today because she was able to see her dog earlier. Mental Status Patient Orientation: Person, Place, Time, Situation Attachments: Oxygen Transfers SCALE: Activities may be completed with or without assistive devices. 8-Maxjuryzlp-zkscdrc completes the activity by him/herself with no assistance from a helper. 5-Set-up or Clean-up Assistance-helper sets up or cleans up; patient completes activity. [place] assists only prior to or following the activity. 4-Supervision or Touching Assistance-helper provides verbal cues and/or touching/steadying and/or contact guard assistance as patient completes activity. Assistance may be provided throughout the activity or intermittently. 3-Partial/Moderate Assistance-helper does LESS THAN HALF the effort. [place] lifts, holds or supports trunk or limbs, but provides less than half the effort. 2-Substantial/Maximal Assistance-helper does MORE THAN HALF the effort. [place] lifts or holds trunk or limbs and provides more than half the effort. 9-Cogtzcfmq-cwrcnd does ALL the effort. Patient does none of the effort to complete the activity. Or, the assistance of 2 or more helpers is required for the patient to complete the activity. If activity was not attempted, code reason: 7-Patient Refused. 9-Not Applicable-not attempted and the patient did not perform the activity before the current illness, exacerbation or injury. 10-Not Attempted due to Environmental Limitations-(lack of equipment, weather restraints, etc.). 88-Not Attempted due to Medical Conditions or Safety Concerns. Roll Left & Right (QC): 6 Sit to Lying (QC): 6 Lying to Sitting/Side of Bed(Q: 6 Sit to Stand (QC): 6 Gait Training Does the Patient Walk?: Yes Distance: 400ft Walk 10 feet (QC): 6 Walk 50 ft with 2 Turns(QC): 6 Walk 150 ft (QC): 6 Gait Persons Needed: 1 Gait Assistive Device: FWW Wheelchair Training Does the Pt Use a Wheelchair?: No Exercises Supine Ex: LE Protocol Supine Reps: 20 Assessment Current Status: Good Progress Pt was able to ambulate and exercise today before noting a feeling of dyspnea. Good stability and safety with gait and transfers. PT Yard Associate Goals Yard Associate Goals PT Yard Associate Goals Time Frame: Oct 27, 2020 Roll Left & Right (QC): 6 Sit to Lying (QC): 6 Lying-Sitting on Side/Bed(QC): 6 Sit to Stand (QC): 6 Chair/Wnw-ed-Paozt Xfer(QC): 6 Toilet Transfer (QC): 6 Car Transfer (QC): 6 Does the Patient Walk: Yes Walk 10 feet (QC): 6 Walk 50ft with 2 Turns (QC): 6 Walk 150 ft (QC): 6 Walking 10ft on Uneven Surface: 6 1 Step (curb) (QC): 6 4 Steps (QC): 6 12 Steps (QC): 9 Picking up an Object (QC): 6 Wheel 50 feet with 2 turns (QC: 9 Type: N/A Wheel 150 feet: 9 Type: N/A PT Plan Treatment/Plan Treatment Plan: Continue Plan of Care Treatment Plan: Education, Functional Activity [place], Functional Strength, Gait, Safety, Therapeutic Exercise, Transfers Treatment Duration: Oct 27, 2020 Frequency: 6 times per week Estimated Hrs Per Day: .25 hour per day Patient and/or Family Agrees t: Yes Time/GCodes Time In: 1000 Time Out: 1030 Total Billed Treatment Time: 30 Total Billed Treatment 1, gt, ex 30 TRACEE RODRIGUEZ PT Oct 13, 2020 13:30
[2020-10-13] MEDS ORDERED: RT-ALBUTEROL SULF 2.5 MG/3 ML PRE-MIX VIAL INH PRN (13:45)
[2020-10-13] MEDS: RT-ALBUTEROL/IPRATROPIUM 3 ML (DUONEB) VIAL INH SCH ×3 (14:43→21:54)
[2020-10-13] MEDS ORDERED: NYSTATIN ORAL SUSP 5 ML UDC PO ONE (15:15)
[2020-10-13 17:58] VITALS: BP 136/73
[2020-10-13] MEDS: MELATONIN 3 MG TABLET PO SCH (20:19)
[2020-10-13] MEDS: NYSTATIN ORAL SUSP 5 ML UDC PO SCH (21:31)
[2020-10-14] MEDS: ONDANSETRON 4 MG/2 ML (SDV) Z0FRAN IVP PRN (00:52)
[2020-10-14] MEDS: RT-ALBUTEROL/IPRATROPIUM 3 ML (DUONEB) VIAL INH SCH ×6 (02:35→22:31)
[2020-10-14] MEDS: NS IV 1000 ML 1,000 ML IV SCH ×2 (06:26→07:06)
[2020-10-14] MEDS: KCL 20 MEQ TAB (K-DUR) PO SCH (06:36)
[2020-10-14] MEDS: FUROSEMIDE 40 MG/4 ML INJ (LASIX) IVP SCH ×2 (06:37→16:00)
[2020-10-14] MEDS: NYSTATIN ORAL SUSP 5 ML UDC PO SCH ×3 (06:39→21:25)
[2020-10-14] MEDS: inSUlin ASPART (NovoLOG) 1 UNIT/0.01 ML (CHARGE PER UNIT) SC SCH ×4 (06:41→21:26)
[2020-10-14] MEDS: RT--FLUTICASONE/SALMETEROL 113-14 (AIRDUO RespiCLICK) IH SCH ×2 (07:51→19:07)
[2020-10-14 08:00] VITALS: BP 138/80
[2020-10-14] MEDS: SENNA W/DOCUSATE (SENOKOT S) TABLET PO SCH ×2 (08:13→21:18)
[2020-10-14] MEDS: meTOprolol TARTRATE 50 MG (LOPRESSOR) TAB PO SCH ×2 (08:14→21:18)
--- NOTE | 2020-10-14 09:32 | Progress Note ---
Subjective Subjective Date Seen by Provider: Oct 14, 2020 Time Seen by Provider: 09:45 PT IS A 69 Y/O FEMALE WHO IS KNOWN TO ME FROM CLINIC. 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 SHE REPORTS THAT SHE FEELS LESS ANXIOUS SINCE SHE WAS ABLE TO SEE HER DOG YESTERDAY. SHE DENIES CHEST PAIN, OR WORSENING OF HER SHORTNESS OF BREATH. Review of Systems General: No Chills; Fatigue, Malaise Pulmonary: Dyspnea, Cough Cardiovascular: No: Chest Pain, Palpitations Gastrointestinal: Constipation; No: Nausea, Abdominal Pain Genitourinary: No Dysuria 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: Weakness, Confusion Objective Exam Vital Signs Vital Signs - First Documented 10/11/20 10/11/20 10/11/20 10/13/20 06:57 08:00 18:00 13:31 Temp 36.4 Pulse 108 Resp 20 B/P (MAP) 138/80 (99) Pulse Ox 97 O2 Delivery Room Air O2 Flow Rate 2.00 FiO2 28 Capillary Refill : General Appearance: No Apparent Distress, WD/WN Eyes: Bilateral Eye Normal Inspection, Bilateral Eye PERRL, Bilateral Eye EOMI HEENT: PERRL/EOMI, Pharynx Normal Neck: Full Range of Motion, Supple Respiratory: Chest Non Tender, Crackles, Decreased Breath Sounds Cardiovascular: Regular Rate, Rhythm, Systolic Murmur (II/ DOROTHY) Gastrointestinal: Normal Bowel Sounds, Non Tender, Soft Rectal: Deferred Back: Normal Inspection, No Vertebral Tenderness Extremity: Normal Capillary Refill, Normal Inspection, Normal Range of Motion, Non Tender, No Calf Tenderness, No Pedal Edema Neurologic/Psychiatric: Alert, Oriented x3, dental chairside assistant II-XII Norm as Tested, Other (ANXIETY/DEPRESSION) Skin: Warm/Dry Lymphatic: No Adenopathy Results Lab Laboratory Tests 10/13/20 10:37: Glucometer 382H 10/13/20 15:54: Glucometer 361H 10/13/20 20:37: Glucometer 523*H 10/14/20 05:39: Glucometer 391H Assessment/Plan Assessment/Plan Admission Dx CHF ACUTE SYSTOLIC METASTATIC LESION OF SKULL AND BRAIN - SMALL CELL FALLING EPISODES SMALL CELL LUNG CANCER HYPERCALCEMIA ANEMIA HYPONATREMIA DIABETES MELLITUS CORONARY ARTERY DISEASE Assessment and Plan CHF ACUTE SYSTOLIC METASTATIC LESION OF SKULL AND BRAIN - SMALL CELL FALLING EPISODES SMALL CELL LUNG CANCER HYPERCALCEMIA ANEMIA HYPONATREMIA DIABETES MELLITUS CORONARY ARTERY DISEASE INSOMNIA CHF ACUTE SYSTOLIC - IV LASIX, MONITOR SYMPTOMS METASTATIC LESION OF SKULL WITH FALLING EPISODES AND HX OF RECENT DX OF SMALL CELL LUNG CANCER - MRI OF BRAIN IMPRESSION: 1: There is interval development of numerous nodular and ring-enhancing masses seen throughout both cerebral hemispheres and two areas possibly involving the right and left posterior fossa regions, concerning for metastatic disease. There is no brain herniation or intracranial hemorrhage. 2: There is enhancement and irregular appearance of the lytic lesion involving the posterior right parieto-occipital region, consistent with osseous metastasis. This lesion was seen on the prior CT scan. - CONSULT PLACED TO DR. SCHROEDER - - CONSULT PLACED TO RADIATION ONCOLOGY PT WAS TRANSITIONED FROM IV STEROID TO ORAL STEROID ON 10/12/[address] SCHROEDER - PT RECEIVING RADIATION TO BRAIN, DEFER TO RAD-ONC HYPERCALCEMIA - SUPPORTIVE CARE - HAS RECEIVED IV PAMIDRONATE ANEMIA - STATUS POST TRANSFUSION - REPEAT LABS TOMORROW HYPONATREMIA - IV FLUIDS, MONITOR LABS ' DIABETES MELLITUS - MONITOR FSBS ACHS - RESUMED HOME REGIMEN CORONARY ARTERY DISEASE INSOMNIA - SCHEDULE ATIVAN AT HS Admission Dx CHF ACUTE SYSTOLIC METASTATIC LESION OF SKULL AND BRAIN - SMALL CELL FALLING EPISODES SMALL CELL LUNG CANCER HYPERCALCEMIA ANEMIA HYPONATREMIA DIABETES MELLITUS CORONARY ARTERY DISEASE Clinical Quality Measures Admission Status Admission Dx CHF ACUTE SYSTOLIC METASTATIC LESION OF SKULL AND BRAIN - SMALL CELL FALLING EPISODES SMALL CELL LUNG CANCER HYPERCALCEMIA ANEMIA HYPONATREMIA DIABETES MELLITUS CORONARY ARTERY DISEASE JUNE SHAHID MD Oct 14, 2020 09:32
[2020-10-14] MEDS: DULoxetine 30 MG (CYMBALTA) CAP PO SCH (09:49)
[2020-10-14] MEDS: RIVAROXABAN 20 MG TABLET (XARELTO) PO SCH (09:49)
[2020-10-14 16:00] VITALS: BP 123/62
[2020-10-14] MEDS: metFORMIN 500 MG (GLUCOPHAGE) TAB PO SCH (16:00)
[2020-10-14 19:58] VITALS: BP 130/56
[2020-10-14] MEDS: LORazepam 0.5 MG (ATIVAN) TABLET PO SCH (21:18)
[2020-10-14] MEDS: MELATONIN 3 MG TABLET PO SCH (21:19)
[2020-10-15] MEDS: RT-ALBUTEROL/IPRATROPIUM 3 ML (DUONEB) VIAL INH SCH ×4 (02:52→22:16)
[2020-10-15] MEDS: HYDROcodone/APAP 5 MG/325 MG (LORTAB) TAB PO PRN (05:00)
[2020-10-15] MEDS: NYSTATIN ORAL SUSP 5 ML UDC PO SCH ×3 (05:51→21:06)
[2020-10-15] MEDS: metFORMIN 500 MG (GLUCOPHAGE) TAB PO SCH ×2 (05:51→16:05)
[2020-10-15] MEDS: inSUlin ASPART (NovoLOG) 1 UNIT/0.01 ML (CHARGE PER UNIT) SC SCH ×4 (05:52→20:55)
[2020-10-15] MEDS: FUROSEMIDE 40 MG/4 ML INJ (LASIX) IVP SCH ×2 (05:52→16:05)
[2020-10-15] MEDS: KCL 20 MEQ TAB (K-DUR) PO SCH (05:55)
[2020-10-15 06:03] VITALS: BP 130/56
[2020-10-15 08:00] VITALS: BP 116/55
--- NOTE | 2020-10-15 08:49 | Progress Note ---
Subjective Subjective Date Seen by Provider: Oct 15, 2020 Time Seen by Provider: 09:00 PT IS A 69 Y/O FEMALE WHO IS KNOWN TO ME FROM CLINIC. 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 Review of Systems General: No Chills; Fatigue, Malaise Pulmonary: Dyspnea, Cough Cardiovascular: No: Chest Pain, Palpitations Gastrointestinal: Constipation; No: Nausea, Abdominal Pain Genitourinary: No Dysuria 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: Weakness, Confusion Objective Exam Vital Signs Vital Signs - First Documented 10/11/20 10/11/20 10/11/20 10/13/20 06:57 08:00 18:00 13:31 Temp 36.4 Pulse 108 Resp 20 B/P (MAP) 138/80 (99) Pulse Ox 97 O2 Delivery Room Air O2 Flow Rate 2.00 FiO2 28 Capillary Refill : General Appearance: No Apparent Distress, WD/WN Eyes: Bilateral Eye Normal Inspection, Bilateral Eye PERRL, Bilateral Eye EOMI HEENT: PERRL/EOMI, Pharynx Normal Neck: Full Range of Motion, Supple Respiratory: Chest Non Tender, Crackles, Decreased Breath Sounds Cardiovascular: Regular Rate, Rhythm, Systolic Murmur (II/ DOROTHY) Gastrointestinal: Normal Bowel Sounds, Non Tender, Soft Rectal: Deferred Back: Normal Inspection, No Vertebral Tenderness Extremity: Normal Capillary Refill, Normal Inspection, Normal Range of Motion, Non Tender, No Calf Tenderness, No Pedal Edema Neurologic/Psychiatric: Alert, Oriented x3, hall clerk II-XII Norm as Tested, Other (ANXIETY/DEPRESSION) Skin: Warm/Dry Lymphatic: No Adenopathy Results Lab Laboratory Tests 10/14/20 10:59: Glucometer 433*H 10/14/20 15:34: Glucometer 378H 10/14/20 20:01: Glucometer 463*H 10/15/20 05:39: Glucometer 194H Assessment/Plan Assessment/Plan Admission Dx CHF ACUTE SYSTOLIC METASTATIC LESION OF SKULL AND BRAIN - SMALL CELL FALLING EPISODES SMALL CELL LUNG CANCER HYPERCALCEMIA ANEMIA HYPONATREMIA DIABETES MELLITUS CORONARY ARTERY DISEASE Assessment and Plan CHF ACUTE SYSTOLIC METASTATIC LESION OF SKULL AND BRAIN - SMALL CELL FALLING EPISODES SMALL CELL LUNG CANCER HYPERCALCEMIA ANEMIA HYPONATREMIA DIABETES MELLITUS CORONARY ARTERY DISEASE INSOMNIA CHF ACUTE SYSTOLIC - IV LASIX, MONITOR SYMPTOMS METASTATIC LESION OF SKULL WITH FALLING EPISODES AND HX OF RECENT DX OF SMALL CELL LUNG CANCER - MRI OF BRAIN IMPRESSION: 1: There is interval development of numerous nodular and ring-enhancing masses seen throughout both cerebral hemispheres and two areas possibly involving the right and left posterior fossa regions, concerning for metastatic disease. There is no brain herniation or intracranial hemorrhage. 2: There is enhancement and irregular appearance of the lytic lesion involving the posterior right parieto-occipital region, consistent with osseous metastas is. This lesion was seen on the prior CT scan. - CONSULT PLACED TO DR. SCHROEDER - - CONSULT PLACED TO RADIATION ONCOLOGY PT WAS TRANSITIONED FROM IV STEROID TO ORAL STEROID ON 10/12/[address] SCHROEDER - PT RECEIVING RADIATION TO BRAIN, DEFER TO RAD-ONC HYPERCALCEMIA - SUPPORTIVE CARE - HAS RECEIVED IV PAMIDRONATE ANEMIA - STATUS POST TRANSFUSION - REPEAT LABS TOMORROW HYPONATREMIA - IV FLUIDS, MONITOR LABS ' DIABETES MELLITUS - MONITOR FSBS ACHS - RESUMED HOME REGIMEN CORONARY ARTERY DISEASE INSOMNIA - SCHEDULE ATIVAN AT HS Admission Dx CHF ACUTE SYSTOLIC METASTATIC LESION OF SKULL AND BRAIN - SMALL CELL FALLING EPISODES SMALL CELL LUNG CANCER HYPERCALCEMIA ANEMIA HYPONATREMIA DIABETES MELLITUS CORONARY ARTERY DISEASE Clinical Quality Measures Admission Status Admission Dx CHF ACUTE SYSTOLIC METASTATIC LESION OF SKULL AND BRAIN - SMALL CELL FALLING EPISODES SMALL CELL LUNG CANCER HYPERCALCEMIA ANEMIA HYPONATREMIA DIABETES MELLITUS CORONARY ARTERY DISEASE JUNE SHAHID MD Oct 15, 2020 08:49
[2020-10-15] MEDS ORDERED: RT-ALBUTEROL/IPRATROPIUM 3 ML (DUONEB) VIAL INH ONE (09:00)
[2020-10-15] MEDS: SENNA W/DOCUSATE (SENOKOT S) TABLET PO SCH ×2 (09:08→19:57)
[2020-10-15] MEDS: DULoxetine 30 MG (CYMBALTA) CAP PO SCH (09:08)
[2020-10-15] MEDS: RIVAROXABAN 20 MG TABLET (XARELTO) PO SCH (09:08)
[2020-10-15] MEDS: meTOprolol TARTRATE 50 MG (LOPRESSOR) TAB PO SCH ×2 (09:09→19:57)
[2020-10-15] MEDS: RT--FLUTICASONE/SALMETEROL 113-14 (AIRDUO RespiCLICK) IH SCH ×2 (09:26→22:17)
[2020-10-15] MEDS: LORazepam 0.5 MG (ATIVAN) TABLET PO PRN (10:15)
--- NOTE | 2020-10-15 11:12 | Physical Therapy Daily Note ---
PT Daily Note-Current Subjective Patient just returned from radiation. AGrees to PT. Mental Status Patient Orientation: Normal For Age Attachments: Oxygen Transfers SCALE: Activities may be completed with or without assistive devices. 4-Iyoqmkokwa-ojxyrzc completes the activity by him/herself with no assistance from a helper. 5-Set-up or Clean-up Assistance-helper sets up or cleans up; patient completes activity. [place] assists only prior to or following the activity. 4-Supervision or Touching Assistance-helper provides verbal cues and/or touching/steadying and/or contact guard assistance as patient completes activity. Assistance may be provided throughout the activity or intermittently. 3-Partial/Moderate Assistance-helper does LESS THAN HALF the effort. [place] lifts, holds or supports trunk or limbs, but provides less than half the effort. 2-Substantial/Maximal Assistance-helper does MORE THAN HALF the effort. [place] lifts or holds trunk or limbs and provides more than half the effort. 4-Dushlmvdg-nuxjsq does ALL the effort. Patient does none of the effort to complete the activity. Or, the assistance of 2 or more helpers is required for the patient to complete the activity. If activity was not attempted, code reason: 7-Patient Refused. 9-Not Applicable-not attempted and the patient did not perform the activity before the current illness, exacerbation or injury. 10-Not Attempted due to Environmental Limitations-(lack of equipment, weather restraints, etc.). 88-Not Attempted due to Medical Conditions or Safety Concerns. Sit to Lying (QC): 6 Sit to Stand (QC): 6 Gait Training Does the Patient Walk?: Yes Distance: 500' Walk 10 feet (QC): 6 Walk 50 ft with 2 Turns(QC): 6 Walk 150 ft (QC): 6 Gait Assistive Device: FWW slow, steady gait sequence Assessment Patient tolerated ambulation and did report fatigue. Patient in bed with needs met. Plans dismissal this week. PT Labor And Delivery Registered Nurse Goals Longterm Goals PT Labor And Delivery Registered Nurse Goals Time Frame: Oct 27, 2020 Roll Left & Right (QC): 6 Sit to Lying (QC): 6 Lying-Sitting on Side/Bed(QC): 6 Sit to Stand (QC): 6 Chair/Pod-aq-Yaqqk Xfer(QC): 6 Toilet Transfer (QC): 6 Car Transfer (QC): 6 Does the Patient Walk: Yes Walk 10 feet (QC): 6 Walk 50ft with 2 Turns (QC): 6 Walk 150 ft (QC): 6 Walking 10ft on Uneven Surface: 6 1 Step (curb) (QC): 6 4 Steps (QC): 6 12 Steps (QC): 9 Picking up an Object (QC): 6 Wheel 50 feet with 2 turns (QC: 9 Type: N/A Wheel 150 feet: 9 Type: N/A PT Plan Treatment/Plan Treatment Plan: Continue Plan of Care Treatment Plan: Education, Functional Activity [place], Functional Strength, Gait, Safety, Therapeutic Exercise, Transfers Treatment Duration: Oct 27, 2020 Frequency: 6 times per week Estimated Hrs Per Day: .25 hour per day Patient and/or Family Agrees t: Yes Time/GCodes Time In: 1048 Time Out: 1103 Total Billed Treatment Time: 15 Total Billed Treatment 1 visit FA 15 min DESIRE MALCOLM PT Oct 15, 2020 11:12
--- NOTE | 2020-10-15 11:15 | Occupational Ther Daily Note ---
OT Current Status-Daily Note Subjective Pt alert, sitting in bed. Pt agrees to therapy. No c/o pain. Pt finishing up with PT. Mental Status/Objective Patient Orientation: Person, Place, Time, Situation Attachments: IV ADL-Treatment Therapy Code Descriptions/Definitions Functional [place] Measure: 0=Not Assessed/NA 4=Minimal Assistance 1=Total Assistance 5=Supervision or Setup 2=Maximal Assistance 6=Modified [place] 3=Moderate Assistance 7=Complete IndependenceSCALE: Activities may be completed with or without assistive devices. 7-Gswvvbmuks-lywpgjy completes the activity by him/herself with no assistance from a helper. 5-Set-up or Clean-up Assistance-helper sets up or cleans up; patient completes activity. [place] assists only prior to or following the activity. 4-Supervision or Touching Assistance-helper provides verbal cues and/or touching/steadying and/or contact guard assistance as patient completes activity. Assistance may be provided throughout the activity or intermittently. 3-Partial/Moderate Assistance-helper does LESS THAN HALF the effort. [place] lifts, holds or supports trunk or limbs, but provides less than half the effort. 2-Substantial/Maximal Assistance-helper does MORE THAN HALF the effort. [place] lifts or holds trunk or limbs and provides more than half the effort. 8-Jdatbcrie-wipzgl does ALL the effort. Patient does none of the effort to complete the activity. Or, the assistance of 2 or more helpers is required for the patient to complete the activity. If activity was not attempted, code reason: 7-Patient Refused. 9-Not Applicable-not attempted and the patient did not perform the activity before the current illness, exacerbation or injury. 10-Not Attempted due to Environmental Limitations-(lack of equipment, weather restraints, etc.). 88-Not Attempted due to Medical Conditions or Safety Concerns. Other Treatment Pt states that she is able to complete all ADLs independently. Pt educated on medium resistance theraband exercises and HEP. Pt completed 6 B UE exercises with modifications due to increased fatigue and decreased strength. 1 set 10 reps with multiple recovery breaks. Pt unable to complete effective B shldr horizontal abd/add, modified for alternating B UE's. Pt instructed to complete 1 set multiple times throughout the day and to increase when exercises become easy. After session, pt sitting up in bed with call light/phone in reach. All needs met in room. OT Lawn Mower Repairer Goals Lawn Mower Repairer Goals Time Frame: Oct 25, 2020 Eating (QC): 6 Oral Hygiene (QC): 6 Toileting Hygiene (QC): 6 Shower/Bathe Self (QC): 6 Upper Body Dressing (QC): 6 Lower Body Dressing (QC): 6 On/Off Footwear (QC): 6 Additional Goals: 1-Demonstrate ADL Tasks, 2-Verbalize Understanding, 3- ImproveStrength/[place] 1=Demonstrate adherence to instructed precautions during ADL tasks. 2=Patient will verbalize/demonstrate understanding of assistive devices/modifications for ADL. 3=Patient will improve strength/tolerance for activity to enable patient to perform ADL's. OT Education/Plan Problem List/Assessment Assessment: Decreased Activ Tolerance, Decreased UE Strength Discharge Recommendations Plan/Recommendations: Continue POC Treatment Plan/Plan of Care Patient would benefit from OT for education, treatment and training to promote independence in ADL's, mobility, safety and/or upper extremity function for ADL's. Plan of Care: ADL Retraining, Functional Mobility, UE Funct Exercise/Act Treatment Duration: Oct 25, 2020 Frequency: 5 times per week Estimated Hrs Per Day: .25 hour per day Agreement: Yes Rehab Potential: Guarded Time/GCodes Start Time: 11:03 Stop Time: 11:18 Total Time Billed (hr/min): 15 Billed Treatment Time 1 visit-EX 1 (15 min) MARYCARMEN STEWART Oct 15, 2020 11:15
[2020-10-15 11:22] LABS: HEMATOCRIT 31 % (35-52); HEMOGLOBIN 9.7 g/dL (11.5-16.0); MEAN CORPUSCULAR HEMOGLOBIN 27 pg (25-34); MEAN CORPUSCULAR HGB CONC 31 g/dL (32-36); MEAN CORPUSCULAR VOLUME 88 fL (80-99); MEAN PLATELET VOLUME 8.8 fL (9.0-12.2); PLATELET COUNT 522 10^3/uL (130-400); WHITE BLOOD COUNT 13.5 10^3/uL (4.3-11.0)
[2020-10-15 11:49] LABS: ALANINE AMINOTRANSFERASE 28 U/L (0-55); ALBUMIN 3.1 GM/DL (3.2-4.5); ALKALINE PHOSPHATASE 86 U/L (40-136); BILIRUBIN,TOTAL 0.2 MG/DL (0.1-1.0); BUN/CREATININE RATIO 25; CALCIUM 9.4 MG/DL (8.5-10.1); CARBON DIOXIDE 26 MMOL/L (21-32); CHLORIDE 93 MMOL/L (98-107); CREATININE SERUM 0.64 MG/DL (0.60-1.30); GFR ESTIMATED > 60; GLUCOSE 221 MG/DL (70-105); POTASSIUM 4.4 MMOL/L (3.6-5.0); SODIUM 131 MMOL/L (135-145); TOTAL PROTEIN 6.9 GM/DL (6.4-8.2)
[2020-10-15 19:06] VITALS: BP 118/70
[2020-10-15] MEDS: MELATONIN 3 MG TABLET PO SCH (19:57)
[2020-10-15] MEDS: LORazepam 0.5 MG (ATIVAN) TABLET PO SCH (19:57)
[2020-10-16] MEDS: RT-ALBUTEROL/IPRATROPIUM 3 ML (DUONEB) VIAL INH SCH ×4 (02:31→21:43)
[2020-10-16] MEDS: inSUlin ASPART (NovoLOG) 1 UNIT/0.01 ML (CHARGE PER UNIT) SC SCH ×4 (06:24→21:18)
[2020-10-16] MEDS: NYSTATIN ORAL SUSP 5 ML UDC PO SCH ×3 (06:24→21:17)
[2020-10-16] MEDS: metFORMIN 500 MG (GLUCOPHAGE) TAB PO SCH ×2 (06:25→16:29)
[2020-10-16] MEDS: FUROSEMIDE 40 MG/4 ML INJ (LASIX) IVP SCH ×2 (06:25→16:28)
[2020-10-16] MEDS: KCL 20 MEQ TAB (K-DUR) PO SCH (06:25)
[2020-10-16] MEDS: HYDROcodone/APAP 5 MG/325 MG (LORTAB) TAB PO PRN (06:34)
[2020-10-16] MEDS: RT--FLUTICASONE/SALMETEROL 113-14 (AIRDUO RespiCLICK) IH SCH ×2 (07:02→21:43)
[2020-10-16 08:00] VITALS: BP 98/62
[2020-10-16] MEDS: SENNA W/DOCUSATE (SENOKOT S) TABLET PO SCH ×2 (09:18→21:18)
[2020-10-16] MEDS: RIVAROXABAN 20 MG TABLET (XARELTO) PO SCH (09:18)
[2020-10-16] MEDS: DULoxetine 30 MG (CYMBALTA) CAP PO SCH (09:18)
[2020-10-16] MEDS: meTOprolol TARTRATE 50 MG (LOPRESSOR) TAB PO SCH ×2 (09:24→21:18)
--- NOTE | 2020-10-16 09:30 | Progress Note ---
Subjective Subjective PT IS A 69 Y/O FEMALE WHO IS KNOWN TO ME FROM CLINIC. 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 Review of Systems General: No Chills; Fatigue, Malaise Pulmonary: Dyspnea, Cough Cardiovascular: No: Chest Pain, Palpitations Gastrointestinal: Constipation; No: Nausea, Abdominal Pain Genitourinary: No Dysuria 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: Weakness, Confusion Objective Exam Vital Signs Vital Signs - First Documented 10/11/20 10/11/20 10/11/20 10/13/20 06:57 08:00 18:00 13:31 Temp 36.4 Pulse 108 Resp 20 B/P (MAP) 138/80 (99) Pulse Ox 97 O2 Delivery Room Air O2 Flow Rate 2.00 FiO2 28 Capillary Refill : General Appearance: No Apparent Distress, WD/WN Eyes: Bilateral Eye Normal Inspection, Bilateral Eye PERRL, Bilateral Eye EOMI HEENT: PERRL/EOMI, Pharynx Normal Neck: Full Range of Motion, Supple Respiratory: Chest Non Tender, Crackles, Decreased Breath Sounds Cardiovascular: Regular Rate, Rhythm, Systolic Murmur (II/ DOROTHY) Gastrointestinal: Normal Bowel Sounds, Non Tender, Soft Rectal: Deferred Back: Normal Inspection, No Vertebral Tenderness Extremity: Normal Capillary Refill, Normal Inspection, Normal Range of Motion, Non Tender, No Calf Tenderness, No Pedal Edema Neurologic/Psychiatric: Alert, Oriented x3, cargo bracer II-XII Norm as Tested, Other (ANXIETY/DEPRESSION) Skin: Warm/Dry Lymphatic: No Adenopathy Results Lab Laboratory Tests 10/15/20 11:08: Glucometer 208H 10/15/20 11:10: White Blood Count 13.5H, Red Blood Count 3.59L, Hemoglobin 9.7L, Hematocrit 31L, Mean Corpuscular Volume 88, Mean Corpuscular Hemoglobin 27, Mean Corpuscular Hemoglobin Concent 31L, Red Cell Distribution Width 17.1H, Platelet Count 522H, Mean Platelet Volume 8.8L, Sodium Level 131L, Potassium Level 4.4, Chloride Level 93L, Carbon Dioxide Level 26, Anion Gap 12, Blood Urea Nitrogen 16, Creatinine 0.64, Estimat Glomerular Filtration Rate > 60, BUN/Creatinine Ratio 25, Glucose Level 221H, Calcium Level 9.4, Corrected Calcium 10.1, Magnesium Level 2.0, Total Bilirubin 0.2, Aspartate Amino Transf (AST/SGOT) 15, Alanine Aminotransferase (ALT/SGPT) 28, Alkaline Phosphatase 86, Total Protein 6.9, Albumin 3.1L 10/15/20 15:18: Glucometer 262H 10/15/20 20:32: Glucometer 363H 10/16/20 05:27: Glucometer 219H Assessment/Plan Assessment/Plan Admission Dx CHF ACUTE SYSTOLIC METASTATIC LESION OF SKULL AND BRAIN - SMALL CELL FALLING EPISODES SMALL CELL LUNG CANCER HYPERCALCEMIA ANEMIA HYPONATREMIA DIABETES MELLITUS CORONARY ARTERY DISEASE Assessment and Plan CHF ACUTE SYSTOLIC METASTATIC LESION OF SKULL AND BRAIN - SMALL CELL FALLING EPISODES SMALL CELL LUNG CANCER HYPERCALCEMIA ANEMIA HYPONATREMIA DIABETES MELLITUS CORONARY ARTERY DISEASE INSOMNIA CHF ACUTE SYSTOLIC - IV LASIX, MONITOR SYMPTOMS METASTATIC LESION OF SKULL WITH FALLING EPISODES AND HX OF RECENT DX OF SMALL CELL LUNG CANCER - MRI OF BRAIN IMPRESSION: 1: There is interval development of numerous nodular and ring-enhancing masses seen throughout both cerebral hemispheres and two areas possibly involving the right and left posterior fossa regions, concerning for metastatic disease. There is no brain herniation or intracranial hemorrhage. 2: There is enhancement and irregular appearance of the lytic lesion involving the posterior right parieto-occipital region, consistent with osseous metastasis. This lesion was seen on the prior CT scan. - CONSULT PLACED TO DR. SCHROEDER - - CONSULT PLACED TO RADIATION ONCOLOGY PT WAS TRANSITIONED FROM IV STEROID TO ORAL STEROID ON 10/12/[address] SCHROEDER - PT RECEIVING RADIATION TO BRAIN, DEFER TO RAD-ONC HYPERCALCEMIA - SUPPORTIVE CARE - HAS RECEIVED IV PAMIDRONATE ANEMIA - STATUS POST TRANSFUSION - REPEAT LABS TOMORROW HYPONATREMIA - IV FLUIDS, MONITOR LABS ' DIABETES MELLITUS - MONITOR FSBS ACHS - RESUMED HOME REGIMEN CORONARY ARTERY DISEASE INSOMNIA - SCHEDULE ATIVAN AT HS Admission Dx CHF ACUTE SYSTOLIC METASTATIC LESION OF SKULL AND BRAIN - SMALL CELL FALLING EPISODES SMALL CELL LUNG CANCER HYPERCALCEMIA ANEMIA HYPONATREMIA DIABETES MELLITUS CORONARY ARTERY DISEASE Clinical Quality Measures Admission Status Admission Dx CHF ACUTE SYSTOLIC METASTATIC LESION OF SKULL AND BRAIN - SMALL CELL FALLING EPISODES SMALL CELL LUNG CANCER HYPERCALCEMIA ANEMIA HYPONATREMIA DIABETES MELLITUS CORONARY ARTERY DISEASE JUNE SHAHID MD Oct 16, 2020 09:30
--- NOTE | 2020-10-16 10:17 | Occupational Ther Daily Note ---
OT Current Status-Daily Note Subjective Pt alert, just getting back from radiation treatment. Pt agrees to therapy. No c/o pain. Mental Status/Objective Patient Orientation: Person, Place, Time, Situation Attachments: IV ADL-Treatment Pt states that she has already bathed, dressed and completed oral care, independently. Discussed home environment with safety and energy conservation in mind. Pt describes home states that she has tub seat at home but likes taking a bath. Went over safe tub transfers and energy conservation techniques. 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 Laundry is downstairs, places laundry in trash bag then throws it down the stair so she does not have to carry items. Brother brings laundry up stairs and assists pt when she is unable to fully complete IADLs. Therapy Code Descriptions/Definitions Functional [place] Measure: 0=Not Assessed/NA 4=Minimal Assistance 1=Total Assistance 5=Supervision or Setup 2=Maximal Assistance 6=Modified [place] 3=Moderate Assistance 7=Complete IndependenceSCALE: Activities may be completed with or without assistive devices. 2-Xrbmtjxyvx-mjqerzj completes the activity by him/herself with no assistance from a helper. 5-Set-up or Clean-up Assistance-helper sets up or cleans up; patient completes activity. [place] assists only prior to or following the activity. 4-Supervision or Touching Assistance-helper provides verbal cues and/or touching/steadying and/or contact guard assistance as patient completes activity. Assistance may be provided throughout the activity or intermittently. 3-Partial/Moderate Assistance-helper does LESS THAN HALF the effort. [place] lifts, holds or supports trunk or limbs, but provides less than half the effort. 2-Substantial/Maximal Assistance-helper does MORE THAN HALF the effort. [place] lifts or holds trunk or limbs and provides more than half the effort. 5-Qqwuaodkc-sqxgna does ALL the effort. Patient does none of the effort to complete the activity. Or, the assistance of 2 or more helpers is required for the patient to complete the activity. If activity was not attempted, code reason: 7-Patient Refused. 9-Not Applicable-not attempted and the patient did not perform the activity before the current illness, exacerbation or injury. 10-Not Attempted due to Environmental Limitations-(lack of equipment, weather restraints, etc.). 88-Not Attempted due to Medical Conditions or Safety Concerns. Eating (QC): 6 (Per clinical judgement) Oral Hygiene (QC): 6 (per pt report) Shower/Bathe Self (QC): 6 (per pt report) Upper Body Dressing (QC): 6 (per pt report) Lower Body Dressing (QC): 6 (per pt report) On/Off Footwear: 6 (per pt report) Toileting Hygiene (QC): 6 (per pt report) Toilet Transfer (QC): 6 (per pt report) Other Treatment Pt was able to complete 2 of 6 B UE exercises by self then requires verbal and gestural cues to use correct technique. Pt able to complete B UE exercises 1 set 10 reps. After session, pt lying in bed with call light/phone in reach. All needs met in room. OT Senior Care Goals Senior Care Goals Time Frame: Oct 25, 2020 Eating (QC): 6 Oral Hygiene (QC): 6 Toileting Hygiene (QC): 6 Shower/Bathe Self (QC): 6 Upper Body Dressing (QC): 6 Lower Body Dressing (QC): 6 On/Off Footwear (QC): 6 Additional Goals: 1-Demonstrate ADL Tasks, 2-Verbalize Understanding, 3- ImproveStrength/[place] 1=Demonstrate adherence to instructed precautions during ADL tasks. 2=Patient will verbalize/demonstrate understanding of assistive devices/modifications for ADL. 3=Patient will improve strength/tolerance for activity to enable patient to perform ADL's. OT Education/Plan Problem List/Assessment Assessment: Decreased Activ Tolerance, Decreased UE Strength, Impaired I ADL's Discharge Recommendations Plan/Recommendations: Continue POC Treatment Plan/Plan of Care Patient would benefit from OT for education, treatment and training to promote independence in ADL's, mobility, safety and/or upper extremity function for ADL's. Plan of Care: ADL Retraining, Functional Mobility, UE Funct Exercise/Act Treatment Duration: Oct 25, 2020 Frequency: 5 times per week Estimated Hrs Per Day: .25 hour per day Agreement: Yes Rehab Potential: Guarded Time/GCodes Start Time: 09:55 Stop Time: 10:10 Total Time Billed (hr/min): 15 Billed Treatment Time 1 visit-FA 1 (15 min) MARYCARMEN STEWART Oct 16, 2020 10:17
[2020-10-16] MEDS: ONDANSETRON 4 MG/2 ML (SDV) Z0FRAN IVP PRN (10:25)
--- NOTE | 2020-10-16 14:37 | Physical Therapy Daily Note ---
PT Daily Note-Current Subjective Patient reports she is going home tomorrow. Agrees to PT. Mental Status Patient Orientation: Normal For Age Attachments: Oxygen Transfers SCALE: Activities may be completed with or without assistive devices. 2-Wcmhhazbwz-takekhz completes the activity by him/herself with no assistance from a helper. 5-Set-up or Clean-up Assistance-helper sets up or cleans up; patient completes activity. [place] assists only prior to or following the activity. 4-Supervision or Touching Assistance-helper provides verbal cues and/or touching/steadying and/or contact guard assistance as patient completes activity. Assistance may be provided throughout the activity or intermittently. 3-Partial/Moderate Assistance-helper does LESS THAN HALF the effort. [place] lifts, holds or supports trunk or limbs, but provides less than half the effort. 2-Substantial/Maximal Assistance-helper does MORE THAN HALF the effort. [place] lifts or holds trunk or limbs and provides more than half the effort. 0-Cpdgfwrbc-zphrua does ALL the effort. Patient does none of the effort to complete the activity. Or, the assistance of 2 or more helpers is required for the patient to complete the activity. If activity was not attempted, code reason: 7-Patient Refused. 9-Not Applicable-not attempted and the patient did not perform the activity before the current illness, exacerbation or injury. 10-Not Attempted due to Environmental Limitations-(lack of equipment, weather restraints, etc.). 88-Not Attempted due to Medical Conditions or Safety Concerns. Roll Left & Right (QC): 6 Sit to Lying (QC): 6 Lying to Sitting/Side of Bed(Q: 6 Sit to Stand (QC): 6 Chair/Pwp-wg-Jutfp Xfer(QC): 6 Toilet Transfer (QC): 6 Car Transfer (QC): 6 Gait Training Does the Patient Walk?: Yes Distance: 500' Walk 10 feet (QC): 6 Walk 50 ft with 2 Turns(QC): 6 Walk 150 ft (QC): 6 Walking 10ft/uneven surface-QC: 6 Gait Assistive Device: FWW safe and functional with no deviation Wheelchair Training Does the Pt Use a Wheelchair?: No Wheel 50 ft with 2 turns (QC): 9 Wheel 150 ft (QC): 9 Stair Training Stair Training: Handrails/: 2 handrails #of Steps: 4 1 Step (curb) (QC): 6 4 Steps (QC): 6 12 Steps (QC): 9 Stairs: Pattern: Reciprocal Balance Picking up an Object (QC): 6 Assessment Patient tolerated treatment well and has attained all functional goals. Patient is highly motivated by progress and returning to home. PT Chcf Goals Chcf Goals PT Chcf Goals Time Frame: Oct 27, 2020 Roll Left & Right (QC): 6 (met 10/16/20) Sit to Lying (QC): 6 (met 10/16/20) Lying-Sitting on Side/Bed(QC): 6 (met 10/16/20) Sit to Stand (QC): 6 (met 10/16/20) Chair/Mwj-hg-Gbxvh Xfer(QC): 6 (met 10/16/20) Toilet Transfer (QC): 6 (met 10/16/20) Car Transfer (QC): 6 (met 10/16/20) Does the Patient Walk: Yes Walk 10 feet (QC): 6 (met 10/16/20) Walk 50ft with 2 Turns (QC): 6 (met 10/16/20) Walk 150 ft (QC): 6 (met 10/16/20) Walking 10ft on Uneven Surface: 6 (met 10/16/20) 1 Step (curb) (QC): 6 (met 10/16/20) 4 Steps (QC): 6 (met 10/16/20) 12 Steps (QC): 9 (met 10/16/20) Picking up an Object (QC): 6 (met 10/16/20) Wheel 50 feet with 2 turns (QC: 9 (met 10/16/20) Type: N/A Wheel 150 feet: 9 (met 10/16/20) Type: N/A PT Plan Treatment/Plan Treatment Plan: Continue Plan of Care Treatment Plan: Education, Functional Activity [place], Functional Strength, Gait, Safety, Therapeutic Exercise, Transfers Treatment Duration: Oct 27, 2020 Frequency: 6 times per week Estimated Hrs Per Day: .25 hour per day Patient and/or Family Agrees t: Yes Time/GCodes Time In: 1337 Time Out: 1352 Total Billed Treatment Time: 15 Total Billed Treatment 1 visit FA 15 min DESIRE MALCOLM PT Oct 16, 2020 14:37
--- NOTE | 2020-10-16 17:18 | Progress Note ---
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 Patient has started palliative whole brain radiation therapy and has completed 4 fractions. She is on dexamethasone 4 mg IV every 8 hours. I will change this to 4 mg p.o. every 12 hours with food starting this evening. Patient has received pamidronate 60 mg IV for the hypercalcemia along with IV fluids. Calcium level has normalized. Blood sugars are elevated because of dexamethasone and she is on sliding scale insulin. Overall she is feeling much better and ambulating well. Tentatively scheduled for discharge in next 1 to 2 days. Patient's brother was in room during interview who will be transporting her for daily radiation treatments. Diagnosed with oral candidiasis and on nystatin swish and swallow with improvement. Instructed to continue this until dexamethasone has been completely weaned off. Follow-up with me at the cancer center in approximately 2 weeks. ELIJAH SCHROEDER Oct 16, 2020 17:18
[2020-10-16 20:10] VITALS: BP 112/60
[2020-10-16] MEDS: LORazepam 0.5 MG (ATIVAN) TABLET PO SCH (21:17)
[2020-10-16] MEDS: MELATONIN 3 MG TABLET PO SCH (21:17)
[2020-10-17] MEDS: RT-ALBUTEROL/IPRATROPIUM 3 ML (DUONEB) VIAL INH SCH ×2 (02:20→09:14)
[2020-10-17] MEDS: inSUlin ASPART (NovoLOG) 1 UNIT/0.01 ML (CHARGE PER UNIT) SC SCH (06:14)
[2020-10-17] MEDS: NYSTATIN ORAL SUSP 5 ML UDC PO SCH (06:14)
[2020-10-17] MEDS: KCL 20 MEQ TAB (K-DUR) PO SCH (06:15)
[2020-10-17] MEDS: metFORMIN 500 MG (GLUCOPHAGE) TAB PO SCH (06:15)
[2020-10-17] MEDS: FUROSEMIDE 40 MG/4 ML INJ (LASIX) IVP SCH (06:15)
[2020-10-17] MEDS: HYDROcodone/APAP 5 MG/325 MG (LORTAB) TAB PO PRN (06:17)
[2020-10-17 08:00] VITALS: BP 109/68
--- NOTE | 2020-10-17 08:35 | Discharge Summary ---
Diagnosis/Chief Complaint Date of Admission Oct 11, 2020 at 10:01 Date of Discharge Reason Hospital Visit PT IS A 69 Y/O FEMALE WHO IS KNOWN TO ME FROM CLINIC. SHE PRESENTED TO THE HOSPITAL WITH WEAKNESS AND FALLING EPISODES. SHE WAS ADMITTED TO THE ICU, HAD IMAGING WHICH REVEALED METASTATIC SMALL CELL TO THE BRAIN. PT WAS ADMITTED TO SWING BED STATUS FOR WHOLE BRAIN RADIATION, IV STEROIDS, AND FURTHER MONITORING OF HER LABS/SYMPTOMS AND STRENGTHENING. Discharge Summary Discharge Physical Examination Allergies: Coded Allergies: ciprofloxacin (Verified Allergy, Severe, TENDONITIS, 09/19/20) TENDONITIS morphine (Verified Allergy, Severe, RASH/ BURNING SENSATION, 09/19/20) Vitals & I&Os Vital Signs Date Time Temp Pulse Resp B/P (MAP) Pulse Ox O2 Delivery O2 Flow Rate FiO2 10/17/20 02:20 96 Room Air 10/16/20 20:35 2.00 10/16/20 20:10 36.4 107 18 112/60 (77) 10/15/20 06:03 21 Hospital Course Pending Labs Laboratory Tests 10/17/20 05:01: Glucometer 219 Discharge Instructions to patient/family Please see electronic discharge instructions given to patient. Discharge Medications Reviewed and agree with Discharge Medication list on patient's Discharge Instruction sheet JUNE SHAHID MD Oct 17, 2020 08:35
[2020-10-17] MEDS ORDERED: ACHD5005 PO (08:41)
[2020-10-17] MEDS ORDERED: NYST1000 PO (08:41)
[2020-10-17] MEDS ORDERED: METO50TA15 PO (08:41)
[2020-10-17] MEDS ORDERED: MELA3TAB39 PO (08:41)
[2020-10-17] MEDS ORDERED: DEXA4TAB PO (08:41)
[2020-10-17] MEDS ORDERED: POTA20TA8 PO (08:41)
[2020-10-17] MEDS ORDERED: SALI45SP MM (08:41)
[2020-10-17] MEDS ORDERED: FURO-125 PO (08:41)
[2020-10-17] MEDS ORDERED: SENN1TAB76 PO (08:41)
--- NOTE | 2020-10-17 08:44 | D/C HH Face to Face Order ---
D/C Face to Face Orders Reconcile Patient Problems Problems Reviewed?: Yes Instructions for Patient Via POW, Patient Instructions/FollowUp: 1WK FOLLOW UP WITH ZEHRA HERRERA Physician to follow Patient: ZEHRA Discharge Diet for Home: ADA Diet Patient Problems: CHF ACUTE SYSTOLIC METASTATIC LESION OF SKULL AND BRAIN - SMALL CELL FALLING EPISODES SMALL CELL LUNG CANCER HYPERCALCEMIA ANEMIA HYPONATREMIA DIABETES MELLITUS CORONARY ARTERY DISEASE INSOMNIA Patient Data-Allergies,Ht & Wt Patient Allergies: Coded Allergies: ciprofloxacin (Verified Allergy, Severe, TENDONITIS, 09/19/20) TENDONITIS morphine (Verified Allergy, Severe, RASH/ BURNING SENSATION, 09/19/20) Height (Feet): 5 Height (Inches): 6.00 Weight (Pounds): 208 Weight (Ounces): 0.0 Home Health Need/Face to Face Date of Face to Face: Oct 17, 2020 Clinical Findings: Instability, Muscle weakness, Shortness of breath, Unsteady gait I have seen Pt ttxq-[id number]: Yes Discharged To: Home Diagnosis/Conditions: CHF ACUTE SYSTOLIC METASTATIC LESION OF SKULL AND BRAIN - SMALL CELL FALLING EPISODES SMALL CELL LUNG CANCER HYPERCALCEMIA ANEMIA HYPONATREMIA DIABETES MELLITUS CORONARY ARTERY DISEASE INSOMNIA Patient is Homebound due to: Steve fall risk due to instabilty, Muscle weakness Homebound Status Due to the above stated illness, injury or surgical procedure (medical condition or diagnosis) and associated clinical findings, the patient is homebound because of his/her inability to leave home except with aid of a supportive device and/or person AND leaving the home requires a considerable and taxing effort or is medically contraindicated. Pt req the following assistanc: Walker Home Health Nursing Orders Home Health Services Order: Nursing Services, Physical Therapy-Evaluate & Treat CBC, CMP IN ONE WEEK FROM DC Therapy Orders Therapy Orders: PT to assess for OT Therapy Specific Orders: Eval assistive deivces, Teach enviro modifications/safety, Increase strength/endurance Certify Stmt I certify that this patient is under my care and that I, a nurse practitioner or a physician; a high school assistant principal working with me, had a face to face encounter that - meets the physician face to face encounter requirements with this patient as dated. JUNE SHAHID MD Oct 17, 2020 08:44
[2020-10-17] MEDS: RT--FLUTICASONE/SALMETEROL 113-14 (AIRDUO RespiCLICK) IH SCH (09:13)
[2020-10-17] MEDS: SENNA W/DOCUSATE (SENOKOT S) TABLET PO SCH (09:14)
[2020-10-17] MEDS: DULoxetine 30 MG (CYMBALTA) CAP PO SCH (09:15)
[2020-10-17] MEDS: RIVAROXABAN 20 MG TABLET (XARELTO) PO SCH (09:15)
[2020-10-17] MEDS: meTOprolol TARTRATE 50 MG (LOPRESSOR) TAB PO SCH (09:16)
--- NOTE | 2020-10-17 11:01 | Therapy Team Discharge Summary ---
Therapy Discharge Summary Discharge Recommendations Date of Discharge Oct 17, 2020 at 10:10 Physical Therapy Patient dismissing to home on this date at independent LOF with all gross motor skills. Patient ambulates with FWW >500' and is up independently in room. Patient/PT addressed goals and patient attained all functional goals set. Occupational Therapy Decreased Activ Tolerance, Decreased UE Strength, Impaired I ADL's PT Penitentiary Goals Penitentiary Goals PT Photographic Printer Goals Time Frame: Oct 27, 2020 Roll Left to Right (QC): 6 (met 10/16/20) Sit to Lying (QC): 6 (met 10/16/20) Lying-Sitting on Side/Bed(QC): 6 (met 10/16/20) Sit to Stand (QC): 6 (met 10/16/20) Chair/Rlu-yu-Taiss Xfer(QC): 6 (met 10/16/20) Car Transfer (QC): 6 (met 10/16/20) Does the Patient Walk: Yes Walk 10 feet (QC): 6 (met 10/16/20) Walk 10ft-Uneven Surface(QC): 6 (met 10/16/20) Walk 50ft with 2 Turns (QC): 6 (met 10/16/20) Walk 150 ft (QC): 6 (met 10/16/20) Wheel 50 feet with 2 turns (QC: 9 (met 10/16/20) 1 Step (curb) (QC): 6 (met 10/16/20) 4 Steps (QC): 6 (met 10/16/20) 12 Steps (QC): 9 (met 10/16/20) Picking up an Object (QC): 6 (met 10/16/20) OT Penitentiary Goals Penitentiary Goals Time Frame: Oct 25, 2020 Eating (QC): 6 Oral Hygiene (QC): 6 Shower/Bathe Self (QC): 6 Upper Body Dressing (QC): 6 Lower Body Dressing (QC): 6 On/Off Footwear (QC): 6 Toileting Hygiene (QC): 6 Toilet/Commode Transfer (QC): 6 (met 10/16/20) Additional Goals: 1-Demonstrate ADL Tasks, 2-Verbalize Understanding, 3- ImproveStrength/[place] 1=Demonstrate adherence to instructed precautions during ADL tasks. 2=Patient will verbalize/demonstrate understanding of assistive devices/modifications for ADL. 3=Patient will improve strength/tolerance for activity to enable patient to perform ADL's. DESIRE MALCOLM PT Oct 17, 2020 11:01
--- NOTE | 2020-10-17 15:16 | Therapy Team Discharge Summary ---
Therapy Discharge Summary Discharge Recommendations Date of Discharge Oct 17, 2020 at 10:10 Occupational Therapy Pt admitted to [facility] with lung cancer, mets to brain. At OF, pt was independent with all ADLs and functional mobility. Upon initial evaluation, pt was independent with eating, oral care, footwear and toileting, required SBA showering, SBA lower body dressing and set up upper body dressing. OT tx focused on increasing safety and independence with ADLs and functional mobility, as well as increasing BUE strength and activity tolerance. At discharge, pt was ind ependent with all ADLs, meeting all LTGs. Pt discharged from facility, d/c from OT. Decreased Activ Tolerance, Decreased UE Strength, Impaired I ADL's PT Longterm Goals Applications Manager Goals PT Applications Manager Goals Time Frame: Oct 27, 2020 Roll Left to Right (QC): 6 (met 10/16/20) Sit to Lying (QC): 6 (met 10/16/20) Lying-Sitting on Side/Bed(QC): 6 (met 10/16/20) Sit to Stand (QC): 6 (met 10/16/20) Chair/Wsz-dy-Usgwc Xfer(QC): 6 (met 10/16/20) Car Transfer (QC): 6 (met 10/16/20) Does the Patient Walk: Yes Walk 10 feet (QC): 6 (met 10/16/20) Walk 10ft-Uneven Surface(QC): 6 (met 10/16/20) Walk 50ft with 2 Turns (QC): 6 (met 10/16/20) Walk 150 ft (QC): 6 (met 10/16/20) Wheel 50 feet with 2 turns (QC: 9 (met 10/16/20) 1 Step (curb) (QC): 6 (met 10/16/20) 4 Steps (QC): 6 (met 10/16/20) 12 Steps (QC): 9 (met 10/16/20) Picking up an Object (QC): 6 (met 10/16/20) OT Applications Manager Goals Applications Manager Goals Time Frame: Oct 25, 2020 Eating (QC): 6 (met) Oral Hygiene (QC): 6 (met) Shower/Bathe Self (QC): 6 (met) Upper Body Dressing (QC): 6 (met) Lower Body Dressing (QC): 6 (met) On/Off Footwear (QC): 6 (met) Toileting Hygiene (QC): 6 (met) Toilet/Commode Transfer (QC): 6 (met 10/16/20) Additional Goals: 1-Demonstrate ADL Tasks, 2-Verbalize Understanding, 3- ImproveStrength/[place] 1=Demonstrate adherence to instructed precautions during ADL tasks. 2=Patient will verbalize/demonstrate understanding of assistive devices/modifications for ADL. 3=Patient will improve strength/tolerance for activity to enable patient to perform ADL's. TONI HERNANDEZ OT Oct 17, 2020 15:16
[2020-10-19] MEDS ORDERED: ACHD5005 PO ×2 (09:42→13:24)
[2020-10-19] MEDS ORDERED: LORA-404 PO (13:24)
== END 2020-10-17 10:10 | disposition home health service (06) | DRG 54 ==
LOC: 4TH 10:01
PROVIDERS: ADMIT Family Medicine; ATTEND Family Medicine
DX: C79.31 Secondary malignant neoplasm of brain (principal); I50.21 Acute systolic (congestive) heart failure; C34.90 Malignant neoplasm of unspecified part of unspecified bronchus or lung; E87.1 Hypo-osmolality and hyponatremia; B37.0 Candidal stomatitis; I11.0 Hypertensive heart disease with heart failure; E83.52 Hypercalcemia; D64.9 Anemia, unspecified; E78.00 Pure hypercholesterolemia, unspecified; I25.10 Atherosclerotic heart disease of native coronary artery without angina pectoris; J44.9 Chronic obstructive pulmonary disease, unspecified; F17.210 Nicotine dependence, cigarettes, uncomplicated; E11.40 Type 2 diabetes mellitus with diabetic neuropathy, unspecified; K21.9 Gastro-esophageal reflux disease without esophagitis; F41.9 Anxiety disorder, unspecified; F32.9 Major depressive disorder, single episode, unspecified; Z79.4 Long term (current) use of insulin; Z88.6 Allergy status to analgesic agent; Z88.1 Allergy status to other antibiotic agents; Z79.82 Long term (current) use of aspirin
CPT/HCPCS: 36415; 71046; 77295; 77300; 77334; 77417; 80048; 80053; 82947; 83735; 85027; 94640; 94760; 94761

== ENCOUNTER 2020-10-18 12:48 | Observation (INO) | payer MEDICARE, MEDICAID ==
[~2020-10-18] VITALS: Ht 167.7 cm; Wt 69.6 kg
[~2020-10-18 12:48] MED LIST changes: +DEXA4TAB PO; +FURO-125 PO; +MELA3TAB39 PO; +METO50TA15 PO; +NYST1000 PO; +POTA20TA8 PO; +SALI45SP MM; +SENN1TAB76 PO
--- NOTE | 2020-10-18 13:25 | ED General ---
General Stated Complaint: CONFUSION,WEAKNESS, CA PT Source of Information: Patient Exam Limitations: No Limitations History of Present Illness Date Seen by Provider: Oct 18, 2020 Time Seen by Provider: 13:10 Initial Comments Patient is a 69-year-old female who presents to the emergency department today with a chief complaint of generalized weakness, confusion this morning with her medications and feeling unsafe at home. 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 Patient is currently on dexamethasone twice daily for treatment of her brain metastasis. Patient states this morning she got confused with her medications and did not know which ones to take. She has been considering going into an assisted living facility, [facility]. Patient denies any recent fevers or chills. She has had a slight cough that is occasionally productive. No shortness of breath. No abdominal pain she is a little nauseated. No diarrhea. No excessive swelling in her lower extremities. No rashes. No problems with urination. Patient has a brother who is her medical power of middle school director and a nephew who is present here in the emergency department. All other review of systems reviewed and negative except as stated above. Timing/Duration: 1-2 Days, Getting Worse Severity: Moderate Associated Systoms: Headaches, Nausea/Vomiting Allergies and Home Medications Allergies Coded Allergies: ciprofloxacin (Verified Allergy, Severe, TENDONITIS, 10/18/20) TENDONITIS morphine (Verified Allergy, Severe, RASH/ BURNING SENSATION, 10/18/20) Home Medications Acetaminophen 500 Mg Tablet, 1,000 MG PO Q8H PRN for PAIN-MILD (1-4), (Reported) Albuterol Sulfate 2.5 Mg/3 Ml Vial.neb, 2.5 MG NEB BID PRN for SHORTNESS OF BREATH, (Reported) Albuterol Sulfate 6.7 Gm Hfa.aer.ad, 2 PUFF INH Q4H PRN for SHORTNESS OF BREATH, (Reported) Aspirin 81 Mg Tab.chew, 81 MG PO HS, (Reported) Dexamethasone 4 Mg Tablet, 4 MG PO BID WITH MEALS TAKE TWICE DAILY WITH MEALS X 7 MORE DAYS THEN DECREASE TO DAILY X 3 DAYS THEN 1/2 TAB DAILY X 3 DAYS THEN STOP Prescribed by: JUNE SHAHID on 10/17/20 0841 Duloxetine HCl 30 Mg Capsule.dr, 30 MG PO DAILY, (Reported) Fluticasone Propionate 16 Gm [place].susp, 1 SPRAY NSEACH DAILY, (Reported) Fluticasone/Umeclidin/Vilanter 1 Each Blst.w.dev, 1 PUFF INH DAILY, (Reported) Furosemide 20 Mg Tablet, 20 MG PO DAILY Prescribed by: JUNE SHAHID on 10/17/20840 Hydrocodone/Acetaminophen 1 Each Tablet, 1 TAB PO Q4H PRN for PAIN-MODERATE (5- 7) Prescribed by: JUNE SHAHID on 10/17/20840 Insulin Detemir 100 Unit/1 Ml Insuln.pen, 15 UNIT SQ BID, (Reported) Insulin Regular, Human 100 Unit/1 Ml Insuln.pen, 5-7 UNITS SC AC, (Reported) Lorazepam 0.5 Mg Tablet, 0.5 MG PO TID PRN for ANXIETY, (Reported) Melatonin 3 Mg Tablet, 6 MG PO HS Prescribed by: JUNE SHAHID on 10/17/20840 Metformin HCl 500 Mg Tablet, 1,000 MG PO BID, (Reported) TAKES 2 (500MG) TABS LAST FILLED 08-22-2020 #120/30 DAY SUPPLY Metoprolol Tartrate 50 Mg Tablet, 50 MG PO BID Prescribed by: JUNE SHAHID on 10/17/20840 Montelukast Sodium 10 Mg Tablet, 10 MG PO DAILY, (Reported) Nitroglycerin 0.4 Mg Tab.subl, 0.4 MG SL UD PRN for CHEST PAIN, (Reported) Nystatin 100,000 Unit/1 Ml Oral.susp, 5 ML PO Q8HR Prescribed by: JUNE SHAHID on 10/17/20840 [place]-3 Fatty Acids/Fish Oil 1 Each Capsule, 2 EACH PO DAILY, (Reported) Ondansetron HCl 8 Mg Tablet, 8 MG PO Q8H PRN for NAUSEA/VOMITING-1ST LINE, (Reported) Pantoprazole Sodium 40 Mg Tablet.dr, 40 MG PO DAILY, (Reported) Potassium Chloride 20 Meq Tab.er.prt, 20 MEQ PO DAILY@0700 Prescribed by: JUNE SHAHID on 10/17/20840 Rivaroxaban 20 Mg Tablet, 20 MG PO DAILY, (Reported) Saliva Stimulant Agents Comb.3 1 Each [place], 1 EACH MM NEEDED PRN for DRY MOUTH Prescribed by: JUNE SHAHID on 7/14/21 0841 Sennosides/Docusate Sodium 1 Each Tablet, 1 EA PO BID Prescribed by: JUNE SHAHID on 10/17/20 0841 Ubidecarenone 100 Mg Capsule, 100 MG PO DAILY, (Reported) Patient Home Medication List Home Medication List Reviewed: Yes Review of Systems Review of Systems Constitutional: see HPI EENTM: no symptoms reported Respiratory: cough Cardiovascular: no symptoms reported Gastrointestinal: nausea Genitourinary: no symptoms reported Musculoskeletal: no symptoms reported Skin: no symptoms reported Psychiatric/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: Depressed, Headache, Weakness Past Rohzjju-Vsvmbx-Ajcezm Hx Immunizations Up To Date Tetanus Booster (TDap): Unknown PED Vaccines UTD: No Seasonal Allergies Seasonal Allergies: No Past Medical History Surgeries: Yes ((shoulder, back sx, knee sc, bilat CTR, breast bx, achilles sx, port)) Angioplasty, Appendectomy, Bowel Surgery, Cardiac, Gallbladder, Hysterectomy, Joint Replacement, Lobectomy, Orthopedic, Tubal Ligation Respiratory: Yes COPD Currently Using CPAP: No Currently Using BIPAP: No Cardiac: Yes Coronary Artery Disease, High Cholesterol, Hypertension 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: No Neuropathy [employer] TE[employer]ER History: Hysterectomy Genitourinary: No Gastrointestinal: No Gastroesophageal Reflux Musculoskeletal: Yes Arthritis Endocrine: Yes Diabetes, Insulin dep HEENT: No Loss of Vision: Denies Hearing Impairment: Denies Cancer: No Lung Did You Recieve Any Treatments: Yes What Type of Treatment Did You: Chemotherapy, Radiation Psychosocial: Yes Anxiety, Depression Integumentary: No Blood Disorders: No Family Medical History Heart Disease, Hypertension Father - NHL diagnosed in his late 60's MGM - renal cancer PGF - lung cancer Physical Exam Vital Signs Vital Signs - First Documented 10/18/20 13:00 Temp 36.0 Pulse 81 Resp 17 B/P (MAP) 96/54 (68) Pulse Ox 20 O2 Delivery Room Air Capillary Refill : Height, Weight, BMI Height: 5'6.00" Weight: 208lbs. 0.0oz. [id number]; 25.38 BMI Method: General Appearance: No Apparent Distress, WD/WN Eyes: Bilateral Eye Normal Inspection, Bilateral Eye PERRL, Bilateral Eye EOMI HEENT: PERRL/EOMI Neck: Normal Inspection Respiratory: Lungs Clear, Normal Breath Sounds, No Accessory Muscle Use, No Respiratory Distress Cardiovascular: Regular Rate, Rhythm, Systolic Murmur Gastrointestinal: Non Tender, Soft Extremity: Normal Capillary Refill, Normal Inspection, Non Tender, No Calf Tenderness Neurologic/Psychiatric: Alert, Oriented x3, No Motor/Sensory Deficits, 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 Skin: Normal Color, Warm/Dry Progress/Results/Core Measures Suspected Sepsis SIRS Temperature: Pulse: Respiratory Rate: Laboratory Tests 10/18/20 13:19: White Blood Count 13.5H Blood Pressure / Mean: Laboratory Tests 10/18/20 13:19: Creatinine 0.71, Platelet Count 481H, Total Bilirubin 0.4 Results/Orders Lab Results Laboratory Tests Test 10/18/20 13:19 10/18/20 14:50 Range/Units White Blood Count 13.5 H 4.3-11.0 10^3/uL Red Blood Count 4.00 3.80-5.11 10^6/uL Hemoglobin 10.5 L 11.5-16.0 g/dL Hematocrit 34 L 35-52 % Mean Corpuscular Volume 85 80-99 fL Mean Corpuscular Hemoglobin 26 25-34 pg Mean Corpuscular Hemoglobin Concent 31 L 32-36 g/dL Red Cell Distribution Width 17.0 H 10.0-14.5 % Platelet Count 481 H 130-400 10^3/uL Mean Platelet Volume 9.2 9.0-12.2 fL Immature Granulocyte % (Auto) 2 % Neutrophils (%) (Auto) 85 H 42-75 % Lymphocytes (%) (Auto) 6 L 12-44 % Monocytes (%) (Auto) 6 0-12 % Eosinophils (%) (Auto) 1 0-10 % Basophils (%) (Auto) 0 0-10 % Neutrophils # (Auto) 11.5 H 1.8-7.8 10^3/uL Lymphocytes # (Auto) 0.8 L 1.0-4.0 10^3/uL Monocytes # (Auto) 0.9 0.0-1.0 10^3/uL Eosinophils # (Auto) 0.1 0.0-0.3 10^3/uL Basophils # (Auto) 0.0 0.0-0.1 10^3/uL Immature Granulocyte # (Auto) 0.2 H 0.0-0.1 10^3/uL Neutrophils % (Manual) 86 % Lymphocytes % (Manual) 6 % Monocytes % (Manual) 5 % Eosinophils % (Manual) 0 % Basophils % (Manual) 0 % Band Neutrophils 3 % Anisocytosis SLIGHT Sodium Level 130 L 135-145 MMOL/L Potassium Level 4.5 3.6-5.0 MMOL/L Chloride Level 93 L 98-107 MMOL/L Carbon Dioxide Level 26 21-32 MMOL/L Anion Gap 11 5-14 MMOL/L Blood Urea Nitrogen 24 H 7-18 MG/DL Creatinine 0.71 0.60-1.30 MG/DL Estimat Glomerular Filtration Rate > 60 BUN/Creatinine Ratio 34 Glucose Level 220 H 70-105 MG/DL Calcium Level 9.9 8.5-10.1 MG/DL Corrected Calcium 10.7 H 8.5-10.1 MG/DL Total Bilirubin 0.4 0.1-1.0 MG/DL Aspartate Amino Transf (AST/SGOT) 17 5-34 U/L Alanine Aminotransferase (ALT/SGPT) 26 0-55 U/L Alkaline Phosphatase 97 40-136 U/L Total Protein 6.5 6.4-8.2 GM/DL Albumin 3.0 L 3.2-4.5 GM/DL Urine Color YELLOW Urine Clarity CLEAR Urine pH 6.0 5-9 Urine Specific [place] 1.020 1.016-1.022 Urine Protein TRACE H NEGATIVE Urine Glucose (UA) NEGATIVE NEGATIVE Urine Ketones NEGATIVE NEGATIVE Urine Nitrite NEGATIVE NEGATIVE Urine Bilirubin NEGATIVE NEGATIVE Urine Urobilinogen 0.2 < = 1.0 MG/DL Urine Leukocyte Esterase TRACE H NEGATIVE Urine RBC (Auto) NEGATIVE NEGATIVE Urine RBC NONE /HPF Urine WBC 5-10 H /HPF Urine Squamous Epithelial Cells 10-25 H /HPF Urine Crystals NONE /LPF Urine Bacteria FEW H /HPF Urine Casts NONE /LPF Urine Mucus NEGATIVE /LPF Urine Culture Indicated YES My Orders Orders - RORY DAVID MD Cbc With Automated Diff (10/18/20 13:20) Comprehensive Metabolic Panel (10/18/20 13:20) Ua Culture If Indicated (10/18/20 13:20) Six Color Press Operator Consult (10/18/20 13:20) Manual Differential (10/18/20 13:19) Ondansetron Oral Dissolve Tab (Zofran (10/18/20 13:45) Urine Culture (10/18/20 14:50) Medications Given in ED Vital Signs/I&O 10/18/20 13:00 Temp 36.0 Pulse 81 Resp 17 B/P (MAP) 96/54 (68) Pulse Ox 20 O2 Delivery Room Air Capillary Refill : Progress Note : Time: 15:39 Progress Note I did discuss Ms. Latham's case with her nephew who is quite concerned with her being discharged home. He states she cannot come home secondary to her confusion, inability to ambulate and take care of herself around the house. She has been running into [facility] and not aware of the meds she is taking and has only been out of the hospital 24 hours. he states she is very weak and continuing to have headaches. Departure Communication (Admissions) Time/Spoke to Admitting Phy: 15:15 Case and care discussed with Dr. Kinney. Pending placement to [facility] versus obvious admission for placement tomorrow Impression Primary Impression: Generalized weakness Additional Impressions: Confusion Lung cancer metastatic to brain Disposition: ADMITTED INPATIENT Condition: Stable Admissions Decision to Admit Reason: Admit from ER (General) Decision to Admit/Date: Oct 18, 2020 Time/Decision to Admit Time: 16:00 Departure-Patient Inst. Referrals: JUNE SHAHID MD (PCP/Family) Primary Care Physician Copy Copies To 1: JUNE SHAHID MD, KATHRYN M MD Oct 18, 2020 13:25
[2020-10-18 13:28] LABS: BASOPHILS % (AUTO) 0 % (0-10); EOSINOPHILS # (AUTO) 0.1 10^3/uL (0.0-0.3); EOSINOPHILS % (AUTO) 1 % (0-10); HEMATOCRIT 34 % (35-52); HEMOGLOBIN 10.5 g/dL (11.5-16.0); LYMPHOCYTES # (AUTO) 0.8 10^3/uL (1.0-4.0); LYMPHOCYTES % (AUTO) 6 % (12-44); MEAN CORPUSCULAR HEMOGLOBIN 26 pg (25-34); MEAN CORPUSCULAR HGB CONC 31 g/dL (32-36); MEAN CORPUSCULAR VOLUME 85 fL (80-99); MEAN PLATELET VOLUME 9.2 fL (9.0-12.2); MONOCYTES # (AUTO) 0.9 10^3/uL (0.0-1.0); MONOCYTES % (AUTO) 6 % (0-12); NEUTROPHILS # (AUTO) 11.5 10^3/uL (1.8-7.8); NEUTROPHILS % (AUTO) 85 % (42-75); PLATELET COUNT 481 10^3/uL (130-400); WHITE BLOOD COUNT 13.5 10^3/uL (4.3-11.0)
[2020-10-18] MEDS ORDERED: ONDANSETRON 4 MG (ZOFRAN) ORAL DISSOLVE TAB PO ONE (13:45)
[2020-10-18 13:48] LABS: CHLORIDE 93 MMOL/L (98-107); POTASSIUM 4.5 MMOL/L (3.6-5.0); SODIUM 130 MMOL/L (135-145)
[2020-10-18 13:49] LABS: CALCIUM 9.9 MG/DL (8.5-10.1)
[2020-10-18 13:50] LABS: GLUCOSE 220 MG/DL (70-105); TOTAL PROTEIN 6.5 GM/DL (6.4-8.2)
[2020-10-18 13:51] LABS: CARBON DIOXIDE 26 MMOL/L (21-32)
[2020-10-18 13:52] LABS: BILIRUBIN,TOTAL 0.4 MG/DL (0.1-1.0)
[2020-10-18 13:53] LABS: ALKALINE PHOSPHATASE 97 U/L (40-136); BAND NEUTROPHILS 3 %; BASOPHILS % (MANUAL) 0 %; EOSINOPHILS % (MANUAL) 0 %; LYMPHOCYTES % (MANUAL) 6 %; MONOCYTES % (MANUAL) 5 %; NEUTROPHILS % (MANUAL) 86 %
[2020-10-18 13:54] LABS: ANISOCYTOSIS SLIGHT; CREATININE SERUM 0.71 MG/DL (0.60-1.30); GFR ESTIMATED > 60
[2020-10-18 13:55] LABS: BUN/CREATININE RATIO 34
[2020-10-18 13:57] LABS: ALANINE AMINOTRANSFERASE 26 U/L (0-55)
[2020-10-18 15:01] LABS: BILIRUBIN,URINE NEGATIVE (NEGATIVE); CLARITY,URINE CLEAR; COLOR,URINE YELLOW; GLUCOSE, URINE (UA) NEGATIVE (NEGATIVE); KETONES,URINE NEGATIVE (NEGATIVE); LEUKOCYTE ESTERASE ,URINE TRACE (NEGATIVE); NITRITE,URINE NEGATIVE (NEGATIVE); PROTEIN,URINE TRACE (NEGATIVE)
[2020-10-18 15:07] LABS: BACTERIA,URINE FEW /HPF
[2020-10-18 17:23] VITALS: BP 109/56
[2020-10-18] MEDS ORDERED: CATHETER FLUSH 10 ML SYR IV PRN (17:45)
[2020-10-18 18:23] VITALS: BP 109/56
[2020-10-18] MEDS ORDERED: RT-ALBUTEROL SULF 2.5 MG/3 ML PRE-MIX VIAL INH PRN (18:30)
[2020-10-18] MEDS ORDERED: ACETAMINOPHEN 325 MG TABLET PO PRN (19:00)
[2020-10-18] MEDS ORDERED: cefTRIAXone 1,000 MG in WATER (STERILE) FOR INJECTION 10 ML IV NR (19:00)
[2020-10-18 19:27] VITALS: BP 84/45
[2020-10-18] MEDS: NS IV 1000 ML 1,000 ML IV SCH (19:41)
[2020-10-18] MEDS: RT--FLUTICASONE/SALMETEROL 113-14 (AIRDUO RespiCLICK) IH SCH (20:00)
[2020-10-18] MEDS ORDERED: ADVAIR HFA 115/21 MCG INHALER 8 GM IH SCH (21:00)
[2020-10-18] MEDS: MELATONIN 3 MG TABLET PO SCH ×2 (21:30→21:36)
[2020-10-18 21:31] VITALS: BP 108/63
[2020-10-18] MEDS: CATHETER FLUSH 10 ML SYR IV SCH (21:31)
[2020-10-18 23:30] VITALS: BP 119/72
[2020-10-19 03:42] VITALS: BP 126/72
[2020-10-19] MEDS: NS IV 1000 ML 1,000 ML IV SCH ×2 (04:53→15:07)
[2020-10-19] MEDS: CATHETER FLUSH 10 ML SYR IV SCH ×2 (05:29→12:06)
[2020-10-19 08:01] VITALS: BP 118/69
[2020-10-19] MEDS: RT--FLUTICASONE/SALMETEROL 113-14 (AIRDUO RespiCLICK) IH SCH (08:27)
[2020-10-19] MEDS ORDERED: ACHD5005 PO ×2 (09:42→13:24)
[2020-10-19] MEDS ORDERED: FURO20TA4 PO (09:42)
[2020-10-19] MEDS ORDERED: NYST1000 PO (09:42)
[2020-10-19] MEDS ORDERED: POTA20TA15 PO (09:42)
[2020-10-19] MEDS ORDERED: MELA3TAB39 PO (09:42)
[2020-10-19] MEDS ORDERED: DEXA4TAB PO (09:42)
[2020-10-19] MEDS ORDERED: METO50TA15 PO (09:42)
[2020-10-19 10:18] LABS: BASOPHILS % (AUTO) 0 % (0-10); EOSINOPHILS # (AUTO) 0.1 10^3/uL (0.0-0.3); EOSINOPHILS % (AUTO) 1 % (0-10); HEMATOCRIT 40 % (35-52); HEMOGLOBIN 12.5 g/dL (11.5-16.0); LYMPHOCYTES # (AUTO) 0.5 10^3/uL (1.0-4.0); LYMPHOCYTES % (AUTO) 7 % (12-44); MEAN CORPUSCULAR HEMOGLOBIN 27 pg (25-34); MEAN CORPUSCULAR HGB CONC 31 g/dL (32-36); MEAN CORPUSCULAR VOLUME 85 fL (80-99); MONOCYTES # (AUTO) 0.5 10^3/uL (0.0-1.0); MONOCYTES % (AUTO) 8 % (0-12); NEUTROPHILS # (AUTO) 5.4 10^3/uL (1.8-7.8); NEUTROPHILS % (AUTO) 82 % (42-75); PLATELET COUNT 304 10^3/uL (130-400); WHITE BLOOD COUNT 6.6 10^3/uL (4.3-11.0)
[2020-10-19 10:34] LABS: BUN/CREATININE RATIO 26; CALCIUM 8.5 MG/DL (8.5-10.1); CARBON DIOXIDE 22 MMOL/L (21-32); CHLORIDE 101 MMOL/L (98-107); CREATININE SERUM 0.65 MG/DL (0.60-1.30); GFR ESTIMATED > 60; GLUCOSE 350 MG/DL (70-105); POTASSIUM 4.1 MMOL/L (3.6-5.0); SODIUM 131 MMOL/L (135-145)
[2020-10-19] MEDS ORDERED: inSUlin ASPART (NovoLOG) 1 UNIT/0.01 ML (CHARGE PER UNIT) SC SCH (11:45)
--- NOTE | 2020-10-19 13:11 | Short Stay Summary ---
History of Present Illness History of Present Illness Reason for visit/HPI This is a 69 year old female patient of Dr. 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 She was originally admitted for weakness and confusion. She was brought back to the emergency room the day after her discharge after she was found by her nephew to be confused, weak and dizzy. She has been contemplating going into assisted living and the plan was for her to be readmitted under observation status pending either a bed at a [facility] facility or assisted living. Date of Admission Oct 18, 2020 at 16:31 Date of Discharge Time Seen by Provider: 09:30 Attending Physician Kellie Tapia DO Admitting Physician Jennifer Aleman MD Consult This is a 69 year old female patient of Dr. 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 She was originally admitted for weakness, dizziness and confusion. She was brought back to the emergency room the day after her discharge after she was found by her nephew to be confused, weak and dizzy. She has been contemplating going into assisted living and the plan was for her to be readmitted under observation status pending either a bed at a [facility] facility or assisted living. She was admitted to the medical floor, she was given IV fluids overnight and her home meds were restarted. By the following day she reported that she felt well enough to go home and did not want to go to the SNF or AL. I encouraged her to go to the SNF for further strengthening while she finished up her radiation. After talking with the protective services social worker from the cancer center and a bed being available at [facility], the patient was agreeable to discharge to the SNF. Allergies and Home Medications Allergies Coded Allergies: ciprofloxacin (Verified Allergy, Severe, TENDONITIS, 10/18/20) TENDONITIS morphine (Verified Allergy, Severe, RASH/ BURNING SENSATION, 10/18/20) Home Medications Acetaminophen 500 Mg Tablet, 1,000 MG PO Q8H PRN for PAIN-MILD (1-4), (Reported) Last Action: Reviewed Albuterol Sulfate 2.5 Mg/3 Ml Vial.neb, 2.5 MG NEB BID PRN for SHORTNESS OF BREATH, (Reported) Last Action: Reviewed Albuterol Sulfate 6.7 Gm Hfa.aer.ad, 2 PUFF INH Q4H PRN for SHORTNESS OF BREATH, (Reported) Last Action: Reviewed Aspirin 81 Mg Tab.chew, 81 MG PO HS, (Reported) Last Action: Reviewed Dexamethasone 4 Mg Tablet, 4 MG PO BID WITH MEALS, (Reported) TAKE TWICE DAILY WITH MEALS X 7 MORE DAYS THEN DECREASE TO DAILY X 3 DAYS THEN 1/2 TAB DAILY X 3 DAYS THEN STOP Last Action: Reviewed Duloxetine HCl 30 Mg Capsule.dr, 30 MG PO DAILY, (Reported) Last Action: Reviewed Fluticasone Propionate 16 Gm [place].susp, 1 SPRAY NSEACH DAILY, (Reported) Last Action: Reviewed Fluticasone/Umeclidin/Vilanter 1 Each Blst.w.dev, 1 PUFF INH DAILY, (Reported) Last Action: Reviewed Furosemide 20 Mg Tablet, 20 MG PO DAILY, (Reported) Last Action: Reviewed Hydrocodone/Acetaminophen 1 Each Tablet, 1 TAB PO Q4H PRN for PAIN-MODERATE (5- 7), (Reported) Last Action: Reviewed Insulin Detemir 100 Unit/1 Ml Insuln.pen, 15 UNIT SQ BID, (Reported) Last Action: Reviewed Insulin Regular, Human 100 Unit/1 Ml Insuln.pen, 5-7 UNITS SC AC, (Reported) Last Action: Reviewed Lorazepam 0.5 Mg Tablet, 0.5 MG PO TID PRN for ANXIETY, (Reported) Last Action: Reviewed Melatonin 3 Mg Tablet, 6 MG PO HS, (Reported) TAKES 2 (3MG) TABLETS Last Action: Reviewed Metformin HCl 500 Mg Tablet, 1,000 MG PO BID, (Reported) TAKES 2 (500MG) TABS LAST FILLED 08-22-2020 #120/30 DAY SUPPLY Last Action: Reviewed Metoprolol Tartrate 50 Mg Tablet, 50 MG PO BID, (Reported) Last Action: Reviewed Montelukast Sodium 10 Mg Tablet, 10 MG PO DAILY, (Reported) Last Action: Reviewed Nystatin 100,000 Unit/1 Ml Oral.susp, 5 ML PO Q8H, (Reported) Last Action: Reviewed Sawyer-3 Fatty Acids/Fish Oil 1 Each Capsule, 2 EACH PO DAILY, (Reported) Last Action: Reviewed Ondansetron HCl 8 Mg Tablet, 8 MG PO Q8H PRN for NAUSEA/VOMITING-1ST LINE, (Reported) Last Action: Reviewed Pantoprazole Sodium 40 Mg Tablet.dr, 40 MG PO DAILY, (Reported) Last Action: Reviewed Potassium Chloride 20 Meq Tab.er.prt, 20 MEQ PO DAILY, (Reported) Last Action: Reviewed Rivaroxaban 20 Mg Tablet, 20 MG PO DAILY, (Reported) Last Action: Reviewed Ubidecarenone 100 Mg Capsule, 100 MG PO DAILY, (Reported) Last Action: Reviewed Patient Home Medication List Home Medication List Reviewed: Yes Past Hvhbyoa-Ogegjb-Gwqhne Hx Patient Social History Smoking Status: Current Everyday Smoker 2nd Hand Smoke Exposure: No Recent Hopitalizations: No Have you traveled recently?: No Alcohol Use?: No Pt feels they are or have been: No Immunizations Up To Date Tetanus Booster (TDap): Unknown Pediatric: No Date of Pneumonia Vaccine: Jan 03, 2019 Date of Influenza Vaccine: Jan 24, 2020 Seasonal Allergies Seasonal Allergies: No Surgeries Yes ((shoulder, back sx, knee sc, bilat CTR, breast bx, achilles sx, port)) Angioplasty, Appendectomy, Bowel Surgery, Cardiac, Gallbladder, Hysterectomy, Joint Replacement, Lobectomy, Orthopedic, Tubal Ligation Respiratory Yes COPD Currently Using CPAP: No Currently Using BIPAP: No Cardiovascular Yes Coronary Artery Disease, High Cholesterol, Hypertension 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 No Neuropathy Reproductive System [employer] History: Hysterectomy Genitourinary No Gastrointestinal No Gastroesophageal Reflux Musculoskeletal Yes Arthritis Endocrine History of Endocrine Disorders: Yes Endocrine Disorders: Diabetes, Insulin dep HEENT History of HEENT Disorders: No Loss of Vision: Denies Hearing Impairment: Denies Cancer No Lung Did You Recieve Any Treatments: Yes Type of Treatment: Chemotherapy, Radiation Psychosocial History of Psychiatric Problem: Yes Behavioral Health Disorders: Anxiety, Depression Integumentary History of Skin or Integumenta: No Blood Transfusions History of Blood Disorders: No Family Medical History Significant Family History: Heart Disease, Hypertension Other Significan Family Hx: Father - NHL diagnosed in his late 60's MGM - renal cancer PGF - lung cancer Review of Systems Constitutional: malaise, weakness EENTM: No see HPI, No no symptoms reported, No ear discharge, No hearing loss, No ear pain, No blurred vision, No double vision, No eye pain, No tearing, No vision loss, No dental problems, No hoarseness, No mouth pain, No mouth swelling, No epistaxis, No nose congestion, No nose pain, No throat pain, No throat swelling, No other Respiratory: No no symptoms reported, No see HPI, No cough, No dyspnea on exertion, No hemoptysis, No orthopnea, No phlegm, No short of breath, No stridor, No wheezing, No other Cardiovascular: No no symptoms reported, No see HPI, No chest pain, No edema, No Hx of Intervention, No palpitations, No syncope, No vascular heart diseas, No other Gastrointestinal: loss of appetite Genitourinary: No no symptoms reported, No see HPI, No decreased output, No discharge, No dysuria, No frequency, No hematuria, No hesitancy, No incontinence, No nocturia, No pain, No other Musculoskeletal: muscle weakness Skin: No no symptoms reported, No see HPI, No change in color, No change in hair/nails, No dryness, No hx of skin cancer, No lesions, No lumps, No pruritus, No rash, No other Psychiatric/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: Weakness, Other (dizziness) Physical Exam Vital Signs Vital Signs - First Documented 10/18/20 10/18/20 13:00 18:23 Temp 36.0 Pulse 81 Resp 17 B/P (MAP) 96/54 (68) Pulse Ox 20 O2 Delivery Room Air FiO2 21 Capillary Refill : Less Than 3 Seconds Height, Weight, BMI Height: 5'6.00" Weight: 208lbs. 0.0oz. [id number]; 24.74 BMI Method: General Appearance: Mild Distress (tearful) Neck: Supple Respiratory: Lungs Clear Cardiovascular: Regular Rate, Rhythm, Systolic Murmur Gastrointestinal: Normal Bowel Sounds, Non Tender, Soft Rectal: Deferred Back: No CVA Tenderness Extremity: Non Tender, No Calf Tenderness, No Pedal Edema Neurologic/Psychiatric: Alert, Oriented x3 Skin: Warm/Dry Comments Laboratory Tests 10/18/20 13:19: White Blood Count 13.5H, Red Blood Count 4.00, Hemoglobin 10.5L, Hematocrit 34L, Mean Corpuscular Volume 85, Mean Corpuscular Hemoglobin 26, Mean Corpuscular Hemoglobin Concent 31L, Red Cell Distribution Width 17.0H, Platelet Count 481H, Mean Platelet Volume 9.2, Immature Granulocyte % (Auto) 2, Neutrophils (%) (Auto) 85H, Lymphocytes (%) (Auto) 6L, Monocytes (%) (Auto) 6, Eosinophils (%) (Auto) 1, Basophils (%) (Auto) 0, Neutrophils # (Auto) 11.5H, Lymphocytes # (Aut o) 0.8L, Monocytes # (Auto) 0.9, Eosinophils # (Auto) 0.1, Basophils # (Auto) 0.0, Immature Granulocyte # (Auto) 0.2H, Neutrophils % (Manual) 86, Lymphocytes % (Manual) 6, Monocytes % (Manual) 5, Eosinophils % (Manual) 0, Basophils % (Manual) 0, Band Neutrophils 3, Anisocytosis SLIGHT, Sodium Level 130L, Potassium Level 4.5, Chloride Level 93L, Carbon Dioxide Level 26, Anion Gap 11, Blood Urea Nitrogen 24H, Creatinine 0.71, Estimat Glomerular Filtration Rate > 60, BUN/Creatinine Ratio 34, Glucose Level 220H, Calcium Level 9.9, Corrected Calcium 10.7H, Total Bilirubin 0.4, Aspartate Amino Transf (AST/SGOT) 17, Alanine Aminotransferase (ALT/SGPT) 26, Alkaline Phosphatase 97, Total Protein 6.5, Albumin 3.0L 10/18/20 14:50: Urine Color YELLOW, Urine Clarity CLEAR, Urine pH 6.0, Urine Specific [place] 1.020, Urine Protein TRACEH, Urine Glucose (UA) NEGATIVE, Urine Ketones NEGATIVE, Urine Nitrite NEGATIVE, Urine Bilirubin NEGATIVE, Urine Urobilinogen 0.2, Urine Leukocyte Esterase TRACEH, Urine RBC (Auto) NEGATIVE, Urine RBC NONE, Urine WBC 5-10H, Urine Squamous Epithelial Cells 10-25H, Urine Crystals NONE, Urine Bacteria FEWH, Urine Casts NONE, Urine Mucus NEGATIVE, Urine Culture Indicated YES 10/19/20 10:09: White Blood Count 6.6, Red Blood Count 4.71, Hemoglobin 12.5, Hematocrit 40, Mean Corpuscular Volume 85, Mean Corpuscular Hemoglobin 27, Mean Corpuscular Hemoglobin Concent 31L, Red Cell Distribution Width 16.8H, Platelet Count 304, Mean Platelet Volume 9.0, Immature Granulocyte % (Auto) 2, Neutrophils (%) (Auto) 82H, Lymphocytes (%) (Auto) 7L, Monocytes (%) (Auto) 8, Eosinophils (%) (Auto) 1, Basophils (%) (Auto) 0, Neutrophils # (Auto) 5.4, Lymphocytes # (Auto) 0.5L, Monocytes # (Auto) 0.5, Eosinophils # (Auto) 0.1, Basophils # (Auto) 0.0, Immature Granulocyte # (Auto) 0.1, Sodium Level 131L, Potassium Level 4.1, Chloride Level 101, Carbon Dioxide Level 22, Anion Gap 8, Blood Urea Nitrogen 17, Creatinine 0.65, Estimat Glomerular Filtration Rate > 60, BUN/Creatinine Ratio 26, Glucose Level 350H, Calcium Level 8.5 10/19/20 11:41: Glucometer 327H 10/19/20 12:10: SARS-CoV-2 RNA (RT-PCR) [Pending] Clinical Quality Measures Admission Status Admission Status: Observation Short Stay Diagnosis Discharge Diagnosis-Short Stay Final Discharge Diagnosis: 1. Weakness, Confusion and Dizziness related to Small Cell Lung Cancer with Mets to Brain 2. DMII with hyperglycemia due to steroids 3. Hypertension Conclusion Labs Laboratory Tests 10/18/20 13:19: White Blood Count 13.5H, Red Blood Count 4.00, Hemoglobin 10.5L, Hematocrit 34L, Mean Corpuscular Volume 85, Mean Corpuscular Hemoglobin 26, Mean Corpuscular Hemoglobin Concent 31L, Red Cell Distribution Width 17.0H, Platelet Count 481H, Mean Platelet Volume 9.2, Immature Granulocyte % (Auto) 2, Neutrophils (%) (Auto) 85H, Lymphocytes (%) (Auto) 6L, Monocytes (%) (Auto) 6, Eosinophils (%) (Auto) 1, Basophils (%) (Auto) 0, Neutrophils # (Auto) 11.5H, Lymphocytes # (Auto) 0.8L, Monocytes # (Auto) 0.9, Eosinophils # (Auto) 0.1, Basophils # (Auto) 0.0, Immature Granulocyte # (Auto) 0.2H, Neutrophils % (Manual) 86, Lymphocytes % (Manual) 6, Monocytes % (Manual) 5, Eosinophils % (Manual) 0, Basophils % (Manual) 0, Band Neutrophils 3, Anisocytosis SLIGHT, Sodium Level 130L, Potassium Level 4.5, Chloride Level 93L, Carbon Dioxide Level 26, Anion Gap 11, Blood Urea Nitrogen 24H, Creatinine 0.71, Estimat Glomerular Filtration Rate > 60, BUN/Creatinine Ratio 34, Glucose Level 220H, Calcium Level 9.9, Corrected Calcium 10.7H, Total Bilirubin 0.4, Aspartate Amino Transf (AST/SGOT) 17, Alanine Aminotransferase (ALT/SGPT) 26, Alkaline Phosphatase 97, Total Protein 6.5, Albumin 3.0L 10/18/20 14:50: Urine Color YELLOW, Urine Clarity CLEAR, Urine pH 6.0, Urine Specific [place] 1.020, Urine Protein TRACEH, Urine Glucose (UA) NEGATIVE, Urine Ketones NEGATIVE, Urine Nitrite NEGATIVE, Urine Bilirubin NEGATIVE, Urine Urobilinogen 0.2, Urine Leukocyte Esterase TRACEH, Urine RBC (Auto) NEGATIVE, Urine RBC NONE, Urine WBC 5-10H, Urine Squamous Epithelial Cells 10-25H, Urine Crystals NONE, Urine Bacteria FEWH, Urine Casts NONE, Urine Mucus NEGATIVE, Urine Culture Indicated YES 10/19/20 10:09: White Blood Count 6.6, Red Blood Count 4.71, Hemoglobin 12.5, Hematocrit 40, Mean Corpuscular Volume 85, Mean Corpuscular Hemoglobin 27, Mean Corpuscular Hemoglobin Concent 31L, Red Cell Distribution Width 16.8H, Platelet Count 304, Mean Platelet Volume 9.0, Immature Granulocyte % (Auto) 2, Neutrophils (%) (Auto) 82H, Lymphocytes (%) (Auto) 7L, Monocytes (%) (Auto) 8, Eosinophils (%) (Auto) 1, Basophils (%) (Auto) 0, Neutrophils # (Auto) 5.4, Lymphocytes # (Auto) 0.5L, Monocytes # (Auto) 0.5, Eosinophils # (Auto) 0.1, Basophils # (Auto) 0.0, Immature Granulocyte # (Auto) 0.1, Sodium Level 131L, Potassium Level 4.1, Chloride Level 101, Carbon Dioxide Level 22, Anion Gap 8, Blood Urea Nitrogen 17, Creatinine 0.65, Estimat Glomerular Filtration Rate > 60, BUN/Creatinine Ratio 26, Glucose Level 350H, Calcium Level 8.5 10/19/20 11:41: Glucometer 327H 10/19/20 12:10: Conclusion/Plan This is a 69 year old female patient of Dr. 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 She was originally admitted for weakness, dizziness and confusion. She was brought back to the emergency room the day after her discharge after she was found by her nephew to be confused, weak and dizzy. She has been contemplating going into assisted living and the plan was for her to be readmitted under observation status pending either a bed at a [facility] facility or assisted living. She was admitted to the medical floor, she was given IV fluids overnight and her home meds were restarted. By the following day she reported that she felt well enough to go home and did not want to go to the SNF or AL. I encouraged her to go to the SNF for further strengthening while she finished up her radiation. After talking with the protective services social worker from the cancer center and a bed being available at [facility], the patient was agreeable to discharge to the SNF. KELLIE TAPIA DO Oct 19, 2020 13:11
[2020-10-19] MEDS ORDERED: LORA-404 PO (13:24)
--- NOTE | 2020-10-19 13:27 | Discharge Inst-Skilled Nursing ---
Discharge Inst-Skilled NF Reconcile Patient Problems Problems Reviewed?: Yes Patient Instructions Patient Problems: Small Cell Lung Cancer with Mets to Lung DMII with Hyperglycemia Hypertension Goal: Strengthening to return to home Consult/Follow Up/Orders Follow Up Appt.: Daily Radiation Treatments Fwup with Dr. Aleman 1 week Skilled NF Admit to: [facility] Certification ([facility]) I certify that SNF services are required to be given on an inpatient basis because of the above named patient's need for custodial care on a continuing basis for the conditions(s) for which he/she was receiving inpatient hospital services prior to his/her transfer to the SNF. Nursing Home Facility Order: Nursing Services, Manager Of Data-Evaluate & Treat, Physical Therapy-Evaluate & Treat Oxygen Delivery Method: Room Air Discharge Diet: ADA Diet Daily Activity as Tolerated: Yes Resuscitation Status: Full Code New & Resume Previous Orders Kellie Tapia Oct 19, 2020 13:25 KELLIE TAPIA DO Oct 19, 2020 13:27
[2020-10-19 15:47] VITALS: BP 118/69
== END 2020-10-19 15:47 ==
LOC: EDUNIT# 12:48 → ER 12:51 → UNDOADMOB 16:31 → 4TH 16:31 → UNDODISOB 10-19 16:16
PROVIDERS: ADMIT Family Medicine; ATTEND Family Medicine
DX: C34.90 Malignant neoplasm of unspecified part of unspecified bronchus or lung (principal); C79.31 Secondary malignant neoplasm of brain; J44.9 Chronic obstructive pulmonary disease, unspecified; I25.10 Atherosclerotic heart disease of native coronary artery without angina pectoris; I10 Essential (primary) hypertension; E09.40 Drug or chemical induced diabetes mellitus with neurological complications with diabetic neuropathy, unspecified; E09.65 Drug or chemical induced diabetes mellitus with hyperglycemia; E78.00 Pure hypercholesterolemia, unspecified; K21.9 Gastro-esophageal reflux disease without esophagitis; M19.90 Unspecified osteoarthritis, unspecified site; F41.9 Anxiety disorder, unspecified; F32.9 Major depressive disorder, single episode, unspecified; Z79.82 Long term (current) use of aspirin; Z79.899 Other long term (current) drug therapy; Z85.118 Personal history of other malignant neoplasm of bronchus and lung; Z92.21 Personal history of antineoplastic chemotherapy; Z92.3 Personal history of irradiation; Z79.891 Long term (current) use of opiate analgesic; Z79.4 Long term (current) use of insulin; Z90.89 Acquired absence of other organs; Z90.710 Acquired absence of both cervix and uterus; Z98.51 Tubal ligation status; Z80.51 Family history of malignant neoplasm of kidney
CPT/HCPCS: 77412; 80048; 80053; 81000; 82947; 85007; 85025; 85027; 87088; 87636; 94640; 94760; 99284; G0378; 36415

== ENCOUNTER 2020-10-27 15:08 | Emergency (ER) | payer MEDICARE, MEDICAID ==
[~2020-10-27] VITALS: Ht 167 cm; Wt 69.6 kg
[~2020-10-27 15:08] MED LIST changes: +FURO20TA4 PO; +POTA20TA15 PO
[2020-10-27 15:50] LABS: BASOPHILS % (AUTO) 0 % (0-10); EOSINOPHILS % (AUTO) 0 % (0-10); HEMATOCRIT 25 % (35-52); HEMOGLOBIN 7.5 g/dL (11.5-16.0); LYMPHOCYTES # (AUTO) 0.5 10^3/uL (1.0-4.0); LYMPHOCYTES % (AUTO) 4 % (12-44); MEAN CORPUSCULAR HEMOGLOBIN 26 pg (25-34); MEAN CORPUSCULAR HGB CONC 30 g/dL (32-36); MEAN CORPUSCULAR VOLUME 86 fL (80-99); MEAN PLATELET VOLUME 8.9 fL (9.0-12.2); MONOCYTES # (AUTO) 0.2 10^3/uL (0.0-1.0); MONOCYTES % (AUTO) 2 % (0-12); NEUTROPHILS # (AUTO) 11.1 10^3/uL (1.8-7.8); NEUTROPHILS % (AUTO) 93 % (42-75); PLATELET COUNT 387 10^3/uL (130-400); WHITE BLOOD COUNT 11.9 10^3/uL (4.3-11.0)
[2020-10-27 15:57] LABS: ALBUMIN 2.6 GM/DL (3.2-4.5); INR 2.1 (0.8-1.4); POTASSIUM 4.8 MMOL/L (3.6-5.0); PROTHROMBIN TIME PATIENT 24.1 SEC (12.2-14.7)
[2020-10-27 15:58] LABS: CALCIUM 9.5 MG/DL (8.5-10.1)
[2020-10-27 15:59] LABS: TOTAL PROTEIN 6.3 GM/DL (6.4-8.2)
[2020-10-27 16:01] LABS: BILIRUBIN,TOTAL 0.2 MG/DL (0.1-1.0)
[2020-10-27 16:03] LABS: CREATININE SERUM 0.63 MG/DL (0.60-1.30)
[2020-10-27 16:06] LABS: MAGNESIUM 1.8 MG/DL (1.6-2.4)
--- NOTE | 2020-10-27 16:12 | Diagnostic Imaging Report ---
INDICATION: Chest pain Comparison made to the prior study from 10/07/2020. FINDINGS: Left internal jugular port is unchanged. There is no new infiltrate or consolidation. There is no effusion. There is no pneumothorax. Patient's right apical lung mass is not significantly changed. Heart size is stable. Pulmonary vascularity appears appropriate. There is no acute osseous abnormality. IMPRESSION: 1. Unchanged right apical lung mass. 2. No new infiltrate or consolidation. Dictated by: Dictated on workstation # [id number]
[2020-10-27 16:20] LABS: ATYPICAL LYMPHOCYTES 1 %; BAND NEUTROPHILS 4 %; EOSINOPHILS % (MANUAL) 1 %; LYMPHOCYTES % (MANUAL) 3 %; MONOCYTES % (MANUAL) 1 %; NEUTROPHILS % (MANUAL) 90 %
[2020-10-27 16:21] LABS: ANISOCYTOSIS SLIGHT; HYPOCHROMASIA SLIGHT; MICROCYTOSIS MODERATE; POLYCHROMASIA SLIGHT
[2020-10-27 16:53] LABS: BILIRUBIN,URINE NEGATIVE (NEGATIVE); CLARITY,URINE SL CLOUDY; COLOR,URINE YELLOW; GLUCOSE, URINE (UA) NEGATIVE (NEGATIVE); KETONES,URINE NEGATIVE (NEGATIVE); LEUKOCYTE ESTERASE ,URINE NEGATIVE (NEGATIVE); NITRITE,URINE NEGATIVE (NEGATIVE); PH,URINE 6.5 (5-9); PROTEIN,URINE NEGATIVE (NEGATIVE)
--- NOTE | 2020-10-27 16:55 | ED General ---
General Chief Complaint: General Problems/Pain Stated Complaint: WEAKNESS,NAUSEA,DIZZY Nursing Triage Note: C/O LOW BLOOD PRESSURE, WEAKNESS, SOA X 2 DAYS. Source of Information: Patient, Family, Old Records Exam Limitations: No Limitations History of Present Illness Date Seen by Provider: Oct 27, 2020 Time Seen by Provider: 15:30 Initial Comments This is 69-year-old woman with metastatic lung cancer presents to the emergency room with primary complaint of generalized weakness. She is also noted her blood pressure to be low. She has felt worse over the past couple of days. She also feels short of breath and has cough but states these are unchanged from her chronic state. She has been afebrile. She is noted to have anemia requiring transfusion in the past. She is anticoagulated but does not seem to be aware of any blood loss. She finished chemotherapy and most recently finished radiation therapy. She also has history of heart failure and aortic stenosis. Allergies and Home Medications Allergies Coded Allergies: ciprofloxacin (Verified Allergy, Severe, TENDONITIS, 10/18/20) TENDONITIS morphine (Verified Allergy, Severe, RASH/ BURNING SENSATION, 10/18/20) Home Medications Acetaminophen 500 Mg Tablet, 1,000 MG PO Q8H PRN for PAIN-MILD (1-4), (Reported) Albuterol Sulfate 2.5 Mg/3 Ml Vial.neb, 2.5 MG NEB BID PRN for SHORTNESS OF BREATH, (Reported) Albuterol Sulfate 6.7 Gm Hfa.aer.ad, 2 PUFF INH Q4H PRN for SHORTNESS OF BREATH, (Reported) Aspirin 81 Mg Tab.chew, 81 MG PO HS, (Reported) Dexamethasone 4 Mg Tablet, 4 MG PO BID WITH MEALS, (Reported) TAKE TWICE DAILY WITH MEALS X 7 MORE DAYS THEN DECREASE TO DAILY X 3 DAYS THEN 1/2 TAB DAILY X 3 DAYS THEN STOP Duloxetine HCl 30 Mg Capsule.dr, 30 MG PO DAILY, (Reported) Fluticasone Propionate 16 Gm Robbins.susp, 1 SPRAY NSEACH DAILY, (Reported) Fluticasone/Umeclidin/Vilanter 1 Each Blst.w.dev, 1 PUFF INH DAILY, (Reported) Furosemide 20 Mg Tablet, 20 MG PO DAILY, (Reported) Hydrocodone/Acetaminophen 1 Each Tablet, 1 TAB PO Q4H PRN for PAIN-MODERATE (5- 7) Prescribed by: HAYLEE TAPIA on 10/19/20 1324 Insulin Detemir 100 Unit/1 Ml Insuln.pen, 15 UNIT SQ BID, (Reported) Insulin Regular, Human 100 Unit/1 Ml Insuln.pen, 5-7 UNITS SC AC, (Reported) Lorazepam 0.5 Mg Tablet, 0.5 MG PO TID PRN for ANXIETY Prescribed by: HAYLEE TAPIA on 10/19/20 1324 Melatonin 3 Mg Tablet, 6 MG PO HS, (Reported) TAKES 2 (3MG) TABLETS Metformin HCl 500 Mg Tablet, 1,000 MG PO BID, (Reported) TAKES 2 (500MG) TABS LAST FILLED 08-22-2020 #120/30 DAY SUPPLY Metoprolol Tartrate 50 Mg Tablet, 50 MG PO BID, (Reported) Montelukast Sodium 10 Mg Tablet, 10 MG PO DAILY, (Reported) Nystatin 100,000 Unit/1 Ml Oral.susp, 5 ML PO Q8H, (Reported) Ondansetron HCl 8 Mg Tablet, 8 MG PO Q8H PRN for NAUSEA/VOMITING-1ST LINE, (Reported) Pantoprazole Sodium 40 Mg Tablet.dr, 40 MG PO DAILY, (Reported) Potassium Chloride 20 Meq Tab.er.prt, 20 MEQ PO DAILY, (Reported) Rivaroxaban 20 Mg Tablet, 20 MG PO DAILY, (Reported) Ubidecarenone 100 Mg Capsule, 100 MG PO DAILY, (Reported) Patient Home Medication List Home Medication List Reviewed: Yes Review of Systems Review of Systems Constitutional: see HPI EENTM: no symptoms reported Respiratory: see HPI Cardiovascular: see HPI Gastrointestinal: no symptoms reported Genitourinary: no symptoms reported Musculoskeletal: no symptoms reported Skin: no symptoms reported Psychiatric/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: No Symptoms Reported Hematologic/Lymphatic: No Symptoms Reported Past [id number] Hx Patient Social History Tobacco Use?: Yes Tobacco type used: Cigarettes Smoking Status: Current Everyday Smoker Substance use?: No Alcohol Use?: No Pt feels they are or have been: No Immunizations Up To Date Tetanus Booster (TDap): Unknown PED Vaccines UTD: No Seasonal Allergies Seasonal Allergies: No Past Medical History Surgeries: Yes ((shoulder, back sx, knee sc, bilat CTR, breast bx, achilles sx, port)) Angioplasty, Appendectomy, Bowel Surgery, Cardiac, Gallbladder, Hysterectomy, Joint Replacement, Lobectomy, Orthopedic, Tubal Ligation Respiratory: Yes COPD Currently Using CPAP: No Currently Using BIPAP: No Cardiac: Yes (Congestive heart failure) Coronary Artery Disease, High Cholesterol, Hypertension, Valvular Heart Disease (Aortic stenosis) 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: No Neuropathy : No [employer] History: Hysterectomy Genitourinary: No Gastrointestinal: Yes Gastroesophageal Reflux Musculoskeletal: Yes Arthritis Endocrine: Yes Diabetes, Insulin dep HEENT: No Loss of Vision: Denies Hearing Impairment: Denies Cancer: No Lung Did You Recieve Any Treatments: Yes What Type of Treatment Did You: Chemotherapy, Radiation Psychosocial: Yes Anxiety, Depression Integumentary: No Blood Disorders: No Family Medical History Heart Disease, Hypertension Father - NHL diagnosed in his late 60's MGM - renal cancer PGF - lung cancer Physical Exam Vital Signs Vital Signs - First Documented 10/27/20 10/27/20 15:17 17:56 Temp 36.6 Pulse 107 Resp 18 B/P (MAP) 98/53 (68) Pulse Ox 98 O2 Delivery Room Air Capillary Refill : Less Than 3 Seconds Height, Weight, BMI Height: 5'6.00" Weight: 208lbs. 0.0oz. 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 Norm as Tested Skin: Normal Color, Warm/Dry Progress/Results/Core Measures Suspected Sepsis SIRS Temperature: Pulse: 107 Respiratory Rate: 18 Laboratory Tests 10/27/20 15:00: White Blood Count 11.9H Blood Pressure 98 /53 Mean: 68 Laboratory Tests 10/27/20 15:00: Creatinine 0.63, INR Comment 2.1H, Platelet Count 387, Total Bilirubin 0.2 Results/Orders Lab Results Laboratory Tests Test 10/27/20 15:00 10/27/20 16:36 Range/Units White Blood Count 11.9 H 4.3-11.0 10^3/uL Red Blood Count 2.91 L 3.80-5.11 10^6/uL Hemoglobin 7.5 L 11.5-16.0 g/dL Hematocrit 25 L 35-52 % Mean Corpuscular Volume 86 80-99 fL Mean Corpuscular Hemoglobin 26 25-34 pg Mean Corpuscular Hemoglobin Concent 30 L 32-36 g/dL Red Cell Distribution Width 17.5 H 10.0-14.5 % Platelet Count 387 130-400 10^3/uL Mean Platelet Volume 8.9 L 9.0-12.2 fL Immature Granulocyte % (Auto) 1 % Neutrophils (%) (Auto) 93 H 42-75 % Lymphocytes (%) (Auto) 4 L 12-44 % Monocytes (%) (Auto) 2 0-12 % Eosinophils (%) (Auto) 0 0-10 % Basophils (%) (Auto) 0 0-10 % Neutrophils # (Auto) 11.1 H 1.8-7.8 10^3/uL Lymphocytes # (Auto) 0.5 L 1.0-4.0 10^3/uL Monocytes # (Auto) 0.2 0.0-1.0 10^3/uL Eosinophils # (Auto) 0.0 0.0-0.3 10^3/uL Basophils # (Auto) 0.0 0.0-0.1 10^3/uL Immature Granulocyte # (Auto) 0.1 0.0-0.1 10^3/uL Neutrophils % (Manual) 90 % Lymphocytes % (Manual) 3 % Monocytes % (Manual) 1 % Eosinophils % (Manual) 1 % Band Neutrophils 4 % Atypical Lymphocytes 1 % Polychromasia SLIGHT Hypochromasia SLIGHT Anisocytosis SLIGHT Microcytosis MODERATE Prothrombin Time 24.1 H 12.2-14.7 SEC INR Comment 2.1 H 0.8-1.4 Activated Partial Thromboplast Time 60 H 24-35 SEC Sodium Level 136 135-145 MMOL/L Potassium Level 4.8 3.6-5.0 MMOL/L Chloride Level 102 98-107 MMOL/L Carbon Dioxide Level 22 21-32 MMOL/L Anion Gap 12 5-14 MMOL/L Blood Urea Nitrogen 20 H 7-18 MG/DL Creatinine 0.63 0.60-1.30 MG/DL Estimat Glomerular Filtration Rate 94 BUN/Creatinine Ratio 32 Glucose Level 104 70-105 MG/DL Calcium Level 9.5 8.5-10.1 MG/DL Corrected Calcium 10.6 H 8.5-10.1 MG/DL Magnesium Level 1.8 1.6-2.4 MG/DL Total Bilirubin 0.2 0.1-1.0 MG/DL Aspartate Amino Transf (AST/SGOT) 24 5-34 U/L Alanine Aminotransferase (ALT/SGPT) 33 0-55 U/L Alkaline Phosphatase 137 H 40-136 U/L Myoglobin 20.8 10.0-92.0 NG/ML Troponin I < 0.028 <0.028 NG/ML B-Type Natriuretic Peptide 1908.9 H <100.0 PG/ML Total Protein 6.3 L 6.4-8.2 GM/DL Albumin 2.6 L 3.2-4.5 GM/DL Urine Color YELLOW Urine Clarity SL CLOUDY Urine pH 6.5 5-9 Urine Specific [place] 1.020 1.016-1.022 Urine Protein NEGATIVE NEGATIVE Urine Glucose (UA) NEGATIVE NEGATIVE Urine Ketones NEGATIVE NEGATIVE Urine Nitrite NEGATIVE NEGATIVE Urine Bilirubin NEGATIVE NEGATIVE Urine Urobilinogen 0.2 < = 1.0 MG/DL Urine Leukocyte Esterase NEGATIVE NEGATIVE Urine RBC (Auto) NEGATIVE NEGATIVE Urine RBC 0-2 /HPF Urine WBC 2-5 /HPF Urine Squamous Epithelial Cells 5-10 /HPF Urine Renal Epithelial Cells NONE /HPF Urine Crystals NONE /LPF Urine Bacteria TRACE /HPF Urine Casts NONE /LPF Urine Mucus SMALL H /LPF Urine Culture Indicated NO My Orders Orders - KERA KIMBROUGH MD Cbc With Automated Diff (10/27/20 15:33) Magnesium (10/27/20 15:33) Chest 1 View, Ap/Pa Only (10/27/20 15:33) Ekg Tracing (10/27/20 15:33) Comprehensive Metabolic Panel (10/27/20 15:33) Myoglobin Serum (10/27/20 15:33) Protime With Inr (10/27/20 15:33) Partial Thromboplastin Time (10/27/20 15:33) O2 (10/27/20 15:33) Monitor-Rhythm Ecg Trace Only (10/27/20 15:33) Lipid Panel (10/28/20 06:00) Ed Iv/Invasive Line Start (10/27/20 15:33) BNP (10/27/20 15:33) Troponin I (10/27/20 15:33) Manual Differential (10/27/20 15:00) Ua Culture If Indicated (10/27/20 16:22) Red Cells Leukocytes Reduced (10/27/20 16:24) Type And Screen (10/27/20 16:24) Albuterol/Ipra Inhalation Soln (Duoneb I (10/27/20 17:30) Svn Small Volume Nebulizer (10/27/20 17:21) Ns Iv 500 Ml (Sodium Chloride 0.9%) (10/27/20 17:33) Medications Given in ED Current Medications Medications Dose Ordered Sig/Adele Route Start Time Stop Time Status Last Admin Dose Admin Albuterol/ Ipratropium 3 ml ONCE ONCE INH 10/27/20 17:30 10/27/20 17:31 DC 10/27/20 17:58 3 ML Vital Signs/I&O 10/27/20 10/27/20 15:17 17:56 Temp 36.6 Pulse 107 Resp 18 B/P (MAP) 98/53 (68) Pulse Ox 98 98 O2 Delivery Room Air Capillary Refill : Less Than 3 Seconds Blood Pressure Mean: 68 Progress Note : Time: 17:00 Progress Note Patient was found to have significant anemia with hemoglobin of 7.5. With her coronary artery disease and valvular disease she should have a higher hemoglobin and qualifies for transfusion. We will give her 1 unit of packed red blood cells. ECG Initial ECG Impression Date: Oct 27, 2020 Initial ECG Impression Time: 16:00 Initial ECG Rate: 101 Initial ECG Rhythm: S.Tach Comment Sinus tachycardia with no acute ST changes when compared with prior. LVH noted. No abnormal intervals. Diagnostic Imaging Diagonstic Imaging: Xray Plain Films/CT/US/NM/MRI: chest Comments NAME: HEATHER PATHAK Carroll Micromuscle REC#: [id number] PT STATUS: REG ER : 1950 PHYSICIAN: KERA KIMBROUGH MD ADMIT DATE: 10/27/20/ER Draft Date of Exam:10/27/20 CHEST 1 VIEW, AP/PA ONLY INDICATION: Chest pain Comparison made to the prior study from 10/07/2020. FINDINGS: Left internal jugular port is unchanged. There is no new infiltrate or consolidation. There is no effusion. There is no pneumothorax. Patient's right apical lung mass is not significantly changed. Heart size is stable. Pulmonary vascularity appears appropriate. There is no acute osseous abnormality. IMPRESSION: 1. Unchanged right apical lung mass. 2. No new infiltrate or consolidation. Dictated on workstation # [id number] Dict: 10/27/20 1558 Trans: 10/27/20 1612 CV [id number] Interpreted by: WENDY LYNN MD Departure Impression Primary Impression: Anemia Qualified Codes: D64.9 - Anemia, unspecified Additional Impressions: Generalized weakness Metastatic primary lung cancer Qualified Codes: C34.90 - Malignant neoplasm of unspecified part of unspecified bronchus or lung COPD exacerbation Disposition: HOME, SELF-CARE Condition: Improved Departure-Patient Inst. Decision time for Depature: 18:05 Referrals: JUNE SHAHID MD (PCP/Family) Primary Care Physician Patient Instructions: Blood Transfusion , COPD Exacerbation, Adult ED Add. Discharge Instructions: Follow-up with your oncologist and primary care provider soon as possible. Otherwise continue care as previously directed. Call with questions or concerns. Return to the ER if you have worsening symptoms. All discharge instructions reviewed with patient and/or family. Voiced understanding. Copy Copies To 1: ELIJAH SCHROEDER Copies To 2: JUNE SHAHID MD, JOSHUA T MD Oct 27, 2020 16:55
[2020-10-27 17:05] LABS: BACTERIA,URINE TRACE /HPF; RBC,URINE 0-2 /HPF
[2020-10-27] MEDS ORDERED: RT-ALBUTEROL/IPRATROPIUM 3 ML (DUONEB) VIAL INH ONE (17:30)
[2020-10-27] MEDS ORDERED: NS IV 500 ML 500 ML ONE (17:33)
[2020-10-27 17:46] VITALS: BP 116/64
[2020-10-27 17:51] VITALS: BP 121/59
[2020-10-27 19:00] VITALS: BP 127/69
== END 2020-10-27 19:00 | disposition home or self-care (01) ==
LOC: EDUNIT# 15:08 → ER 15:11
DX: C34.90 Malignant neoplasm of unspecified part of unspecified bronchus or lung (principal); D64.9 Anemia, unspecified; J44.1 Chronic obstructive pulmonary disease with (acute) exacerbation; I10 Essential (primary) hypertension; K21.9 Gastro-esophageal reflux disease without esophagitis; E11.9 Type 2 diabetes mellitus without complications; F41.9 Anxiety disorder, unspecified; F32.9 Major depressive disorder, single episode, unspecified; F17.210 Nicotine dependence, cigarettes, uncomplicated; Z79.01 Long term (current) use of anticoagulants; Z79.899 Other long term (current) drug therapy; Z79.82 Long term (current) use of aspirin; Z79.4 Long term (current) use of insulin
CPT/HCPCS: 71045; 80053; 81000; 83735; 83874; 83880; 84484; 85007; 85027; 85610; 85730; 86850; 86900; 86901; 86920; 93005; 93041; 94640; 96360; 99284; P9016; 36415

== ENCOUNTER 2020-11-06 10:54 | Outpatient (RCR) | payer MEDICARE, MEDICAID ==
[2020-08-10 10:03] LABS: BASOPHILS % (AUTO) 0 % (0-10); EOSINOPHILS # (AUTO) 1.1 10^3/uL (0.0-0.3); EOSINOPHILS % (AUTO) 12 % (0-10); HEMATOCRIT 37 % (35-52); HEMOGLOBIN 11.8 g/dL (11.5-16.0); LYMPHOCYTES # (AUTO) 2.2 10^3/uL (1.0-4.0); LYMPHOCYTES % (AUTO) 24 % (12-44); MEAN CORPUSCULAR HEMOGLOBIN 30 pg (25-34); MEAN CORPUSCULAR HGB CONC 32 g/dL (32-36); MEAN CORPUSCULAR VOLUME 92 fL (80-99); MEAN PLATELET VOLUME 8.3 fL (9.0-12.2); MONOCYTES # (AUTO) 0.7 10^3/uL (0.0-1.0); MONOCYTES % (AUTO) 7 % (0-12); NEUTROPHILS # (AUTO) 5.2 10^3/uL (1.8-7.8); NEUTROPHILS % (AUTO) 57 % (42-75); PLATELET COUNT 353 10^3/uL (130-400); WHITE BLOOD COUNT 9.2 10^3/uL (4.3-11.0)
[2020-08-10 10:23] LABS: ALANINE AMINOTRANSFERASE 11 U/L (0-55); ALBUMIN 3.7 GM/DL (3.2-4.5); ALKALINE PHOSPHATASE 66 U/L (40-136); BILIRUBIN,TOTAL 0.3 MG/DL (0.1-1.0); BUN/CREATININE RATIO 10; CALCIUM 9.6 MG/DL (8.5-10.1); CARBON DIOXIDE 25 MMOL/L (21-32); CHLORIDE 101 MMOL/L (98-107); CREATININE SERUM 0.68 MG/DL (0.60-1.30); GFR ESTIMATED > 60; GLUCOSE 189 MG/DL (70-105); SODIUM 135 MMOL/L (135-145)
[2020-08-21 08:58] LABS: BASOPHILS % (AUTO) 0 % (0-10); EOSINOPHILS # (AUTO) 0.2 10^3/uL (0.0-0.3); EOSINOPHILS % (AUTO) 2 % (0-10); HEMATOCRIT 33 % (35-52); HEMOGLOBIN 10.7 g/dL (11.5-16.0); LYMPHOCYTES # (AUTO) 1.2 X 10^3 (1.0-4.0); LYMPHOCYTES % (AUTO) 12 % (12-44); MEAN CORPUSCULAR HEMOGLOBIN 30 pg (25-34); MEAN CORPUSCULAR HGB CONC 32 g/dL (32-36); MEAN CORPUSCULAR VOLUME 92 fL (80-99); MEAN PLATELET VOLUME 8.7 fL (9.0-12.2); MONOCYTES # (AUTO) 0.7 X 10^3 (0.0-1.0); MONOCYTES % (AUTO) 7 % (0-12); NEUTROPHILS # (AUTO) 8.1 X 10^3 (1.8-7.8); NEUTROPHILS % (AUTO) 78 % (42-75); PLATELET COUNT 393 10^3/uL (130-400); WHITE BLOOD COUNT 10.4 10^3/uL (4.3-11.0)
[2020-08-21 09:09] LABS: BUN/CREATININE RATIO 22; CALCIUM 9.4 MG/DL (8.5-10.1); CARBON DIOXIDE 24 MMOL/L (21-32); CHLORIDE 98 MMOL/L (98-107); CREATININE SERUM 0.65 MG/DL (0.60-1.30); GFR ESTIMATED > 60; GLUCOSE 212 MG/DL (70-105); MAGNESIUM 1.5 MG/DL (1.6-2.4); POTASSIUM 3.9 MMOL/L (3.6-5.0); SODIUM 133 MMOL/L (135-145)
[2020-08-27 10:33] LABS: BASOPHILS # (AUTO) 0.1 10^3/uL (0.0-0.1); BASOPHILS % (AUTO) 1 % (0-10); EOSINOPHILS # (AUTO) 0.3 10^3/uL (0.0-0.3); EOSINOPHILS % (AUTO) 4 % (0-10); HEMATOCRIT 31 % (35-52); HEMOGLOBIN 9.6 g/dL (11.5-16.0); LYMPHOCYTES # (AUTO) 1.7 10^3/uL (1.0-4.0); LYMPHOCYTES % (AUTO) 22 % (12-44); MEAN CORPUSCULAR HEMOGLOBIN 30 pg (25-34); MEAN CORPUSCULAR HGB CONC 31 g/dL (32-36); MEAN CORPUSCULAR VOLUME 95 fL (80-99); MEAN PLATELET VOLUME 8.9 fL (9.0-12.2); MONOCYTES # (AUTO) 0.6 10^3/uL (0.0-1.0); MONOCYTES % (AUTO) 7 % (0-12); NEUTROPHILS # (AUTO) 5.2 10^3/uL (1.8-7.8); NEUTROPHILS % (AUTO) 65 % (42-75); PLATELET COUNT 404 10^3/uL (130-400); WHITE BLOOD COUNT 7.9 10^3/uL (4.3-11.0)
[2020-08-27 10:55] LABS: BUN/CREATININE RATIO 13; CARBON DIOXIDE 29 MMOL/L (21-32); CHLORIDE 99 MMOL/L (98-107); CREATININE SERUM 0.61 MG/DL (0.60-1.30); GFR ESTIMATED > 60; GLUCOSE 283 MG/DL (70-105); MAGNESIUM 1.5 MG/DL (1.6-2.4); POTASSIUM 4.3 MMOL/L (3.6-5.0); SODIUM 132 MMOL/L (135-145)
[2020-09-04 08:44] LABS: BASOPHILS # (AUTO) 0.1 10^3/uL (0.0-0.1); BASOPHILS % (AUTO) 1 % (0-10); EOSINOPHILS # (AUTO) 0.2 10^3/uL (0.0-0.3); EOSINOPHILS % (AUTO) 2 % (0-10); HEMATOCRIT 30 % (35-52); HEMOGLOBIN 9.3 g/dL (11.5-16.0); LYMPHOCYTES # (AUTO) 1.6 10^3/uL (1.0-4.0); LYMPHOCYTES % (AUTO) 20 % (12-44); MEAN CORPUSCULAR HEMOGLOBIN 30 pg (25-34); MEAN CORPUSCULAR HGB CONC 31 g/dL (32-36); MEAN CORPUSCULAR VOLUME 96 fL (80-99); MEAN PLATELET VOLUME 8.8 fL (9.0-12.2); MONOCYTES # (AUTO) 0.6 10^3/uL (0.0-1.0); MONOCYTES % (AUTO) 8 % (0-12); NEUTROPHILS # (AUTO) 5.5 10^3/uL (1.8-7.8); NEUTROPHILS % (AUTO) 66 % (42-75); PLATELET COUNT 438 10^3/uL (130-400); WHITE BLOOD COUNT 8.3 10^3/uL (4.3-11.0)
[2020-09-04 09:02] LABS: BUN/CREATININE RATIO 7; CALCIUM 9.3 MG/DL (8.5-10.1); CARBON DIOXIDE 23 MMOL/L (21-32); CHLORIDE 100 MMOL/L (98-107); CREATININE SERUM 0.69 MG/DL (0.60-1.30); GFR ESTIMATED > 60; GLUCOSE 316 MG/DL (70-105); MAGNESIUM 1.6 MG/DL (1.6-2.4); POTASSIUM 3.5 MMOL/L (3.6-5.0); SODIUM 134 MMOL/L (135-145)
[2020-09-10 13:00] LABS: BASOPHILS % (AUTO) 1 % (0-10); EOSINOPHILS # (AUTO) 0.2 10^3/uL (0.0-0.3); EOSINOPHILS % (AUTO) 3 % (0-10); HEMATOCRIT 31 % (35-52); HEMOGLOBIN 9.7 g/dL (11.5-16.0); LYMPHOCYTES # (AUTO) 1.8 10^3/uL (1.0-4.0); LYMPHOCYTES % (AUTO) 21 % (12-44); MEAN CORPUSCULAR HEMOGLOBIN 29 pg (25-34); MEAN CORPUSCULAR HGB CONC 32 g/dL (32-36); MEAN CORPUSCULAR VOLUME 92 fL (80-99); MEAN PLATELET VOLUME 8.5 fL (9.0-12.2); MONOCYTES # (AUTO) 0.9 10^3/uL (0.0-1.0); MONOCYTES % (AUTO) 11 % (0-12); NEUTROPHILS # (AUTO) 5.6 10^3/uL (1.8-7.8); NEUTROPHILS % (AUTO) 64 % (42-75); PLATELET COUNT 454 10^3/uL (130-400); WHITE BLOOD COUNT 8.7 10^3/uL (4.3-11.0)
[2020-09-10 13:20] LABS: ALANINE AMINOTRANSFERASE 12 U/L (0-55); ALBUMIN 3.5 GM/DL (3.2-4.5); ALKALINE PHOSPHATASE 70 U/L (40-136); BILIRUBIN,TOTAL 0.1 MG/DL (0.1-1.0); BUN/CREATININE RATIO 11; CALCIUM 10.1 MG/DL (8.5-10.1); CARBON DIOXIDE 24 MMOL/L (21-32); CHLORIDE 97 MMOL/L (98-107); CREATININE SERUM 0.71 MG/DL (0.60-1.30); GFR ESTIMATED > 60; GLUCOSE 264 MG/DL (70-105); MAGNESIUM 1.4 MG/DL (1.6-2.4); POTASSIUM 3.7 MMOL/L (3.6-5.0); SODIUM 132 MMOL/L (135-145); TOTAL PROTEIN 7.3 GM/DL (6.4-8.2)
[2020-09-17 08:50] LABS: BASOPHILS % (AUTO) 0 % (0-10); EOSINOPHILS # (AUTO) 0.3 10^3/uL (0.0-0.3); EOSINOPHILS % (AUTO) 3 % (0-10); HEMATOCRIT 28 % (35-52); HEMOGLOBIN 8.7 g/dL (11.5-16.0); LYMPHOCYTES # (AUTO) 2.4 10^3/uL (1.0-4.0); LYMPHOCYTES % (AUTO) 23 % (12-44); MEAN CORPUSCULAR HEMOGLOBIN 29 pg (25-34); MEAN CORPUSCULAR HGB CONC 31 g/dL (32-36); MEAN CORPUSCULAR VOLUME 92 fL (80-99); MEAN PLATELET VOLUME 9.1 fL (9.0-12.2); MONOCYTES # (AUTO) 0.7 10^3/uL (0.0-1.0); MONOCYTES % (AUTO) 7 % (0-12); NEUTROPHILS # (AUTO) 6.4 10^3/uL (1.8-7.8); NEUTROPHILS % (AUTO) 64 % (42-75); PLATELET COUNT 436 10^3/uL (130-400); WHITE BLOOD COUNT 10.1 10^3/uL (4.3-11.0)
[2020-09-17 09:10] LABS: BUN/CREATININE RATIO 22; CALCIUM 10.5 MG/DL (8.5-10.1); CARBON DIOXIDE 25 MMOL/L (21-32); CHLORIDE 99 MMOL/L (98-107); CREATININE SERUM 0.64 MG/DL (0.60-1.30); GFR ESTIMATED > 60; GLUCOSE 158 MG/DL (70-105); MAGNESIUM 1.4 MG/DL (1.6-2.4); POTASSIUM 3.9 MMOL/L (3.6-5.0); SODIUM 135 MMOL/L (135-145)
[2020-09-20 12:06] LABS: BUN/CREATININE RATIO 15; CALCIUM 9.9 MG/DL (8.5-10.1); CARBON DIOXIDE 25 MMOL/L (21-32); CHLORIDE 100 MMOL/L (98-107); GFR ESTIMATED > 60; GLUCOSE 200 MG/DL (70-105); MAGNESIUM 1.5 MG/DL (1.6-2.4); POTASSIUM 4.4 MMOL/L (3.6-5.0); SODIUM 134 MMOL/L (135-145)
[2020-09-24 09:04] LABS: BASOPHILS # (AUTO) 0.1 10^3/uL (0.0-0.1); BASOPHILS % (AUTO) 1 % (0-10); EOSINOPHILS # (AUTO) 0.8 10^3/uL (0.0-0.3); EOSINOPHILS % (AUTO) 9 % (0-10); HEMATOCRIT 25 % (35-52); HEMOGLOBIN 7.8 g/dL (11.5-16.0); LYMPHOCYTES # (AUTO) 1.2 10^3/uL (1.0-4.0); LYMPHOCYTES % (AUTO) 14 % (12-44); MEAN CORPUSCULAR HEMOGLOBIN 28 pg (25-34); MEAN CORPUSCULAR HGB CONC 31 g/dL (32-36); MEAN CORPUSCULAR VOLUME 91 fL (80-99); MEAN PLATELET VOLUME 8.9 fL (9.0-12.2); MONOCYTES # (AUTO) 0.6 10^3/uL (0.0-1.0); MONOCYTES % (AUTO) 8 % (0-12); NEUTROPHILS # (AUTO) 5.8 10^3/uL (1.8-7.8); NEUTROPHILS % (AUTO) 68 % (42-75); PLATELET COUNT 472 10^3/uL (130-400); WHITE BLOOD COUNT 8.4 10^3/uL (4.3-11.0)
[2020-09-24 09:27] LABS: BUN/CREATININE RATIO 10; CALCIUM 10.5 MG/DL (8.5-10.1); CARBON DIOXIDE 20 MMOL/L (21-32); CHLORIDE 96 MMOL/L (98-107); CREATININE SERUM 0.67 MG/DL (0.60-1.30); GFR ESTIMATED > 60; GLUCOSE 261 MG/DL (70-105); MAGNESIUM 1.3 MG/DL (1.6-2.4); POTASSIUM 4.7 MMOL/L (3.6-5.0); SODIUM 129 MMOL/L (135-145)
[2020-10-03 10:59] LABS: BASOPHILS # (AUTO) 0.1 10^3/uL (0.0-0.1); BASOPHILS % (AUTO) 1 % (0-10); EOSINOPHILS % (AUTO) 9 % (0-10); HEMATOCRIT 31 % (35-52); HEMOGLOBIN 9.1 g/dL (11.5-16.0); LYMPHOCYTES # (AUTO) 1.2 10^3/uL (1.0-4.0); LYMPHOCYTES % (AUTO) 11 % (12-44); MEAN CORPUSCULAR HEMOGLOBIN 27 pg (25-34); MEAN CORPUSCULAR HGB CONC 30 g/dL (32-36); MEAN CORPUSCULAR VOLUME 90 fL (80-99); MONOCYTES % (AUTO) 9 % (0-12); NEUTROPHILS # (AUTO) 7.8 10^3/uL (1.8-7.8); NEUTROPHILS % (AUTO) 70 % (42-75); PLATELET COUNT 625 10^3/uL (130-400); WHITE BLOOD COUNT 11.1 10^3/uL (4.3-11.0)
[2020-10-03 11:06] LABS: BUN/CREATININE RATIO 11; CALCIUM 12.3 MG/DL (8.5-10.1); CARBON DIOXIDE 24 MMOL/L (21-32); CHLORIDE 96 MMOL/L (98-107); CREATININE SERUM 0.61 MG/DL (0.60-1.30); GFR ESTIMATED > 60; GLUCOSE 121 MG/DL (70-105); MAGNESIUM 1.7 MG/DL (1.6-2.4); POTASSIUM 4.1 MMOL/L (3.6-5.0); SODIUM 130 MMOL/L (135-145)
[2020-10-04 15:22] LABS: ALANINE AMINOTRANSFERASE 17 U/L (0-55); ALBUMIN 3.2 GM/DL (3.2-4.5); ALKALINE PHOSPHATASE 83 U/L (40-136); BILIRUBIN,TOTAL 0.3 MG/DL (0.1-1.0); TOTAL PROTEIN 6.7 GM/DL (6.4-8.2)
[~2020-11-06] VITALS: Ht 167.6 cm; Wt 72.1 kg
[~2020-11-06 10:54] MED LIST changes: +FAMOTIDINE 20MG/2ML IV (CANCER CTR) IV PRN; +FAMOTIDINE 20MG/2ML IV (CANCER CTR) IV SCH; +MAGNESIUM SULFATE (CANCER CTR) 2 GM in NS (IVPB) CANCER CENTER 100 ML IV ONE; +NS IV 1000 ML (CANCER CTR) 1,000 ML ONE; +NS IV 1000 ML (CANCER CTR) IV PRN; +NS IV 1000 ML (CANCER CTR) IV SCH; +NS IV 500 ML (CANCER CENTER) 500 ML ONE; +diphenhydrAMINE 25 MG TAB (BENADRYL) CANCER CENTER PO ONE; +diphenhydrAMINE 50 MG/ML INJ (CANCER CENTER) IV PRN
[2020-11-06] MEDS ORDERED: NS (IVPB) CANCER CENTER 250 ML ONE (11:13)
== END 2020-11-08 | disposition home or self-care (01) ==
LOC: ONC 10:54
PROVIDERS: ATTEND Internal Medicine Hematology & Oncology
DX: Z51.11 Encounter for antineoplastic chemotherapy (principal); C34.11 Malignant neoplasm of upper lobe, right bronchus or lung; I87.2 Venous insufficiency (chronic) (peripheral); I10 Essential (primary) hypertension; E78.5 Hyperlipidemia, unspecified; D64.9 Anemia, unspecified; Z79.02 Long term (current) use of antithrombotics/antiplatelets; Z92.3 Personal history of irradiation; F17.210 Nicotine dependence, cigarettes, uncomplicated; Z79.899 Other long term (current) drug therapy; Z79.82 Long term (current) use of aspirin
CPT/HCPCS: 36430; 36591; 77336; 77417; 80048; 80053; 83735; 85025; 86850; 86900; 86901; 86920; 96360; 96365; 96375; 96413; 96417; 99213